=== PATIENT | male | born 1960 | race Caucasian/White ===

== ENCOUNTER 2022-10-29 13:56 | Observation (INO) | payer BC ==
--- OUTSIDE RECORDS SUMMARY | 2022-10-29 14:18 | XMS REPORT | Continuity of Care Document ---
:1960 Author Organization [facility] [place] t Address [address] [facility] [address] [place] [address] Care Team Providers Name Role Phone LIGIA SABA Primary Care Physician Unavailable HIEU BEACH Attending Clinician Unavailable ANNABEL DELACRUZ Attending Clinician Unavailable LIGIA SABA Attending Clinician Unavailable CELESTINO KWAN Attending Clinician Unavailable Doctor Unassigned, [place] Attending Clinician Unavailable Ligia Cooper Attending Clinician TRINI COLE Attending Clinician Unavailable Lab, Ang - Db Attending Clinician Unavailable ELLI GONZALES Admitting Clinician Unavailable Payers Payer Name Policy Type Policy Number Effective Date Expiration Date S marj BCBS [id number] 2021 00:00:00 POS/PPO/[place] - [id number] 2021 00:00:00 OUT OF STATE Problems Condition Condition Condition Status Onset Resolution Last Treating Co mments Source Name Details Category Date Date Treatment Clinician Date Diarrhea, Diarrhea, Disease Active Uni vers unspecifie unspecifie 08-29 it y of d type d type 00:00: [address] Branch 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 3- ity of 00:00: [address] Bipolar 2 Bipolar 2 Disease Active Uni vers disorder disorder - ity of 00:00: [address] Anxiety Anxiety Disease Active Univers and and 1 ity of depression [place] 00:00: [place] 00 [place] Branch Type 2 Type 2 Disease Active Univers diabetes diabetes 1-25 ity of mellitus mellitus 00:00: [place] with with 00 Medical diabetic diabetic Branch polyneurop polyneurop athy, athy, without without long-term long-term current current use of use of insulin insulin Essential Essential Disease Active Uni vers hypertensi hypertensi 1-25 it y of on on 00:00: [place] [facility] Hyperlipid Hyperlipid Disease Active U nivers emia, emia, 1-25 ity of unspecifie unspecifie 00:00[place] 00 Medical hyperlipid hyperlipid Br anch emia type emia type LUQ pain LUQ pain Disease Active Unive rs 1-25 ity of 00:00: [place] [facility] Nausea Nausea Disease Active Univers 1-25 ity of 00:00: [place] [facility] HIV HIV Disease Active Univers infection, infection, 1-25 it y of unspecifie unspecifie 00:[place] d symptom d symptom 00 Medi kaia status status Branch Need for Need for Disease Active Unive rs hepatitis hepatitis 1-25 ity of C C 00:00: [place] screening screening 00 Medi kaia test test Branch Need for Need for Disease Active Unive rs vaccinatio vaccinatio -25 it y of n n 00:00: [place] 00 Medical Branch Encounter Encounter Disease Active Uni vers to to 1-25 ity of establish establish 00:00: [facility] care care 00 Medical Branch Loss of Loss of Disease Active Univers appetite appetite 1-25 ity of 00:00: [place] [facility] Allergies, Adverse Reactions, Alerts Allergy Allergy Status Severity Reaction(s) Onset Inactive Treating Comm ents Source Name Type Date Date Clinician LITHIUM Allergy Active Med N\\T\\V [facility] [place] [facility] Active Nausea Univers ty to and/or 1-25 ity of adverse Vomiting 00:00: [place] reaction 00 Medical s Branch LITHIUM DRUG Active N/V Univers INGREDI 1-25 ity of 00:00: [place] 00 Medical Branch NO KNOWN Drug Active Univers ALLERGIE Class ity of S [facility] NO KNOWN Allergy Active [facility] ALLERGIE S Social History Social Habit Start Date Stop Date Quantity Comments Source Exposure to 2022-08-19 2022-08-29 Not sure [facility] SARS-CoV-2 (event) 00:00:00 14:36:00 Medica l Branch Sex [birth year] [facility] y of [place] 00:00:00 00:00:00 Medical Branch Smoking Status Start Date Stop Date Source Tobacco smoking consumption [facility] Medical unknown Branch Medications Ordered Filled Start Stop Current Ordering Indication Dosage Frequency Signature Comments Components Source Medication Medication Date Date Medication? Clinician (SIG) Name Name insulin 2022- No 20U inject 20 Univ ers glargine - 03-03 Units ity of 100 unit/mL 15:25: 00:00 under the [place] injection 26 :00 skin at Medical bedtime. Branch insulin 2022- No 20U inject 20 Univ ers glargine - 03-03 Units ity of 100 unit/mL 15:25: 00:00 under the [place] injection 26 :00 skin at Medical bedtime. Branch gabapentin 2022- No 300mg Take 300 U nivers 300 mg - 03-03 mg by ity of capsule 15:25: 00:00 mouth in [place] 01 :00 the Medical morning Branch and 300 mg at noon and 300 mg in the evening. gabapentin 2022- No 300mg Take 300 U nivers 300 mg 08-29 03-03 mg by ity of capsule 15:25: 00:00 mouth in [place] 01 :00 the Medical morning Branch and 300 mg at noon and 300 mg in the evening. metFORMIN 2022- Yes [id number] 1000mg Take 1 Univers 1,000 mg 24 3-03 tablet by ity of hr tablet 00:00: [facility] Branch and 1 tablet in the evening. Take with meals. pantoprazol 2022-0 Yes [id number] 40mg Take 1 Univers e 3-03 tablet by ity of (PROTONIX) 00:00: mouth in [place] 40 mg EC 00 the Medical tablet morning. Branch dulaglutide 2022- Yes [id number] .75mg inject 1 Univers (TRULICITY) 3-03 Pen under ity of 0.75 mg/0.5 00:00: [place] mL PnIj 00 weekly. Medical Branch metFORMIN 3-0 Yes [id number] 1000mg Take 1 Univers 1,000 mg 24 3-03 tablet by ity of hr tablet 00:00: [place] 00 the Medical morning Branch and 1 tablet in the evening. Take with meals. pantoprazol 2023-0 Yes [id number] 40mg Take 1 Univers e 3-03 tablet by ity of (PROTONIX) 00:00: mouth in [place] 40 mg EC 00 the Medical tablet morning. Branch dulaglutide 2022-0 Yes [id number] .75mg inject 1 Univers (TRULICITY) 3-03 Pen under ity of 0.75 mg/0.5 00:00: the skin [place] mL PnIj 00 weekly. Medical Branch metFORMIN 2022-0 Yes [id number] 1000mg Take 1 Univers 1,000 mg 24 3-03 tablet by ity of hr tablet 00:00: [place] 00 the Medical morning Branch and 1 tablet in the evening. Take with meals. PANTOPRAZOL 3-0 Yes [id number] 40mg TAKE 1 Univers E 40 mg EC 3-03 TABLET BY ity of tablet 00:00: MOUTH IN [place] 00 THE Medical MORNING Branch dulaglutide 3-0 Yes [id number] .75mg inject 1 Univers (TRULICITY) 3-03 Pen under ity of 0.75 mg/0.5 00:00: [place] mL PnIj 00 weekly. Medical Branch metFORMIN 3-0 Yes [id number] 1000mg Take 1 Univers 1,000 mg 24 3-03 tablet by ity of hr tablet 00:00: [place] 00 the Medical morning Branch and 1 tablet in the evening. Take with meals. PANTOPRAZOL 3-0 Yes [id number] 40mg TAKE 1 Univers E 40 mg EC 3-03 TABLET BY ity of tablet 00:00: MOUTH IN [place] 00 THE Medical MORNING Branch dulaglutide 2023-0 Yes [id number] .75mg inject 1 Univers (TRULICITY) 3-03 Pen under ity of 0.75 mg/0.5 00:00: [place] skin [place] mL PnIj 00 weekly. Medical Branch metFORMIN 3-0 Yes [id number] 1000mg Take 1 Univers 1,000 mg 24 3-03 tablet by ity of hr tablet 00:00: [place] 00 the Medical morning Branch and 1 tablet in the evening. Take with meals. PANTOPRAZOL 2023-0 Yes [id number] 40mg TAKE 1 Univers E 40 mg EC 3-03 TABLET BY ity of tablet 00:00: MOUTH IN [place] 00 THE Medical MORNING Branch dulaglutide 2023-0 Yes [id number] .75mg inject 1 Univers (TRULICITY) 3-03 Pen under ity of 0.75 mg/0.5 00:00: the [place] mL PnIj 00 weekly. Medical Branch metFORMIN 2023-0 Yes [id number] 1000mg Take 1 Univers 1,000 mg 24 3-03 tablet by ity of hr tablet 00:00: [place] 00 the Medical morning Branch and 1 tablet in the evening. Take with meals. PANTOPRAZOL 3-0 Yes [id number] 40mg TAKE 1 Univers E 40 mg EC 3-03 TABLET BY ity of tablet 00:00: MOUTH IN [place] 00 THE Medical MORNING Branch dulaglutide 3-0 Yes [id number] .75mg inject 1 Univers (TRULICITY) 3-03 Pen under ity of 0.75 mg/0.5 00:00: the skin [place] mL PnIj 00 weekly. Medical Branch metFORMIN 3-0 Yes [id number] 1000mg Take 1 Univers 1,000 mg 24 3-03 tablet by ity of hr tablet 00:00: [place] 00 the Medical morning Branch and 1 tablet in the evening. Take with meals. PANTOPRAZOL 2023-0 Yes [id number] 40mg TAKE 1 Univers E 40 mg EC 3-03 TABLET BY ity of tablet 00:00: MOUTH IN [place] 00 THE Medical MORNING Branch dulaglutide 3-0 Yes [id number] .75mg inject 1 Univers (TRULICITY) 3-03 Pen under ity of 0.75 mg/0.5 00:00: the skin [place] mL PnIj 00 weekly. Medical Branch metFORMIN 2023-0 Yes [id number] 1000mg Take 1 Univers 1,000 mg 24 3-03 tablet by ity of hr tablet 00:00: [place] 00 the Medical morning Branch and 1 tablet in the evening. Take with meals. PANTOPRAZOL 2023-0 Yes [id number] 40mg TAKE 1 Univers E 40 mg EC 3-03 TABLET BY ity of tablet 00:00: MOUTH IN [place] 00 THE Medical MORNING Branch dulaglutide Yes [id number] .75mg inject 1 Univers (TRULICITY) 3-03 Pen under ity of 0.75 mg/0.5 00:00: the skin [place] mL PnIj 00 weekly. Medical Branch metFORMIN Yes [id number] 1000mg Take 1 Univers 1,000 mg 24 3-03 tablet by ity of hr tablet 00:00: mouth in [facility] 00 the Medical morning Branch and 1 tablet in the evening. Take with meals. PANTOPRAZOL Yes [id number] 40mg TAKE 1 Univers E 40 mg EC 3-03 TABLET BY ity of tablet 00:00: MOUTH IN [place] 00 THE Medical MORNING Branch dulaglutide Yes [id number] .75mg inject 1 Univers (TRULICITY) 3-03 Pen under ity of 0.75 mg/0.5 00:00: the skin [place] mL PnIj 00 weekly. Medical Branch pantoprazol 2022- No [id number] 40mg Take 1 Univers e 3-03 03-03 tablet by ity of (PROTONIX) 00:00: 00:00 mouth in [place] 40 mg EC 00 :00 the Medical tablet morning. Branch pantoprazol 0 2022- No [id number] 40mg Take 1 Univers e 3-03 03-03 tablet by ity of (PROTONIX) 00:00: 00:00 mouth in [place] 40 mg EC 00 :00 the Medical tablet morning. Branch bictegrav-e Yes [id number] 1{tbl} Take 1 Univers mtricit-ten 1-27 tablet by ity of ofov ala 00:00: mouth in [place] (BIKTARVY) 00 the Medical 50-200-25 morning. Branch mg tablet traZODone Yes [id number] 200mg Take 2 U nivers 100 mg 1-27 tablets by ity of tablet 00:00: mouth at [place] 00 bedtime. Medical Branch bictegrav-e Yes [id number] 1{tbl} Take 1 Univers mtricit-ten 1-27 tablet by ity of ofov ala 00:00: mouth in [place] (KTARVY) 00 the Medical morning. Branch mg tablet bictegrav-e 3-0 Yes [id number] 1{tbl} Take 1 Univers mtricit-ten 1-27 tablet by ity of ofov ala 00:00: mouth in [place] (BIKTARVY) 00 the Medical morning. Branch mg tablet traZODone 3-0 Yes [id number] 200mg Take 2 U nivers 100 mg 1-27 tablets by ity of tablet 00:00: mouth at [place] 00 bedtime. Medical Branch bictegrav-e 3-0 Yes [id number] 1{tbl} Take 1 Univers mtricit-ten 1-27 tablet by ity of ofov ala 00:00: mouth in [place] (KTARVY) 00 the Medical morning. Branch mg tablet traZODone 3-0 Yes [id number] 200mg Take 2 U nivers 100 mg 1-27 tablets by ity of tablet 00:00: mouth at [place] 00 bedtime. Medical Branch bictegrav-e 3-0 Yes [id number] 1{tbl} Take 1 Univers mtricit-ten 1-27 tablet by ity of ofov ala 00:00: mouth in [place] (KTAR) 00 the Medical morning. Branch mg tablet traZODone 3-0 Yes [id number] 200mg Take 2 U nivers 100 mg 1-27 tablets by ity of tablet 00:00: mouth at [place] 00 bedtime. Medical Branch bictegrav-e 3-0 Yes [id number] 1{tbl} Take 1 Univers mtricit-ten 1-27 tablet by ity of ofov ala 00:00: mouth in [place] (BIKTARVY) 00 the Medical morning. Branch mg tablet bictegrav-e 3-0 Yes [id number] 1{tbl} Take 1 Univers mtricit-ten 1-27 tablet by ity of ofov ala 00:00: mouth in [place] (BIKTARVY) 00 the Medical morning. Branch mg tablet traZODone 2023-0 Yes [id number] 200mg Take 2 U nivers 100 mg 1-27 tablets by ity of tablet 00:00: mouth at [place] 00 bedtime. Medical Branch bictegrav-e 2022-0 Yes [id number] 1{tbl} Take 1 Univers mtricit-ten 1-27 tablet by ity of ofov ala 00:00: mouth in [place] (BIKTARVY) 00 the Medical morning. Branch mg tablet traZODone 3-0 Yes [id number] 200mg Take 2 U nivers 100 mg 1-27 tablets by ity of tablet 00:00: mouth at [place] 00 bedtime. Medical Branch bictegrav-e 2022-0 Yes [id number] 1{tbl} Take 1 Univers mtricit-ten 1-27 tablet by ity of ofov ala 00:00: mouth in [place] (BIKTARVY) 00 the Medical morning. Branch mg tablet traZODone 3-0 Yes [id number] 200mg Take 2 U nivers 100 mg 1-27 tablets by ity of tablet 00:00: mouth at [place] 00 bedtime. Medical Branch bictegrav-e 2022-0 Yes [id number] 1{tbl} Take 1 Univers mtricit-ten 1-27 tablet by ity of ofov ala 00:00: mouth in [place] (KTARV) 00 the Medical morning. Branch mg tablet traZODone 3-0 Yes [id number] 200mg Take 2 U nivers 100 mg 1-27 tablets by ity of tablet 00:00: mouth at [place] 00 bedtime. Medical Branch bictegrav-e 2022-0 Yes [id number] 1{tbl} Take 1 Univers mtricit-ten 1-27 tablet by ity of ofov ala 00:00: mouth in [place] (BIKTARVY) 00 the Medical morning. Branch mg tablet traZODone 3-0 Yes [id number] 200mg Take 2 U nivers 100 mg 1-27 tablets by ity of tablet 00:00: mouth at [place] 00 bedtime. Medical Branch bictegrav-e 2022-0 Yes [id number] 1{tbl} Take 1 Univers mtricit-ten 1-27 tablet by ity of ofov ala 00:00: mouth in [place] (BIKTARVY) 00 the Medical morning. Branch mg tablet traZODone 2022-0 Yes [id number] 200mg Take 2 U nivers 100 mg 1-27 tablets by ity of tablet 00:00: mouth at [place] 00 bedtime. Medical Branch bictegrav-e 2022-0 Yes [id number] 1{tbl} Take 1 Univers mtricit-ten 1-27 tablet by ity of ofov ala 00:00: mouth in [place] ([facility] 00 the Medical morning. Branch mg tablet traZODone 2022-0 Yes [id number] 200mg Take 2 U nivers 100 mg 1-27 tablets by ity of tablet 00:00: mouth at [place] 00 bedtime. Medical Branch bictegrav-e 2022-0 Yes [id number] 1{tbl} Take 1 Univers mtricit-ten 1-27 tablet by ity of ofov ala 00:00: mouth in [place] ([facility]) 00 the Medical morning. Branch mg tablet traZODone 2022-0 Yes [id number] 200mg Take 2 U nivers 100 mg 1-27 tablets by ity of tablet 00:00: mouth at [place] 00 bedtime. Medical Branch bictegrav-e 2022-0 Yes [id number] 1{tbl} Take 1 Univers mtricit-ten 1-27 tablet by ity of ofov ala 00:00: mouth in [place] ([facility] 00 the Medical morning. Branch mg tablet traZODone 2022-0 Yes [id number] 200mg Take 2 U nivers 100 mg 1-27 tablets by ity of tablet 00:00: mouth at [place] 00 bedtime. Medical Branch bictegrav-e 2022-0 Yes [id number] 1{tbl} Take 1 Univers mtricit-ten 1-27 tablet by ity of ofov ala 00:00: mouth in [place] ([facility]) 00 the Medical morning. Branch mg tablet traZODone 3-0 Yes [id number] 200mg Take 2 U nivers 100 mg 1-27 tablets by ity of tablet 00:00: mouth at [place] 00 bedtime. Medical Branch bictegrav-e 2022-0 Yes [id number] 1{tbl} Take 1 Univers mtricit-ten 1-27 tablet by ity of ofov ala 00:00: mouth in [place] (BIKTARVY) 00 the Medical 50 morning. Branch mg tablet traZODone 3-0 Yes [id number] 200mg Take 2 U nivers 100 mg 1-27 tablets by ity of tablet 00:00: mouth at [place] 00 bedtime. Medical Branch bictegrav-e 2022-0 Yes [id number] 1{tbl} Take 1 Univers mtricit-ten 1-27 tablet by ity of ofov ala 00:00: mouth in [place] (BIKTARVY) 00 the Medical morning. Branch mg tablet traZODone 2022-0 Yes [id number] 200mg Take 2 U nivers 100 mg 1-27 tablets by ity of tablet 00:00: mouth at [place] 00 bedtime. Medical Branch bictegrav-e 2022-0 Yes [id number] 1{tbl} Take 1 Univers mtricit-ten 1-27 tablet by ity of ofov ala 00:00: mouth in [place] (BIKTARVY) 00 the Medical morning. Branch mg tablet traZODone 2022-0 Yes [id number] 200mg Take 2 U nivers 100 mg 1-27 tablets by ity of tablet 00:00: mouth at [place] 00 bedtime. Medical Branch traZODone 2022- No 200mg Take 200 Un gely 100 mg -23 07-25 mg by ity of tablet 13:32: 00:00 mouth at [place] 34 :00 bedtime. Medical Branch PARoxetine 2022-0 2022- No 30mg Take 30 mg Univers 30 mg 07-23 by mouth ity of tablet 13:32: 00:00 in the [place] 34 :00 morning. Medical Branch hydrOXYzine 2022-0 2022- No 25mg Take 25 mg Univers 25 mg 07-23 by mouth ity of tablet 13:32: 00:00 as needed [place] 34 :00 for Medical Itching. Branch empaglifloz 2022-0 2022- No 10mg Take 10 mg Univers in 07-23 by mouth ity of (JARDIANCE) 13:32: 00:00 in the [place] 10 mg 34 :00 morning. Medical Branch metFORMIN 2022-0 3- No 1000mg Take 1,000 Univers 1,000 mg 1-25 -25 mg by ity of tablet 13:32: 00:00 mouth in [place] 34 :00 the Medical morning Branch and 1,000 mg in the evening. Take with meals. lisinopriL 2022-0 3- No 10mg Take 10 mg Univers 10 mg -23 07-25 by mouth ity of tablet 13:32: 00:00 in the [place] 34 :00 morning. Medical Branch atorvastati 2022-2022- No 80mg Take 80 mg Univers n 80 mg 07-2325 by mouth ity of tablet 13:32: 00:00 at [place] 34 :00 bedtime. Medical Branch traZODone 2022-2022- No 200mg Take 200 Un gely 100 mg -25 -25 mg by ity of tablet 13:32: 00:00 mouth at [place] 34 :00 bedtime. Medical Branch PARoxetine 2022-0 2022- No 30mg Take 30 mg Univers 30 mg 07-23 by mouth ity of tablet 13:32: 00:00 in the [place] 34 :00 morning. Medical Branch hydrOXYzine 2022-0 2022- No 25mg Take 25 mg Univers 25 mg 07-2325 by mouth ity of tablet 13:32: 00:00 as needed [place] 34 :00 for Medical Itching. Branch empaglifloz 2022-2022- No 10mg Take 10 mg Univers in 07-23 by mouth ity of (JARDIANCE) 13:32: 00:00 in the [place] 10 mg 34 :00 morning. Medical Branch metFORMIN 2022-0 2022- No 1000mg Take 1,000 Univers 1,000 mg 1-25 -25 mg by ity of tablet 13:32: 00:00 mouth in [place] 34 :00 the Medical morning Branch and 1,000 mg in the evening. Take with meals. lisinopriL 2022-0 3- No 10mg Take 10 mg Univers 10 mg -25 -25 by mouth ity of tablet 13:32: 00:00 in the [place] 34 :00 morning. Medical Branch atorvastati 2022-0 3- No 80mg Take 80 mg Univers n 80 mg 1-25 01-25 by mouth ity of tablet 13:32: 00:00 at [place] 34 :00 bedtime. Medical Branch NITROGLYCER 3-[address] Unive rs IN SL 1-25 under the ity of 13:26: tongue. [place] [address] Medical Branch NITROGLYCER 3-[address] Unive rs IN SL 1-25 under the ity of 13:26: tongue. [place] [address] Medical Branch NITROGLYCER 2022-[address] Unive rs IN SL 1-25 under the ity of 13:26: tongue. [place] [address] Medical Branch NITROGLYCER 3-[address] Unive rs IN SL 1-25 under the ity of 13:26: tongue. [place] [address] Medical Branch NITROGLYCER 2022-[address] Unive rs IN SL 1-25 under the ity of 13:26: tongue. [place] [address] Medical Branch NITROGLYCER 3-[address] Unive rs IN SL 1-25 under the ity of 13:26: tongue. [place] [address] Medical Branch NITROGLYCER 2022-[address] Unive rs IN SL 1-25 under the ity of 13:26: tongue. [place] [address] Medical Branch NITROGLYCER 3-[address] Unive rs IN SL 1-25 under the ity of 13:26: tongue. [place] [address] Medical Branch NITROGLYCER 2022-[address] Unive rs IN SL 1-25 under the ity of 13:26: tongue. [place] [address] Medical Branch NITROGLYCER 3-[address] Unive rs IN SL 1-25 under the ity of 13:26: tongue. [place] [address] Medical Branch NITROGLYCER 202-[address] Unive rs IN SL 1-25 under the ity of 13:26: tongue. [place] [address] Medical Branch NITROGLYCER 2023-[address] Unive rs IN SL 1-25 under the ity of 13:26: tongue. [place] [address] Medical Branch NITROGLYCER 2023-[address] Unive rs IN SL 1-25 under the ity of 13:26: tongue. [place] [address] Medical Branch NITROGLYCER 2023-[address] Unive rs IN SL 1-25 under the ity of 13:26: tongue. [place] [address] Medical Branch NITROGLYCER 2023-[address] Unive rs IN SL 1-25 under the ity of 13:26: tongue. [place] [address] Medical Branch NITROGLYCER 2023-[address] Unive rs IN SL 1-25 under the ity of 13:26: tongue. [place] [address] Medical Branch NITROGLYCER 3-[address] Unive rs IN SL 1-25 under the ity of 13:26: tongue. [place] [address] Medical Branch NITROGLYCER 3-[address] Unive rs IN SL 1-25 under the ity of 13:26: tongue. [place] [address] Medical Branch NITROGLYCER 2023-[address] Unive rs IN SL 1-25 under the ity of 13:26: tongue. [place] [address] Medical Branch NITROGLYCER 3-[address] Unive rs IN SL 1-25 under the ity of 13:26: tongue. [place] [address] Medical Branch NITROGLYCER 3-[address] Unive rs IN SL 1-25 under the ity of 13:26: tongue. [place] [address] Medical Branch NITROGLYCER 3-[address] Unive rs IN SL 1-25 under the ity of 13:26: tongue. [place] [address] Medical Branch NITROGLYCER 3-[address] Unive rs IN SL 1-25 under the ity of 13:26: tongue. [place] [address] Medical Branch NITROGLYCER 3-[address] Unive rs IN SL 1-25 under the ity of 13:26: tongue. [place] [address] Medical Branch NITROGLYCER 3-[address] Unive rs IN SL 1-25 under the ity of 13:26: tongue. [place] [address] Medical Branch NITROGLYCER 3-[address] Unive rs IN SL 1-25 under the ity of 13:26: tongue. [place] [address] Medical Branch NITROGLYCER 3-[address] Unive rs IN SL 1-25 under the ity of 13:26: tongue. [place] [address] Medical Branch NITROGLYCER 2023-[address] Unive rs IN SL 1-25 under the ity of 13:26: tongue. [place] [address] Medical Branch NITROGLYCER 2023-[address] Unive rs IN SL 1-25 under the ity of 13:26: tongue. [place] [address] Medical Branch NITROGLYCER 2023-[address] Unive rs IN SL 1-25 under the ity of 13:26: tongue. [place] [address] Medical Branch gabapentin 3-0 Yes 300mg Take 300 Un gely 300 mg 1-25 mg by ity of capsule 13:26: mouth in [place] [address] the Medical morning Branch and 300 mg at noon and 300 mg in the evening. insulin 2023-0 Yes 20U inject 20 Unive rs glargine 1-25 Units ity of 100 unit/mL 13:26: under the [place] injection 26 skin at Medical bedtime. Branch gabapentin 2023-0 Yes 300mg Take 300 Un gely 300 mg 1-25 mg by ity of capsule 13:26: mouth in [place] [address] the Medical morning Branch and 300 mg at noon and 300 mg in the evening. insulin 2023-0 Yes 20U inject 20 Unive rs glargine 1-25 Units ity of 100 unit/mL 13:26: under the [place] injection 26 skin at Medical bedtime. Branch gabapentin 2023-0 Yes 300mg Take 300 Un gely 300 mg 1-25 mg by ity of capsule 13:26: mouth in [place] [address] the Medical morning Branch and 300 mg at noon and 300 mg in the evening. insulin 2023-0 Yes 20U inject 20 Unive rs glargine 1-25 Units ity of 100 unit/mL 13:26: under the [place] injection 26 skin at Medical bedtime. Branch gabapentin 2023-0 Yes 300mg Take 300 Un gely 300 mg 1-25 mg by ity of capsule 13:26: mouth in [place] [address] the Medical morning Branch and 300 mg at noon and 300 mg in the evening. insulin 2023-0 Yes 20U inject 20 Unive rs glargine 1-25 Units ity of 100 unit/mL 13:26: under the [place] injection 26 skin at Medical bedtime. Branch gabapentin 2023-0 Yes 300mg Take 300 Un gely 300 mg 1-25 mg by ity of capsule 13:26: mouth in [place] [address] the Medical morning Branch and 300 mg at noon and 300 mg in the evening. insulin 2023-0 Yes 20U inject 20 Unive rs glargine 1-25 Units ity of 100 unit/mL 13:26: under the [place] injection 26 skin at Medical bedtime. Branch gabapentin 2023-0 Yes 300mg Take 300 Un gely 300 mg 1-25 mg by ity of capsule 13:26: mouth in [place] [address] the Medical morning Branch and 300 mg at noon and 300 mg in the evening. insulin 2023-0 Yes 20U inject 20 Unive rs glargine 1-25 Units ity of 100 unit/mL 13:26: under the [place] injection 26 skin at Medical bedtime. Branch gabapentin 2023-0 Yes 300mg Take 300 Un gely 300 mg 1-25 mg by ity of capsule 13:26: mouth in [place] [address] the Medical morning Branch and 300 mg at noon and 300 mg in the evening. insulin 2023-0 Yes 20U inject 20 Unive rs glargine 1-25 Units ity of 100 unit/mL 13:26: under the [place] injection 26 skin at Medical bedtime. Branch gabapentin 2023-0 Yes 300mg Take 300 Un gely 300 mg 1-25 mg by ity of capsule 13:26: mouth in [place] [address] the Medical morning Branch and 300 mg at noon and 300 mg in the evening. insulin 2023-0 Yes 20U inject 20 Unive rs glargine 1-25 Units ity of 100 unit/mL 13:26: under the [place] injection 26 skin at Medical bedtime. Branch gabapentin 2023-0 Yes 300mg Take 300 Un gely 300 mg 1-25 mg by ity of capsule 13:26: mouth in [place] [address] the Medical morning Branch and 300 mg at noon and 300 mg in the evening. insulin 2023-0 Yes 20U inject 20 Unive rs glargine 1-25 Units ity of 100 unit/mL 13:26: under the [place] injection 26 skin at Medical bedtime. Branch gabapentin 2023-0 Yes 300mg Take 300 Un gely 300 mg 1-25 mg by ity of capsule 13:26: mouth in [place] [address] the Medical morning Branch and 300 mg at noon and 300 mg in the evening. insulin 2023-0 Yes 20U inject 20 Unive rs glargine 1-25 Units ity of 100 unit/mL 13:26: under the [place] injection 26 skin at Medical bedtime. Branch gabapentin 2023-0 Yes 300mg Take 300 Un gely 300 mg 1-25 mg by ity of capsule 13:26: mouth in [place] [address] the Medical morning Branch and 300 mg at noon and 300 mg in the evening. insulin 2023-0 Yes 20U inject 20 Unive rs glargine 1-25 Units ity of 100 unit/mL 13:26: under the [place] injection 26 skin at Medical bedtime. Branch gabapentin 2023-0 Yes 300mg Take 300 Un gely 300 mg 1-25 mg by ity of capsule 13:26: mouth in [place] [address] the Medical morning Branch and 300 mg at noon and 300 mg in the evening. insulin 2023-0 Yes 20U inject 20 Unive rs glargine 1-25 Units ity of 100 unit/mL 13:26: under the [place] injection 26 skin at Medical bedtime. Branch gabapentin 2023-0 Yes 300mg Take 300 Un gely 300 mg 1-25 mg by ity of capsule 13:26: mouth in [place] [address] the Medical morning Branch and 300 mg at noon and 300 mg in the evening. insulin 2023-0 Yes 20U inject 20 Unive rs glargine 1-25 Units ity of 100 unit/mL 13:26: under the [place] injection 26 skin at Medical bedtime. Branch gabapentin 2023-0 Yes 300mg Take 300 Un gely 300 mg 1-25 mg by ity of capsule 13:26: mouth in [place] [address] the [facility] morning Branch and 300 mg at noon and 300 mg in the evening. insulin 2023-0 Yes 20U inject 20 Unive rs glargine 1-25 Units ity of 100 unit/mL 13:26: under the [place] injection 26 skin at Medical bedtime. Branch gabapentin 2023-0 Yes 300mg Take 300 Un gely 300 mg 1-25 mg by ity of capsule 13:26: mouth in [place] [address] the [facility] morning Branch and 300 mg at noon and 300 mg in the evening. insulin 2023-0 Yes 20U inject 20 Unive rs glargine 1-25 Units ity of 100 unit/mL 13:26: under the [place] injection 26 skin at Medical bedtime. Branch gabapentin 2023-0 Yes 300mg Take 300 Un gely 300 mg 1-25 mg by ity of capsule 13:26: mouth in [place] [address] the [facility] morning Branch and 300 mg at noon and 300 mg in the evening. insulin 2023-0 Yes 20U inject 20 Unive rs glargine 1-25 Units ity of 100 unit/mL 13:26: under the [place] injection 26 skin at Medical bedtime. Branch gabapentin 2023-0 Yes 300mg Take 300 Un gely 300 mg 1-25 mg by ity of capsule 13:26: mouth in [place] [address] the Medical morning Branch and 300 mg at noon and 300 mg in the evening. insulin 2023-0 Yes 20U inject 20 Unive rs glargine 1-25 Units ity of 100 unit/mL 13:26: under the [place] injection 26 skin at Medical bedtime. Branch gabapentin 2023-0 Yes 300mg Take 300 Un gely 300 mg 1-25 mg by ity of capsule 13:26: mouth in [place] [address] the Medical morning Branch and 300 mg at noon and 300 mg in the evening. insulin 2023-0 Yes 20U inject 20 Unive rs glargine 1-25 Units ity of 100 unit/mL 13:26: under the [place] injection 26 skin at Medical bedtime. Branch gabapentin 2023-0 Yes 300mg Take 300 Un gely 300 mg 1-25 mg by ity of capsule 13:26: mouth in [place] [address] the Medical morning Branch and 300 mg at noon and 300 mg in the evening. insulin 3-0 Yes 20U inject 20 Unive rs glargine 1-25 Units ity of 100 unit/mL 13:26: under the [place] injection 26 skin at Medical bedtime. Branch gabapentin 2022-0 Yes 300mg Take 300 Un gely 300 mg 1-25 mg by ity of capsule 13:26: mouth in [place] [address] the Medical morning Branch and 300 mg at noon and 300 mg in the evening. insulin 2023-0 Yes 20U inject 20 Unive rs glargine 1-25 Units ity of 100 unit/mL 13:26: under the [place] injection 26 skin at Medical bedtime. Branch gabapentin 3-0 Yes 300mg Take 300 Un gely 300 mg 1-25 mg by ity of capsule 13:26: mouth in [place] [address] the Medical morning Branch and 300 mg at noon and 300 mg in the evening. insulin 2023-0 Yes 20U inject 20 Unive rs glargine 1-25 Units ity of 100 unit/mL 13:26: under the [place] injection 26 skin at Medical bedtime. Branch bictegrav/e 2023-0 Yes Take by Uni vers mtricit/ten 1-25 mouth. ity of ofov ala 13:23: [place] (BIKTARVY 50 Medical ORAL) Branch bictegrav/e 2022-0 Yes Take by Uni vers mtricit/ten 1-25 mouth. ity of ofov ala 13:23: [place] (BIKTARVY 50 Medical ORAL) Branch bictegrav/e 2022-0 Yes Take by Uni vers mtricit/ten 1-25 mouth. ity of ofov ala 13:23: [place] (BIKTARVY 50 Medical ORAL) Branch bictegrav/e 0 Yes Take by Uni vers mtricit/ten 1-25 mouth. ity of ofov ala 13:23: [place] (BIKTARVY 50 Medical ORAL) Branch bictegrav/e 0 Yes Take by Uni vers mtricit/ten 1-25 mouth. ity of ofov ala 13:23: [place] (BIKTARVY 50 Medical ORAL) Branch bictegrav/e 0 Yes Take by Uni vers mtricit/ten 1-25 mouth. ity of ofov ala 13:23: [place] (BIKTARVY 50 Medical ORAL) Branch bictegrav/e 0 Yes Take by Uni vers mtricit/ten 1-25 mouth. ity of ofov ala 13:23: [place] (BIKTARVY 50 Medical ORAL) Branch bictegrav/e 0 Yes Take by Uni vers mtricit/ten 1-25 mouth. ity of ofov ala 13:23: [place] (BIKTARVY 50 Medical ORAL) Branch bictegrav/e 0 Yes Take by Uni vers mtricit/ten 1-25 mouth. ity of ofov ala 13:23: [place] (BIKTARVY 50 Medical ORAL) Branch bictegrav/e 0 Yes Take by Uni vers mtricit/ten 1-25 mouth. ity of ofov ala 13:23: [place] (BIKTARVY 50 Medical ORAL) Branch bictegrav/e 0 Yes Take by Uni vers mtricit/ten 1-25 mouth. ity of ofov ala 13:23: [place] (BIKTARVY 50 Medical ORAL) Branch bictegrav/e 0 Yes Take by Uni vers mtricit/ten 1-25 mouth. ity of ofov ala 13:23: [place] (BIKTARVY 50 Medical ORAL) Branch bictegrav/e 2022-0 Yes Take by Uni vers mtricit/ten 1-25 mouth. ity of ofov ala 13:23: [place] (BIKTARVY 50 Medical ORAL) Branch bictegrav/e 2022-0 Yes Take by Uni vers mtricit/ten 1-25 mouth. ity of ofov ala 13:23: [place] (BIKTARVY 50 Medical ORAL) Branch bictegrav/e 2022-0 Yes Take by Uni vers mtricit/ten 1-25 mouth. ity of ofov ala 13:23: [place] (BIKTARVY 50 Medical ORAL) Branch bictegrav/e 2022-0 Yes Take by Uni vers mtricit/ten 1-25 mouth. ity of ofov ala 13:23: [place] (BIKTARVY 50 Medical ORAL) Branch bictegrav/e 2022-0 Yes Take by Uni vers mtricit/ten 1-25 mouth. ity of ofov ala 13:23: [place] (BIKTARVY 50 Medical ORAL) Branch bictegrav/e 2022-0 Yes Take by Uni vers mtricit/ten 1-25 mouth. ity of ofov ala 13:23: [place] (BIKTARVY 50 Medical ORAL) Branch bictegrav/e 2022-0 Yes Take by Uni vers mtricit/ten 1-25 mouth. ity of ofov ala 13:23: [place] (BIKTARVY 50 Medical ORAL) Branch bictegrav/e 2022-0 Yes Take by Uni vers mtricit/ten 1-25 mouth. ity of ofov ala 13:23: [place] (BIKTARVY 50 Medical ORAL) Branch bictegrav/e 2022-0 Yes Take by Uni vers mtricit/ten 1-25 mouth. ity of ofov ala 13:23: [place] (BIKTARVY 50 Medical ORAL) Branch bictegrav/e 2022-0 Yes Take by Uni vers mtricit/ten 1-25 mouth. ity of ofov ala 13:23: [place] (BIKTARVY 50 Medical ORAL) Branch bictegrav/e 2022-0 Yes Take by Uni vers mtricit/ten 1-25 mouth. ity of ofov ala 13:23: [place] (BIKTARVY 50 Medical ORAL) Branch bictegrav/e 2023-0 Yes Take by Uni vers mtricit/ten 1-25 mouth. ity of ofov ala 13:23: [place] (BIKTARVY 50 Medical ORAL) Branch bictegrav/e Yes Take by Uni vers mtricit/ten 1-25 mouth. ity of ofov ala 13:23: [place] (BIKTARVY 50 Medical ORAL) Branch bictegrav/e Yes Take by Uni vers mtricit/ten 1-25 mouth. ity of ofov ala 13:23: [place] (BIKTARVY 50 Medical ORAL) Branch bictegrav/e Yes Take by Uni vers mtricit/ten 1-25 mouth. ity of ofov ala 13:23: [place] (BIKTARVY 50 Medical ORAL) Branch bictegrav/e Yes Take by Uni vers mtricit/ten 1-25 mouth. ity of ofov ala 13:23: [place] (BIKTARVY 50 Medical ORAL) Branch bictegrav/e Yes Take by Uni vers mtricit/ten 1-25 mouth. ity of ofov ala 13:23: [place] (BIKTARVY 50 Medical ORAL) Branch bictegrav/e Yes Take by Uni vers mtricit/ten 1-25 mouth. ity of ofov ala 13:23: [place] (BIKTARVY 50 Medical ORAL) Branch atorvastati Yes [id number] 80mg Take 1 Univers n 80 mg 1-25 tablet by ity of tablet 00:00: mouth at [place] [address] bedtime. Medical Branch lisinopriL Yes [id number] 10mg Take 1 U nivers 10 mg 1-25 tablet by ity of tablet 00:00: mouth in [place] 00 the Medical morning. Branch metFORMIN Yes [id number] 1000mg Take 1 [facility] 1,000 mg 1-25 tablet by ity of tablet 00:00: mouth in [place] 00 the Medical morning Branch and 1 tablet in the evening. Take with meals. traZODone Yes [id number] 200mg Take 2 U nivers 100 mg 1-25 tablets by ity of tablet 00:00: mouth at [place] 00 bedtime. Medical Branch PARoxetine Yes [id number] 30mg Take 1 U nivers 30 mg 1-25 tablet by ity of tablet 00:00: mouth in [place] 00 the Medical morning. Branch empaglifloz 2022-0 Yes [id number] 10mg Take 1 [facility] in 1-25 tablet by ity of ([place]ARD[place]) 00:00: mouth in [place] 10 mg 00 the Medical morning Branch and 1 tablet in the evening. hydrOXYzine 2022-0 Yes [id number] 25mg Take 1 [facility] 25 mg 1-25 tablet by ity of tablet 00:00: mouth as [place] 00 needed for Medical Itching. Branch atorvastati 2022-0 Yes [id number] 80mg Take 1 [facility] n 80 mg 1-25 tablet by ity of tablet 00:00: mouth at [place] 00 bedtime. Medical Branch lisinopriL 2022-0 Yes [id number] 10mg Take 1 U nivers 10 mg 1-25 tablet by ity of tablet 00:00: mouth in [place] 00 the Medical morning. Branch metFORMIN 2022-0 Yes [id number] 1000mg Take 1 [facility] 1,000 mg 1-25 tablet by ity of tablet 00:00: mouth in [place] 00 the Medical morning Branch and 1 tablet in the evening. Take with meals. traZODone 2022-0 Yes [id number] 200mg Take 2 U nivers 100 mg 1-25 tablets by ity of tablet 00:00: mouth at [place] [address] bedtime. Medical Branch PARoxetine 2022-0 Yes [id number] 30mg Take 1 U nivers 30 mg 1-25 tablet by ity of tablet 00:00: mouth in [place] 00 the Medical morning. Branch empaglifloz 2022-0 Yes [id number] 10mg Take 1 [facility] in 1-25 tablet by ity of (JARDIANCE) 00:00: mouth in [place] 10 mg 00 the Medical morning Branch and 1 tablet in the evening. hydrOXYzine 2022-0 Yes [id number] 25mg Take 1 [facility] 25 mg 1-25 tablet by ity of tablet 00:00: mouth as [place] 00 needed for Medical Itching. Branch atorvastati 2022-0 Yes [id number] 80mg Take 1 [facility] n 80 mg 1-25 tablet by ity of tablet 00:00: mouth at [place] [address] bedtime. Medical Branch lisinopriL 2022-0 Yes [id number] 10mg Take 1 U nivers 10 mg 1-25 tablet by ity of tablet 00:00: mouth in [place] 00 the Medical morning. Branch metFORMIN 2022-0 Yes [id number] 1000mg Take 1 [facility] 1,000 mg 1-25 tablet by ity of tablet 00:00: mouth in [place] the Medical morning Branch and 1 tablet in the evening. Take with meals. traZODone 2022-0 Yes [id number] 200mg Take 2 U nivers 100 mg 1-25 tablets by ity of tablet 00:00: mouth at [place] [address] bedtime. Medical Branch PARoxetine 2022-0 Yes [id number] 30mg Take 1 U nivers 30 mg 1-25 tablet by ity of tablet 00:00: mouth in [place] 00 the Medical morning. Branch empaglifloz 2022-0 Yes [id number] 10mg Take 1 [facility] in 1-25 tablet by ity of ([place]) 00:00: mouth in [place] 10 mg 00 the Medical morning Branch and 1 tablet in the evening. hydrOXYzine 2022-0 Yes [id number] 25mg Take 1 [facility] 25 mg 1-25 tablet by ity of tablet 00:00: mouth as [place] [address] needed for Medical Itching. Branch atorvastati 2022-0 Yes [id number] 80mg Take 1 [facility] n 80 mg 1-25 tablet by ity of tablet 00:00: mouth at [place] [address] bedtime. Medical Branch lisinopriL 2022-0 Yes [id number] 10mg Take 1 U nivers 10 mg 1-25 tablet by ity of tablet 00:00: mouth in [place] 00 the Medical morning. Branch metFORMIN 2022-0 Yes [id number] 1000mg Take 1 [facility] 1,000 mg 1-25 tablet by ity of tablet 00:00: mouth in [place] 00 the Medical morning Branch and 1 tablet in the evening. Take with meals. traZODone 2022-0 Yes [id number] 200mg Take 2 U nivers 100 mg 1-25 tablets by ity of tablet 00:00: mouth at [place] [address] bedtime. Medical Branch PARoxetine 2022-0 Yes [id number] 30mg Take 1 U nivers 30 mg 1-25 tablet by ity of tablet 00:00: mouth in [place] [address] the Medical morning. Branch hydrOXYzine 2022-0 Yes [id number] 25mg Take 1 [facility] 25 mg 1-25 tablet by ity of tablet 00:00: mouth as [place] 00 needed for Medical Itching. Branch empaglifloz 2022-0 Yes [id number] 25mg Take 1 [facility] in 1-25 tablet by ity of ([place]) 00:00: mouth in [place] 25 mg Tab 00 the Medical morning. Branch glimepiride 2022-0 Yes [id number] 2mg Take 1 [facility] 2 mg tablet 1-25 tablet by ity of 00:00: mouth [place] 00 daily with Medical breakfast. Branch atorvastati 2022-0 Yes [id number] 80mg Take 1 Univers n 80 mg 1-25 tablet by ity of tablet 00:00: mouth at [place] 00 bedtime. Medical Branch lisinopriL 2022-0 Yes [id number] 10mg Take 1 U nivers 10 mg 1-25 tablet by ity of tablet 00:00: mouth in [place] 00 the Medical morning. Branch metFORMIN 2022-0 Yes [id number] 1000mg Take 1 Univers 1,000 mg 1-25 tablet by ity of tablet 00:00: mouth in [place] 00 the Medical morning Branch and 1 tablet in the evening. Take with meals. traZODone 2022-0 Yes [id number] 200mg Take 2 U nivers 100 mg 1-25 tablets by ity of tablet 00:00: mouth at [place] 00 bedtime. Medical Branch PARoxetine 2022-0 Yes [id number] 30mg Take 1 U nivers 30 mg 1-25 tablet by ity of tablet 00:00: mouth in [place] 00 the Medical morning. Branch hydrOXYzine 2022-0 Yes [id number] 25mg Take 1 [facility] 25 mg 1-25 tablet by ity of tablet 00:00: mouth as [place] 00 needed for Medical Itching. Branch empaglifloz 2022-0 Yes [id number] 25mg Take 1 [facility] in 1-25 tablet by ity of ([place]) 00:00: mouth in [place] 25 mg Tab 00 the Medical morning. Branch glimepiride 2022-0 Yes [id number] 2mg Take 1 [facility] 2 mg tablet 1-25 tablet by ity of 00:00: mouth [place] 00 daily with Medical breakfast. Branch atorvastati 2022-0 Yes [id number] 80mg Take 1 [facility] n 80 mg 1-25 tablet by ity of tablet 00:00: mouth at [place] [address] bedtime. Medical Branch lisinopriL 2022-0 Yes [id number] 10mg Take 1 U nivers 10 mg 1-25 tablet by ity of tablet 00:00: mouth in [place] 00 the Medical morning. Branch metFORMIN 2022-0 Yes [id number] 1000mg Take 1 [facility] 1,000 mg 1-25 tablet by ity of tablet 00:00: mouth in [place] 00 the Medical morning Branch and 1 tablet in the evening. Take with meals. traZODone 2022-0 Yes [id number] 200mg Take 2 U nivers 100 mg 1-25 tablets by ity of tablet 00:00: mouth at [place] [address] bedtime. Medical Branch PARoxetine 2022-0 Yes [id number] 30mg Take 1 U nivers 30 mg 1-25 tablet by ity of tablet 00:00: mouth in [place] 00 the Medical morning. Branch hydrOXYzine 2022-0 Yes [id number] 25mg Take 1 [facility] 25 mg 1-25 tablet by ity of tablet 00:00: mouth as [place] [address] needed for Medical Itching. Branch empaglifloz 2022-0 Yes [id number] 25mg Take 1 [facility] in 1-25 tablet by ity of ([place]) 00:00: mouth in [place] 25 mg Tab 00 the Medical morning. Branch glimepiride 2022-0 Yes [id number] 2mg Take 1 [facility] 2 mg tablet 1-25 tablet by ity of 00:00: mouth [place] 00 daily with Medical breakfast. Branch atorvastati 2022-0 Yes [id number] 80mg Take 1 [facility] n 80 mg 1-25 tablet by ity of tablet 00:00: mouth at [place] [address] bedtime. Medical Branch lisinopriL 2022-0 Yes [id number] 10mg Take 1 U nivers 10 mg 1-25 tablet by ity of tablet 00:00: mouth in [place] 00 the Medical morning. Branch metFORMIN 2022-0 Yes [id number] 1000mg Take 1 [facility] 1,000 mg 1-25 tablet by ity of tablet 00:00: mouth in [place] 00 the Medical morning Branch and 1 tablet in the evening. Take with meals. traZODone 2022-0 Yes [id number] 200mg Take 2 U nivers 100 mg 1-25 tablets by ity of tablet 00:00: mouth at [place] [address] bedtime. Medical Branch PARoxetine 2022-0 Yes [id number] 30mg Take 1 U nivers 30 mg 1-25 tablet by ity of tablet 00:00: mouth in [place] 00 the Medical morning. Branch hydrOXYzine 3-0 Yes [id number] 25mg Take 1 [facility] 25 mg 1-25 tablet by ity of tablet 00:00: mouth as [place] 00 needed for Medical Itching. Branch empaglifloz 2022-0 Yes [id number] 25mg Take 1 [facility] in 1-25 tablet by ity of ([place]) 00:00: mouth in [place] 25 mg Tab 00 the Medical morning. Branch glimepiride 2022-0 Yes [id number] 2mg Take 1 [facility] 2 mg tablet 1-25 tablet by ity of 00:00: mouth [place] 00 daily with Medical breakfast. Branch atorvastati 2022-0 Yes [id number] 80mg Take 1 [facility] n 80 mg 1-25 tablet by ity of tablet 00:00: mouth at [place] [address] bedtime. Medical Branch lisinopriL 2022-0 Yes [id number] 10mg Take 1 U nivers 10 mg 1-25 tablet by ity of tablet 00:00: mouth in [place] 00 the Medical morning. Branch metFORMIN 2022-0 Yes [id number] 1000mg Take 1 [facility] 1,000 mg 1-25 tablet by ity of tablet 00:00: mouth in [place] 00 the Medical morning Branch and 1 tablet in the evening. Take with meals. traZODone 3-0 Yes [id number] 200mg Take 2 U nivers 100 mg 1-25 tablets by ity of tablet 00:00: mouth at [place] [address] bedtime. Medical Branch PARoxetine 2022-0 Yes [id number] 30mg Take 1 U nivers 30 mg 1-25 tablet by ity of tablet 00:00: mouth in [place] 00 the Medical morning. Branch hydrOXYzine 3-0 Yes [id number] 25mg Take 1 [facility] 25 mg 1-25 tablet by ity of tablet 00:00: mouth as [place] [address] needed for Medical Itching. Branch empaglifloz 3-0 Yes [id number] 25mg Take 1 [facility] in 1-25 tablet by ity of ([place]) 00:00: mouth in [place] 25 mg Tab 00 the Medical morning. Branch glimepiride 2022-0 Yes [id number] 2mg Take 1 [facility] 2 mg tablet 1-25 tablet by ity of 00:00: mouth [place] 00 daily with Medical breakfast. Branch atorvastati 2022-0 Yes [id number] 80mg Take 1 [facility] n 80 mg 1-25 tablet by ity of tablet 00:00: mouth at [place] [address] bedtime. Medical Branch lisinopriL 2022-0 Yes [id number] 10mg Take 1 U nivers 10 mg 1-25 tablet by ity of tablet 00:00: mouth in [place] 00 the Medical morning. Branch metFORMIN 2022-0 Yes [id number] 1000mg Take 1 [facility] 1,000 mg 1-25 tablet by ity of tablet 00:00: mouth in [place] 00 the Medical morning Branch and 1 tablet in the evening. Take with meals. PARoxetine 2022-0 Yes [id number] 30mg Take 1 U nivers 30 mg 1-25 tablet by ity of tablet 00:00: mouth in [place] 00 the Medical morning. Branch hydrOXYzine 2022-0 Yes [id number] 25mg Take 1 [facility] 25 mg 1-25 tablet by ity of tablet 00:00: mouth as [place] 00 needed for Medical Itching. Branch empaglifloz 2022-0 Yes [id number] 25mg Take 1 [facility] in 1-25 tablet by ity of ([place]) 00:00: mouth in [place] 25 mg Tab 00 the Medical morning. Branch glimepiride 2022-0 Yes [id number] 2mg Take 1 [facility] 2 mg tablet 1-25 tablet by ity of 00:00: mouth [place] 00 daily with Medical breakfast. Branch atorvastati 2022-0 Yes [id number] 80mg Take 1 [facility] n 80 mg 1-25 tablet by ity of tablet 00:00: mouth at [place] [address] bedtime. Medical Branch lisinopriL 2022-0 Yes [id number] 10mg Take 1 U nivers 10 mg 1-25 tablet by ity of tablet 00:00: mouth in [place] 00 the Medical morning. Branch metFORMIN 2022-0 Yes [id number] 1000mg Take 1 [facility] 1,000 mg 1-25 tablet by ity of tablet 00:00: mouth in [place] 00 the Medical morning Branch and 1 tablet in the evening. Take with meals. PARoxetine 2023-0 Yes [id number] 30mg Take 1 U nivers 30 mg 1-25 tablet by ity of tablet 00:00: mouth in [place] 00 the Medical morning. Branch hydrOXYzine 2022-0 Yes [id number] 25mg Take 1 [facility] 25 mg 1-25 tablet by ity of tablet 00:00: mouth as [place] 00 needed for Medical Itching. Branch empaglifloz 2022-0 Yes [id number] 25mg Take 1 [facility] in 1-25 tablet by ity of ([place]) 00:00: mouth in [place] 25 mg Tab 00 the Medical morning. Branch glimepiride 2022-0 Yes [id number] 2mg Take 1 [facility] 2 mg tablet 1-25 tablet by ity of 00:00: mouth [place] 00 daily with Medical breakfast. Branch atorvastati 2022-0 Yes [id number] 80mg Take 1 [facility] n 80 mg 1-25 tablet by ity of tablet 00:00: mouth at [place] 00 bedtime. Medical Branch lisinopriL 2022-0 Yes [id number] 10mg Take 1 U nivers 10 mg 1-25 tablet by ity of tablet 00:00: mouth in [place] 00 the Medical morning. Branch metFORMIN 2022-0 Yes [id number] 1000mg Take 1 [facility] 1,000 mg 1-25 tablet by ity of tablet 00:00: mouth in [place] 00 the Medical morning Branch and 1 tablet in the evening. Take with meals. PARoxetine 2022-0 Yes [id number] 30mg Take 1 U nivers 30 mg 1-25 tablet by ity of tablet 00:00: mouth in [place] 00 the Medical morning. Branch hydrOXYzine 2022-0 Yes [id number] 25mg Take 1 [facility] 25 mg 1-25 tablet by ity of tablet 00:00: mouth as [place] 00 needed for Medical Itching. Branch empaglifloz 2022-0 Yes [id number] 25mg Take 1 [facility] in 1-25 tablet by ity of ([place]) 00:00: mouth in [place] 25 mg Tab 00 the Medical morning. Branch glimepiride 2022-0 Yes [id number] 2mg Take 1 [facility] 2 mg tablet 1-25 tablet by ity of 00:00: mouth [place] 00 daily with Medical breakfast. Branch atorvastati 2022-0 Yes [id number] 80mg Take 1 [facility] n 80 mg 1-25 tablet by ity of tablet 00:00: mouth at [place] [address] bedtime. Medical Branch lisinopriL 2022-0 Yes [id number] 10mg Take 1 U nivers 10 mg 1-25 tablet by ity of tablet 00:00: mouth in [place] 00 the Medical morning. Branch metFORMIN 2022-0 Yes [id number] 1000mg Take 1 [facility] 1,000 mg 1-25 tablet by ity of tablet 00:00: mouth in [place] 00 the Medical morning Branch and 1 tablet in the evening. Take with meals. PARoxetine 2022-0 Yes [id number] 30mg Take 1 [facility] nivers 30 mg 1-25 tablet by ity of tablet 00:00: mouth in [place] 00 the Medical morning. Branch hydrOXYzine 2022-0 Yes [id number] 25mg Take 1 [facility] 25 mg 1-25 tablet by ity of tablet 00:00: mouth as [place] [address] needed for Medical Itching. Branch empaglifloz 2022-0 Yes [id number] 25mg Take 1 [facility] in 1-25 tablet by ity of ([place]) 00:00: mouth in [place] 25 mg Tab 00 the Medical morning. Branch glimepiride 2022-0 Yes [id number] 2mg Take 1 [facility] 2 mg tablet 1-25 tablet by ity of 00:00: mouth [place] 00 daily with Medical breakfast. Branch atorvastati 2022-0 Yes [id number] 80mg Take 1 [facility] n 80 mg 1-25 tablet by ity of tablet 00:00: mouth at [place] [address] bedtime. Medical Branch lisinopriL 2022-0 Yes [id number] 10mg Take 1 U nivers 10 mg 1-25 tablet by ity of tablet 00:00: mouth in [place] 00 the Medical morning. Branch metFORMIN 2022-0 Yes [id number] 1000mg Take 1 [facility] 1,000 mg 1-25 tablet by ity of tablet 00:00: mouth in [place] 00 the Medical morning Branch and 1 tablet in the evening. Take with meals. PARoxetine 2022-0 Yes [id number] 30mg Take 1 [facility] nivers 30 mg 1-25 tablet by ity of tablet 00:00: mouth in [place] 00 the Medical morning. Branch hydrOXYzine 2022-0 Yes [id number] 25mg Take 1 [facility] 25 mg 1-25 tablet by ity of tablet 00:00: mouth as [place] 00 needed for Medical Itching. Branch empaglifloz 2022-0 Yes [id number] 25mg Take 1 [facility] in 1-25 tablet by ity of ([place]) 00:00: mouth in [place] 25 mg Tab 00 the Medical morning. Branch glimepiride 2022-0 Yes [id number] 2mg Take 1 [facility] 2 mg tablet 1-25 tablet by ity of 00:00: mouth [place] 00 daily with Medical breakfast. Branch atorvastati 2022-0 Yes [id number] 80mg Take 1 [facility] n 80 mg 1-25 tablet by ity of tablet 00:00: mouth at [place] 00 bedtime. Medical Branch lisinopriL 2022-0 Yes [id number] 10mg Take 1 U nivers 10 mg 1-25 tablet by ity of tablet 00:00: mouth in [place] 00 the Medical morning. Branch metFORMIN 2022-0 Yes [id number] 1000mg Take 1 [facility] 1,000 mg 1-25 tablet by ity of tablet 00:00: mouth in [place] 00 the Medical morning Branch and 1 tablet in the evening. Take with meals. PARoxetine 2022-0 Yes [id number] 30mg Take 1 [facility] nivers 30 mg 1-25 tablet by ity of tablet 00:00: mouth in [place] 00 the Medical morning. Branch hydrOXYzine 2022-0 Yes [id number] 25mg Take 1 [facility] 25 mg 1-25 tablet by ity of tablet 00:00: mouth as [place] 00 needed for Medical Itching. Branch empaglifloz 2022-0 Yes [id number] 25mg Take 1 [facility] in 1-25 tablet by ity of ([place]) 00:00: mouth in [place] 25 mg Tab 00 the Medical morning. Branch glimepiride 2022-0 Yes [id number] 2mg Take 1 [facility] 2 mg tablet 1-25 tablet by ity of 00:00: mouth [place] 00 daily with Medical breakfast. Branch atorvastati 2022-0 Yes [id number] 80mg Take 1 [facility] n 80 mg 1-25 tablet by ity of tablet 00:00: mouth at [place] 00 bedtime. Medical Branch lisinopriL 2022-0 Yes [id number] 10mg Take 1 [facility] nivers 10 mg 1-25 tablet by ity of tablet 00:00: mouth in [place] 00 the Medical morning. Branch metFORMIN 2022-0 Yes [id number] 1000mg Take 1 [facility] 1,000 mg 1-25 tablet by ity of tablet 00:00: mouth in [place] 00 the Medical morning Branch and 1 tablet in the evening. Take with meals. PARoxetine 2022-0 Yes [id number] 30mg Take 1 [facility] 30 mg 1-25 tablet by [facility] tablet 00:00: mouth in [place] 00 the Medical morning. Branch hydrOXYzine 2022-0 Yes [id number] 25mg Take 1 [facility] 25 mg 1-25 tablet by [facility] tablet 00:00: mouth as [place] 00 needed for Medical Itching. Branch empaglifloz 2022-0 Yes [id number] 25mg Take 1 [facility] 1-25 tablet by [facility] ([place]) 00:00: mouth in [place] 25 mg Tab 00 the Medical morning. Branch glimepiride 2022-0 Yes [id number] 2mg Take 1 [facility] 2 mg tablet 1-25 tablet by [facility] of 00:00: mouth [place] 00 daily with Medical breakfast. Branch atorvastati 2022-0 Yes [id number] 80mg Take 1 [facility] n 80 mg 1-25 tablet by [facility] of tablet 00:00: mouth at [place] 00 bedtime. Medical Branch lisinopriL 2022-0 Yes [id number] 10mg Take 1 [facility] 10 mg 1-25 tablet by [facility] of tablet 00:00: mouth in [place] 00 the Medical morning. Branch metFORMIN 2022-0 Yes [id number] 1000mg Take 1 [facility] 1,000 mg 1-25 tablet by [facility] of tablet 00:00: mouth in [place] 00 the Medical morning Branch and 1 tablet in the evening. Take with meals. PARoxetine 3-0 Yes [id number] 30mg Take 1 [facility] 30 mg 1-25 tablet by [facility] tablet 00:00: mouth in [place] 00 the Medical morning. Branch hydrOXYzine 2022-0 Yes [id number] 25mg Take 1 [facility] 25 mg 1-25 tablet by [facility] of tablet 00:00: mouth as [place] 00 needed for Medical Itching. Branch empaglifloz 2022-0 Yes [id number] 25mg Take 1 [facility] in 1-25 tablet by [facility] of ([place]) 00:00: mouth in [place] 25 mg Tab 00 the Medical morning. Branch glimepiride 2022-0 Yes [id number] 2mg Take 1 [facility] 2 mg tablet 1-25 tablet by [facility] of 00:00: mouth [place] 00 daily with Medical breakfast. Branch atorvastati 2022-0 Yes [id number] 80mg Take 1 [facility] n 80 mg 1-25 tablet by [facility] of tablet 00:00: mouth at [place] 00 bedtime. Medical Branch lisinopriL 2022-0 Yes [id number] 10mg Take 1 [facility] 10 mg 1-25 tablet by [facility] of tablet 00:00: mouth in [place] 00 the Medical morning. Branch metFORMIN 2022-0 Yes [id number] 1000mg Take 1 [facility] 1,000 mg 1-25 tablet by [facility] of tablet 00:00: mouth in [place] 00 the Medical morning Branch and 1 tablet in the evening. Take with meals. PARoxetine 2022-0 Yes [id number] 30mg Take 1 [facility] 30 mg 1-25 tablet by [facility] tablet 00:00: mouth in [place] 00 the Medical morning. Branch hydrOXYzine 2022-0 Yes [id number] 25mg Take 1 [facility] 25 mg 1-25 tablet by [facility] tablet 00:00: mouth as [place] 00 needed for Medical Itching. Branch empaglifloz 2022-0 Yes [id number] 25mg Take 1 [facility] in 1-25 tablet by [facility] ([place]) 00:00: mouth in [place] 25 mg Tab 00 the Medical morning. Branch glimepiride 2022-0 Yes [id number] 2mg Take 1 [facility] 2 mg tablet 1-25 tablet by [facility] of 00:00: mouth [place] 00 daily with Medical breakfast. Branch atorvastati 2022-0 Yes [id number] 80mg Take 1 [facility] n 80 mg 1-25 tablet by [facility] of tablet 00:00: mouth at [place] [address] bedtime. Medical Branch lisinopriL 2022-0 Yes [id number] 10mg Take 1 [facility] 10 mg 1-25 tablet by [facility] of tablet 00:00: mouth in [place] 00 the Medical morning. Branch metFORMIN 2022-0 Yes [id number] 1000mg Take 1 [facility] 1,000 mg 1-25 tablet by [facility] of tablet 00:00: mouth in [place] 00 the Medical morning Branch and 1 tablet in the evening. Take with meals. PARoxetine 2022-0 Yes [id number] 30mg Take 1 [facility] 30 mg 1-25 tablet by [facility] tablet 00:00: mouth in [place] 00 the Medical morning. Branch hydrOXYzine 2022-0 Yes [id number] 25mg Take 1 [facility] 25 mg 1-25 tablet by [facility] of tablet 00:00: mouth as [place] 00 needed for Medical Itching. Branch empaglifloz 2022-0 Yes [id number] 25mg Take 1 [facility] in 1-25 tablet by [facility] ([place]) 00:00: mouth in [place] 25 mg Tab 00 the Medical morning. Branch glimepiride 2022-0 Yes [id number] 2mg Take 1 [facility] 2 mg tablet 1-25 tablet by [facility] of 00:00: mouth [place] 00 daily with Medical breakfast. Branch atorvastati 2022-0 Yes [id number] 80mg Take 1 [facility] n 80 mg 1-25 tablet by [facility] of tablet 00:00: mouth at [place] 00 bedtime. Medical Branch lisinopriL 2022-0 Yes [id number] 10mg Take 1 [facility] 10 mg 1-25 tablet by [facility] of tablet 00:00: mouth in [place] 00 the Medical morning. Branch metFORMIN 2022-0 Yes [id number] 1000mg Take 1 [facility] 1,000 mg 1-25 tablet by [facility] of tablet 00:00: mouth in [place] 00 the Medical morning Branch and 1 tablet in the evening. Take with meals. PARoxetine 2022-0 Yes [id number] 30mg Take 1 [facility] 30 mg 1-25 tablet by [facility] of tablet 00:00: mouth in [place] 00 the Medical morning. Branch hydrOXYzine 2022-0 Yes [id number] 25mg Take 1 [facility] 25 mg 1-25 tablet by [facility] of tablet 00:00: mouth as [place] 00 needed for Medical Itching. Branch empaglifloz 2022-0 Yes [id number] 25mg Take 1 [facility] in 1-25 tablet by [facility] of ([place]) 00:00: mouth in [place] 25 mg Tab 00 the Medical morning. Branch glimepiride 2022-0 Yes [id number] 2mg Take 1 [facility] 2 mg tablet 1-25 tablet by [facility] of 00:00: mouth [place] 00 daily with Medical breakfast. Branch atorvastati 3-0 Yes [id number] 80mg Take 1 [facility] n 80 mg 1-25 tablet by [facility] of tablet 00:00: mouth at [place] [address] bedtime. Medical Branch lisinopriL 3-0 Yes [id number] 10mg Take 1 [facility] 10 mg 1-25 tablet by [facility] of tablet 00:00: mouth in [place] 00 the Medical morning. Branch PARoxetine 3-0 Yes [id number] 30mg Take 1 [facility] 30 mg 1-25 tablet by [facility] of tablet 00:00: mouth in [place] 00 the Medical morning. Branch hydrOXYzine 3-0 Yes [id number] 25mg Take 1 [facility] 25 mg 1-25 tablet by [facility] of tablet 00:00: mouth as [place] [address] needed for Medical Itching. Branch empaglifloz 3-0 Yes [id number] 25mg Take 1 [facility] in 1-25 tablet by [facility] ([place]) 00:00: mouth in [place] 25 mg Tab 00 the Medical morning. Branch atorvastati 3-0 Yes [id number] 80mg Take 1 [facility] n 80 mg 1-25 tablet by [facility] of tablet 00:00: mouth at [place] [address] bedtime. Medical Branch lisinopriL 3-0 Yes [id number] 10mg Take 1 [facility] 10 mg 1-25 tablet by [facility] tablet 00:00: mouth in [place] 00 the Medical morning. Branch PARoxetine 3-0 Yes [id number] 30mg Take 1 [facility] 30 mg 1-25 tablet by [facility] tablet 00:00: mouth in [place] 00 the Medical morning. Branch hydrOXYzine 3-0 Yes [id number] 25mg Take 1 [facility] 25 mg 1-25 tablet by [facility] of tablet 00:00: mouth as [place] [address] needed for Medical Itching. Branch empaglifloz 3-0 Yes [id number] 25mg Take 1 [facility] in 1-25 tablet by [facility] of ([place]) 00:00: mouth in [place] 25 mg Tab 00 the Medical morning. Branch atorvastati 3-0 Yes [id number] 80mg Take 1 [facility] n 80 mg 1-25 tablet by [facility] of tablet 00:00: mouth at [place] [address] bedtime. Medical Branch lisinopriL 3-0 Yes [id number] 10mg Take 1 [facility] 10 mg 1-25 tablet by [facility] tablet 00:00: mouth in [place] 00 the Medical morning. Branch PARoxetine 2023-0 Yes [id number] 30mg Take 1 [facility] 30 mg 1-25 tablet by [facility] tablet 00:00: mouth in [place] 00 the Medical morning. Branch hydrOXYzine 3-0 Yes [id number] 25mg Take 1 [facility] 25 mg 1-25 tablet by [facility] of tablet 00:00: mouth as [place] 00 needed for Medical Itching. Branch empaglifloz 3-0 Yes [id number] 25mg Take 1 [facility] in 1-25 tablet by [facility] ([place]) 00:00: mouth in [place] 25 mg Tab 00 the Medical morning. Branch atorvastati 3-0 Yes [id number] 80mg Take 1 [facility] n 80 mg 1-25 tablet by [facility] of tablet 00:00: mouth at [place] [address] bedtime. Medical Branch lisinopriL 2023-0 Yes [id number] 10mg Take 1 [facility] 10 mg 1-25 tablet by [facility] tablet 00:00: mouth in [place] 00 the Medical morning. Branch PARoxetine 3-0 Yes [id number] 30mg Take 1 [facility] 30 mg 1-25 tablet by [facility] tablet 00:00: mouth in [place] 00 the Medical morning. Branch hydrOXYzine 3-0 Yes [id number] 25mg Take 1 [facility] 25 mg 1-25 tablet by [facility] tablet 00:00: mouth as [place] 00 needed for Medical Itching. Branch empaglifloz 3-0 Yes [id number] 25mg Take 1 [facility] in 1-25 tablet by [facility] ([place]) 00:00: mouth in [place] 25 mg Tab 00 the Medical morning. Branch atorvastati 3-0 Yes [id number] 80mg Take 1 [facility] n 80 mg 1-25 tablet by [facility] of tablet 00:00: mouth at [place] [address] bedtime. Medical Branch lisinopriL 2023-0 Yes [id number] 10mg Take 1 [facility] 10 mg 1-25 tablet by [facility] tablet 00:00: mouth in [place] 00 the Medical morning. Branch PARoxetine 2023-0 Yes [id number] 30mg Take 1 [facility] 30 mg 1-25 tablet by [facility] tablet 00:00: mouth in [place] 00 the Medical morning. Branch hydrOXYzine 2023-0 Yes [id number] 25mg Take 1 [facility] 25 mg 1-25 tablet by [facility] of tablet 00:00: mouth as [place] 00 needed for Medical Itching. Branch empaglifloz 3-0 Yes [id number] 25mg Take 1 [facility] in 1-25 tablet by [facility] ([place]) 00:00: mouth in [place] 25 mg Tab 00 the Medical morning. Branch atorvastati 3-0 Yes [id number] 80mg Take 1 [facility] n 80 mg 1-25 tablet by [facility] of tablet 00:00: mouth at [place] 00 bedtime. Medical Branch lisinopriL 2023-0 Yes [id number] 10mg Take 1 [facility] 10 mg 1-25 tablet by [facility] of tablet 00:00: mouth in [place] 00 the Medical morning. Branch PARoxetine 3-0 Yes [id number] 30mg Take 1 [facility] 30 mg 1-25 tablet by [facility] tablet 00:00: mouth in [place] 00 the Medical morning. Branch hydrOXYzine 2023-0 Yes [id number] 25mg Take 1 [facility] 25 mg 1-25 tablet by [facility] of tablet 00:00: mouth as [place] 00 needed for Medical Itching. Branch empaglifloz 3-0 Yes [id number] 25mg Take 1 [facility] in 1-25 tablet by [facility] of ([place]) 00:00: mouth in [place] 25 mg Tab 00 the Medical morning. Branch atorvastati 3-0 Yes [id number] 80mg Take 1 [facility] n 80 mg 1-25 tablet by [facility] of tablet 00:00: mouth at [place] [address] bedtime. Medical Branch lisinopriL 3-0 Yes [id number] 10mg Take 1 [facility] 10 mg 1-25 tablet by [facility] tablet 00:00: mouth in [place] 00 the Medical morning. Branch PARoxetine 2023-0 Yes [id number] 30mg Take 1 [facility] 30 mg 1-25 tablet by [facility] tablet 00:00: mouth in [place] 00 the Medical morning. Branch hydrOXYzine 2023-0 Yes [id number] 25mg Take 1 [facility] 25 mg 1-25 tablet by [facility] of tablet 00:00: mouth as [place] 00 needed for Medical Itching. Branch empaglifloz 3-0 Yes [id number] 25mg Take 1 [facility] in 1-25 tablet by [facility] of ([place]) 00:00: mouth in [place] 25 mg Tab 00 the Medical morning. Branch atorvastati 2022-0 Yes [id number] 80mg Take 1 [facility] n 80 mg 1-25 tablet by [facility] of tablet 00:00: mouth at [place] [address] bedtime. Medical Branch atorvastati 2022-0 Yes [id number] 80mg Take 1 [facility] n 80 mg 1-25 tablet by [facility] of tablet 00:00: mouth at [place] [address] bedtime. Medical Branch lisinopriL 2022-0 Yes [id number] 10mg Take 1 [facility] 10 mg 1-25 tablet by [facility] tablet 00:00: mouth in [place] 00 the Medical morning. Branch lisinopriL 2022-0 Yes [id number] 10mg Take 1 [facility] 10 mg 1-25 tablet by [facility] tablet 00:00: mouth in [place] 00 the Medical morning. Branch PARoxetine 2022-0 Yes [id number] 30mg Take 1 [facility] 30 mg 1-25 tablet by [facility] of tablet 00:00: mouth in [place] 00 the Medical morning. Branch hydrOXYzine 2022-0 Yes [id number] 25mg Take 1 [facility] 25 mg 1-25 tablet by [facility] of tablet 00:00: mouth as [place] [address] needed for Medical Itching. Branch empaglifloz 2022-0 Yes [id number] 25mg Take 1 [facility] in 1-25 tablet by [facility] of ([place]) 00:00: mouth in [place] 25 mg Tab 00 the Medical morning. Branch metFORMIN 2022-0 Yes [id number] 1000mg Take 1 [facility] 1,000 mg 1-25 tablet by [facility] of tablet 00:00: mouth in [place] 00 the Medical morning Branch and 1 tablet in the evening. Take with meals. atorvastati 2022-0 Yes [id number] 80mg Take 1 [facility] n 80 mg 1-25 tablet by [facility] of tablet 00:00: mouth at [place] [address] bedtime. Medical Branch traZODone 3-0 Yes [id number] 200mg Take 2 [facility] 100 mg 1-25 tablets by [facility] of tablet 00:00: mouth at [place] [address] bedtime. Medical Branch lisinopriL 2022-0 Yes [id number] 10mg Take 1 [facility] 10 mg 1-25 tablet by [facility] of tablet 00:00: mouth in [place] 00 the Medical morning. Branch PARoxetine 3-0 Yes [id number] 30mg Take 1 [facility] 30 mg 1-25 tablet by [facility] tablet 00:00: mouth in [place] 00 the Medical morning. Branch hydrOXYzine 2022-0 Yes [id number] 25mg Take 1 [facility] 25 mg 1-25 tablet by [facility] of tablet 00:00: mouth as [place] 00 needed for Medical Itching. Branch empaglifloz 2022-0 Yes [id number] 25mg Take 1 [facility] in 1-25 tablet by [facility] of ([place]) 00:00: mouth in [place] 25 mg Tab 00 the Medical morning. Branch PARoxetine 2022-0 Yes [id number] 30mg Take 1 [facility] 30 mg 1-25 tablet by [facility] of tablet 00:00: mouth in [place] 00 the Medical morning. Branch empaglifloz 2022-0 Yes [id number] 10mg Take 1 [facility] in 1-25 tablet by [facility] of ([place]) 00:00: mouth in [place] 10 mg 00 the Medical morning Branch and 1 tablet in the evening. hydrOXYzine 3-0 Yes [id number] 25mg Take 1 [facility] 25 mg 1-25 tablet by [facility] of tablet 00:00: mouth as [place] 00 needed for Medical Itching. Branch atorvastati 2022-0 Yes [id number] 80mg Take 1 [facility] n 80 mg 1-25 tablet by [facility] of tablet 00:00: mouth at [place] [address] bedtime. Medical Branch lisinopriL 3-0 Yes [id number] 10mg Take 1 [facility] 10 mg 1-25 tablet by [facility] tablet 00:00: mouth in [place] 00 the Medical morning. Branch metFORMIN 3-0 Yes [id number] 1000mg Take 1 [facility] 1,000 mg 1-25 tablet by [facility] of tablet 00:00: mouth in [place] 00 the Medical morning Branch and 1 tablet in the evening. Take with meals. traZODone 3-0 Yes [id number] 200mg Take 2 [facility] 100 mg 1-25 tablets by [facility] of tablet 00:00: mouth at [place] [address] bedtime. Medical Branch PARoxetine 3-0 Yes [id number] 30mg Take 1 [facility] 30 mg 1-25 tablet by [facility] of tablet 00:00: mouth in [place] 00 the Medical morning. Branch empaglifloz 2022-0 Yes [id number] 10mg Take 1 [facility] in 1-25 tablet by [facility] of ([place]) 00:00: mouth in [place] 10 mg 00 the Medical morning Branch and 1 tablet in the evening. hydrOXYzine 2022-0 Yes [id number] 25mg Take 1 [facility] 25 mg 1-25 tablet by [facility] of tablet 00:00: mouth as [place] 00 needed for Medical Itching. Branch metFORMIN 2022-2022- No [id number] 1000mg Take 1 [facility] 1,000 mg 1-25 -03 tablet by [facility] o f tablet 00:00: 00:00 mouth in [place] 00 :00 the Medical morning Branch and 1 tablet in the evening. Take with meals. glimepiride 2022-2022- No [id number] 2mg Take 1 [facility] 2 mg tablet -25 - tablet by it y of 00:00: 00:00 mouth [place] 00 :00 daily with Medical breakfast. Branch metFORMIN 2022-2022- No [id number] 1000mg Take 1 [facility] 1,000 mg 1-25 -03 tablet by ity o f tablet 00:00: 00:00 mouth in [place] 00 :00 the Medical morning Branch and 1 tablet in the evening. Take with meals. glimepiride 2022-2022- No [id number] 2mg Take 1 [facility] 2 mg tablet -25 -03 tablet by it y of 00:00: 00:00 mouth [place] 00 :00 daily with Medical breakfast. Branch traZODone 2022-2022- No [id number] 200mg Take 2 [facility] 100 mg 1-25 -27 tablets by [facility] of tablet 00:00: 00:00 mouth at [place] 00 :00 bedtime. Medical Branch traZODone 2022-0 2022- No [id number] 200mg Take 2 [facility] 100 mg 1-25 -27 tablets by [facility] of tablet 00:00: 00:00 mouth at [place] 00 :00 bedtime. Medical Branch traZODone 2022-0 2022- No [id number] 200mg Take 2 [facility] 100 mg 1-25 -27 tablets by [facility] of tablet 00:00: 00:00 mouth at [place] 00 :00 bedtime. Medical Branch traZODone 2022-0 2022- No [id number] 200mg Take 2 [facility] 100 mg 07-23 tablets by [facility] of tablet 00:00: 00:00 mouth at [place] 00 :00 bedtime. Medical Branch empaglifloz 2022-2022- No [id number] 10mg Take 1 [facility] in 07-23 tablet by [facility] of ([place]) 00:00: 00:00 mouth in [place] 10 mg 00 :00 the Medical morning Branch and 1 tablet in the evening. empaglifloz 2022-2022- No [id number] 10mg Take 1 [facility] in 07-23 tablet by [facility] of ([place]) 00:00: 00:00 mouth in [place] 10 mg 00 :00 the Medical morning Branch and 1 tablet in the evening. empaglifloz 2022-0 2022- No [id number] 10mg Take 1 [facility] in 07-23 tablet by [facility] of ([place]) 00:00: 00:00 mouth in [place] 10 mg 00 :00 the Medical morning Branch and 1 tablet in the evening. empaglifloz 2022-0 2022- No [id number] 10mg Take 1 [facility] in 07-23 tablet by [facility] of ([place]) 00:00: 00:00 mouth in [place] 10 mg 00 :00 the Medical morning Branch and 1 tablet in the evening. empaglifloz 2022-0 2022- No [id number] 10mg Take 1 [facility] in 07-23 tablet by [facility] of ([place]) 00:00: 00:00 mouth in [place] 10 mg 00 :00 the Medical morning Branch and 1 tablet in the evening. empaglifloz 2022- No [id number] 10mg Take 1 [facility] in 07-23 tablet by it[facility] of ([place]) 00:00: 00:00 mouth in [place] 10 mg 00 :00 the Medical morning Branch and 1 tablet in the evening. Immunizations Ordered Filled Immunization Date Status Comments [facility] e Immunization Name Name SARS-COV-2 COVID-19 2022-07-23 Completed [facility]ive rs[facility] of [facility] 00:00:00 [place] [facility] VACCINE 12 YRS+, Branch BIVALENT 0.3ML, IM, (PFIZER LIRA TOP BOOSTER) Influenza Virus 2022-07-23 Completed [facility]it y of Vaccine Quad IM, 00:00:00 [place] [facility]ical Preserv and ABX Branch Free 6 MO-64 YRS SARS-COV-2 COVID-19 2022-07-23 Completed [facility] of [facility] 00:00:00 [place] [facility] VACCINE 12 YRS+, Branch BIVALENT 0.3ML, IM, (PFIZER LIRA TOP BOOSTER) Influenza Virus 2022-07-23 Completed [facility] of Vaccine Quad IM, 00:00:00 [place] [facility] Preserv and ABX Branch Free 6 MO-64 YRS SARS-COV-2 COVID-19 2022-07-23 Completed [facility] of [facility] 00:00:00 [place] [facility] VACCINE 12 YRS+, Branch BIVALENT 0.3ML, IM, (PFIZER LIRA TOP BOOSTER) Influenza Virus 2022-07-23 Completed [facility] Vaccine Quad IM, 00:00:00 [place] [facility] Preserv and ABX Branch Free 6 MO-64 YRS SARS-COV-2 COVID-19 2022-07-23 Completed [facility] of [facility] 00:00:00 [place] [facility] VACCINE 12 YRS+, Branch BIVALENT 0.3ML, IM, (PFIZER LIRA TOP BOOSTER) Influenza Virus 2022-07-23 Completed [facility] of Vaccine Quad IM, 00:00:00 [place] [facility] Preserv and ABX Branch Free 6 MO-64 YRS SARS-COV-2 COVID-19 2022-07-23 Completed [facility] of [facility] 00:00:00 [place] [facility] VACCINE 12 YRS+, Branch BIVALENT 0.3ML, IM, (PFIZER LIRA TOP BOOSTER) Influenza Virus 2022-07-23 Completed [facility] of Vaccine Quad IM, 00:00:00 [place] [facility] Preserv and ABX Branch Free 6 MO-64 YRS SARS-COV-2 COVID-19 2022-07-23 Completed [facility] of [facility] 00:00:00 [place] [facility] VACCINE 12 YRS+, Branch BIVALENT 0.3ML, IM, (PFIZER LIRA TOP BOOSTER) Influenza Virus 2022-07-23 Completed [facility] of Vaccine Quad IM, 00:00:00 [place] [facility] Preserv and ABX Branch Free 6 MO-64 YRS SARS-COV-2 COVID-19 2022-07-23 Completed [facility] of [facility] 00:00:00 [place] [facility] VACCINE 12 YRS+, Branch BIVALENT 0.3ML, IM, (PFIZER LIRA TOP BOOSTER) Influenza Virus 2022-07-23 Completed [facility] of Vaccine Quad IM, 00:00:00 [place] [facility] Preserv and ABX Branch Free 6 MO-64 YRS SARS-COV-2 COVID-19 2022-07-23 Completed [facility] of [facility] 00:00:00 [place] [facility] VACCINE 12 YRS+, Branch BIVALENT 0.3ML, IM, (PFIZER LIRA TOP BOOSTER) Influenza Virus 2022-07-23 Completed [facility] of Vaccine Quad IM, 00:00:00 [place] [facility]ical Preserv and ABX Branch Free 6 MO-64 YRS SARS-COV-2 COVID-19 2022-07-23 Completed [facility] of [facility] 00:00:00 [place] [facility] VACCINE 12 YRS+, Branch BIVALENT 0.3ML, IM, (PFIZER LIRA TOP BOOSTER) Influenza Virus 2022-07-23 Completed [facility] of Vaccine Quad IM, 00:00:00 [place] [facility] Preserv and ABX Branch Free 6 MO-64 YRS SARS-COV-2 COVID-19 2022-07-23 Completed [facility] of [facility] 00:00:00 [place] [facility] VACCINE 12 YRS+, Branch BIVALENT 0.3ML, IM, (PFIZER LIRA TOP BOOSTER) Influenza Virus 2022-07-23 Completed [facility] of Vaccine Quad IM, 00:00:00 [place] [facility]ical Preserv and ABX Branch Free 6 MO-64 YRS SARS-COV-2 COVID-19 2022-07-23 Completed [facility] of [facility] 00:00:00 [place] [facility] VACCINE 12 YRS+, Branch BIVALENT 0.3ML, IM, (PFIZER LIRA TOP BOOSTER) Influenza Virus 2022-07-23 Completed [facility] of Vaccine Quad IM, 00:00:00 [place] Me [facility]ical Preserv and ABX Branch Free 6 MO-64 YRS SARS-COV-2 COVID-19 2022-07-23 Completed [facility] of [facility] 00:00:00 [place] [facility] VACCINE 12 YRS+, Branch BIVALENT 0.3ML, IM, (PFIZER LIRA TOP BOOSTER) Influenza Virus 2022-07-23 Completed [facility]it [facility] of Vaccine Quad IM, 00:00:00 [place] [facility]ical Preserv and ABX Branch Free 6 MO-64 YRS SARS-COV-2 COVID-19 2022-07-23 Completed [facility] of [facility] 00:00:00 [place] [facility] VACCINE 12 YRS+, Branch BIVALENT 0.3ML, IM, (PFIZER LIRA TOP BOOSTER) Influenza Virus 2022-07-23 Completed [facility] of Vaccine Quad IM, 00:00:00 [place] [facility]ical Preserv and ABX Branch Free 6 MO-64 YRS SARS-COV-2 COVID-19 2022-07-23 Completed [facility] of [facility] 00:00:00 [place] [facility] VACCINE 12 YRS+, Branch BIVALENT 0.3ML, IM, (PFIZER LIRA TOP BOOSTER) Influenza Virus 2022-07-23 Completed [facility] of Vaccine Quad IM, 00:00:00 [place] [facility]ical Preserv and ABX Branch Free 6 MO-64 YRS SARS-COV-2 COVID-19 2022-07-23 Completed [facility] of [facility] 00:00:00 [place] [facility] VACCINE 12 YRS+, Branch BIVALENT 0.3ML, IM, (PFIZER LIRA TOP BOOSTER) Influenza Virus 2022-07-23 Completed [facility] of Vaccine Quad IM, 00:00:00 [place] [facility]ical Preserv and ABX Branch Free 6 MO-64 YRS SARS-COV-2 COVID-19 2022-07-23 Completed [facility] of [facility] 00:00:00 [place] [facility] VACCINE 12 YRS+, Branch BIVALENT 0.3ML, IM, (PFIZER LIRA TOP BOOSTER) Influenza Virus 2022-07-23 Completed [facility] of Vaccine Quad IM, 00:00:00 [place] [facility]ical Preserv and ABX Branch Free 6 MO-64 YRS SARS-COV-2 COVID-19 2022-07-23 Completed [facility] of [facility] 00:00:00 [place] [facility] VACCINE 12 YRS+, Branch BIVALENT 0.3ML, IM, (PFIZER LIRA TOP BOOSTER) Influenza Virus 2022-07-23 Completed [facility] of Vaccine Quad IM, 00:00:00 [place] [facility]ical Preserv and ABX Branch Free 6 MO-64 YRS SARS-COV-2 COVID-19 2022-07-23 Completed [facility] of [facility] 00:00:00 [place] [facility] VACCINE 12 YRS+, Branch BIVALENT 0.3ML, IM, (PFIZER LIRA TOP BOOSTER) Influenza Virus 2022-07-23 Completed [facility] of Vaccine Quad IM, 00:00:00 [place] [facility] Preserv and ABX Branch Free 6 MO-64 YRS SARS-COV-2 COVID-19 2022-07-23 Completed [facility] of [facility] 00:00:00 [place] [facility] VACCINE 12 YRS+, Branch BIVALENT 0.3ML, IM, (PFIZER LIRA TOP BOOSTER) Influenza Virus 2022-07-23 Completed [facility] of Vaccine Quad IM, 00:00:00 [place] [facility] Preserv and ABX Branch Free 6 MO-64 YRS SARS-COV-2 COVID-19 2022-07-23 Completed [facility] of [facility] 00:00:00 [place] [facility] VACCINE 12 YRS+, Branch BIVALENT 0.3ML, IM, (PFIZER LIRA TOP BOOSTER) Influenza Virus 2022-07-23 Completed [facility] of Vaccine Quad IM, 00:00:00 [place] [facility] Preserv and ABX Branch Free 6 MO-64 YRS SARS-COV-2 COVID-19 2022-07-23 Completed [facility] of [facility] 00:00:00 [place] [facility] VACCINE 12 YRS+, Branch BIVALENT 0.3ML, IM, (PFIZER LIRA TOP BOOSTER) Influenza Virus 2022-07-23 Completed [facility] of Vaccine Quad IM, 00:00:00 [place] [facility] Preserv and ABX Branch Free 6 MO-64 YRS SARS-COV-2 COVID-19 2022-07-23 Completed [facility]ive [facility] of [facility] 00:00:00 [place] [facility] VACCINE 12 YRS+, Branch BIVALENT 0.3ML, IM, (PFIZER LIRA TOP BOOSTER) Influenza Virus 2022-07-23 Completed [facility] of Vaccine Quad IM, 00:00:00 [place] [facility] Preserv and ABX Branch Free 6 MO-64 YRS SARS-COV-2 COVID-19 2022-07-23 Completed [facility] of [facility] 00:00:00 [place] [facility] VACCINE 12 YRS+, Branch BIVALENT 0.3ML, IM, (PFIZER LIRA TOP BOOSTER) Influenza Virus 2022-07-23 Completed [facility] of Vaccine Quad IM, 00:00:00 [place] [facility] Preserv and ABX Branch Free 6 MO-64 YRS SARS-COV-2 COVID-19 2022-07-23 Completed [facility] of [facility] 00:00:00 [place] [facility] VACCINE 12 YRS+, Branch BIVALENT 0.3ML, IM, (PFIZER LIRA TOP BOOSTER) Influenza Virus 2022-07-23 Completed [facility] of Vaccine Quad IM, 00:00:00 [place] [facility]ical Preserv and ABX Branch Free 6 MO-64 YRS SARS-COV-2 COVID-19 2022-07-23 Completed [facility] of [facility] 00:00:00 [place] [facility] VACCINE 12 YRS+, Branch BIVALENT 0.3ML, IM, (PFIZER LIRA TOP BOOSTER) Influenza Virus 2022-07-23 Completed [facility] of Vaccine Quad IM, 00:00:00 [place] [facility]ical Preserv and ABX Branch Free 6 MO-64 YRS SARS-COV-2 COVID-19 2022-07-23 Completed [facility]ive [facility] of [facility] 00:00:00 [place] [facility] VACCINE 12 YRS+, Branch BIVALENT 0.3ML, IM, (PFIZER LIRA TOP BOOSTER) Influenza Virus 2022-07-23 Completed [facility] of Vaccine Quad IM, 00:00:00 [place] [facility]ical Preserv and ABX Branch Free 6 MO-64 YRS SARS-COV-2 COVID-19 2022-07-23 Completed Unive rsity of [facility] 00:00:00 [place] [facility] VACCINE 12 YRS+, Branch BIVALENT 0.3ML, IM, (PFIZER LIRA TOP BOOSTER) Influenza Virus 2022-07-23 Completed Universit y of Vaccine Quad IM, 00:00:00 [place] [facility] Preserv and ABX Branch Free 6 MO-64 YRS SARS-COV-2 COVID-19 2022-07-23 Completed Unive rsity of [facility] 00:00:00 [place] [facility] VACCINE 12 YRS+, Branch BIVALENT 0.3ML, IM, (PFIZER LIRA TOP BOOSTER) Influenza Virus 2022-07-23 Completed Universit y of Vaccine Quad IM, 00:00:00 [place] [facility] Preserv and ABX Branch Free 6 MO-64 YRS SARS-COV-2 COVID-19 2022-07-23 Completed Unive rsity of [facility] 00:00:00 [place] [facility] VACCINE 12 YRS+, Branch BIVALENT 0.3ML, IM, (PFIZER LIRA TOP BOOSTER) Influenza Virus 2022-07-23 Completed Universit y of Vaccine Quad IM, 00:00:00 [place] [facility] Preserv and ABX Branch Free 6 MO-64 YRS SARS-COV-2 COVID-19 2022-07-23 Completed Unive rsity of [facility] 00:00:00 [place] [facility] VACCINE 12 YRS+, Branch BIVALENT 0.3ML, IM, (PFIZER LIRA TOP BOOSTER) Influenza Virus 2022-07-23 Completed Universit y of Vaccine Quad IM, 00:00:00 [place] [facility] Preserv and ABX Branch Free 6 MO-64 YRS SARS-COV-2 COVID-19 2021-07-02 Completed Unive rsity of PFIZER [facility] 00:00:00 [place] [facility] VACCINE (LIRA TOP) Branch SARS-COV-2 COVID-19 2021-07-02 Completed Unive rsity of PFIZER [facility]CR[facility] 00:00:00 [place] [facility] VACCINE (LIRA TOP) Branch SARS-COV-2 COVID-19 2021-07-02 Completed Unive rsity of PFIZER [facility] 00:00:00 [place] [facility] VACCINE (LIRA TOP) Branch SARS-COV-2 COVID-19 2021-07-02 Completed Unive rsity of PFIZER [facility] 00:00:00 [place] [facility] VACCINE (LIRA TOP) Branch SARS-COV-2 COVID-19 2021-07-02 Completed Unive rsity of PFIZER [facility] 00:00:00 [place] [facility] VACCINE (LIRA TOP) Branch SARS-COV-2 COVID-19 2021-07-02 Completed Unive rsity of PFIZER [facility] 00:00:00 [place] [facility] VACCINE (LIRA TOP) Branch SARS-COV-2 COVID-19 2021-07-02 Completed Unive rsity of PFIZER [facility] 00:00:00 [place] [facility] VACCINE (LIRA TOP) Branch SARS-COV-2 COVID-19 2021-07-02 Completed Unive rsity of PFIZER [facility] 00:00:00 [place] [facility] VACCINE (LIRA TOP) Branch SARS-COV-2 COVID-19 2021-07-02 Completed Unive rsity of PFIZER [facility] 00:00:00 [place] [facility] VACCINE (LIRA TOP) Branch SARS-COV-2 COVID-19 2021-07-02 Completed Unive rsity of PFIZER [facility] 00:00:00 [place] [facility] VACCINE (LIRA TOP) Branch SARS-COV-2 COVID-19 2021-07-02 Completed Unive rsity of PFIZER [facility] 00:00:00 [place] [facility] VACCINE (LIRA TOP) Branch SARS-COV-2 COVID-19 2021-07-02 Completed Unive rsity of PFIZER [facility] 00:00:00 [place] [facility] VACCINE (LIRA TOP) Branch SARS-COV-2 COVID-19 2021-07-02 Completed Unive rsity of PFIZER [facility] 00:00:00 [place] [facility] VACCINE (LIRA TOP) Branch SARS-COV-2 COVID-19 2021-07-02 Completed Unive rsity of PFIZER [facility] 00:00:00 [place] [facility] VACCINE (LIRA TOP) Branch SARS-COV-2 COVID-19 2021-07-02 Completed Unive rsity of PFIZER [facility] 00:00:00 [place] [facility] VACCINE (LIRA TOP) Branch SARS-COV-2 COVID-19 2021-07-02 Completed Unive rsity of PFIZER [facility] 00:00:00 [place] [facility] VACCINE (LIRA TOP) Branch SARS-COV-2 COVID-19 2020-11-28 Completed Unive rsity of MODERNA 12+ YRS 00:00:00 [place] [facility] VACCINE Branch SARS-COV-2 COVID-19 2020-11-28 Completed Unive rsity of MODERNA 12+ YRS 00:00:00 [place] [facility] VACCINE Branch SARS-COV-2 COVID-19 2020-11-28 Completed Unive rsity of MODERNA 12+ YRS 00:00:00 [place] [facility] VACCINE Branch SARS-COV-2 COVID-19 2020-11-28 Completed Unive rsity of MODERNA 12+ YRS 00:00:00 [place] [facility] VACCINE Branch SARS-COV-2 COVID-19 2020-11-28 Completed Unive rsity of MODERNA 12+ YRS 00:00:00 [place] [facility] VACCINE Branch SARS-COV-2 COVID-19 2020-11-28 Completed Unive rsity of MODERNA 12+ YRS 00:00:00 [place] [facility] VACCINE Branch SARS-COV-2 COVID-19 2020-11-28 Completed Unive rsity of MODERNA 12+ YRS 00:00:00 [place] [facility] VACCINE Branch SARS-COV-2 COVID-19 2020-11-28 Completed Unive rsity of MODERNA 12+ YRS 00:00:00 [place] [facility] VACCINE Branch SARS-COV-2 COVID-19 2020-11-28 Completed Unive rsity of MODERNA 12+ YRS 00:00:00 [place] [facility] VACCINE Branch SARS-COV-2 COVID-19 2020-11-28 Completed Unive rsity of MODERNA 12+ YRS 00:00:00 [place] [facility] VACCINE Branch SARS-COV-2 COVID-19 2020-11-28 Completed Unive rsity of MODERNA 12+ YRS 00:00:00 [place] [facility] VACCINE Branch SARS-COV-2 COVID-19 2020-11-28 Completed Unive rsity of MODERNA 12+ YRS 00:00:00 [place] [facility] VACCINE Branch SARS-COV-2 COVID-19 2020-11-28 Completed Unive rsity of MODERNA 12+ YRS 00:00:00 [place] [facility] VACCINE Branch SARS-COV-2 COVID-19 2020-11-28 Completed Unive rsity of MODERNA 12+ YRS 00:00:00 [place] [facility] VACCINE Branch SARS-COV-2 COVID-19 2020-11-28 Completed Unive rsity of MODERNA 12+ YRS 00:00:00 [place] [facility] VACCINE Branch SARS-COV-2 COVID-19 2020-11-28 Completed Unive rsity of MODERNA 12+ YRS 00:00:00 [place] [facility] VACCINE Branch SARS-COV-2 COVID-19 2020-10-31 Completed Unive rsity of MODERNA 12+ YRS 00:00:00 [place] [facility] VACCINE Branch SARS-COV-2 COVID-19 2020-10-31 Completed Unive rsity of MODERNA 12+ YRS 00:00:00 [place] [facility] VACCINE Branch SARS-COV-2 COVID-19 2020-10-31 Completed Unive rsity of MODERNA 12+ YRS 00:00:00 [place] [facility] VACCINE Branch SARS-COV-2 COVID-19 2020-10-31 Completed Unive rsity of MODERNA 12+ YRS 00:00:00 [place] [facility] VACCINE Branch SARS-COV-2 COVID-19 2020-10-31 Completed Unive rsity of MODERNA 12+ YRS 00:00:00 [place] [facility] VACCINE Branch SARS-COV-2 COVID-19 2020-10-31 Completed Unive rsity of MODERNA 12+ YRS 00:00:00 [place] [facility] VACCINE Branch SARS-COV-2 COVID-19 2020-10-31 Completed Unive rsity of MODERNA 12+ YRS 00:00:00 [place] [facility] VACCINE Branch SARS-COV-2 COVID-19 2020-10-31 Completed Unive rsity of MODERNA 12+ YRS 00:00:00 [place] [facility] VACCINE Branch SARS-COV-2 COVID-19 2020-10-31 Completed Unive rsity of MODERNA 12+ YRS 00:00:00 [place] [facility] VACCINE Branch SARS-COV-2 COVID-19 2020-10-31 Completed Unive rsity of MODERNA 12+ YRS 00:00:00 [place] [facility] VACCINE Branch SARS-COV-2 COVID-19 2020-10-31 Completed Unive rsity of MODERNA 12+ YRS 00:00:00 [place] [facility] VACCINE Branch SARS-COV-2 COVID-19 2020-10-31 Completed Unive rsity of MODERNA 12+ YRS 00:00:00 [place] [facility] VACCINE Branch SARS-COV-2 COVID-19 2020-10-31 Completed Unive rsity of MODERNA 12+ YRS 00:00:00 [place] [facility] VACCINE Branch SARS-COV-2 COVID-19 2020-10-31 Completed Unive rsity of MODERNA 12+ YRS 00:00:00 [place] [facility] VACCINE Branch SARS-COV-2 COVID-19 2020-10-31 Completed Unive rsity of MODERNA 12+ YRS 00:00:00 [place] [facility] VACCINE Branch SARS-COV-2 COVID-19 2020-10-31 Completed Unive rsity of MODERNA 12+ YRS 00:00:00 [place] [facility] VACCINE Branch Vital Signs Vital Name Observation Time Observation Value Comments Source WEIGHT 2022-10-18 06:00:00 58.8 kg HEIGHT 2022-10-14 19:20:00 180.3 cm WEIGHT 2022-10-14 19:20:00 58.968 kg HEIGHT 2022-10-14 12:52:00 180.3 cm WEIGHT 2022-10-14 12:52:00 57.4 kg WEIGHT 2022-10-18 06:00:00 58.8 kg HEIGHT 2022-10-14 19:20:00 180.3 cm WEIGHT 2022-10-14 19:20:00 58.968 kg HEIGHT 2022-10-14 12:52:00 180.3 cm WEIGHT 2022-10-14 12:52:00 57.4 kg Systolic blood 2022-08-29 20:31:00 200 mm[Hg] Univer sity of [facility] Diastolic blood 2022-08-29 20:31:00 100 mm[Hg] Unive rsity of [facility] Heart rate 2022-08-29 20:31:00 78 /min Universi ty of [facility] Oxygen saturation in 2022-08-29 20:31:00 100 /min [facility] Arterial blood [facility] Pulse oximetry Branch Body temperature 2022-08-29 19:20:00 36.67 [place] Univ ersity of [facility] Body height 2022-08-29 19:20:00 180.3 cm [facility]i ty of [facility] Body weight 2022-08-29 19:20:00 58.922 kg [facility]i ty of [facility] BMI 2022-08-29 19:20:00 18.12 kg/m2 [facility] ty [facility] Systolic blood 2022-07-23 19:12:00 163 mm[Hg] Univer sity of [facility] Diastolic blood 2022-07-23 19:12:00 85 mm[Hg] Unive rsity of pressure [facility] Heart rate 2022-07-23 19:12:00 70 /min [facility]i ty of [facility] Body temperature 2022-07-23 19:11:00 36.56 [place] Univ ersity of [facility] Body height 2022-07-23 19:11:00 180.3 cm [facility]i ty [facility] Body weight 2022-07-23 19:11:00 63.957 kg [facility]i ty [facility] BMI 2022-07-23 19:11:00 19.67 kg/m2 [facility] Oxygen saturation in 2022-07-23 19:11:00 100 /min University Arterial [facility] Pulse oximetry Branch Procedures Procedure Date / Time Performing Clinician Source Performed MEDICATION CORRESPONDENCE 2022-09-18 05:01:00 Doctor Yuliet, [facility] Name [facility] MEDICATION CORRESPONDENCE 2022-09-07 06:01:00 Doctor Yuliet, [facility] Name [facility] SARS-COV-2 COVID-19 2022-07-23 20:13:29 Ligia Saba [facility] W[facility]DA[facility]CR[facility] VACCINE 12 [facility] YRS+, BIVALENT 0.3ML, IM, (PFIZER LIRA TOP BOOSTER) FLU VACC (), 6 2022-07-23 19:36:04 Ligia Saba [facility] MO-64 YRS, .5ML, IM, QUAD Medica l Branch (FLUCELVAX) PATIENT QUESTIONNAIRE 2022-07-23 06:01:00 Doctor Yuliet, [facility] Encounters Start End Encounter Admission Attending Care Care Encounter Source Date/Time Date/Time Type Type Clinicians Facility Department ID 2022-10-14 2022-10-18 Inpatient ER [facility], [facility] Medical ICU [id number] [facility] 12:29:00 11:04:00 HIEU 2022-10-10 2022-10-10 Outpatient R WANDY [facility] [id number] Univers 13:30:00 13:30:00 LIGIA batista [facility] 2022-10-06 2022-10-06 [facility] [id number] Univers 15:20:00 15:20:00 CELESTINO batista o f [facility] 2022-09-18 2022-09-18 Orders Doctor SCRUGGS [id number] Univers 00:00:00 00:00:00 Only UnassDULCE pal 350.1.13.10 itedwin [facility] 4.2.7.2.686 Rodo as [id number] [place] [address] Branch 2022-09-07 2022-09-07 Orders Doctor SCRUGGS [id number] Univers 00:00:00 00:00:00 Only Unassigned, DULCE 350.1.13.10 ity of [place] [facility] 4.2.7.2.686 Rodo as [id number] [address] 2022-09-01 2022-09-01 [facility] [id number] Univers 00:00:00 00:00:00 Ligia HEALTH 350.1.13.10 it y of [place] 4.2.7.2.686 Rodo as CHIO?BLEA [id number] [address] OFFICE [facility] 2022-08-29 2022-08-29 Office [facility] [id number] Univers 13:30:00 14:32:08 Visit Ligia [facility] 350.1.13.10 [facility] 4.2.7.2.686 Rodo as CHIO?BLEA [id number] [address] OFFICE [facility] 2022-08-29 2022-08-29 Outpatient R [facility] [id number] Univers 13:30:00 14:32:08 LIIGA lester [facility] 2022-08-29 2022-08-29 [facility]ill [facility] [id number] Univers 00:00:00 00:00:00 Ligia [facility] 350.1.13.10 it y of [place] 4.2.7.2.686 Rodo as CHIO?BLEA [id number] [address] OFFICE [facility] 2022-08-29 2022-08-29 Telephone [facility] [id number] Univers 00:00:00 00:00:00 Ligia HEALTH 350.1.13.10 it y of [place] 4.2.7.2.686 Rodo as CHIO?BLEA [id number] [address] OFFICE [facility] 2022-08-22 2022-08-22 Outpatient R WANDY [facility] [id number] Univers 15:30:00 15:30:00 LIGIA lester [facility] 2022-08-22 2022-08-22 Telephone [facility] [id number] Univers 00:00:00 00:00:00 Ligia HEALTH 350.1.13.10 it y of [place] 4.2.7.2.686 Rodo as CHIO?BLEA [id number] Nh terri CHUN [address] [place] [address] OFFICE [facility] 2022-08-08 2022-08-08 Telephone [facility] [id number] Univers 00:00:00 00:00:00 Ligia HEALTH 350.1.13.10 it y of [place] 4.2.7.2.686 Rodo as CHIO?BLEA [id number] Nh terri CHUN [address] [place] [address] 2022-08-04 2022-08-04 Telephone [facility] [id number] Univers 00:00:00 00:00:00 Ligia HEALTH 350.1.13.10 it y of [place] 4.2.7.2.686 Rodo as CHIO?BLEA [id number] Nh terri [address] 2022-07-24 2022-07-24 Outpatient R DOUGLAS [facility] [id number] Univers 11:30:00 11:30:00 SENDIL ity of [facility] 2022-07-24 2022-07-24 Telephone [facility] [id number] Univers 00:00:00 00:00:00 Ligia HEALTH 350.1.13.10 it y of [place] 4.2.7.2.686 Rodo as CHIO?BLEA [id number] Nh terri CHUN [address] [place] [address] 2022-07-23 2022-07-23 Veterinary Practitioner Lab, Ang - Db [facility] 1.2.840.1 [id number] Univers 14:15:00 14:30:00 Visit Ligia Saba [facility] 350.1.13.10 ity of [place] 4.2.7.2.686 Rodo as CHIO?BLEA [id number] Nh terri CHUN [address] [facility] OFFICE [facility] 2022-07-23 2022-07-23 [facility] [id number] Univers 13:00:00 14:07:13 LIGIA ity of [facility] 2022-07-23 2022-07-23 Office Renato [facility] 1.2.840.114 [id number] Univers 13:00:00 14:07:13 Visit Ligia [facility] 350.1.13.10 it [facility] 4.2.7.2.686 Rodo as CHIO?BLEA [id number] [address] OFFICE [facility] 2022-07-23 2022-07-23 Telephone [facility] [id number] Univers 00:00:00 00:00:00 Ligia KENNEDY 350.1.13.10 it [facility] 4.2.7.2.686 Rodo as CHIO?BLEA [id number] [address] OFFICE [facility] 2022-07-23 2022-07-23 Telephone [facility] [id number] Univers 00:00:00 00:00:00 Ligia KENNEDY 350.1.13.10 [facility] 4.2.7.2.686 Rodo as CHIO?BLEA [id number] [address] OFFICE [facility] 2022-07-23 2022-07-23 Orders Doctor SHEBA 1.2.840.114 [id number] Univers 00:00:00 00:00:00 Only Unassigned, DULCE 350.1.13.10 ity of [place] [facility] 4.2.7.2.686 Rodo as [id number] [address] Results Test Description Test Time Test Comments Results Result [facility] e Comments TISSUE EXAM 2022-10-21 Surgical Pathology Report 15:45:33 Case: [id number] Authorizing Provider: Dilma Wells DO Collected: 10/16/2022 12:01 PM Ordering Location: [address] Med/Surg Received: 10/16/2022 12:19 PM Pathologist: Suri Wilson MD Specimens: A) - Biopsy, Gastric B) - Biopsy, Esophagus This addendum is issued to report the result of immunohistochemical study for CMV and HSV on specimen B: CMV- NEGATIVE HSV 1 and 2: NEGATIVE The interpretation of this case included the use of immunohistochemistry or special stains.Immunohistochemist ry technical testing was performed at [facility], Pathology Laboratory where it was developed and its performance characteristics were determined. It has not been cleared or approved by the U.S. Food and Drug Administration. The FDA has determined that such clearance or approval is not necessary. The test is used for clinical purposes. It should not be regarded as investigational or for research. This laboratory is certified under the Clinical Laboratory Improvement Amendments of 1988 (CLIA-88) as qualified to perform high complexity clinical laboratory testing. ADDITIONAL CPT CODE: 12714, 54557 Addendum electronically signed by Suri Wilson MD on 10/21/2022 at 3:45 PMA. STOMACH, ENDOSCOPIC BIOPSY: - OXYNTIC MUCOSA WITH NO PATHOLOGIC ALTERATION - NO INTESTINAL METAPLASIA, DYSPLASIA OR MALIGNANCY SEEN B. ESOPHAGUS, ENDOSCOPIC BIOPSY: - ABUNDANT NECRO- INFLAMMATORY DEBRIS, CONSISTENT WITH SEVERE ULCERATION - REFLUX ESOPHAGITIS - NO COLUMNAR MUCOSA SEEN - NEGATIVE FOR MALIGNANCY - IMMUNOHISTOCHEMICAL STAINS FOR CMV AND HSV ARE BEING DONE; AN ADDENDUM REPOR [facility] Signing Pathologist Direct Phone Line: [phone] y signed by Suri Wilson MD on 10/17/2022 at 5:42 [id number] X 2DysphagiaA. Biopsy, GastricReceived in formalin labeled with the patient's information and labeled "biopsy, gastric" are three fragments of branham-brown mucosal tissue 0.3 cm in maximum dimension each submitted entirely in cassette labeled A1. B. Biopsy, EsophagusReceived in formalin labeled with the patient's information and labeled "biopsy, esophagus" are multiple fragments of branham-white mucosal tissue measuring 0.7 x 0.4 x 0.1 cm in aggregate, submitted entirely in cassette labeled B1. BH/ew PERFORMED BLOOD CULTURE 2022-10-20 10:00:44 Test Item Value Reference Range Interpretation Comme nts CULTURE (BEAKER) (test code = 1095) No growth in 5 days BLOOD [id number] 10:00:44 Test Item Value Reference Range Interpretation Comments CULTURE (BEAKER) (test No growth in 5 days code = 1095) BASIC METABOLIC [id number] 08:54:48 Test Item Value Reference Range Interpretation Comments SODIUM (BEAKER) 137 meq/L 135-148 (test code = 381) POTASSIUM 4.0 meq/L 3.6-5.5 (BEAKER) (test code = 379) CHLORIDE (BEAKER) 104 meq/L 98-106 (test code = 382) CO2 (BEAKER) 24 meq/L 20-29 (test code = 355) BLOOD UREA 26 mg/dL 10-26 NITROGEN (BEAKER) (test code = 354) CREATININE 1.46 mg/dL 0.50-1.20 H (BEAKER) (test code = 358) GLUCOSE RANDOM 246 mg/dL 70-110 H (BEAKER) (test code = 652) CALCIUM (BEAKER) 8.6 mg/dL 8.5-10.5 (test code = 697) EGFR (BEAKER) 54 Interpretatio n of eGFR (test code = mL/min/1.73 values Stage De scription 1092) sq m Result G1 [place] l or high >=90 G2 Mildly decreased 60-89 G3a Mildl y to moderately 45-5 9 G3b Moderately to s everely 30-44 G4 Severl y decreased 15-29 G5 Kidney failure <15Reported eGF R is based on the CKD-EPI 2021 equation that d oes not use a race coefficientEsti mated GFR is not as accur ate as Creatinine Wanda harmon in predicting glom erular filtration rate . Estimated GFR is not appl icable for dialysis patien ts [employer] Associate ID - [id number] ID - [id number] ID - [id number] ID - [id number] ID - [id number] ID - [id number] ID - [id number] ID - [id number] ID - [id number] ID - [id number] ID - [id number] ID - [id number]-CASXADN [id number] 06:16:30 Test Item Value Reference Range Interpretation Comments POC-GLUCOSE METER 264 mg/dL 70-110 H : TESTED A T [address] 1317 (BEAKER) (test code [address], = 1538) [facility] 77 478: Food And Beverage Associate/Techni amanda ID = [id number] for Vani Estrada POCT-GLUCOSE [id number] 20:51:36 Test Item Value Reference Range Interpretation Comments POC-GLUCOSE METER 274 mg/dL 70-110 H : TESTED A T [address] (BEAKER) (test code [address], = 1538) [place] [address] 478: Food And Beverage Associate/Techni amanda ID = [id number] for Rylie Mckeon POCT-GLUCOSE [id number] 17:19:17 Test Item Value Reference Range Interpretation Comments POC-GLUCOSE METER 194 mg/dL 70-110 H : TESTED A T [address] (BEAKER) (test code [address], = 1538) [place] [address] 478: Food And Beverage Associate/Techni amanda ID = [id number] for Tsering Mak POCT-GLUCOSE [id number] 17:19:11 Test Item Value Reference Range Interpretation Comments POC-GLUCOSE METER 169 mg/dL 70-110 H : TESTED A T [address] (BEAKER) (test code [address], = 1538) [place] [id number]: Food And Beverage Associate/Techni amanda ID = [id number] for Tsering Mak MRSA [id number] 10:35:15 Test Item Value Reference Range Interpretation Comments CULTURE (BEAKER) (test code No MRSA isolated = 1095) CBC W/PLT COUNT & AUTO [id number] 08:02:31 Test Item Value Reference Range Interpretation Comments WHITE BLOOD CELL COUNT (BEAKER) 9.0 K/ L 4.0-10.0 (test code = 775) RED BLOOD CELL COUNT (BEAKER) 4.16 M/ L 4.20-5.80 L (test code = 761) HEMOGLOBIN (BEAKER) (test code = 13.2 GM/DL 13.0-16.8 410) HEMATOCRIT (BEAKER) (test code = 38.3 % 36.0-50.0 411) MEAN CORPUSCULAR VOLUME (BEAKER) 92 fL 82-99 (test code = 753) MEAN CORPUSCULAR HEMOGLOBIN 31.7 pg 27.0-33.0 (BEAKER) (test code = 751) MEAN CORPUSCULAR HEMOGLOBIN CONC 34.5 GM/DL 32.0-36.0 (BEAKER) (test code = 752) RED CELL DISTRIBUTION WIDTH 12.0 % 12.0-15.0 (BEAKER) (test code = 412) PLATELET COUNT (BEAKER) (test 358 K/CU MM 150-430 code = 756) MEAN PLATELET VOLUME (BEAKER) 10.5 fL 6.0-11.5 (test code = 754) NUCLEATED RED BLOOD CELLS 0 /100 WBC 0-0 (BEAKER) (test code = 413) NEUTROPHILS RELATIVE PERCENT 70 % (BEAKER) (test code = 429) LYMPHOCYTES RELATIVE PERCENT 21 % (BEAKER) (test code = 430) MONOCYTES RELATIVE PERCENT 5 % (BEAKER) (test code = 431) EOSINOPHILS RELATIVE PERCENT 1 % (BEAKER) (test code = 432) BASOPHILS RELATIVE PERCENT 1 % (BEAKER) (test code = 437) NEUTROPHILS ABSOLUTE COUNT 6.28 K/ L 1.80-8.00 (BEAKER) (test code = 670) LYMPHOCYTES ABSOLUTE COUNT 1.88 K/ L 1.48-4.50 (BEAKER) (test code = 414) MONOCYTES ABSOLUTE COUNT (BEAKER) 0.49 K/ L 0.00-1.30 (test code = 415) EOSINOPHILS ABSOLUTE COUNT 0.08 K/ L 0.00-0.50 (BEAKER) (test code = 416) BASOPHILS ABSOLUTE COUNT (BEAKER) 0.11 K/ L 0.00-0.20 (test code = 417) IMMATURE GRANULOCYTES-RELATIVE 1.90 % 0.00-0.00 H PERCENT (BEAKER) (test code = 2801) POCT-GLUCOSE [id number] 07:15:43 Test Item Value Reference Range Interpretation Comments POC-GLUCOSE METER 122 mg/dL 70-110 H : TESTED A T [address] [address] (BEAKER) (test [facility] [address], = 15[address]) [facility] 77 478: Food And Beverage Associate/Techni amanda ID = [id number] for Hyacinth Longoria [id number] 06:39:14 Test Item Value Reference Range Interpretation Comments MAGNESIUM (BEAKER) (test code = 2.2 mg/dL 1.5-3.0 627) [employer] Associate ID - [id number] ID - [id number] ID - [id number] ID - [id number] BASIC METABOLIC [id number] 06:38:14 Test Item Value Reference Range Interpretation Comments SODIUM (BEAKER) 135 meq/L 135-148 (test code = 381) POTASSIUM 3.6 meq/L 3.6-5.5 (BEAKER) (test code = 379) CHLORIDE (BEAKER) 106 meq/L 98-106 (test code = 382) CO2 (BEAKER) 21 meq/L 20-29 (test code = 355) BLOOD UREA 32 mg/dL 10-26 H NITROGEN (BEAKER) (test code = 354) CREATININE 1.40 mg/dL 0.50-1.20 H (BEAKER) (test code = 358) GLUCOSE RANDOM 123 mg/dL 70-110 H (BEAKER) (test code = 652) CALCIUM (BEAKER) 7.9 mg/dL 8.5-10.5 L (test code = 697) EGFR (BEAKER) 57 Interpretatio n of eGFR (test code = mL/min/1.73 values Stage De scription 1092) sq m Result G1 [place] l or high >=90 G2 Mildly decreased 60-89 G3a Mildl y to moderately 45-5 9 G3b Moderately to s everely 30-44 G4 Severl y decreased 15-29 G5 Kidney failure <15Reported eGF R is based on the CKD-EPI 1 equation that d oes not use a race coefficientEsti mated GFR is not as accur ate as Creatinine Wanda harmon in predicting glom erular filtration rate . Estimated GFR is not appl icable for dialysis patien ts [employer] Associate ID - [id number] ID - [id number] ID - [id number] ID - [id number] ID - [id number] ID - [id number] ID - [id number] ID - [id number] ID - [id number] ID - [id number] 06:36:46 Test Item Value Reference Range Interpretation Comments PHOSPHORUS (BEAKER) (test code = 2.9 mg/dL 2.5-4.5 604) [employer] Associate ID - [id number] 21:14:56 Test Item Value Reference Range Interpretation Comments POC-GLUCOSE METER 143 mg/dL 70-110 H : TESTED A T [address] (BEAKER) (test code [address], = 1538) [place] [id number]: Food And Beverage Associate/Techni amanda ID = [id number] for Hyacinth Longoria POCT-GLUCOSE [id number] 17:00:16 Test Item Value Reference Range Interpretation Comments POC-GLUCOSE METER 126 mg/dL 70-110 H : TESTED A T [address] (BEAKER) (test code [address], = 1538) [place] [id number]: Food And Beverage Associate/Techni amanda ID = [id number] for Javier Guevara POCT-GLUCOSE [id number] 10:55:31 Test Item Value Reference Range Interpretation Comments POC-GLUCOSE METER 67 mg/dL 70-110 L : TESTED A T [address] (BEAKER) (test code = [address], 1538) [place] [address]: Food And Beverage Associate/Techni amanda ID = [id number] for Jose M Patten POCT-GLUCOSE [id number] 06:37:48 Test Item Value Reference Range Interpretation Comments POC-GLUCOSE METER 88 mg/dL 70-110 : TESTED A T [address] (BEAKER) (test code = [address], 1538) [place] [address]: Food And Beverage Associate/Techni amanda ID = [id number] for Hyacinth Longoria [id number] 06:16:37 Test Item Value Reference Range Interpretation Comments MAGNESIUM (BEAKER) 2.3 mg/dL 1.5-3.0 Specimen slightly (test code = 627) hemolyzed Food And Beverage Associate ID - LITOOperator ID - LITOOperator ID - LITOOperator ID - LITOBASIC METABOLIC [id number] 06:14:56 Test Item Value Reference Range Interpretation Comments SODIUM (BEAKER) 134 meq/L 135-148 L (test code = 381) POTASSIUM 3.9 meq/L 3.6-5.5 Specimen slight ly (BEAKER) (test hemolyzed code = 379) CHLORIDE (BEAKER) 102 meq/L 98-106 (test code = 382) CO2 (BEAKER) 21 meq/L 20-29 (test code = 355) BLOOD UREA 29 mg/dL 10-26 H NITROGEN (BEAKER) (test code = 354) CREATININE 1.47 mg/dL 0.50-1.20 H Specimen slight ly (BEAKER) (test hemolyzed code = 358) GLUCOSE RANDOM 83 mg/dL 70-110 (BEAKER) (test code = 652) CALCIUM (BEAKER) 9.0 mg/dL 8.5-10.5 (test code = 697) EGFR (BEAKER) 54 Interpretatio n of eGFR (test code = mL/min/1.73 values Stage De scription 1092) sq m Result G1 Arminda l or high >=90 G2 Mildly decreased 60-89 G3a Mildl y to moderately 45-5 9 G3b Moderately to s everely 30-44 G4 Severl y decreased 15-29 G5 Kidney failure <15Reported eGF R is based on the CKD-EPI 2020 equation that d oes not use a race coefficientEsti mated GFR is not as accur ate as Creatinine Wanda faustino in predicting glom erular filtration rate . Estimated GFR is not appl icable for dialysis patien ts Food And Beverage Associate ID - LITOOperator ID - LITOOperator ID - LITOOperator ID - LITOOperator ID - LITOOperator ID - LITOOperator ID - LITOOperator ID - LITOOperator ID - [id number] 06:13:35 Test Item Value Reference Range Interpretation Comments PHOSPHORUS (BEAKER) 2.6 mg/dL 2.5-4.5 Specimen slightly (test code = 604) hemolyzed Food And Beverage Associate ID - [id number] W/PLT COUNT & AUTO [id number] 06:08:57 Test Item Value Reference Range Interpretation Comments WHITE BLOOD CELL COUNT (BEAKER) 12.5 K/ L 4.0-10.0 H (test code = 775) RED BLOOD CELL COUNT (BEAKER) 5.16 M/ L 4.20-5.80 (test code = 761) HEMOGLOBIN (BEAKER) (test code = 16.1 GM/DL 13.0-16.8 410) HEMATOCRIT (BEAKER) (test code = 47.2 % 36.0-50.0 411) MEAN CORPUSCULAR VOLUME (BEAKER) 92 fL 82-99 (test code = 753) MEAN CORPUSCULAR HEMOGLOBIN 31.2 pg 27.0-33.0 (BEAKER) (test code = 751) MEAN CORPUSCULAR HEMOGLOBIN CONC 34.1 GM/DL 32.0-36.0 (BEAKER) (test code = 752) RED CELL DISTRIBUTION WIDTH 11.9 % 12.0-15.0 L (BEAKER) (test code = 412) PLATELET COUNT (BEAKER) (test 433 K/CU MM 150-430 H code = 756) MEAN PLATELET VOLUME (BEAKER) 11.2 fL 6.0-11.5 (test code = 754) NUCLEATED RED BLOOD CELLS 0 /100 WBC 0-0 (BEAKER) (test code = 413) NEUTROPHILS RELATIVE PERCENT 77 % (BEAKER) (test code = 429) LYMPHOCYTES RELATIVE PERCENT 15 % (BEAKER) (test code = 430) MONOCYTES RELATIVE PERCENT 5 % (BEAKER) (test code = 431) EOSINOPHILS RELATIVE PERCENT 1 % (BEAKER) (test code = 432) BASOPHILS RELATIVE PERCENT 1 % (BEAKER) (test code = 437) NEUTROPHILS ABSOLUTE COUNT 9.61 K/ L 1.80-8.00 H (BEAKER) (test code = 670) LYMPHOCYTES ABSOLUTE COUNT 1.88 K/ L 1.48-4.50 (BEAKER) (test code = 414) MONOCYTES ABSOLUTE COUNT (BEAKER) 0.62 K/ L 0.00-1.30 (test code = 415) EOSINOPHILS ABSOLUTE COUNT 0.06 K/ L 0.00-0.50 (BEAKER) (test code = 416) BASOPHILS ABSOLUTE COUNT (BEAKER) 0.14 K/ L 0.00-0.20 (test code = 417) IMMATURE GRANULOCYTES-RELATIVE 1.80 % 0.00-0.00 H PERCENT (BEAKER) (test code = 2801) RAD, HIPS, BILATERAL TO INCLUDE [id number] 06:05:00Reason for exam:->[facility] : 1960 Sex: MFINAL REPORT Exam: Bilateral hip 2 views Clinical History: Status post fall Findings: There is no evidence of acute fracture or malalignment. The articular joints are well-preserved. The soft tissue is unremarkable. Impression: No radiographic evidence of acute osseous injury. Signed: Medardo Ambrocio MDReport Verified Date/Time: 10/16/2022 06:05:39 POCT-GLUCOSE [id number] 22:26:15 Test Item Value Reference Range Interpretation Comments POC-GLUCOSE METER 121 mg/dL 70-110 H : TESTED A T [address] (BEAKER) (test code [address], = 1538) [place] [id number]: Food And Beverage Associate/Techni amanda ID = [id number] for Hyacinth Longoria POCT-GLUCOSE [id number] 15:58:50 Test Item Value Reference Range Interpretation Comments POC-GLUCOSE METER 112 mg/dL 70-110 H : TESTED A T [address] (BEAKER) (test code [address], = 1538) [place] [id number]: Food And Beverage Associate/Techni amanda ID = [id number] for Tammy Noonan URINALYSIS W/ REFLEX URINE [id number] 15:50:02 Test Item Value Reference Range Interpretation Comments COLOR (BEAKER) (test code = 470) Yellow CLARITY (BEAKER) (test code = Clear 469) SPECIFIC GRAVITY UA (BEAKER) 1.020 1.001-1.035 (test code = 468) PH UA (BEAKER) (test code = 467) 6.0 5.0-8.0 PROTEIN UA (BEAKER) (test code = >=300 mg/dL Negative A 464) GLUCOSE UA (BEAKER) (test code = 500 mg/dL Negative A 365) KETONES UA (BEAKER) (test code = Trace Negative A 371) BILIRUBIN UA (BEAKER) (test code Positive Negative A = 462) BLOOD UA (BEAKER) (test code = Trace Negative A 461) NITRITE UA (BEAKER) (test code = Negative Negative 465) LEUKOCYTE ESTERASE UA (BEAKER) Trace Negative A (test code = 466) UROBILINOGEN UA (BEAKER) (test 0.2 code = 463) BACTERIA (BEAKER) (test code = None Seen 517) RBC UA-MANUAL (BEAKER) (test code <5 /HPF = 1659) WBC UA-MANUAL (BEAKER) (test code <5 /HPF = 1661) SQUAMOUS EPITHELIAL MANUAL 5-10 /HPF (BEAKER) (test code = 1663) SOURCE(BEAKER) (test code = 2795) CD4 T CELL [id number] 12:57:00 Test Item Value Reference Range Interpretation Comments TOTAL LYMPHOCYTES FC (BEAKER) 2118 /cu mm (test code = 3477) CD3+ TOTAL T CELLS % FC (BEAKER) 83 % 49-84 (test code = 3478) CD3+ TOTAL T CELLS ABSOLUTE FC 1758 /cu mm 603-2990 (BEAKER) (test code = 3479) CD3+/CD8+ T SUPPRESSOR CELLS % FC 56 % 10-40 H (BEAKER) (test code = 3480) CD3+/CD8+ T SUPPRESSOR CELLS ABS 1194 /cu mm 125-1312 FC (BEAKER) (test code = 3481) CD3+/CD4+ T HELPER CELLS % FC 25 % 28-63 L (BEAKER) (test code = 3482) CD3+/CD4+ T HELPER CELLS ABS FC 536 /cu mm 441-2156 (BEAKER) (test code = 3483) CD4/CD8 RATIO FC (BEAKER) (test 0.45 0.70-3.23 L code = 2127) CD16+/CD56+ NATURAL KILLER CELLS 4 % 4-25 % FC (BEAKER) (test code = 3488) CD16+/CD56+ NATURAL KILLER CELLS 90 /cu mm 95-640 L ABS FC (BEAKER) (test code = 3489) CD19+ TOTAL B CELLS % FC (BEAKER) 12 % 6-27 (test code = 3490) CD19+ TOTAL B CELLS ABS FC 253 /cu mm 107-698 (BEAKER) (test code = 3491) Food And Beverage Associate ID - [id number]-GLUCOSE [id number] 12:05:51 Test Item Value Reference Range Interpretation Comments POC-GLUCOSE METER 130 mg/dL 70-110 H : TESTED A T [address] (BEAKER) (test code [address], = 1538) [facility] [address]: Food And Beverage Associate/Techni amanda ID = [id number] for Tammy Noonan [id number] 06:54:54 Test Item Value Reference Range Interpretation Comments MAGNESIUM (BEAKER) (test code = 1.9 mg/dL 1.5-3.0 627) Food And Beverage Associate ID - [id number] ID - [id number] ID - [id number] ID - [id number] BASIC METABOLIC [id number] 06:53:51 Test Item Value Reference Range Interpretation Comments SODIUM (BEAKER) 134 meq/L 135-148 L (test code = 381) POTASSIUM 3.9 meq/L 3.6-5.5 (BEAKER) (test code = 379) CHLORIDE (BEAKER) 103 meq/L 98-106 (test code = 382) CO2 (BEAKER) 23 meq/L 20-29 (test code = 355) BLOOD UREA 36 mg/dL 10-26 H NITROGEN (BEAKER) (test code = 354) CREATININE 1.55 mg/dL 0.50-1.20 H (BEAKER) (test code = 358) GLUCOSE RANDOM 108 mg/dL 70-110 (BEAKER) (test code = 652) CALCIUM (BEAKER) 8.7 mg/dL 8.5-10.5 (test code = 697) EGFR (BEAKER) 51 Interpretatio n of eGFR (test code = mL/min/1.73 values Stage De scription 1092) sq m Result G1 [place] l or high >=90 G2 Mildly decreased 60-89 G3a Mildl y to moderately 45-5 9 G3b Moderately to s everely 30-44 G4 Severl y decreased 15-29 G5 Kidney failure <15Reported eGF R is based on the CKD-EPI 2021 equation that d oes not use a race coefficientEsti mated GFR is not as accur ate as Creatinine Wanda faustino in predicting glom erular filtration rate . Estimated GFR is not appl icable for dialysis patien ts Food And Beverage Associate ID - [id number] ID - [id number] ID - [id number] ID - [id number] ID - [id number] ID - DWMZ49Rrhihcun ID - [id number] ID - [id number] ID - [id number] 06:52:35 Test Item Value Reference Range Interpretation Comments PHOSPHORUS (BEAKER) (test code = 2.5 mg/dL 2.5-4.5 604) Food And Beverage Associate ID - [id number] W/PLT COUNT & AUTO [id number] 06:40:06 Test Item Value Reference Range Interpretation Comments WHITE BLOOD CELL COUNT (BEAKER) 17.1 K/ L 4.0-10.0 H (test code = 775) RED BLOOD CELL COUNT (BEAKER) 4.33 M/ L 4.20-5.80 (test code = 761) HEMOGLOBIN (BEAKER) (test code = 13.7 GM/DL 13.0-16.8 410) HEMATOCRIT (BEAKER) (test code = 38.7 % 36.0-50.0 411) MEAN CORPUSCULAR VOLUME (BEAKER) 89 fL 82-99 (test code = 753) MEAN CORPUSCULAR HEMOGLOBIN 31.6 pg 27.0-33.0 (BEAKER) (test code = 751) MEAN CORPUSCULAR HEMOGLOBIN CONC 35.4 GM/DL 32.0-36.0 (BEAKER) (test code = 752) RED CELL DISTRIBUTION WIDTH 11.6 % 12.0-15.0 L (BEAKER) (test code = 412) PLATELET COUNT (BEAKER) (test 468 K/CU MM 150-430 H code = 756) MEAN PLATELET VOLUME (BEAKER) 10.9 fL 6.0-11.5 (test code = 754) NUCLEATED RED BLOOD CELLS 0 /100 WBC 0-0 (BEAKER) (test code = 413) NEUTROPHILS RELATIVE PERCENT 81 % (BEAKER) (test code = 429) LYMPHOCYTES RELATIVE PERCENT 12 % (BEAKER) (test code = 430) MONOCYTES RELATIVE PERCENT 5 % (BEAKER) (test code = 431) EOSINOPHILS RELATIVE PERCENT 1 % (BEAKER) (test code = 432) BASOPHILS RELATIVE PERCENT 1 % (BEAKER) (test code = 437) NEUTROPHILS ABSOLUTE COUNT 13.77 K/ L 1.80-8.00 H (BEAKER) (test code = 670) LYMPHOCYTES ABSOLUTE COUNT 1.97 K/ L 1.48-4.50 (BEAKER) (test code = 414) MONOCYTES ABSOLUTE COUNT (BEAKER) 0.90 K/ L 0.00-1.30 (test code = 415) EOSINOPHILS ABSOLUTE COUNT 0.08 K/ L 0.00-0.50 (BEAKER) (test code = 416) BASOPHILS ABSOLUTE COUNT (BEAKER) 0.12 K/ L 0.00-0.20 (test code = 417) IMMATURE GRANULOCYTES-RELATIVE 1.50 % 0.00-0.00 H PERCENT (BEAKER) (test code = 2801) POCT-GLUCOSE [id number] 06:26:45 Test Item Value Reference Range Interpretation Comments POC-GLUCOSE METER 110 mg/dL 70-110 : TESTED A T [address] (BEAKER) (test code [address], = 1538) [facility] [place] [address]: Food And Beverage Associate/Techni amanda ID = [id number] for Yusef Murray [id number] 01:01:05 Test Item Value Reference Range Interpretation Comments PROCALCITONIN (BEAKER) (test code 0.07 ng/mL <0.05 H = 3036) SEPSIS RISK (ng/mL)Low: 0.05-0.50Intermediate: 0.51-2.00High: >=2.01TROPONIN [id number] 22:15:12 Test Item Value Reference Range Interpretation Comments TROPONIN I (BEAKER) (test code = 0.14 ng/mL 0.00-0.15 397) Troponin I (TnI) levels must be interpreted in the context of the presenting symptoms and the clinical findings. Elevated TnI levels indicate myocardial damage, but are not specific for ischemic heart disease. Elevated TnI levels are seen in patients with other cardiac conditions (including myocarditis and congestive heart failure), and slight TnI elevations occur in patients with other conditions, including sepsis, renal failure, acidosis, acute neurological disease, and persistent tachyarrhythmia.Food And Beverage Associate ID - [id number] 22:07:09 Test Item Value Reference Range Interpretation Comments C-REACTIVE PROTEIN (BEAKER) (test 0.13 mg/dL 0.00-0.50 code = 676) Food And Beverage Associate ID - [id number] [id number] 21:33:42 Test Item Value Reference Range Interpretation Comments POC-GLUCOSE METER 170 mg/dL 70-110 H : TESTED A T [address] (BEAKER) (test code [address], = 1538) [facility] [address]: Food And Beverage Associate/Techni amanda ID = [id number] for Vani Estrada POCT-GLUCOSE [id number] 18:37:12 Test Item Value Reference Range Interpretation Comments POC-GLUCOSE METER 192 mg/dL 70-110 H : TESTED A T [address] (BEAKER) (test code [address], = 1538) [facility] [address]: Food And Beverage Associate/Techni amanda ID = [id number] for Geoffrey May [id number] 15:07:15 Test Item Value Reference Range Interpretation Comments LIPASE (BEAKER) (test code = 749) 61 U/L 6-51 H Food And Beverage Associate ID - [id number], CHEST, 1 VIEW, NON [id number] 15:00:00Reason for exam:->hypoglycemia, [facility] 1960 Sex: MFINAL REPORT Chest AP portable semierect History provided: Hypoglycemia, hypertension Heart size normal. Lungs are clear and vascularity normal. Signed: Wei Knox Verified Date/Time: 10/14/2022 15:00:40 Reading Location: [facility] Radiology Reading Room HEMOGLOBIN [id number] 14:12:36 Test Item Value Reference Range Interpretation Comments HEMOGLOBIN A1C (BEAKER) (test code = 16.7 % 4.3-6.1 H 368) Food And Beverage Associate ID - [id number] T4 IF [id number] 14:00:49 Test Item Value Reference Range Interpretation Comments THYROID STIMULATING HORMONE 3.400 uIU/mL 0.350-5.500 (BEAKER) (test code = 772) Food And Beverage Associate ID - [id number] NATRIURETIC FACTOR (BNP)2022-10-14 13:49:38 Test Item Value Reference Range Interpretation Comments B-TYPE NATRIURETIC PEPTIDE (BEAKER) 518 pg/mL 0-100 H (test code = 700) Food And Beverage Associate ID - [id number] 13:49:32 Test Item Value Reference Range Interpretation Comments TROPONIN I (BEAKER) (test code = 0.16 ng/mL 0.00-0.15 H 397) Troponin I (TnI) levels must be interpreted in the context of the presenting symptoms and the clinical findings. Elevated TnI levels indicate myocardial damage, but are not specific for ischemic heart disease. Elevated TnI levels are seen in patients with other cardiac conditions (including myocarditis and congestive heart failure), and slight TnI elevations occur in patients with other conditions, including sepsis, renal failure, acidosis, acute neurological disease, and persistent tachyarrhythmia.Food And Beverage Associate ID - [id number] METABOLIC [id number] 13:49:10 Test Item Value Reference Range Interpretation Comments TOTAL PROTEIN 5.6 gm/dL 6.0-8.5 L (BEAKER) (test code = 770) ALBUMIN (BEAKER) 2.9 g/dL 3.5-5.0 L (test code = 1145) ALKALINE 83 U/L 30-115 PHOSPHATASE (BEAKER) (test code = 346) BILIRUBIN TOTAL 0.3 mg/dL 0.1-1.2 (BEAKER) (test code = 377) SODIUM (BEAKER) 134 meq/L 135-148 L (test code = 381) POTASSIUM (BEAKER) 3.4 meq/L 3.6-5.5 L (test code = 379) CHLORIDE (BEAKER) 96 meq/L 98-106 L (test code = 382) CO2 (BEAKER) (test 26 meq/L 20-29 code = 355) BLOOD UREA 42 mg/dL 10-26 H NITROGEN (BEAKER) (test code = 354) CREATININE 1.90 mg/dL 0.50-1.20 H (BEAKER) (test code = 358) GLUCOSE RANDOM 155 mg/dL 70-110 H (BEAKER) (test code = 652) CALCIUM (BEAKER) 9.9 mg/dL 8.5-10.5 (test code = 697) AST (SGOT) 17 U/L 5-40 (BEAKER) (test code = 353) ALT (SGPT) 7 U/L 5-50 (BEAKER) (test code = 347) EGFR (BEAKER) 40 Interpretatio n of eGFR (test code = 1092) mL/min/1.[address] age Description sq m Result G1 Arminda l or high >=90 G2 Mildly decreased 60-89 G3a Mildl y to moderately 45-5 9 G3b Moderately to s everely 30-44 G4 Severl y decreased 15-29 G5 Kidney failure <15Reported eGF R is based on the CKD-EPI 202 equation that d oes not use a race coefficientEsti mated GFR is not as accur ate as Creatinine Wanda faustino in predicting glom erular filtration rate . Estimated GFR is not appl icable for dialysis patien ts Food And Beverage Associate ID - [id number] ID - [id number] ID - [id number] ID - [id number] ID - [id number] ID - [id number] ID - CUCSW341Ztsllmlw ID - [id number] ID - [id number] ID - [id number] ID - [id number] ID - [id number] ID - [id number] ID - [id number] ID - [id number] ID - [id number] 13:40:11 Test Item Value Reference Range Interpretation Comments MAGNESIUM (BEAKER) (test code = 1.8 mg/dL 1.5-3.0 627) Food And Beverage Associate ID - [id number] ID - [id number] ID - [id number] ID - [id number] [id number] 13:39:13 Test Item Value Reference Range Interpretation Comments TRIGLYCERIDES (BEAKER) (test code = 201 mg/dL 540) CHOLESTEROL (BEAKER) (test code = 217 mg/dL 631) HDL CHOLESTEROL (BEAKER) (test code 53 mg/dL = 976) LDL CHOLESTEROL CALCULATED (BEAKER) 124 mg/dL (test code = 633) Triglyceride Reference Range: Low Risk <150 Borderline 150-199 High Risk 200- 499 Very High Risk >=500Cholesterol Reference Range: Low Risk <200 Borderline 200-239 High Risk >240HDL Cholesterol Reference Range: Low Risk >=60 High Risk <40LDL Cholesterol Reference Range: Optimal <100 Near Optimal 100-129 Borderline 130-159 High 160-189 Very High >=190 Food And Beverage Associate ID - [id number] ID - [id number] ID - [id number] 13:36:29 Test Item Value Reference Range Interpretation Comments PHOSPHORUS (BEAKER) (test code = 2.9 mg/dL 2.5-4.5 604) Food And Beverage Associate ID - [id number] TIME/[id number] 13:34:24 Test Item Value Reference Range Interpretation Comments PROTIME (BEAKER) 10.2 seconds 9.3-12.0 Final Infor mation (test code = 759) (Auto Outp ut) INR (BEAKER) (test 0.92 <=5.90 Final Inf ormation code = 370) (Auto Output) RECOMMENDED COUMADIN/WARFARIN INR THERAPY RANGESSTANDARD DOSE: 2.0 - 3.0 Includes: PROPHYLAXIS for venous thrombosis, systemic embolization; TREATMENT for venous thrombosis and/or pulmonary embolus.HIGH RISK: Target INR is 2.5-3.5 for patients with mechanical heart valves.CBC W/PLT COUNT & AUTO [id number] 13:18:41 Test Item Value Reference Range Interpretation Comments WHITE BLOOD CELL COUNT (BEAKER) 21.7 K/ L 4.0-10.0 H (test code = 775) RED BLOOD CELL COUNT (BEAKER) 4.82 M/ L 4.20-5.80 (test code = 761) HEMOGLOBIN (BEAKER) (test code = 15.2 GM/DL 13.0-16.8 410) HEMATOCRIT (BEAKER) (test code = 42.3 % 36.0-50.0 411) MEAN CORPUSCULAR VOLUME (BEAKER) 88 fL 82-99 (test code = 753) MEAN CORPUSCULAR HEMOGLOBIN 31.5 pg 27.0-33.0 (BEAKER) (test code = 751) MEAN CORPUSCULAR HEMOGLOBIN CONC 35.9 GM/DL 32.0-36.0 (BEAKER) (test code = 752) RED CELL DISTRIBUTION WIDTH 11.5 % 12.0-15.0 L (BEAKER) (test code = 412) PLATELET COUNT (BEAKER) (test 543 K/CU MM 150-430 H code = 756) MEAN PLATELET VOLUME (BEAKER) 10.4 fL 6.0-11.5 (test code = 754) NUCLEATED RED BLOOD CELLS 0 /100 WBC 0-0 (BEAKER) (test code = 413) NEUTROPHILS RELATIVE PERCENT 78 % (BEAKER) (test code = 429) LYMPHOCYTES RELATIVE PERCENT 12 % (BEAKER) (test code = 430) MONOCYTES RELATIVE PERCENT 8 % (BEAKER) (test code = 431) EOSINOPHILS RELATIVE PERCENT 0 % (BEAKER) (test code = 432) BASOPHILS RELATIVE PERCENT 0 % (BEAKER) (test code = 437) NEUTROPHILS ABSOLUTE COUNT 17.01 K/ L 1.80-8.00 H (BEAKER) (test code = 670) LYMPHOCYTES ABSOLUTE COUNT 2.52 K/ L 1.48-4.50 (BEAKER) (test code = 414) MONOCYTES ABSOLUTE COUNT (BEAKER) 1.68 K/ L 0.00-1.30 H (test code = 415) EOSINOPHILS ABSOLUTE COUNT 0.01 K/ L 0.00-0.50 (BEAKER) (test code = 416) BASOPHILS ABSOLUTE COUNT (BEAKER) 0.09 K/ L 0.00-0.20 (test code = 417) IMMATURE GRANULOCYTES-RELATIVE 1.90 % 0.00-0.00 H PERCENT (BEAKER) (test code = 2801) LACTIC ACID, [id number] 13:16:51 Test Item Value Reference Range Interpretation Comments LACTATE BLOOD 1.50 mmol/L See_Comment [Automated me ssage] VENOUS (2) (BEAKER) The syst em which (test code = 9622) generated this result transmitted ref erence range: 0.50-<2. 00. The reference range was not used to interpr et this result as normal/abnormal . POCT-GLUCOSE [id number] 13:02:19 Test Item Value Reference Range Interpretation Comments POC-GLUCOSE METER 158 mg/dL 70-110 H : Notified RN/MD: TESTED (BEAKER) (test code AT [address] POINT = 1538) [facility] [id number]: Food And Beverage Associate/Techni amanda ID = [id number] for Arabella Giordano
--- NOTE | 2022-10-29 15:35 | RAD REPORT ---
EXAM DESCRIPTION: Jaylen Single View10/29/2022 3:25 pm CLINICAL HISTORY: Swelling/shortness of breath COMPARISON: none FINDINGS: Mild bilateral pulmonary opacities Small pleural effusions Heart is probably mildly enlarged IMPRESSION: These findings probably indicate mild CHF
[2022-10-29 15:40] LABS: Absolute Lymphocytes (CBC) 1.6 K/uL (0.7-4.9); Hematocrit 36.3 % (39.6-49.0); Lymphocytes % 13.9 % (15.3-44.8); MCV 94.5 fL (80-100); MPV 8.4 fL (7.6-11.3); RBC Red Blood Cell Count 3.84 M/uL (4.33-5.43)
[2022-10-29 17:36] LABS: ALT/SGPT 17 U/L (16-61); AST/SGOT 13 U/L (15-37); Albumin 1.8 g/dL (3.4-5.0); Alkaline Phosphatase 78 U/L (45-117); BUN Blood Urea Nitrogen 21 mg/dL (7-18); Bicarbonate 25 mEq/L (21-32); Bilirubin Total 0.3 mg/dL (0.2-1.0); Glomerular Filtration Rate 69 ml/min (=/>90); Glucose Level 144 mg/dL (74-106); NT PRO-BNP 6070 pg/mL (<125); Potassium 3.6 mEq/L (3.5-5.1); Sodium Level 140 mEq/L (136-145); Troponin High Sensitivity 16.3 pg/mL (<58.9)
[2022-10-29 17:58] LABS: Bilirubin Direct < 0.1 mg/dL (0-0.2)
[2022-10-29] MEDS ORDERED: FUROSEMIDE 40 MG/4 ML VIAL ONE (18:27)
--- NOTE | 2022-10-29 19:23 | EDPHYS ---
Physician Documentation [facility] Name: Farhan Avila Age: 62 yrs Sex: Male : 1960 Arrival Date: 10/29/2022 Time: 13:56 Bed 5 Private MD: Mini Yoo Atiq ED Physician Deni Curry HPI: 10/29 14:41 This 62 yrs old Male presents to ER via Ambulatory with complaints of swelling all sk4 over/fluid overload. 14:41 about 1.5 weeks ago co'ed after a hospitalization for dka. received several bags of iv sk4 fluids. has noticed progressive edema/swelling since then. has noticed swelling in both legs, abd, and gu area. 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 no chest pain. no fever/cough. pmh includes hiv, cad. never had known kidney, liver, or chf issues. . Historical: - Allergies: 14:22 No Known Allergies; ss - PMHx: 14:22 raynaud's; MA; HIV positive; DM; CAD; Bipolar disorder; ss - PSHx: 14:22 Appendectomy; Cholecystectomy; Heart Stents; ss - Immunization history:: Client reports receiving the 2nd dose of the Covid vaccine. - Social history:: Smoking status: Patient reports the use of cigarette tobacco products, smokes one pack cigarettes per day. ROS: 14:41 Constitutional: Negative for fever, chills, and weight loss, Cardiovascular: Negative sk4 for chest pain, palpitations Respiratory: Negative for cough, wheezing, and pleuritic chest pain. Exam: 14:41 Constitutional: This is a well developed, well nourished patient who is awake, alert, sk4 and in no acute distress. Chest/axilla: Normal chest wall appearance and motion. Nontender with no deformity. No lesions are appreciated. Cardiovascular: Regular rate and rhythm with a normal S1 and S2. No gallops, murmurs, or rubs. Normal PMI, no JVD. No pulse deficits. Respiratory: Lungs have equal breath sounds bilaterally, clear to auscultation and percussion. No rales, rhonchi or wheezes noted. No increased work of breathing, no retractions or nasal flaring. Abdomen/GI: Soft, non-tender, with normal bowel sounds. No guarding or rebound. No evidence of tenderness throughout. MS/ Extremity: Pulses equal, no cyanosis. Neurovascular intact. Full, normal range of motion. 1+ pitting edema ble symmetric.no calf tenderness 19:21 ECG was reviewed by the Attending Physician. NSR, no acute ST/T changes [facility] Vital Signs: 14:19 BP 177 / 89; Pulse 63; Resp 16; Temp 98(TE); Pulse Ox 100% on R/A; Height 5 ft. 11 in. ss ; Pain 0/10; 15:40 BP 182 / 89; Pulse 59; Resp 17; Pulse Ox 100% on R/A; ap3 18:14 BP 187 / 98; Pulse 62; Pulse Ox 99% on R/A; ap3 19:50 BP 179 / 84; Pulse 65; Resp 18 S; Temp 98.6(O); Pulse Ox 99% on R/A; aa9 14:19 Pain Scale: Adult ss MDM: 14:41 Differential Diagnosis chf, liver dz, nephropathy, renal failure, dka, electrolyte abn. [facility] Data reviewed: vital signs, nurses notes, lab test result(s), radiologic studies. 19:20 Consideration of Admission/Observation Patient was admitted/placed on observation. [facility] Management of patient was discussed with the following: Hospitalist: Laurita Hansen. I considered the following discharge prescriptions or medication management in the emergency department Medications were administered in the Emergency Department. See AUG. 19:22 Patient medically screened. [facility] 10/29 14:38 Order name: Basic Metabolic Panel; Complete Time: 18:04 [facility] 10/29 14:38 Order name: CBC with Diff; Complete Time: 15:43 [facility] 10/29 14:38 Order name: LFT's; Complete Time: 18:04 [facility] 10/29 14:38 Order name: NT PRO-BNP; Complete Time: 18:04 [facility] 10/29 14:38 Order name: Troponin HS; Complete Time: 18:04 [facility] 10/29 14:38 Order name: XRAY Chest (1 view); Complete Time: 15:43 [facility] 10/29 14:38 Order name: EKG; Complete Time: 14:39 [facility] 10/29 14:38 Order name: EKG - Nurse/Tech; Complete Time: 16:54 [facility] 10/29 14:38 Order name: O2 Per Protocol; Complete Time: 15:36 4 10/29 14:38 Order name: O2 Sat Monitoring; Complete Time: 15:36 sk4 10/29 15:51 Order name: Labs - recollect needed: recollect green top; Complete Time: 17:03 bd Administered Medications: 18:28 Drug: Furosemide IVP 40 mg Route: IVP; Site: right antecubital; ap3 Disposition Summary: 10/29/22 19:22 Hospitalization Ordered Hospitalization Status: Inpatient Admission 4 Provider: Leonardo Morris Condition: Stable sk4 Problem: new sk4 Symptoms: are unchanged sk4 Bed/Room Type: Standard [facility] Location: Telemetry/MedSurg (Inpatient)(10/29/22 19:57) cg Room Assignment: [facility](10/29/22 19:57) Diagnosis - Edema, unspecified 4 Forms: - Medication Reconciliation Form sk4 - SBAR form 4 Signatures: Dispatcher [employer] EDMS Tessa Dior Shelby, RN RN Iris Cruz RN RN Ana Robertson RN RN 3 Deni Curry 4 Corrections: (The following items were deleted from the chart) 19:57 19:22 Telemetry/MedSurg (Inpatient) [facility] 19:57 19:22 4
--- NOTE | 2022-10-29 19:23 | ER ---
Nurse's Notes [facility] Name: Farhan Avila Age: 62 yrs Sex: Male : 1960 Arrival Date: 10/29/2022 Time: 13:56 Bed 5 Private MD: Mini Yoo Atiq Diagnosis: Edema, unspecified Presentation: 10/29 14:19 Chief complaint: Patient states: Swelling all over that began 3-4 days ago. Pt is ss worried because he was transferred recently to [facility] and that he may have had some kidney damage. Coronavirus screen: Client denies travel out of the [place] in the last 14 days. Ebola Screen: Patient denies exposure to infectious person. Patient denies travel to an Ebola-affected area in the 21 days before illness onset. Initial Sepsis Screen: Does the patient meet any 2 criteria? No. Patient's initial sepsis screen is negative. Does the patient have a suspected source of infection? No. Patient's initial sepsis screen is negative. Risk Assessment: Do you want to hurt yourself or someone else? Patient reports no desire to harm self or others. Onset of symptoms was October 25, 2022. 14:19 Method Of Arrival: Ambulatory ss 14:19 Acuity: DINORAH 3 ss Triage Assessment: 15:37 General: Appears in no apparent distress. Behavior is calm, cooperative, appropriate ap3 for age. Pain: Complains of pain in generalized body aches. Neuro: Level of Consciousness is awake, alert, obeys commands, Oriented to person, place, time, situation. Cardiovascular: Patient's skin is warm and dry. Respiratory: Airway is patent Respiratory effort is even, unlabored, Respiratory pattern is regular, symmetrical. Historical: - Allergies: 14:22 No Known Allergies; ss - PMHx: 14:22 raynaud's; MD; HIV positive; DM; CAD; Bipolar disorder; ss - PSHx: 14:22 Appendectomy; Cholecystectomy; Heart Stents; ss - Immunization history:: Client reports receiving the 2nd dose of the Covid vaccine. - Social history:: Smoking status: Patient reports the use of cigarette tobacco products, smokes one pack cigarettes per day. Screenin:37 [facility] ED Fall Risk Assessment (Adult) History of falling in the last 3 months, ap3 including since admission No falls in past 3 months (0 pts) Confusion or Disorientation No (0 pts) Intoxicated or Sedated No (0 pts) Impaired Gait Yes (1 pt) Mobility Assist Device Used No (0 pt) Altered Elimination No (0 pt). Abuse screen: Denies threats or abuse. Nutritional screening: No deficits noted. Tuberculosis screening: No symptoms or risk factors identified. Assessment: 15:38 Derm: swelling noted under the eyes and to the lower extremities. patient reports that ap3 he his swollen all over. 19:50 General: Appears in no apparent distress. comfortable, Behavior is calm, cooperative. aa9 Neuro: Level of Consciousness is awake, alert, obeys commands, Oriented to person, place, time, situation. Respiratory: Airway is patent Respiratory effort is even, unlabored. 20:03 Reassessment: Patient appears in no apparent distress at this time. attempted to call aa9 report. 20:48 Reassessment: Patient appears in no apparent distress at this time. Patient and/or jb4 family updated on plan of care and expected duration. Pain level reassessed. Patient is alert, oriented x 3, equal unlabored respirations, skin warm/dry/pink. Pt transferred upstairs via wheelchair. Denies questions or concerns at this time. Vital Signs: 14:19 BP 177 / 89; Pulse 63; Resp 16; Temp 98(TE); Pulse Ox 100% on R/A; Height 5 ft. 11 in. ss ; Pain 0/10; 15:40 BP 182 / 89; Pulse 59; Resp 17; Pulse Ox 100% on R/A; ap3 18:14 BP 187 / 98; Pulse 62; Pulse Ox 99% on R/A; ap3 19:50 BP 179 / 84; Pulse 65; Resp 18 S; Temp 98.6(O); Pulse Ox 99% on R/A; aa9 14:19 Pain Scale: Adult ss ED Course: 13:56 Patient arrived in ED. am2 13:57 Mini Yoo MD is Private Physician. am2 14:22 Triage completed. ss 14:22 Arm band placed on right wrist. ss 14:29 Deni Curry is Attending Physician. sk4 15:17 Ana Robertson, PATIENCE is Primary Nurse. ap3 15:27 XRAY Chest (1 view) In Process Unspecified. EDMS 15:36 Inserted saline lock: 22 gauge in right antecubital area, using aseptic technique. ap3 Blood collected. 15:36 Initial lab(s) drawn, by me, sent to lab. ap3 15:37 Patient has correct armband on for positive identification. Bed in low position. Call ap3 light in reach. Side rails up X 1. Adult w/ patient. Pulse ox on. NIBP on. Door closed. Noise minimized. Warm blanket given. 19:21 Leonardo Morris is Hospitalizing Provider. sk4 20:03 No provider procedures requiring assistance completed. Patient admitted, IV remains in aa9 place. Administered Medications: 18:28 Drug: Furosemide IVP 40 mg Route: IVP; Site: right antecubital; ap3 Medication: 15:37 VIS not applicable for this client. ap3 Outcome: 19:22 Decision to Hospitalize by Provider. sk4 20:02 Condition: stable aa9 20:48 Admitted to Med/surg accompanied by nurse, via stretcher, room 220, with chart. jb4 20:48 Discharge instructions given to patient, friend, Instructed on the need for admit, Demonstrated understanding of instructions. 20:51 Patient left the ED. jb4 Signatures: Dispatcher [employer] EDOK Lakshmi Ceballos, RN RN Jose Eduardo Herrera RN RN jb4 Ana Chapman Amanda RN RN ap3 Purvi Hilton, PATIENCE RN [id number] Deni Curry 4
--- NOTE | 2022-10-29 19:40 | P.HP ---
Certification for Inpatient Patient admitted to: Observation With expected LOS: <2 Midnights Patient will require the following post-hospital care: None Practitioner: I am a practitioner with admitting privileges, knowledge of patient current condition, hospital course, and medical plan of care. Services: Services provided to patient in accordance with Admission requirements found in Title 42 Section 412.3 of the Code of Federal Regulations Patient History Date of Service: 10/29/22 Primary Care Provider: Lupe Reason for admission: CHF- New Onset History of Present Illness: Mr. Avila is a 62 year old male with past medical history of hypertension, coronary artery disease, HIV, non-insulin dependent type 2 diabetes, and bipolar disorder who presented to the emergency department with complaints of anasarca. He was recently seen here and transferred to [facility] for treatment of gastritis. He states that he was hospitalized for 6 days and received a significant amount of IV fluid. He was discharged 10 days ago and states that his entire body has been edematous since. BNP is 6000 today. No other signifi cant lab abnormalities. Chest xray showed mild CHF. He was given 40 mg IV lasix in the emergency department and has already had some improvement in swelling. ED provider wishes to admit patient for further management of new onset of CHF. Allergies lithium Allergy (Verified 10/29/22 20:51) Nausea/Vomiting Home medications list reviewed: Yes - Past Medical/Surgical History Diabetic: Yes -: Hypertension -: Type 2 Diabetes -: HIV -: Coronary Artery Disease -: Bipolar Disorder -: Appendectomy -: Cholecystectomy -: Cardiac cath with stents Psychosocial/ Personal History: Patient lives at home with his partner. - Family History Family History: Reviewed- Non-Contributory - Social History Smoking Status: Current every day smoker Alcohol use: Yes CD- Drugs: No Caffeine use: No Place of Residence: Home Review of Systems Cardiovascular: Edema Physical Examination - Vital Signs Temperature: 98 F Blood Pressure: 187/98 Pulse: 62 Respirations: 17 Pulse Ox (%): 99 - Physical Exam General: Alert, In no apparent distress HEENT: Atraumatic, EOMI, Sclerae nonicteric Neck: Supple, 2+ carotid pulse no bruit Respiratory: Clear to auscultation bilaterally, Normal air movement Cardiovascular: Regular rate/rhythm, Normal S1 S2 Gastrointestinal: Normal bowel sounds, No tenderness Musculoskeletal: No tenderness Integumentary: No rashes Neurological: Normal speech, Normal affect - Studies Laboratory Data (last 24 hrs) 10/29/22 17:03: Sodium 140, Potassium 3.6, BUN 21 H, Creatinine 1.18, Glucose 144 H, Total Bilirubin 0.3, AST 13 L, ALT 17, Alkaline Phosphatase 78 10/29/22 15:30: WBC 11.80 H, Hgb 12.4 L, Hct 36.3 L, Plt Count 432 H Assessment and Plan - Problems (Diagnosis) (1) Congestive heart failure (CHF) Current Visit: Yes Status: Acute Qualifiers: Heart failure type: unspecified Heart failure chronicity: acute Qualified Code(s): I50.9 - Heart failure, unspecified (2) Hypertension Current Visit: Yes Status: Chronic Qualifiers: Hypertension type: primary hypertension Qualified Code(s): I10 - Essential (primary) hypertension (3) Type 2 diabetes mellitus Current Visit: Yes Status: Chronic Qualifiers: Diabetes mellitus fdc insulin use: without continuous churn buttermaker use Diabetes mellitus complication status: with hyperglycemia Qualified Code(s): E11.65 - Type 2 diabetes mellitus with hyperglycemia (4) Coronary artery disease Current Visit: Yes Status: Chronic Qualifiers: Coronary Disease-Associated Artery/Lesion type: [place] artery [place] vs. transplanted heart: [place] heart Associated angina: without angina Qualified Code(s): I25.10 - Atherosclerotic heart disease of [place] coronary artery without angina pectoris (5) HIV (human immunodeficiency virus infection) Current Visit: Yes Status: Chronic Qualifiers: HIV symptom status: unspecified Qualified Code(s): B20 - Human immunodeficiency virus [HIV] disease (6) Bipolar disorder Current Visit: Yes Status: Chronic Qualifiers: Active/Remission status: remission status unspecified Qualified Code(s): F31.9 - Bipolar disorder, unspecified (7) Tobacco abuse Current Visit: Yes Status: Chronic - Plan Patient is admitted for further management of new onset CHF. Obtain echocardiogram. Consult cardiology. He recently moved down here and does not have a sleeve sewer. He has received 40 mg IV lasix so far and has diuresed well with improvement in edema. Monitor intake and output. Fluid restriction. Daily weights. ACHS accu checks with sliding scale and diabetic diet. Check lipid panel and A1c. Monitor and replete electrolytes per protocol. Reconcile and continue home medications. Lovenox for VTE prophylaxis. Full code. Discharge Plan: Home Plan to discharge in: 24 Hours - Advance Directives Does patient have a Living Will: No Does patient have a Durable POA for Healthcare: No - Code Status/Comfort Care Code Status Assessed: Yes Code Status: Full Code Physician Review: Patient Assessed, Agree with Above Assessment and Plan Critical Care: No Time Spent Managing Pts Care (In Minutes): 50
[2022-10-29] MEDS ORDERED: ONDANSETRON 4 MG/2 ML VIAL IV PRN (20:52)
[2022-10-29] MEDS ORDERED: ALBUTEROL 2.5 MG/3 ML NEB SOL NEB PRN (20:52)
[2022-10-29] MEDS: INSULIN -REGULAR HUMAN 50 UNIT/0.5 ML ML SQ SCH (21:00)
[2022-10-29 22:17] VITALS: BMI 22.8
[2022-10-30] MEDS ORDERED: NITROGLYCERIN 0.4 MG/TAB SL PRN (00:49)
[2022-10-30 04:14] LABS: Hematocrit 30.1 % (39.6-49.0); MCV 94.2 fL (80-100); MPV 8.8 fL (7.6-11.3)
[2022-10-30 04:25] LABS: Magnesium 1.4 mg/dL (1.6-2.4); Phosphorus 3.2 mg/dL (2.5-4.9); Potassium 3.5 mEq/L (3.5-5.1); Thyroid Stimulating Hormone 2.72 uIU/mL (0.358-3.740)
[2022-10-30 04:45] LABS: Blood Morphology Comment NOT SEEN (NOT SEEN); Platelet Estimate ADEQ
[2022-10-30] MEDS ORDERED: Magnesium Sulfate 2gm IVPB 2 G/50 ML BAG IV ONE (06:00)
[2022-10-30] MEDS: INSULIN -REGULAR HUMAN 50 UNIT/0.5 ML ML SQ SCH ×4 (07:30→21:57)
--- NOTE | 2022-10-30 07:50 | EKG ---
Test Date: 2022-10-29 Test Time: 16:37:17 Diamond Driller Helper: MB MEASUREMENT RESULTS: Intervals: Rate: 61 DE: 236 QRSD: 130 QT: 436 QTc: 438 [place]: P: 98 DE: 236 QRS: 117 T: 162 INTERPRETIVE STATEMENTS: Suspect arm lead reversal, interpretation assumes no reversal Sinus rhythm with 1st degree AV block Right bundle branch block Abnormal ECG Compared to ECG 10/14/2022 05:19:43 First degree AV block now present Electronically Signed On 10-30-22 07:49:38 CDT by Oscar Denise
[2022-10-30] MEDS: ENOXAPARIN 40 MG/0.4 ML SQ SCH (08:52)
[2022-10-30] MEDS: ISOSORBIDE MONO SR 30 MG TAB PO SCH (08:52)
[2022-10-30] MEDS: METOPROLOL TAR 25 MG TAB PO SCH ×2 (08:52→21:56)
[2022-10-30] MEDS: LIDOCAINE VISCOUS 2% SOLN 15 ML UDC PO SCH ×4 (08:52→22:05)
[2022-10-30] MEDS: POLYETHYL GLY 3350 17 GM/DOSE PO SCH (08:52)
[2022-10-30] MEDS: CETIRIZINE HCL 5 MG TABLET PO SCH (08:52)
[2022-10-30] MEDS: DOCUSATE NA 100 MG CAP PO SCH (08:53)
[2022-10-30] MEDS: PANTOPRAZOLE 40MG TABLET PO SCH (08:53)
[2022-10-30] MEDS: PARoxetine HCL 10 MG TAB PO SCH (08:53)
[2022-10-30] MEDS: SUCRALFATE 1 GM TABLET PO SCH ×4 (08:53→21:55)
[2022-10-30] MEDS: HYDRALAZINE HCL 10 MG TABLET PO SCH ×3 (08:53→21:56)
[2022-10-30] MEDS: ASPIRIN EC 81 MG TAB PO SCH (08:54)
[2022-10-30] MEDS ORDERED: POTASSIUM CL SA 10 MEQ TAB PO ONE (09:00)
--- NOTE | 2022-10-30 09:49 | CON ---
Date of Consultation: 10/30/2022 Reason For Consultation: New onset congestive heart failure. History Of Present Illness: Mr. Avila is a 62-year-old white male, has a history of HIV positivity. He has a history of Raynaud phenomenon, coronary artery disease, status post stents many years ago. Has a history of diabetes, hypertension, dyslipidemia. Came in with new onset severe pedal edema, facial swelling overall, weight gain, and shortness of breath. He has already improved and is feelin g almost back to normal after IV Lasix. Echocardiogram is pending. He did not have any chest pain. Denied any nausea, vomiting, diaphoresis. He did have PND, orthopnea, and pedal edema. Allergies: HE IS ALLERGIC TO LITHIUM. Medications: At home include insulin, metoprolol, Imdur, aspirin, Lipitor, and hydralazine. Review of Systems: Negative. Social History: Negative. Family History: Negative. Physical Examination: General: He appeared to be older than stated age. No acute distress. Vital Signs: Sinus rhythm, afebrile. HEENT: Negative. Neck: Supple with no bruit. Chest: Clear today. Cardiac: Revealed a regular rhythm and rate with S4 gallops. No murmurs or rubs. Abdomen: Benign. Extremities: Revealed no clubbing, cyanosis. He has 1+ edema. Laboratory Data: Chest x-ray showed congestive heart failure. Hemoglobin A1c was more than 14. BNP was 6000. Impression And Plan: 1.Acute congestive heart failure, probably diastolic. Echocardiogram is pending. Continue present regimen. Continue diuresis. When he goes home, he should be on p.o. Lasix at least in addition to h is home medication. 2.His other problems; diabetes is very poorly controlled that needs to be addressed. 3.HIV positivity, stable. 4.History of coronary artery disease, status post stent. 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 He also has a history of Raynaud, hypertension, and dyslipidemia all of which are stabl e. Again, we will see what the echocardiogram shows. Hopefully, he will go home today or tomorrow o n his home medications plus p.o. Lasix. The case was discussed with Dr. Morris. STACY/HARSHA Voice ID: [id number] Report ID: [id number]
[2022-10-30] MEDS ORDERED: FUROSEMIDE 40 MG/4 ML VIAL IV ONE (13:31)
[2022-10-30] MEDS ORDERED: ALBUTEROL 2.5 MG/3 ML NEB SOL NEB PRN (14:00)
[2022-10-30] MEDS: hydrOXYzine HCL 25 MG TAB PO PRN (14:36)
[2022-10-30] MEDS: ACETAMINOPHEN 500 MG TAB PO PRN (16:23)
[2022-10-30] MEDS ORDERED: HYDROCODONE/APAP 5/325 MG TAB PO ONE (17:21)
--- NOTE | 2022-10-30 18:58 | P.PN ---
Subjective Date of Service: 10/30/22 Primary Care Provider: Lupe Chief Complaint: CHF- New Onset Patient is complaining of headache and leg pain. Blood pressure is elevated. Physical Examination - Vital Signs Temperature: 98.9 F Blood Pressure: 185/91 Pulse: 75 Respirations: 16 Pulse Ox (%): 97 Assessment And Plan - Current Problems (Diagnosis) (1) Acute heart failure Current Visit: Yes Status: Acute (2) Coronary artery disease Current Visit: Yes Status: Chronic Qualifiers: Coronary Disease-Associated Artery/Lesion type: [place] artery [place] vs. transplanted heart: [place] heart Associated angina: without angina Qualified Code(s): I25.10 - Atherosclerotic heart disease of [place] coronary artery without angina pectoris (3) HIV (human immunodeficiency virus infection) Current Visit: Yes Status: Chronic Qualifiers: HIV symptom status: unspecified Qualified Code(s): B20 - Human immunodeficiency virus [HIV] disease (4) Type 2 diabetes mellitus Current Visit: Yes Status: Chronic Qualifiers: Diabetes mellitus jail insulin use: without jail use Diabetes mellitus complication status: with hyperglycemia Qualified Code(s): E11.65 - Type 2 diabetes mellitus with hyperglycemia - Plan Physical Exam General: Alert, In no apparent distress HEENT: Atraumatic, EOMI, Sclerae nonicteric Neck: Supple, 2+ carotid pulse no bruit Respiratory: Clear to auscultation bilaterally, Normal air movement Cardiovascular: Regular rate/rhythm, Normal S1 S2 Gastrointestinal: Normal bowel sounds, No tenderness Musculoskeletal: No tenderness Integumentary: No rashes Neurological: Normal speech, Normal affect Plan New onset CHF with anasarca. Anasarca rapidly improved with IV Lasix. P atient's symptoms significantly improved. Cardiology input appreciated. Echocardiogram done and the result is pending. Monitor intake and output. Fluid restriction. Daily weights. [facility] accu checks with sliding scale and diabetic diet. Monitor and replete electrolytes per protocol. Continue HIV medications. Will obtain renal Doppler to assess for renal artery stenosis. Continue home antihypertensives. Hydralazine as needed for BP. Continue home CAD medications. Lovenox for VTE prophylaxis.
[2022-10-30] MEDS ORDERED: ATORVASTATIN 80 MG TAB PO SCH (21:00)
[2022-10-30] MEDS ORDERED: INSULIN GLARGINE 100 UNIT/ML SQ SCH (21:00)
[2022-10-30] MEDS ORDERED: TRAZODONE 50 MG TABLET PO SCH (21:00)
[2022-10-30] MEDS ORDERED: [UNRECOGNIZED DRUG - OTHER] PO SCH (21:00)
[2022-10-30 21:43] LABS: Urine Bacteria <20 /HPF (<20); Urine Bilirubin NEGATIVE (Negative); Urine Blood Trace (Negative); Urine Clarity Clear (Clear); Urine Color Colorless (Yellow); Urine Glucose 1+ (Negative); Urine Mucus Slight /HPF (None Seen); Urine Protein 2+ (Negative); Urine RBC <5 /HPF (None Seen); Urine Urobilinogen Normal (Normal); Urine WBC Clump Rare /HPF (None Seen)
[2022-10-31 03:45] LABS: Potassium 3.1 mEq/L (3.5-5.1)
[2022-10-31] MEDS ORDERED: POTASSIUM 25 MEQ EFFERV TAB PO ONE (04:41)
[2022-10-31 05:46] VITALS: O2SAT 96
--- NOTE | 2022-10-31 07:04 | ECHO ---
HEIGHT: 5 ft 11 in WEIGHT: 162 lb 11.2 oz DATE OF STUDY: 10/30/[address]: Laurita Hansen 2-DIMENSIONAL: YES M.MODE: YES DOPPLER: YES COLOR FLOW: YES TDS: NO PORTABLE: YES DEFINITY: NO BUBBLE STUDY: NO DIAGNOSIS: NEW CONGESTIVE HEART FAILURE CARDIAC HISTORY: CATHERIZATION: SURGERY: PROSTHETIC VALVE: PACEMAKER: MEASUREMENTS (cm) DIASTOLIC (NORMALS) SYSTOLIC (NORMALS) IVSd 1.0 (0.6-1.2) LA Diam 4.0 (1.9-4.0) LVEF 55-60% LVIDd 4.6 (3.5-5.7) LVIDs 3.4 (2.0-3.5) %FS 26% LVPWd 1.1 (0.6-1.2) Ao Diam 3.1 (2.0-3.7) 2 DIMENSIONAL ASSESSMENT: RIGHT ATRIUM: NORMAL LEFT ATRIUM: NORMAL RIGHT VENTRICLE: NORMAL LEFT VENTRICLE: NORMAL TRICUSPID VALVE: NORMAL MITRAL VALVE: MILD MITRAL REGURGITATION PULMONIC VALVE: NORMAL AORTIC VALVE: NORMAL PERICARDIAL EFFUSION: NONE AORTIC ROOT: NORMAL LEFT VENTRICULAR WALL MOTION: NORMAL. DOPPLER/COLOR FLOW: MILD MITRAL REGURGITATION. COMMENTS: NORMAL LEFT VENTRICULAR EJECTION FRACTION 55-60% NORMAL WALL MOTION MILD MITRAL REGURGITATION MODERATE DIASTOLIC DYSFUNCTION ELEVATED RIGHT ATRIUM PRESSURE GREATER THAN 20mmHg TECHNOLOGIST: KENNEY BRITO
[2022-10-31] MEDS: INSULIN -REGULAR HUMAN 50 UNIT/0.5 ML ML SQ SCH ×2 (07:30→11:30)
[2022-10-31] MEDS: LIDOCAINE VISCOUS 2% SOLN 15 ML UDC PO SCH ×2 (08:22→12:29)
[2022-10-31] MEDS: CETIRIZINE HCL 5 MG TABLET PO SCH (08:22)
[2022-10-31] MEDS: SUCRALFATE 1 GM TABLET PO SCH ×2 (08:23→12:29)
[2022-10-31] MEDS: ENOXAPARIN 40 MG/0.4 ML SQ SCH (08:23)
[2022-10-31] MEDS: PANTOPRAZOLE 40MG TABLET PO SCH (08:23)
[2022-10-31] MEDS: PARoxetine HCL 10 MG TAB PO SCH (08:23)
[2022-10-31] MEDS: DOCUSATE NA 100 MG CAP PO SCH (08:23)
[2022-10-31] MEDS: POLYETHYL GLY 3350 17 GM/DOSE PO SCH (08:23)
[2022-10-31] MEDS: METOPROLOL TAR 25 MG TAB PO SCH (08:23)
[2022-10-31] MEDS: HYDRALAZINE HCL 10 MG TABLET PO SCH (08:23)
[2022-10-31] MEDS: ISOSORBIDE MONO SR 30 MG TAB PO SCH (08:23)
[2022-10-31] MEDS: ASPIRIN EC 81 MG TAB PO SCH (08:23)
[2022-10-31] MEDS: ACETAMINOPHEN 500 MG TAB PO PRN (10:49)
--- NOTE | 2022-10-31 11:33 | RAD REPORT ---
EXAM DESCRIPTION: CT - Abdomen Angio - 10/31/2022 10:11 am CLINICAL HISTORY: Hypertension COMPARISON: Chest Single View dated 10/29/2022; Chest Abd Pelvis Wo Con dated 10/14/2022 TECHNIQUE: Thin cut axial CT imaging of the abdomen was performed following intravenous administrati on of 100 mL Isovue 300, with angiographic timing. Multiplanar reformats were generated and reviewed, including maximum intensity projection reformats. All CT scans are performed using dose optimization technique as appropriate and may include automated exposure control or mA/KV adjustment according to patient size. FINDINGS: The abdominal aorta is normal in caliber, without aneurysmal dilation or dissection. No fi ndings to suggest impending rupture. Major branches are patent. Mild to moderate burden of atheroscle rotic calcifications along the abdominal aorta and common iliac arteries bilaterally, without plaque ulceration or mural thrombosis. Moderate bilateral layering effusions. Dependent segmental airspace opacification suggesting atelecta sis. The liver, spleen, and pancreas show no suspicious findings. Gallbladder is not well visualized, coul d be surgically removed. No findings to suggest intra or extrahepatic biliary ductal dilation. Numerous exophytic renal fluid density lesions, more abundant on the left. The largest on the left is at the mid to lower pole measuring 2.5 centimeter. The largest on the right is present anteriorly at the midpole measuring 2.3 centimeter. No dilated bowel loops or bowel wall thickening. No free air, free fluid or inflammatory stranding. N o hernia, mass or bulky lymphadenopathy. The urinary bladder is without significant finding. No suspicious bony findings. IMPRESSION: No acute abnormalities of the aorta. [id number] atherosclerotic calcifications as above. No other acute findings in the abdomen. Grossly stable appearance of bilateral renal hypoattenuating lesions, likely cysts.
--- NOTE | 2022-10-31 12:49 | PN ---
Date of Progress Note: 10/31/2022 Patient was admitted with new-onset congestive heart failure. Mr. Avila had an echocardiogram yeste rday and that showed mild diastolic dysfunction, mild mitral regurgitation, normal ejection fraction. He does have a low potassium of 3.1, that needs to be supplemented. Creatinine is 1.27, which was slightly more elevated than yesterday. Labs: Glucose is 258. Patient has a history of CAD, PCI, is HIV positive. Has a history of hypertension, diabetes, dyslipidemia. He also has a history of Rayn aud phenomenon. He is presently on aspirin, Lipitor, Lovenox, Lasix, Imdur, metoprolol, hydralazine, and insulin. I will continue his present regimen. He probably should have an outpatient [place] ometime down the road. From our standpoint, he can go home whenever it is okay with Dr. Morris. He is on appropriate therapy. Please supplement the potassium. Watch creatinine. STACY/HARSHA Voice ID: [id number] Report ID: [id number]
[2022-10-31] MEDS ORDERED: LOSARTAN POTASSIUM 50 MG TABLET PO SCH (13:00)
[2022-10-31] MEDS ORDERED: HYDRALAZINE HCL 25 MG TABLET PO SCH (13:00)
[2022-10-31] MEDS ORDERED: HYDRALAZINE HCL 10 MG TABLET PO SCH (14:00)
[2022-10-31] MEDS: hydrOXYzine HCL 25 MG TAB PO PRN (14:34)
[2022-10-31 15:40] VITALS: BP 191/81; TEMP 97.9
--- NOTE | 2022-10-31 15:54 | P.DS ---
Admission Date: 10/29/22 Discharge Date: 10/31/22 Primary Care Provider: Lupe Disposition: ROUTINE DISCHARGE Discharge Condition: FAIR Reason for Admission: CHF- New Onset - Problems (1) Acute heart failure Current Visit: Yes Status: Acute (2) Coronary artery disease Current Visit: Yes Status: Chronic Qualifiers: Coronary Disease-Associated Artery/Lesion type: [place] artery [place] vs. transplanted heart: [place] heart Associated angina: without angina Qualified Code(s): I25.10 - Atherosclerotic heart disease of [place] coronary artery without angina pectoris (3) HIV (human immunodeficiency virus infection) Current Visit: Yes Status: Chronic Qualifiers: HIV symptom status: unspecified Qualified Code(s): B20 - Human immunodeficiency virus [HIV] disease (4) Type 2 diabetes mellitus Current Visit: Yes Status: Chronic Qualifiers: Diabetes mellitus skilled nursing insulin use: without skilled nursing use Diabetes mellitus complication status: with hyperglycemia Qualified Code(s): E11.65 - Type 2 diabetes mellitus with hyperglycemia Brief History of Present Illness: Mr. Avila is a 62 year old male with past medical history of hypertension, coronary artery disease, HIV, non-insulin dependent type 2 diabetes, and bipolar disorder who presented to the emergency department with complaints of anasarca. He was recently seen here and transferred to [facility] for treatment of gastritis. He states that he was hospitalized for 6 days and received a significant amount of IV fluid. He was discharged 10 days ago and states that his entire body has been edematous since. BNP is 6000 today. No other significant lab abnormalities. Chest xray showed mild CHF. He was given 40 mg IV lasix in the emergency department and has already had some improvement in swelling. Patient admitted for further management of new onset of CHF. Hospital Course: Patient diagnosed with new onset CHF with anasarca. He was treated with IV Lasix. Anasarca rapidly improved with IV Lasix. Patient's symptoms significantly improved. Seen by cardiology who assisted with management. Echocardiogram showed normal EF. Blood sugar managed with sliding scale, Lantus insulin and diabetic diet. Continued HIV medications. CT renal angio showed no renal artery stenosis Continue homed antihypertensives. Titrated hydralazine to 25 mg 3 times daily and added losartan for uncontrolled blood pressure Continue home CAD medications. Patient clinical symptoms significantly improved, anasarca resolved. He is deemed stable for discharge. Vital Signs/Physical Exam: Temp Pulse Resp BP Pulse Ox 97.9 F 65 16 191/81 H 95 10/31/22 15:39 10/31/22 15:39 10/31/22 15:39 10/31/22 15:39 10/31/22 15:39 General: Alert, In no apparent distress, Oriented x3 Neck: Supple, JVD not distended Respiratory: Clear to auscultation bilaterally, Normal air movement Cardiovascular: No edema, Regular rate/rhythm, Normal S1 S2 Gastrointestinal: Soft and benign, Non-distended Musculoskeletal: No swelling Integumentary: No rashes, No cyanosis Neurological: Normal speech, Normal strength at 5/5 x4 extr Laboratory Data at Discharge: WBC 8.90 thou/uL (4.3-10.9) 10/30/22 02:57 Hgb 10.1 g/dL (13.6-17.9) L D 10/30/22 02:57 Hct 30.1 % (39.6-49.0) L 10/30/22 02:57 Plt Count 362 thou/uL (152-406) 10/30/22 02:57 Sodium 141 mEq/L (136-145) 10/31/22 02:48 Potassium 3.8 mEq/L (3.5-5.1) D 10/31/22 10:17 BUN 24 mg/dL (7-18) H 10/31/22 02:48 Creatinine 1.27 mg/dL (0.70-1.30) 10/31/22 02:48 Glucose 82 mg/dL (74-106) 10/31/22 02:48 Phosphorus 3.2 mg/dL (2.5-4.9) 10/30/22 02:57 Magnesium 1.8 mg/dL (1.6-2.4) 10/30/22 11:44 Total Bilirubin 0.3 mg/dL (0.2-1.0) 10/29/22 17:03 AST 13 U/L (15-37) L 10/29/22 17:03 ALT 17 U/L (16-61) 10/29/22 17:03 Alkaline Phosphatase 78 U/L (45-117) 10/29/22 17:03 Triglycerides 110 mg/dL (<150) 10/30/22 02:57 Cholesterol 125 mg/dL (<200) 10/30/22 02:57 HDL Cholesterol 50 mg/dL (40-60) 10/30/22 02:57 Cholesterol/HDL Ratio 2.50 10/30/22 02:57 Home Medications: Aspirin [[place]] 1 cap PO DAILY 10/29/22 Atorvastatin Calcium [Lipitor] 1 tab PO BEDTIME 10/29/22 Bictegrav/Emtricit/Tenofov Ala [Biktarvy 50-200-25 mg Tablet] 1 tab PO BEDTIME 10/29/22 Cetirizine HCl [Zyrtec] 10 mg PO DAILY 10/29/22 Docusate Sodium 1 cap PO DAILY 10/29/22 Insulin Glargine,Hum.rec.anlog [Lantus] 10 units SQ BEDTIME 10/29/22 Isosorbide Mononitrate [Isosorbide Mononitrate ER] 30 mg PO DAILY 10/29/22 Lidocaine HCl [Lidocaine HCl Viscous] 10 ml PO QID 10/29/22 Metoprolol Tartrate [Lopressor*] 25 mg PO BID 10/29/22 Nitroglycerin [Nitrostat*] 1 tab SL PRN PRN 10/29/22 PARoxetine HCL [Paxil] 30 mg PO DAILY 10/29/22 Pantoprazole [Protonix Tab*] 40 mg PO DAILY 10/29/22 Polyethyl Gly 3350 [Glycolax*] 1 packet PO DAILY 10/29/22 Sucralfate [Carafate*] 10 ml PO QID 10/29/22 Trazodone [Desyrel*] 200 mg PO BEDTIME 10/29/22 hydrOXYzine HCL [Atarax*] 1 tab PO BID PRN 10/29/22 Furosemide [Lasix] 40 mg PO DAILY #30 tab 10/31/22 Hydralazine [Apresoline*] 25 mg PO TID #90 tab 10/31/22 Losartan Potassium [Cozaar*] 50 mg PO DAILY #30 tab 10/31/22 New Medications: Hydralazine [Apresoline*] 25 mg PO TID #90 tab Losartan Potassium [Cozaar*] 50 mg PO DAILY #30 tab Furosemide [Lasix] 40 mg PO DAILY #30 tab Diet: AHA Activity: Ad caroline Followup: Mini Yoo MD [Primary Care Provider] - Time spent managing pt's care (in minutes): 36
== END 2022-10-31 16:15 | disposition home or self-care (01) ==
LOC: ER 13:56 → 2ND 20:00
PROVIDERS: ADMIT Internal Medicine; ATTEND Internal Medicine
DX: I50.9 Heart failure, unspecified (principal); I10 Essential (primary) hypertension; E11.9 Type 2 diabetes mellitus without complications; I25.10 Atherosclerotic heart disease of native coronary artery without angina pectoris; B20 Human immunodeficiency virus [HIV] disease; F31.9 Bipolar disorder, unspecified; F17.210 Nicotine dependence, cigarettes, uncomplicated; Z95.5 Presence of coronary angioplasty implant and graft; E78.5 Hyperlipidemia, unspecified
CPT/HCPCS: 93005; 93306; 85025 ×2; 81001; 80048 ×3; 36415 ×2; 83735 ×2; 84100; 84132; 80061; 82947 ×7; 80076; 84443; 83036; 84484; 83880; 74175; 71045; 96374; 99285; Q9967; J1815 ×5; J3475; J1940 ×2; J1650 ×2; G0378

== ENCOUNTER 2022-11-19 11:37 | Inpatient (IN) | payer BC ==
--- OUTSIDE RECORDS SUMMARY | 2022-11-19 11:45 | XMS REPORT | Continuity of Care Document ---
:1960 Author Organization [facility] t Address [address] [facility]. [address] [place] [address] Care Team Providers Name Role Phone Ligia Cooper Primary Care Physician Amaris Lares LVN Attending Clinician Unavailable HIEU BEACH Attending Clinician Unavailable DIPESH DELACRUZ Attending Clinician Unavailable LIGIA SABA Attending Clinician Unavailable CELESTINO KWAN Attending Clinician Unavailable Doctor Unassigned, Kieler Attending Clinician Unavailable Ligia Cooper Attending Clinician TRINI COLE Attending Clinician Unavailable Lab, Ang - Db Attending Clinician Unavailable ELLI GONZALES Admitting Clinician Unavailable Payers Payer Name Policy Type Policy Number Effective Date Expiration Date S [facility] OS [id number] 2021 00:00:00 POS/PPO/EPO Problems Condition Condition Condition Status Onset Resolution Last Treating Co mments Source Name Details Category Date Date Treatment Clinician Date Diarrhea, Diarrhea, Disease Active Uni vers unspecifie unspecifie 08-29 it y of d type d type 00:00: [facility] Branch 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 3- ity of 00:00: [facility] Bipolar 2 Bipolar 2 Disease Active Uni vers disorder disorder - ity of 00:00: [facility] Anxiety Anxiety Disease Active Univers and and [...] for Disease Active Unive rs vaccinatio vaccinatio 1-25 it y of n n 00:00: [place] 00 Medical Branch Encounter Encounter Disease Active Uni vers to to 1-25 ity of establish establish 00:00: [facility] s care care 00 Medical Branch Loss of Loss of Disease Active Univers appetite appetite 1-25 ity of 00:00: [place] 00 Medical Branch Allergies, Adverse Reactions, Alerts Allergy Allergy Status Severity Reaction(s) Onset Inactive Treating Comm ents Source Name Type Date Date Clinician LITHIUM Allergy Active Med N\\T\\V [facility] 00:[facility]: [place] [address] [facility] Active Nausea Univers ty to and/or 1-25 ity of adverse Vomiting 00:00: [place] reaction 00 Medical s Branch LITHIUM DRUG Active N/V Univers INGREDI 1-25 ity of 00:00: [place] 00 Medical Branch NO KNOWN Allergy Active [facility] ALLERGIE S NO KNOWN Drug Active Univers ALLERGIE Class ity of S [place] [facility] [place] Social History Social Habit Start Date Stop Date Quantity Comments Source Exposure to 2022-08-19 2022-08-29 Not sure [facility] SARS-CoV-2 (event) 00:00:00 14:36:00 Medica l Branch [facility][birth year] At [birth year] [facility] [place] [facility]:00:00 Medical Branch Smoking Status Start Date Stop Date Source Tobacco smoking consumption [facility] Medical unknown Branch Medications Ordered Filled Start [...] No 20U inject 20 Univ ers glargine 08-29 03-03 Units ity of 100 unit/mL 15:25: [...] and 300 mg in the evening. metFORMIN Yes [id number] 1000mg Take 1 Univers 1,000 mg 24 3-03 tablet by ity of hr tablet 00:00: [facility] in [facility] morning Branch and 1 tablet in the evening. Take with meals. pantoprazol 2022- Yes [id number] 40mg Take 1 Univers e 3-03 tablet by ity of (PROTONIX) 00:00: mouth in [place] 40 mg EC 00 the Medical tablet morning. Branch dulaglutide Yes [id number] .75mg inject 1 Univers (TRULICITY) 3-03 Pen under ity of 0.75 mg/0.5 00:00: the skin [place] mL PnIj 00 weekly. Medical Branch metFORMIN 3-0 Yes [id number] 1000mg Take 1 Univers 1,000 mg 24 3-03 tablet by ity of hr tablet 00:00: mouth [place] 00 the Medical morning Branch and 1 tablet in the evening. Take with meals. pantoprazol 2022-0 Yes [id number] 40mg Take 1 Univers e 3-03 tablet by ity of (PROTONIX) 00:00: mouth in [place] 40 mg EC 00 the Medical tablet morning. Branch dulaglutide 2022-0 Yes [id number] .75mg inject 1 Univers (TRULICITY) 3-03 Pen under ity of 0.75 mg/0.5 00:00: the skin [place] mL PnIj 00 weekly. Medical Branch metFORMIN 2022-0 Yes [id number] 1000mg Take 1 Univers 1,000 mg 24 3-03 tablet by ity of hr tablet 00:00: [place] 00 the Medical morning Branch and 1 tablet in the evening. Take with meals. PANTOPRAZOL 2022-0 Yes [id number] 40mg TAKE 1 Univers E 40 mg EC 3-03 TABLET BY ity of tablet 00:00: MOUTH IN [place] 00 THE Medical MORNING Branch dulaglutide 2022-0 Yes [id number] .75mg inject 1 Univers (TRULICITY) 3-03 Pen under ity of 0.75 mg/0.5 00:00: the skin [place] mL PnIj 00 weekly. Medical Branch metFORMIN 3-0 Yes [id number] 1000mg Take 1 Univers 1,000 mg 24 3-03 tablet by ity of hr tablet 00:00: mouth in [place] 00 the Medical morning Branch and 1 tablet in the evening. Take with meals. PANTOPRAZOL 3-0 Yes [id number] 40mg TAKE 1 Univers E 40 mg EC 3-03 TABLET BY ity of tablet 00:00: MOUTH IN [place] 00 THE Medical MORNING Branch dulaglutide 3-0 Yes [id number] .75mg inject 1 Univers (TRULICITY) 3-03 Pen under ity of 0.75 mg/0.5 00:00: the skin [place] mL PnIj 00 weekly. Medical Branch metFORMIN 2022-0 Yes [id number] 1000mg Take 1 Univers 1,000 mg 24 3-03 tablet by ity of hr tablet 00:00: mouth in [place] 00 the Medical morning Branch and 1 tablet in the evening. Take with meals. PANTOPRAZOL 2023-0 Yes [id number] 40mg TAKE 1 Univers E 40 mg EC 3-03 TABLET BY ity of tablet 00:00: MOUTH IN [place] 00 THE Medical MORNING Branch dulaglutide 2023-0 Yes [id number] .75mg inject 1 Univers (TRULICITY) 3-03 Pen under ity of 0.75 mg/0.5 00:00: the skin [place] mL PnIj 00 weekly. Medical Branch metFORMIN 3-0 Yes [id number] 1000mg Take 1 Univers 1,000 mg 24 3-03 tablet by ity of hr tablet 00:00: mouth in [place] 00 the Medical morning Branch and 1 tablet in the evening. Take with meals. PANTOPRAZOL 2023-0 Yes [id number] 40mg TAKE 1 Univers E 40 mg EC 3-03 TABLET BY ity of tablet 00:00: MOUTH IN [place] 00 THE Medical MORNING Branch dulaglutide 3-0 Yes [id number] .75mg inject 1 Univers (TRULICITY) 3-03 Pen under ity of 0.75 mg/0.5 00:00: the skin [place] mL PnIj 00 weekly. Medical Branch metFORMIN 3-0 Yes [id number] 1000mg Take 1 Univers 1,000 mg 24 3-03 tablet by ity of hr tablet 00:00: mouth in [place] 00 the Medical morning Branch and 1 tablet in the evening. Take with meals. PANTOPRAZOL 2023-0 Yes [id number] 40mg TAKE 1 Univers E 40 mg EC 3-03 TABLET BY ity of tablet 00:00: MOUTH IN [place] 00 THE Medical MORNING Branch dulaglutide 2023-0 Yes [id number] .75mg inject 1 Univers (TRULICITY) 3-03 Pen under ity of 0.75 mg/0.5 00:00: the skin [place] mL PnIj 00 weekly. Medical Branch metFORMIN 2023-0 Yes [id number] 1000mg Take 1 Univers 1,000 mg 24 3-03 tablet by ity of hr tablet 00:00: mouth in [place] 00 the Medical morning Branch and 1 tablet in the evening. Take with meals. PANTOPRAZOL 2023-0 Yes [id number] 40mg TAKE 1 Univers E 40 mg EC 3-03 TABLET BY ity of tablet 00:00: MOUTH IN [place] 00 THE Medical MORNING Branch dulaglutide 3-0 Yes [id number] .75mg inject 1 Univers (TRULICITY) 3-03 Pen under ity of 0.75 mg/0.5 00:00: the skin [place] mL PnIj 00 weekly. Medical Branch metFORMIN 3-0 Yes [id number] 1000mg Take 1 Univers 1,000 mg 24 3-03 tablet by ity of hr tablet 00:00: mouth in [place] 00 the Medical morning Branch and 1 tablet in the evening. Take with meals. PANTOPRAZOL 3-0 Yes [id number] 40mg TAKE 1 Univers E 40 mg EC 3-03 TABLET BY ity of tablet 00:00: MOUTH IN [place] 00 THE Medical MORNING Branch dulaglutide 3-0 Yes [id number] .75mg inject 1 Univers (TRULICITY) 3-03 Pen under ity of 0.75 mg/0.5 00:00: the skin [place] mL PnIj 00 weekly. Medical Branch metFORMIN 3-0 Yes [id number] 1000mg Take 1 Univers 1,000 mg 24 3-03 tablet by ity of hr tablet 00:00: mouth in [place] 00 the Medical morning Branch and 1 tablet in the evening. Take with meals. PANTOPRAZOL 3-0 Yes [id number] 40mg TAKE 1 Univers E 40 mg EC 3-03 TABLET BY ity of tablet 00:00: MOUTH IN [place] 00 THE Medical MORNING Branch dulaglutide 3-0 Yes [id number] .75mg inject 1 Univers (TRULICITY) 3-03 Pen under ity of 0.75 mg/0.5 00:00: the skin [place] mL PnIj 00 weekly. Medical Branch metFORMIN 2023-0 Yes [id number] 1000mg Take 1 Univers 1,000 mg 24 3-03 tablet by ity of hr tablet 00:00: mouth in [place] 00 the Medical morning Branch and 1 tablet in the evening. Take with meals. PANTOPRAZOL 2023-0 Yes [id number] 40mg TAKE 1 Univers E 40 mg EC 3-03 TABLET BY ity of tablet 00:00: MOUTH IN [place] 00 THE Medical MORNING Branch dulaglutide 2023-0 Yes [id number] .75mg inject 1 Univers (TRULICITY) 3-03 Pen under ity of 0.75 mg/0.5 00:00: the skin [place] mL PnIj 00 weekly. Medical Branch pantoprazol 2022- No [id number] 40mg Take 1 Univers e -08 29- tablet by ity of (PROTONIX) 00:00: 00:00 mouth in [place] 40 mg EC 00 :00 the Medical tablet morning. Branch pantoprazol 2022- No [id number] 40mg Take 1 Univers e 08-29- tablet by ity of (PROTONIX) 00:00: 00:00 mouth in [place] 40 mg EC 00 :00 the Medical tablet morning. Branch bictegrav-e Yes [id number] 1{tbl} Take 1 Univers mtricit-ten 1-27 tablet by ity of ofov ala 00:00: mouth in [place] (KTAR) 00 the Medical morning. Branch mg tablet traZODone 2022- Yes [id number] 200mg Take 2 U nivers 100 mg 1-27 tablets by ity of tablet 00:00: mouth at [place] 00 bedtime. Medical Branch bictegrav-e Yes [id number] 1{tbl} Take 1 Univers mtricit-ten 1-27 tablet by ity of ofov ala 00:00: mouth in [place] (KTARVY) 00 the Medical morning. Branch mg tablet bictegrav-e Yes [id number] 1{tbl} Take 1 Univers mtricit-ten 1-27 tablet by ity of ofov ala 00:00: mouth in [place] (KTARVY) 00 the Medical morning. Branch mg tablet traZODone 2022-0 Yes [id number] 200mg Take 2 U nivers 100 mg 1-27 tablets by ity of tablet 00:00: mouth at [place] 00 bedtime. Medical Branch bictegrav-e Yes [id number] 1{tbl} Take 1 Univers mtricit-ten 1-27 tablet by ity of ofov ala 00:00: mouth in [place] (BIKTARVY) 00 the Medical morning. Branch mg tablet traZODone 2023-0 Yes [id number] 200mg Take 2 U nivers 100 mg 1-27 tablets by ity of tablet 00:00: mouth at [place] 00 bedtime. Medical Branch bictegrav-e 2022-0 Yes [id number] 1{tbl} Take 1 Univers mtricit-ten 1-27 tablet by ity of ofov ala 00:00: mouth in [place] (BIKTARVY) 00 the Medical morning. Branch mg tablet traZODone 3-0 Yes [id number] 200mg Take 2 U nivers 100 mg 1-27 tablets by ity of tablet 00:00: mouth at [place] 00 bedtime. Medical Branch bictegrav-e 2022-0 Yes [id number] 1{tbl} Take 1 Univers mtricit-ten 1-27 tablet by ity of ofov ala 00:00: mouth in [place] (KTARVY) 00 the Medical morning. Branch mg tablet bictegrav-e 2022-0 Yes [id number] 1{tbl} Take 1 Univers mtricit-ten 1-27 tablet by ity of ofov ala 00:00: mouth in [place] (KTARVY) 00 the Medical morning. Branch mg tablet traZODone 3-0 Yes [id number] 200mg Take 2 U nivers 100 mg 1-27 tablets by ity of tablet 00:00: mouth at [place] 00 bedtime. Medical Branch bictegrav-e 2022-0 Yes [id number] 1{tbl} Take 1 Univers mtricit-ten 1-27 tablet by ity of ofov ala 00:00: mouth in [place] (BIKTARVY) 00 the Medical morning. Branch mg tablet traZODone 3-0 Yes [id number] 200mg Take 2 U nivers 100 mg 1-27 tablets by ity of tablet 00:00: mouth at [place] 00 bedtime. Medical Branch bictegrav-e 2022-0 Yes [id number] 1{tbl} Take 1 Univers mtricit-ten 1-27 tablet by ity of ofov ala 00:00: mouth in [place] (BIKTARVY) 00 the Medical morning. Branch mg tablet traZODone 3-0 Yes [id number] 200mg Take 2 U nivers 100 mg 1-27 tablets by ity of tablet 00:00: mouth at [place] 00 bedtime. Medical Branch bictegrav-e 2022-0 Yes [id number] 1{tbl} Take 1 Univers mtricit-ten 1-27 tablet by ity of ofov ala 00:00: mouth in [place] (BIKTARVY) 00 the Medical morning. Branch mg tablet traZODone 3-0 Yes [id number] 200mg Take 2 U nivers 100 mg 1-27 tablets by ity of tablet 00:00: mouth at [place] 00 bedtime. Medical Branch bictegrav-e 2022-0 Yes [id number] 1{tbl} Take 1 Univers mtricit-ten 1-27 tablet by ity of ofov ala 00:00: mouth in [place] (KTARVY) 00 the Medical morning. Branch mg tablet traZODone 3-0 Yes [id number] 200mg Take 2 U nivers 100 mg 1-27 tablets by ity of tablet 00:00: mouth at [place] 00 bedtime. Medical Branch bictegrav-e 2022-0 Yes [id number] 1{tbl} Take 1 Univers mtricit-ten 1-27 tablet by ity of ofov ala 00:00: mouth in [place] (KTARVY) 00 the Medical morning. Branch mg tablet traZODone 3-0 Yes [id number] 200mg Take 2 U nivers 100 mg 1-27 tablets by ity of tablet 00:00: mouth at [place] 00 bedtime. Medical Branch bictegrav-e 2022-0 Yes [id number] 1{tbl} Take 1 Univers mtricit-ten 1-27 tablet by ity of ofov ala 00:00: mouth in [place] (BIKTARVY) 00 the Medical morning. Branch mg tablet traZODone 3-0 Yes [id number] 200mg Take 2 U nivers 100 mg 1-27 tablets by ity of tablet 00:00: mouth at [place] 00 bedtime. Medical Branch bictegrav-e 2022-0 Yes [id number] 1{tbl} Take 1 Univers mtricit-ten 1-27 tablet by ity of ofov ala 00:00: mouth in [place] (BIKTMDVY) 00 the Medical morning. Branch mg tablet traZODone 3-0 Yes [id number] 200mg Take 2 U nivers 100 mg 1-27 tablets by ity of tablet 00:00: mouth at [place] 00 bedtime. Medical Branch bictegrav-e 2022-0 Yes [id number] 1{tbl} Take 1 Univers mtricit-ten 1-27 tablet by ity of ofov ala 00:00: mouth in [place] ([facility]) 00 the Medical morning. Branch mg tablet traZODone 3-0 Yes [id number] 200mg Take 2 U nivers 100 mg 1-27 tablets by ity of tablet 00:00: mouth at [place] 00 bedtime. Medical Branch bictegrav-e 2022-0 Yes [id number] 1{tbl} Take 1 Univers mtricit-ten 1-27 tablet by ity of ofov ala 00:00: mouth in [place] ([facility]) 00 the Medical morning. Branch mg tablet traZODone 3-0 Yes [id number] 200mg Take 2 U nivers 100 mg 1-27 tablets by ity of tablet 00:00: mouth at [place] 00 bedtime. Medical Branch bictegrav-e 2022-0 Yes [id number] 1{tbl} Take 1 Univers mtricit-ten 1-27 tablet by ity of ofov ala 00:00: mouth in [place] ([facility]) 00 the Medical morning. Branch mg tablet traZODone 3-0 Yes [id number] 200mg Take 2 U nivers 100 mg 1-27 tablets by ity of tablet 00:00: mouth at [place] 00 bedtime. Medical Branch bictegrav-e 2022-0 Yes [id number] 1{tbl} Take 1 Univers mtricit-ten 1-27 tablet by ity of ofov ala 00:00: mouth in [place] ([facility]) 00 the Medical morning. Branch mg tablet traZODone 3-0 Yes [id number] 200mg Take 2 U nivers 100 mg 1-27 tablets by ity of tablet 00:00: mouth at [place] 00 bedtime. Medical Branch bictegrav-e 2022-0 Yes [id number] 1{tbl} Take 1 Univers mtricit-ten 1-27 tablet by ity of ofov ala 00:00: mouth in [place] (BIKTARVY) 00 the Medical morning. Branch mg tablet traZODone 2022-0 Yes [id number] 200mg Take 2 U nivers 100 mg 1-27 tablets by ity of tablet 00:00: mouth at [place] 00 bedtime. Medical Branch bictegrav-e 2022-0 Yes [id number] 1{tbl} Take 1 Univers mtricit-ten 1-27 tablet by ity of ofov ala 00:00: mouth in [place] (BIKTARVY) 00 the Medical morning. Branch mg tablet traZODone 2022-0 Yes [id number] 200mg Take 2 U nivers 100 mg 1-27 tablets by ity of tablet 00:00: mouth at [place] 00 bedtime. Medical Branch bictegrav-e 2022-0 Yes [id number] 1{tbl} Take 1 Univers mtricit-ten 1-27 tablet by ity of ofov ala 00:00: mouth in [place] (BIKTARVY) 00 the Medical morning. Branch mg tablet traZODone 2022-0 Yes [id number] 200mg Take 2 U nivers 100 mg 1-27 tablets by ity of tablet 00:00: mouth at [place] 00 bedtime. Medical Branch traZODone 2022-0 2022- No 200mg Take 200 Un gely 100 mg 07-23-25 mg by ity of tablet 13:32: 00:00 mouth at [place] 34 :00 bedtime. Medical Branch PARoxetine 2022-0 2022- No 30mg Take 30 mg Univers 30 mg 07-23 by mouth ity of tablet 13:32: 00:00 in the [place] 34 :00 morning. Medical Branch hydrOXYzine 2022-2022- No 25mg Take 25 mg Univers 25 mg 07-23 by mouth ity of tablet 13:32: 00:00 as needed [place] 34 :00 for Medical Itching. Branch empaglifloz 2022-0 2022- No 10mg Take 10 mg Univers in 07-23 by mouth ity of (JARDIANCE) 13:32: 00:00 in the [facility] as 10 mg 34 :00 morning. Medical Branch metFORMIN 2022-0 3- No 1000mg Take 1,000 Univers 1,000 mg 1-25 01-25 mg by ity of tablet 13:32: 00:00 [...] mouth ity of tablet 13:32: 00:00 at [place] [address] :00 bedtime. Medical Branch traZODone 2022-0 3- No 200mg Take 200 Un gely 100 mg 1-25 -25 mg by ity of tablet 13:32: 00:00 mouth at [place] 34 :00 bedtime. Medical Branch PARoxetine 2022-0 3- No 30mg Take 30 mg Univers 30 mg -23 07-25 by mouth ity of tablet 13:32: 00:00 in the [place] 34 :00 morning. Medical Branch hydrOXYzine 2022-0 3- No 25mg Take 25 mg Univers 25 mg -25 -25 by mouth ity of tablet 13:32: 00:00 as needed [place] 34 :00 for Medical Itching. Branch empaglifloz 2022-0 3- No 10mg Take 10 mg Univers in 07-23-25 by mouth ity of (JARDIANCE) 13:32: 00:00 in the [facility] as 10 mg 34 :00 morning. Medical Branch metFORMIN 2022-0 3- No 1000mg Take 1,000 Univers 1,000 mg 1-25 01-25 mg by ity of tablet 13:32: 00:00 mouth in [place] 34 :00 the Medical morning Branch and 1,000 mg in the evening. Take with meals. lisinopriL 2022-0 3- No 10mg Take 10 mg Univers 10 mg -25 -25 by mouth ity of tablet 13:32: 00:00 in the [place] 34 :00 morning. Medical Branch atorvastati 0 2023- No 80mg Take 80 mg Univers n 80 mg 07-23 by mouth ity of tablet 13:32: 00:00 at [place] 34 :00 bedtime. Medical Branch NITROGLYCER 2022-[address] Unive rs IN SL 1-25 under the ity of 13:26: tongue. [place] [address] Medical Branch NITROGLYCER 2022-[address] Unive rs IN SL 1-25 under the ity of 13:26: tongue. [place] [address] Medical Branch NITROGLYCER 2022-[address] Unive rs IN SL 1-25 under the ity of 13:26: tongue. [place] [address] Medical Branch NITROGLYCER 2022-[address] Unive rs IN SL 1-25 under the ity of 13:26: tongue. [place] [address] Medical Branch NITROGLYCER 2022-[address] Unive rs IN SL 1-25 under the ity of 13:26: tongue. [place] [address] Medical Branch NITROGLYCER 2022-[address] Unive rs IN SL 1-25 under the ity of 13:26: tongue. [place] [address] Medical Branch NITROGLYCER 2022-[address] Unive rs IN SL 1-25 under the ity of 13:26: tongue. [place] [address] Medical Branch NITROGLYCER 2022-[address] Unive rs IN SL 1-25 under the ity of 13:26: tongue. [place] [address] Medical Branch NITROGLYCER 2022-[address] Unive rs IN SL 1-25 under the ity of 13:26: tongue. [place] [address] Medical Branch NITROGLYCER 2022-[address] Unive rs IN SL 1-25 under the ity of 13:26: tongue. [place] [address] Medical Branch NITROGLYCER 2022-[address] Unive rs IN SL 1-25 under the ity of 13:26: tongue. [place] [address] Medical Branch NITROGLYCER 2022-[address] Unive rs IN SL 1-25 under the ity of 13:26: tongue. [place] [address] Medical Branch NITROGLYCER 2022-[address] Unive rs IN SL 1-25 under the ity of 13:26: tongue. [place] [address] Medical Branch NITROGLYCER 2022-[address] Unive rs IN SL 1-25 under the ity of 13:26: tongue. [place] [address] Medical Branch NITROGLYCER 2022-[address] Unive rs IN SL 1-25 under the ity of 13:26: tongue. [place] [address] Medical Branch NITROGLYCER 2023-[address] Unive rs IN SL 1-25 under the ity of 13:26: tongue. [place] [address] Medical Branch NITROGLYCER 2023-[address] Unive rs IN SL 1-25 under the ity of 13:26: tongue. [place] [address] Medical Branch NITROGLYCER 2023-[address] Unive rs IN SL 1-25 under the ity of 13:26: tongue. [place] [address] Medical Branch NITROGLYCER 2023-[address] Unive rs IN SL 1-25 under the ity of 13:26: tongue. [place] [address] Medical Branch NITROGLYCER 2023-[address] Unive rs IN SL 1-25 under the ity of 13:26: tongue. [place] [address] Medical Branch NITROGLYCER 2023-[address] Unive rs IN SL 1-25 under the ity of 13:26: tongue. [place] [address] Medical Branch NITROGLYCER 2023-[address] Unive rs IN SL 1-25 under the ity of 13:26: tongue. [place] [address] Medical Branch NITROGLYCER 2023-[address] Unive rs IN SL 1-25 under the ity of 13:26: tongue. [place] [address] Medical Branch NITROGLYCER 2023-[address] Unive rs IN SL 1-25 under the ity of 13:26: tongue. [place] [address] Medical Branch NITROGLYCER 2023-[address] Unive rs IN SL 1-25 under the ity of 13:26: tongue. [place] [address] Medical Branch NITROGLYCER 2023-[address] Unive rs IN SL 1-25 under the ity of 13:26: tongue. [place] [address] Medical Branch NITROGLYCER 2023-[address] Unive rs IN SL 1-25 under the ity of 13:26: tongue. [place] [address] Medical Branch NITROGLYCER 2023-[address] Unive rs IN SL 1-25 under the ity of 13:26: tongue. [place] [address] Medical Branch NITROGLYCER 2023-[address] Unive rs IN SL 1-25 under the ity of 13:26: tongue. [place] [address] Medical Branch NITROGLYCER 2023-[address] Unive rs IN SL 1-25 under the ity of 13:26: tongue. [place] [address] Medical Branch NITROGLYCER 2023-[address] Unive rs IN SL 1-25 under the ity of 13:26: tongue. [place] 27 Medical Branch NITROGLYCER 3-[address] Unive rs IN SL 1-25 under the ity of 13:26: tongue. [address] Branch gabapentin 2023-0 Yes 300mg Take 300 Un egly 300 mg 1-25 mg by ity of capsule 13:26: mouth in [place] [address] the Medical morning Branch and 300 mg at noon and 300 mg in the evening. insulin 2023-0 Yes 20U inject 20 Unive rs glargine 1-25 Units ity of 100 unit/mL 13:26: under the [place] injection 26 skin at Medical bedtime. Branch gabapentin 2023-0 Yes 300mg Take 300 Un gely 300 mg 1-25 mg by ity of capsule 13:26: mouth in [place] [address] the [facility] morning Branch and 300 mg at noon and 300 mg in the evening. insulin 2023-0 Yes 20U inject 20 Unive rs glargine 1-25 Units ity of 100 unit/mL 13:26: under the [place] injection 26 skin at Medical bedtime. Branch gabapentin 3-0 Yes 300mg Take 300 Un gely 300 mg 1-25 mg by ity of capsule 13:26: mouth in [place] [address] the [facility] morning Branch and 300 mg at noon and 300 mg in the evening. insulin 2023-0 Yes 20U inject 20 Unive rs glargine 1-25 Units ity of 100 unit/mL 13:26: under the [place] injection 26 skin at Medical bedtime. Branch gabapentin 2023-0 Yes 300mg Take 300 Un gely 300 mg 1-25 mg by ity of capsule 13:26: mouth in [place] [address] the [facility] morning Branch and 300 mg at noon and 300 mg in the evening. insulin 2023-0 Yes 20U inject 20 Unive rs glargine 1-25 Units ity of 100 unit/mL 13:26: under the [place] injection 26 skin at Medical bedtime. Branch gabapentin 2023-0 Yes 300mg Take 300 Un gely 300 mg 1-25 mg by ity of capsule 13:26: mouth in [place] [address] the Medical morning [place] and 300 mg at noon and 300 mg in the evening. insulin 2023-0 Yes 20U inject 20 Unive rs glargine 1-25 Units ity of 100 unit/mL 13:26: under the [place] injection 26 skin at Medical bedtime. Branch gabapentin 2023-0 Yes 300mg Take 300 Un gely 300 mg 1-25 mg by ity of capsule 13:26: mouth in [place] [address] the Medical morning Branch and 300 mg at noon and 300 mg in the evening. insulin 2023-0 Yes 20U inject 20 Unive rs glargine 1-25 Units ity of 100 unit/mL 13:26: under the [place] injection 26 skin at Medical bedtime. Branch gabapentin 2023-0 Yes 300mg Take 300 Un gely 300 mg 1-25 mg by ity of capsule 13:26: mouth in [place] [address] the Medical morning Branch and 300 mg at noon and 300 mg in the evening. insulin 2023-0 Yes 20U inject 20 Unive rs glargine 1-25 Units ity of 100 unit/mL 13:26: under the [place] injection 26 skin at Medical bedtime. Branch gabapentin 2023-0 Yes 300mg Take 300 Un gely 300 mg 1-25 mg by ity of capsule 13:26: mouth in [place] [address] the Medical morning Branch and 300 mg at noon and 300 mg in the evening. insulin 2023-0 Yes 20U inject 20 Unive rs glargine 1-25 Units ity of 100 unit/mL 13:26: under the [place] injection 26 skin at Medical bedtime. Branch gabapentin 2023-0 Yes 300mg Take 300 Un gely 300 mg 1-25 mg by ity of capsule 13:26: mouth in [place] [address] the Medical morning Branch and 300 mg at noon and 300 mg in the evening. insulin 2023-0 Yes 20U inject 20 Unive rs glargine 1-25 Units ity of 100 unit/mL 13:26: under the [place] injection 26 skin at Medical bedtime. Branch gabapentin 2023-0 Yes 300mg Take 300 Un gely 300 mg 1-25 mg by ity of capsule 13:26: mouth in [place] [address] the Medical morning Branch and 300 mg at noon and 300 mg in the evening. insulin 2023-0 Yes 20U inject 20 Unive rs glargine 1-25 Units ity of 100 unit/mL 13:26: under the [place] injection 26 skin at Medical bedtime. Branch gabapentin 2023-0 Yes 300mg Take 300 Un gely 300 mg 1-25 mg by ity of capsule 13:26: mouth in [place] [address] the Medical morning Branch and 300 mg at noon and 300 mg in the evening. insulin 2023-0 Yes 20U inject 20 Unive rs glargine 1-25 Units ity of 100 unit/mL 13:26: under the [place] injection 26 skin at Medical bedtime. Branch gabapentin 2023-0 Yes 300mg Take 300 Un g[facility] 300 mg 1-25 mg by ity of capsule 13:26: mouth in [place] [address] the Medical morning Branch and 300 mg at noon and 300 mg in the evening. insulin 2023-0 Yes 20U inject 20 Unive rs glargine 1-25 Units ity of 100 unit/mL 13:26: under the [place] injection 26 skin at Medical bedtime. Branch gabapentin 2023-0 Yes 300mg Take 300 Un gely 300 mg 1-25 mg by ity of capsule 13:26: mouth in [place] [address] the Medical morning Branch and 300 mg at noon and 300 mg in the evening. insulin 2023-0 Yes 20U inject 20 Unive rs glargine 1-25 Units ity of 100 unit/mL 13:26: under the [place] injection 26 skin at Medical bedtime. Branch gabapentin 2023-0 Yes 300mg Take 300 Un gely 300 mg 1-25 mg by ity of capsule 13:26: mouth in [place] [address] the Medical morning Branch and 300 mg at noon and 300 mg in the evening. insulin 2023-0 Yes 20U inject 20 Unive rs glargine 1-25 Units ity of 100 unit/mL 13:26: under the [place] injection 26 skin at Medical bedtime. Branch gabapentin 2023-0 Yes 300mg Take 300 Un gely 300 mg 1-25 mg by ity of capsule 13:26: mouth in [place] [address] the Medical morning Branch and 300 mg at noon and 300 mg in the evening. insulin 2023-0 Yes 20U inject 20 Unive rs glargine 1-25 Units ity of 100 unit/mL 13:26: under the [place] injection 26 skin at Medical bedtime. Branch gabapentin 2023-0 Yes 300mg Take 300 Un gely 300 mg 1-25 mg by ity of capsule 13:26: mouth in [place] [address] the Medical morning Branch and 300 mg at noon and 300 mg in the evening. insulin 2023-0 Yes 20U inject 20 Unive rs glargine 1-25 Units ity of 100 unit/mL 13:26: under the [place] injection 26 skin at Medical bedtime. Branch gabapentin 2023-0 Yes 300mg Take 300 Un gely 300 mg 1-25 mg by ity of capsule 13:26: mouth in [place] [address] the Medical morning Branch and 300 mg at noon and 300 mg in the evening. insulin 2023-0 Yes 20U inject 20 Unive rs glargine 1-25 Units ity of 100 unit/mL 13:26: under the [place] injection 26 skin at Medical bedtime. Branch gabapentin 2023-0 Yes 300mg Take 300 Un gely 300 mg 1-25 mg by it[facility] of capsule 13:26: mouth in [place] [address] the Medical morning Branch and 300 mg at noon and 300 mg in the evening. insulin 2023-0 Yes 20U inject 20 Unive rs glargine 1-25 Units ity of 100 unit/mL 13:26: under the [place] injection 26 skin at Medical bedtime. Branch gabapentin 2023-0 Yes 300mg Take 300 Un gely 300 mg 1-25 mg by ity of capsule 13:26: mouth in [place] [address] the Medical morning Branch and 300 mg at noon and 300 mg in the evening. insulin 2023-0 Yes 20U inject 20 Unive rs glargine 1-25 Units ity of 100 unit/mL 13:26: under the [place] injection 26 skin at Medical bedtime. Branch gabapentin 2023-0 Yes 300mg Take 300 Un gely 300 mg 1-25 mg by ity of capsule 13:26: mouth in [place] [address] the Medical morning Branch and 300 mg at noon and 300 mg in the evening. insulin 2023-0 Yes 20U inject 20 Unive rs glargine 1-25 Units ity of 100 unit/mL 13:26: under the [place] injection 26 skin at Medical bedtime. Branch gabapentin 2023-0 Yes 300mg Take 300 Un g[facility] 300 mg 1-25 mg by ity of capsule 13:26: mouth in [place] [address] the Medical morning Branch and 300 mg at noon and 300 mg in the evening. insulin 2023-0 Yes 20U inject 20 Unive rs glargine 1-25 Units ity of 100 unit/mL 13:26: under the [place] injection 26 skin at Medical bedtime. Branch bictegrav/e 0 Yes Take by [facility] [...] (BIKTARVY 50 Medical ORAL) Branch atorvastati Yes [id number] 80mg Take 1 [facility] n 80 mg 1-25 tablet by [facility] of tablet 00:00: mouth at [place] [address] bedtime. Medical Branch lisinopriL 2022-0 Yes [id number] 10mg Take 1 U nivers 10 mg 1-25 tablet by it[facility] of tablet 00:00: mouth in [place] the Medical morning. Branch metFORMIN 2022-0 Yes [id number] 1000mg Take 1 [facility] 1,000 mg 1-25 tablet by [facility]y of tablet 00:00: mouth in [place] the Medical morning Branch and 1 tablet in the evening. Take with meals. traZODone 2022-0 Yes [id number] 200mg Take 2 U nivers 100 mg 1-25 tablets by ity of tablet 00:00: mouth at [place] [address] bedtime. Medical Branch PARoxetine 2022-0 Yes [id number] 30mg Take 1 [facility] nivers 30 mg 1-25 tablet by it[facility] of tablet 00:00: mouth in [place] 00 the Medical morning. Branch empaglifloz 2022-0 Yes [id number] 10mg Take 1 [facility] in 1-25 tablet by [facility] of (JARDIANCE) 00:00: mouth in [place] 10 mg 00 the Medical morning Branch and 1 tablet in the evening. hydrOXYzine 2022-0 Yes [id number] 25mg Take 1 [facility] 25 mg 1-25 tablet by [facility] of tablet 00:00: mouth as [place] [address] needed for Medical Itching. Branch atorvastati 2022-0 Yes [id number] 80mg Take 1 [facility] n 80 mg 1-25 tablet by it[facility] of tablet 00:00: mouth at [place] [address] bedtime. Medical Branch lisinopriL 2022-0 Yes [id number] 10mg Take 1 [facility] nivers 10 mg 1-25 tablet by [facility] of tablet 00:00: mouth in [place] 00 the Medical morning. Branch metFORMIN 2022-0 Yes [id number] 1000mg Take 1 [facility] 1,000 mg 1-25 tablet by it[facility] of tablet 00:00: mouth in [place] the Medical morning Branch and 1 tablet in the evening. Take with meals. traZODone 2022-0 Yes [id number] 200mg Take 2 [facility] nivers 100 mg 1-25 tablets by it[facility] of tablet 00:00: mouth at [place] [address] bedtime. Medical Branch PARoxetine 2022-0 Yes [id number] 30mg Take 1 [facility] nivers 30 mg 1-25 tablet by it[facility] of tablet 00:00: mouth in [place] 00 the Medical morning. Branch empaglifloz 2022-0 Yes [id number] 10mg Take 1 [facility] in 1-25 tablet by [facility] of ([place]) 00:00: mouth in [place] 10 mg 00 the Medical morning Branch and 1 tablet in the evening. hydrOXYzine 3-0 Yes [id number] 25mg Take 1 [facility] 25 mg 1-25 tablet by it[facility] of tablet 00:00: mouth as [place] [address] needed for Medical Itching. Branch atorvastati 2022-0 Yes [id number] 80mg Take 1 [facility] n 80 mg 1-25 tablet by it[facility] of tablet 00:00: mouth at [place] [address] bedtime. Medical Branch lisinopriL 2022-0 Yes [id number] 10mg Take 1 [facility] nivers 10 mg 1-25 tablet by it[facility] of tablet 00:00: mouth in [place] 00 the Medical morning. Branch metFORMIN 2022-0 Yes [id number] 1000mg Take 1 [facility] 1,000 mg 1-25 tablet by it[facility] of tablet 00:00: mouth in [place] the Medical morning Branch and 1 tablet in the evening. Take with meals. traZODone 2022-0 Yes [id number] 200mg Take 2 [facility] nivers 100 mg 1-25 tablets by [facility] of tablet 00:00: mouth at [place] [address] bedtime. Medical Branch PARoxetine 2022-0 Yes [id number] 30mg Take 1 [facility] nivers 30 mg 1-25 tablet by [facility] of tablet 00:00: mouth in [place] 00 the Medical morning. Branch empaglifloz 2022-0 Yes [id number] 10mg Take 1 [facility] in 1-25 tablet by [facility] of ([place]) 00:00: mouth in [place] 10 mg 00 the Medical morning Branch and 1 tablet in the evening. hydrOXYzine 2022-0 Yes [id number] 25mg Take 1 [facility] 25 mg 1-25 tablet by [facility] of tablet 00:00: mouth as [place] [address] needed for Medical Itching. Branch atorvastati 2022-0 Yes [id number] 80mg Take 1 [facility] n 80 mg 1-25 tablet by [facility] of tablet 00:00: mouth at [place] [address] bedtime. Medical Branch lisinopriL 3-0 Yes [id number] 10mg Take 1 [facility] n[facility] 10 mg 1-25 tablet by [facility] of tablet 00:00: mouth in [place] 00 the Medical morning. Branch metFORMIN 2022-0 Yes [id number] 1000mg Take 1 [facility] 1,000 mg 1-25 tablet by [facility] of tablet 00:00: mouth in [place] the Medical morning Branch and 1 tablet in the evening. Take with meals. traZODone 3-0 Yes [id number] 200mg Take 2 [facility] n[facility] 100 mg 1-25 tablets by [facility] of tablet 00:00: mouth at [place] [address] bedtime. Medical Branch PARoxetine 2022-0 Yes [id number] 30mg Take 1 [facility] 30 mg 1-25 tablet by [facility] of tablet 00:00: mouth in [place] 00 the Medical morning. Branch hydrOXYzine 2022-0 Yes [id number] 25mg Take 1 [facility] 25 mg 1-25 tablet by [facility] of tablet 00:00: mouth as [place] [address] needed for Medical Itching. Branch empaglifloz 2022-0 Yes [id number] 25mg Take 1 [facility] in 1-25 tablet by [facility] of ([place]) 00:00: mouth in [place] 25 mg Tab 00 the Medical morning. Branch glimepiride 2022-0 Yes [id number] 2mg Take 1 [facility] 2 mg tablet 1-25 tablet by ity of 00:00: mouth [place] [address] daily with Medical breakfast. Branch atorvastati 2022-0 Yes [id number] 80mg Take 1 [facility] n 80 mg 1-25 tablet by it[facility] of tablet 00:00: mouth at [place] [address] bedtime. Medical Branch lisinopriL 2022-0 Yes [id number] 10mg Take 1 [facility] nivers 10 mg 1-25 tablet by [facility] of tablet 00:00: mouth in [place] 00 the Medical morning. Branch metFORMIN 2022-0 Yes [id number] 1000mg Take 1 [facility] 1,000 mg 1-25 tablet by [facility] of tablet 00:00: mouth in [place] 00 the Medical morning Branch and 1 tablet in the evening. Take with meals. traZODone 3-0 Yes [id number] 200mg Take 2 [facility] nivers 100 mg 1-25 tablets by it[facility] of tablet 00:00: mouth at [place] [address] bedtime. Medical Branch PARoxetine 3-0 Yes [id number] 30mg Take 1 [facility] nivers 30 mg 1-25 tablet by [facility] of tablet 00:00: mouth in [place] 00 the Medical morning. Branch hydrOXYzine 2022-0 Yes [id number] 25mg Take 1 [facility] 25 mg 1-25 tablet by [facility] of tablet 00:00: mouth as [place] 00 needed for Medical Itching. Branch empaglifloz 2022-0 Yes [id number] 25mg Take 1 [facility] in 1-25 tablet by it[facility] of ([place]) 00:00: mouth in [place] 25 mg Tab 00 the Medical morning. Branch glimepiride 2022-0 Yes [id number] 2mg Take 1 [facility] 2 mg tablet 1-25 tablet by ity of 00:00: mouth [place] 00 daily with Medical breakfast. Branch atorvastati 2022-0 Yes [id number] 80mg Take 1 [facility] n 80 mg 1-25 tablet by it[facility] of tablet 00:00: mouth at [place] [address] bedtime. Medical Branch lisinopriL 2022-0 Yes [id number] 10mg Take 1 [facility] nivers 10 mg 1-25 tablet by [facility] of tablet 00:00: mouth in [place] 00 the Medical morning. Branch metFORMIN 2022-0 Yes [id number] 1000mg Take 1 [facility] 1,000 mg 1-25 tablet by it[facility] of tablet 00:00: mouth in [place] 00 the Medical morning Branch and 1 tablet in the evening. Take with meals. traZODone 2022-0 Yes [id number] 200mg Take 2 [facility] n[facility] 100 mg 1-25 tablets by [facility] of tablet 00:00: mouth at [place] [address] bedtime. Medical Branch PARoxetine 2022-0 Yes [id number] 30mg Take 1 [facility] nivers 30 mg 1-25 tablet by [facility] of tablet 00:00: mouth in [place] 00 the Medical morning. Branch hydrOXYzine 3-0 Yes [id number] 25mg Take 1 [facility] 25 mg 1-25 tablet by it[facility] of tablet 00:00: mouth as [place] 00 needed for Medical Itching. Branch empaglifloz 2022-0 Yes [id number] 25mg Take 1 [facility] in 1-25 tablet by [facility] of ([place]) 00:00: mouth in [place] 25 mg Tab 00 the Medical morning. Branch glimepiride 2022-0 Yes [id number] 2mg Take 1 [facility] 2 mg tablet 1-25 tablet by ity of 00:00: mouth [place] 00 daily with Medical breakfast. Branch atorvastati 2023-0 Yes [id number] 80mg Take 1 [facility] n 80 mg 1-25 tablet by it[facility] of tablet 00:00: mouth at [place] 00 bedtime. Medical Branch lisinopriL 2022-0 Yes [id number] 10mg Take 1 [facility] nivers 10 mg 1-25 tablet by it[facility] of tablet 00:00: mouth in [place] 00 the Medical morning. Branch metFORMIN 2022-0 Yes [id number] 1000mg Take 1 [facility] 1,000 mg 1-25 tablet by ity of tablet 00:00: mouth in [place] 00 the Medical morning Branch and 1 tablet in the evening. Take with meals. traZODone 2022-0 Yes [id number] 200mg Take 2 [facility] n[facility] 100 mg 1-25 tablets by it[facility] of tablet 00:00: mouth at [place] 00 bedtime. Medical Branch PARoxetine 2022-0 Yes [id number] 30mg Take 1 [facility] nivers 30 mg 1-25 tablet by it[facility] of tablet 00:00: mouth in [place] 00 the Medical morning. Branch hydrOXYzine 2022-0 Yes [id number] 25mg Take 1 [facility] 25 mg 1-25 tablet by ity of tablet 00:00: mouth as [place] 00 needed for Medical Itching. Branch empaglifloz 2022-0 Yes [id number] 25mg Take 1 [facility] in 1-25 tablet by ity of ([place]) 00:00: mouth in [place] 25 mg Tab 00 the Medical morning. Branch glimepiride 2022-0 Yes [id number] 2mg Take 1 [facility] 2 mg tablet 1-25 tablet by ity of 00:00: mouth [place] 00 daily with Medical breakfast. Branch atorvastati 2022-0 Yes [id number] 80mg Take 1 [facility] n 80 mg 1-25 tablet by it[facility] of tablet 00:00: mouth at [place] 00 bedtime. Medical Branch lisinopriL 2022-0 Yes [id number] 10mg Take 1 [facility] nivers 10 mg 1-25 tablet by it[facility] of tablet 00:00: mouth in [place] 00 the Medical morning. Branch metFORMIN 2022-0 Yes [id number] 1000mg Take 1 [facility] 1,000 mg 1-25 tablet by ity of tablet 00:00: mouth in [place] 00 the Medical morning Branch and 1 tablet in the evening. Take with meals. traZODone 3-0 Yes [id number] 200mg Take 2 [facility] n[facility] 100 mg 1-25 tablets by it[facility] of tablet 00:00: mouth at [place] [address] bedtime. Medical Branch PARoxetine 2022-0 Yes [id number] 30mg Take 1 [facility] n[facility] 30 mg 1-25 tablet by it[facility] of tablet 00:00: mouth in [place] 00 the Medical morning. Branch hydrOXYzine 2022-0 Yes [id number] 25mg Take 1 [facility] 25 mg 1-25 tablet by it[facility] of tablet 00:00: mouth as [place] 00 needed for Medical Itching. Branch empaglifloz 2022-0 Yes [id number] 25mg Take 1 [facility] in 1-25 tablet by it[facility] of ([place]) 00:00: mouth in [place] 25 mg Tab 00 the Medical morning. Branch glimepiride 2022-0 Yes [id number] 2mg Take 1 [facility] 2 mg tablet 1-25 tablet by ity of 00:00: mouth [place] 00 daily with Medical breakfast. Branch atorvastati 2022-0 Yes [id number] 80mg Take 1 [facility] n 80 mg 1-25 tablet by it[facility] of tablet 00:00: mouth at [place] [address] bedtime. Medical Branch lisinopriL 2022-0 Yes [id number] 10mg Take 1 [facility] n[facility] 10 mg 1-25 tablet by it[facility] of tablet 00:00: mouth in [place] 00 the Medical morning. Branch metFORMIN 2022-0 Yes [id number] 1000mg Take 1 [facility] 1,000 mg 1-25 tablet by ity of tablet 00:00: mouth in [place] 00 the Medical morning Branch and 1 tablet in the evening. Take with meals. PARoxetine 2022-0 Yes [id number] 30mg Take 1 [facility] nivers 30 mg 1-25 tablet by it[facility] of tablet 00:00: mouth in [place] 00 the Medical morning. Branch hydrOXYzine 2022-0 Yes [id number] 25mg Take 1 [facility] 25 mg 1-25 tablet by ity of tablet 00:00: mouth as [place] 00 needed for Medical Itching. Branch empaglifloz 2022-0 Yes [id number] 25mg Take 1 [facility] in 1-25 tablet by it[facility] of ([place]) 00:00: mouth in [place] 25 mg Tab 00 the Medical morning. Branch glimepiride 2022-0 Yes [id number] 2mg Take 1 [facility] 2 mg tablet 1-25 tablet by ity of 00:00: mouth [place] 00 daily with Medical breakfast. Branch atorvastati 2022-0 Yes [id number] 80mg Take 1 [facility] n 80 mg 1-25 tablet by ity of tablet 00:00: mouth at [place] [address] bedtime. Medical Branch lisinopriL 2022-0 Yes [id number] 10mg Take 1 [facility] n[facility] 10 mg 1-25 tablet by it[facility] of tablet 00:00: mouth in [place] 00 the Medical morning. Branch metFORMIN 2022-0 Yes [id number] 1000mg Take 1 [facility] 1,000 mg 1-25 tablet by it[facility] of tablet 00:00: mouth in [place] 00 the Medical morning Branch and 1 tablet in the evening. Take with meals. PARoxetine 2022-0 Yes [id number] 30mg Take 1 [facility] n[facility] 30 mg 1-25 tablet by [facility] of tablet 00:00: mouth in [place] 00 the Medical morning. Branch hydrOXYzine 2022-0 Yes [id number] 25mg Take 1 [facility] 25 mg 1-25 tablet by it[facility] of tablet 00:00: mouth as [place] [address] needed for Medical Itching. Branch empaglifloz 2022-0 Yes [id number] 25mg Take 1 [facility] in 1-25 tablet by it[facility] of ([place]) 00:00: mouth in [place] 25 mg Tab 00 the Medical morning. Branch glimepiride 2022-0 Yes [id number] 2mg Take 1 [facility] 2 mg tablet 1-25 tablet by ity of 00:00: mouth [place] 00 daily with Medical breakfast. Branch atorvastati 2022-0 Yes [id number] 80mg Take 1 [facility] n 80 mg 1-25 tablet by it[facility] of tablet 00:00: mouth at [place] [address] bedtime. Medical Branch lisinopriL 2022-0 Yes [id number] 10mg Take 1 [facility] n[facility] 10 mg 1-25 tablet by it[facility] of tablet 00:00: mouth in [place] 00 the Medical morning. Branch metFORMIN 2022-0 Yes [id number] 1000mg Take 1 [facility] 1,000 mg 1-25 tablet by ity of tablet 00:00: mouth in [place] 00 the Medical morning Branch and 1 tablet in the evening. Take with meals. PARoxetine 2022-0 Yes [id number] 30mg Take 1 [facility] n[facility] 30 mg 1-25 tablet by [facility] of tablet 00:00: mouth in [place] 00 the Medical morning. Branch hydrOXYzine 2022-0 Yes [id number] 25mg Take 1 [facility] 25 mg 1-25 tablet by it[facility] of tablet 00:00: mouth as [place] 00 needed for Medical Itching. Branch empaglifloz 2022-0 Yes [id number] 25mg Take 1 [facility] in 1-25 tablet by it[facility] of ([place]) 00:00: mouth in [place] 25 mg Tab 00 the Medical morning. Branch glimepiride 2022-0 Yes [id number] 2mg Take 1 [facility] 2 mg tablet 1-25 tablet by ity of 00:00: mouth [place] 00 daily with Medical breakfast. Branch atorvastati 2022-0 Yes [id number] 80mg Take 1 [facility] n 80 mg 1-25 tablet by it[facility] of tablet 00:00: mouth at [place] [address] bedtime. Medical Branch lisinopriL 2022-0 Yes [id number] 10mg Take 1 [facility] nivers 10 mg 1-25 tablet by [facility] of tablet 00:00: mouth in [place] 00 the Medical morning. Branch metFORMIN 2022-0 Yes [id number] 1000mg Take 1 [facility] 1,000 mg 1-25 tablet by ity of tablet 00:00: mouth in [place] 00 the Medical morning Branch and 1 tablet in the evening. Take with meals. PARoxetine 2022-0 Yes [id number] 30mg Take 1 [facility] n[facility] 30 mg 1-25 tablet by it[facility] of tablet 00:00: mouth in [place] 00 the Medical morning. Branch hydrOXYzine 2022-0 Yes [id number] 25mg Take 1 [facility] 25 mg 1-25 tablet by ity of tablet 00:00: mouth as [place] 00 needed for Medical Itching. Branch empaglifloz 2022-0 Yes [id number] 25mg Take 1 [facility] in 1-25 tablet by it[facility] of ([place]) 00:00: mouth in [place] 25 mg Tab 00 the Medical morning. Branch glimepiride 2022-0 Yes [id number] 2mg Take 1 [facility] 2 mg tablet 1-25 tablet by ity of 00:00: mouth [place] 00 daily with Medical breakfast. Branch atorvastati 2022-0 Yes [id number] 80mg Take 1 [facility] n 80 mg 1-25 tablet by [facility] of tablet 00:00: mouth at [place] [address] bedtime. Medical Branch lisinopriL 2022-0 Yes [id number] 10mg Take 1 [facility] n[facility] 10 mg 1-25 tablet by [facility] of tablet 00:00: mouth in [place] 00 the Medical morning. Branch metFORMIN 2022-0 Yes [id number] 1000mg Take 1 [facility] 1,000 mg 1-25 tablet by [facility] of tablet 00:00: mouth in [place] 00 the Medical morning Branch and 1 tablet in the evening. Take with meals. PARoxetine 2022-0 Yes [id number] 30mg Take 1 [facility] n[facility] 30 mg 1-25 tablet by [facility] of tablet 00:00: mouth in [place] 00 the Medical morning. Branch hydrOXYzine 2022-0 Yes [id number] 25mg Take 1 [facility] 25 mg 1-25 tablet by it[facility] of tablet 00:00: mouth as [place] 00 needed for Medical Itching. Branch empaglifloz 2022-0 Yes [id number] 25mg Take 1 [facility] in 1-25 tablet by [facility] of ([place]) 00:00: mouth in [place] 25 mg Tab 00 the Medical morning. Branch glimepiride 2022-0 Yes [id number] 2mg Take 1 [facility] 2 mg tablet 1-25 tablet by ity of 00:00: mouth [place] 00 daily with Medical breakfast. Branch atorvastati 2022-0 Yes [id number] 80mg Take 1 [facility] n 80 mg 1-25 tablet by [facility] of tablet 00:00: mouth at [place] 00 bedtime. Medical Branch lisinopriL 2022-0 Yes [id number] 10mg Take 1 [facility] n[facility] 10 mg 1-25 tablet by [facility] of tablet 00:00: mouth in [place] 00 the Medical morning. Branch metFORMIN 2022-0 Yes [id number] 1000mg Take 1 [facility] 1,000 mg 1-25 tablet by [facility] of tablet 00:00: mouth in [place] 00 the Medical morning Branch and 1 tablet in the evening. Take with meals. PARoxetine 2022-0 Yes [id number] 30mg Take 1 [facility] n[facility] 30 mg 1-25 tablet by [facility] of tablet 00:00: mouth in [place] 00 the Medical morning. Branch hydrOXYzine 2022-0 Yes [id number] 25mg Take 1 [facility] 25 mg 1-25 tablet by [facility] of tablet 00:00: mouth as [place] 00 needed for Medical Itching. Branch empaglifloz 2022-0 Yes [id number] 25mg Take 1 [facility] in 1-25 tablet by [facility] of ([place]) 00:00: mouth in [place] 25 mg Tab 00 the Medical morning. Branch glimepiride 2022-0 Yes [id number] 2mg Take 1 [facility] 2 mg tablet 1-25 tablet by ity of 00:00: mouth [place] 00 daily with Medical breakfast. Branch atorvastati 2022-0 Yes [id number] 80mg Take 1 [facility] n 80 mg 1-25 tablet by it[facility] of tablet 00:00: mouth at [place] 00 bedtime. Medical Branch lisinopriL 2022-0 Yes [id number] 10mg Take 1 [facility] n[facility] 10 mg 1-25 tablet by [facility] of tablet 00:00: mouth in [place] 00 the Medical morning. Branch metFORMIN 2022-0 Yes [id number] 1000mg Take 1 [facility] 1,000 mg 1-25 tablet by [facility] of tablet 00:00: mouth in [place] 00 the Medical morning Branch and 1 tablet in the evening. Take with meals. PARoxetine 2022-0 Yes [id number] 30mg Take 1 [facility] 30 mg 1-25 tablet by [facility] of tablet 00:00: mouth in [place] 00 the Medical morning. Branch hydrOXYzine 2022-0 Yes [id number] 25mg Take 1 [facility] 25 mg 1-25 tablet by [facility] of tablet 00:00: mouth as [place] 00 needed for Medical Itching. Branch empaglifloz 2022-0 Yes [id number] 25mg Take 1 [facility] in 1-25 tablet by [facility] of ([place]) 00:00: mouth in [place] 25 mg Tab 00 the Medical morning. Branch glimepiride 2022-0 Yes [id number] 2mg Take 1 [facility] 2 mg tablet 1-25 tablet by ity of 00:00: mouth [place] 00 daily with Medical breakfast. Branch atorvastati 2022-0 Yes [id number] 80mg Take 1 [facility] n 80 mg 1-25 tablet by [facility] of tablet 00:00: mouth at [place] 00 bedtime. Medical Branch lisinopriL 2022-0 Yes [id number] 10mg Take 1 [facility] 10 mg 1-25 tablet by [facility] of tablet 00:00: mouth in [place] 00 the Medical morning. Branch metFORMIN 2022-0 Yes [id number] 1000mg Take 1 [facility] 1,000 mg 1-25 tablet by [facility] of tablet 00:00: mouth in [place] 00 the Medical morning Branch and 1 tablet in the evening. Take with meals. PARoxetine 3-0 Yes [id number] 30mg Take 1 [facility] 30 mg 1-25 tablet by [facility] of tablet 00:00: mouth in [place] 00 the Medical morning. Branch hydrOXYzine 3-0 Yes [id number] 25mg Take 1 [facility] 25 mg 1-25 tablet by [facility] of tablet 00:00: mouth as [place] [address] needed for Medical Itching. Branch empaglifloz 3-0 Yes [id number] 25mg Take 1 [facility] in 1-25 tablet by [facility] of ([place]) 00:00: mouth in [place] 25 mg Tab 00 the Medical morning. Branch glimepiride 3-0 Yes [id number] 2mg Take 1 [facility] 2 mg tablet 1-25 tablet by ity of 00:00: mouth [place] 00 daily with Medical breakfast. Branch atorvastati 2022-0 Yes [id number] 80mg Take 1 [facility] n 80 mg 1-25 tablet by [facility] of tablet 00:00: mouth at [place] [address] bedtime. Medical Branch lisinopriL 3-0 Yes [id number] 10mg Take 1 [facility] 10 mg 1-25 tablet by [facility] of tablet 00:00: mouth in [place] 00 the Medical morning. Branch metFORMIN 3-0 Yes [id number] 1000mg Take 1 [facility] 1,000 mg 1-25 tablet by [facility] of tablet 00:00: mouth in [place] 00 the Medical morning Branch and 1 tablet in the evening. Take with meals. PARoxetine 3-0 Yes [id number] 30mg Take 1 [facility] 30 mg 1-25 tablet by [facility] of tablet 00:00: mouth in [place] 00 the Medical morning. Branch hydrOXYzine 3-0 Yes [id number] 25mg Take 1 [facility] 25 mg 1-25 tablet by [facility] of tablet 00:00: mouth as [place] [address] needed for Medical Itching. Branch empaglifloz 3-0 Yes [id number] 25mg Take 1 [facility] in 1-25 tablet by [facility] of ([place]) 00:00: mouth in [place] 25 mg Tab 00 the Medical morning. Branch glimepiride 3-0 Yes [id number] 2mg Take 1 [facility] 2 mg tablet 1-25 tablet by ity of 00:00: mouth [place] 00 daily with Medical breakfast. Branch atorvastati 2022-0 Yes [id number] 80mg Take 1 [facility] n 80 mg 1-25 tablet by [facility] of tablet 00:00: mouth at [place] [address] bedtime. Medical Branch lisinopriL 2022-0 Yes [id number] 10mg Take 1 [facility] 10 mg 1-25 tablet by [facility] of tablet 00:00: mouth in [place] 00 the Medical morning. Branch metFORMIN 2022-0 Yes [id number] 1000mg Take 1 [facility] 1,000 mg 1-25 tablet by [facility] of tablet 00:00: mouth in [place] 00 the Medical morning Branch and 1 tablet in the evening. Take with meals. PARoxetine 2022-0 Yes [id number] 30mg Take 1 [facility] 30 mg 1-25 tablet by [facility] of tablet 00:00: mouth in [place] 00 the Medical morning. Branch hydrOXYzine 2022-0 Yes [id number] 25mg Take 1 [facility] 25 mg 1-25 tablet by [facility] of tablet 00:00: mouth as [place] [address] needed for Medical Itching. Branch empaglifloz 2022-0 Yes [id number] 25mg Take 1 [facility] in 1-25 tablet by [facility] of ([place]) 00:00: mouth in [place] 25 mg Tab 00 the Medical morning. Branch glimepiride 2022-0 Yes [id number] 2mg Take 1 [facility] 2 mg tablet 1-25 tablet by [facility]y of 00:00: mouth [place] 00 daily with Medical breakfast. Branch atorvastati 2022-0 Yes [id number] 80mg Take 1 [facility] n 80 mg 1-25 tablet by [facility] of tablet 00:00: mouth at [place] [address] bedtime. Medical Branch lisinopriL 2022-0 Yes [id number] 10mg Take 1 U nivers 10 mg 1-25 tablet by ity of tablet 00:00: mouth in [place] 00 the Medical morning. Branch metFORMIN 2022-0 Yes [id number] 1000mg Take 1 Univers 1,000 mg 1-25 tablet by ity of tablet 00:00: mouth in [place] 00 the Medical morning Branch and 1 tablet in the evening. Take with meals. PARoxetine 2022-0 Yes [id number] 30mg Take 1 U nivers 30 mg 1-25 tablet by ity of tablet 00:00: mouth in [place] 00 the Medical morning. Branch hydrOXYzine 2022-0 Yes [id number] 25mg Take 1 Univers 25 mg 1-25 tablet by ity of tablet 00:00: mouth as [place] 00 needed for Medical Itching. Branch empaglifloz 2022-0 Yes [id number] 25mg Take 1 Univers in 1-25 tablet by ity of ([place]) 00:00: mouth in [place] 25 mg Tab 00 the Medical morning. Branch glimepiride 2022-0 Yes [id number] 2mg Take 1 Univers 2 mg tablet 1-25 tablet by ity of 00:00: mouth [place] 00 daily with Medical breakfast. Branch atorvastati 2022-0 Yes [id number] 80mg Take 1 Univers n 80 mg 1-25 tablet by ity of tablet 00:00: mouth at [place] [address] bedtime. Medical Branch lisinopriL 3-0 Yes [id number] 10mg Take 1 U nivers 10 mg 1-25 tablet by ity of tablet 00:00: mouth in [place] the Medical morning. Branch PARoxetine 2022-0 Yes [id number] 30mg Take 1 U nivers 30 mg 1-25 tablet by ity of tablet 00:00: mouth in [place] the Medical morning. Branch hydrOXYzine 2022-0 Yes [id number] 25mg Take 1 Univers 25 mg 1-25 tablet by ity of tablet 00:00: mouth as [place] 00 needed for Medical Itching. Branch empaglifloz 2022-0 Yes [id number] 25mg Take 1 Univers in 1-25 tablet by ity of ([place]) 00:00: mouth in [place] 25 mg Tab 00 the Medical morning. Branch atorvastati 3-0 Yes [id number] 80mg Take 1 Univers n 80 mg 1-25 tablet by ity of tablet 00:00: mouth at [place] [address] bedtime. Medical Branch lisinopriL 3-0 Yes [id number] 10mg Take 1 U nivers 10 mg 1-25 tablet by ity of tablet 00:00: mouth in [place] 00 the Medical morning. Branch PARoxetine 3-0 Yes [id number] 30mg Take 1 U nivers 30 mg 1-25 tablet by ity of tablet 00:00: mouth in [place] 00 the Medical morning. Branch hydrOXYzine 3-0 Yes [id number] 25mg Take 1 Univers 25 mg 1-25 tablet by ity of tablet 00:00: mouth as [place] 00 needed for Medical Itching. Branch empaglifloz 3-0 Yes [id number] 25mg Take 1 Univers in 1-25 tablet by ity of ([place]) 00:00: mouth in [place] 25 mg Tab 00 the Medical morning. Branch atorvastati 3-0 Yes [id number] 80mg Take 1 Univers n 80 mg 1-25 tablet by ity of tablet 00:00: mouth at [place] 00 bedtime. Medical Branch lisinopriL 3-0 Yes [id number] 10mg Take 1 U nivers 10 mg 1-25 tablet by ity of tablet 00:00: mouth in [place] 00 the Medical morning. Branch PARoxetine 3-0 Yes [id number] 30mg Take 1 U nivers 30 mg 1-25 tablet by ity of tablet 00:00: mouth in [place] 00 the Medical morning. Branch hydrOXYzine 3-0 Yes [id number] 25mg Take 1 Univers 25 mg 1-25 tablet by ity of tablet 00:00: mouth as [place] 00 needed for Medical Itching. Branch empaglifloz 3-0 Yes [id number] 25mg Take 1 Univers in 1-25 tablet by ity of ([place]) 00:00: mouth in [place] 25 mg Tab 00 the Medical morning. Branch atorvastati 3-0 Yes [id number] 80mg Take 1 Univers n 80 mg 1-25 tablet by ity of tablet 00:00: mouth at [place] [address] bedtime. Medical Branch lisinopriL 2023-0 Yes [id number] 10mg Take 1 U nivers 10 mg 1-25 tablet by ity of tablet 00:00: mouth in [place] 00 the Medical morning. Branch PARoxetine 2023-0 Yes [id number] 30mg Take 1 U nivers 30 mg 1-25 tablet by ity of tablet 00:00: mouth in [place] 00 the Medical morning. Branch hydrOXYzine 2023-0 Yes [id number] 25mg Take 1 Univers 25 mg 1-25 tablet by ity of tablet 00:00: mouth as [place] 00 needed for Medical Itching. Branch empaglifloz 2023-0 Yes [id number] 25mg Take 1 Univers in 1-25 tablet by ity of ([place]) 00:00: mouth in [place] 25 mg Tab 00 the Medical morning. Branch atorvastati 3-0 Yes [id number] 80mg Take 1 Univers n 80 mg 1-25 tablet by ity of tablet 00:00: mouth at [place] [address] bedtime. Medical Branch lisinopriL 3-0 Yes [id number] 10mg Take 1 U nivers 10 mg 1-25 tablet by ity of tablet 00:00: mouth in [place] 00 the Medical morning. Branch PARoxetine 3-0 Yes [id number] 30mg Take 1 U nivers 30 mg 1-25 tablet by ity of tablet 00:00: mouth in [place] 00 the Medical morning. Branch hydrOXYzine 3-0 Yes [id number] 25mg Take 1 Univers 25 mg 1-25 tablet by ity of tablet 00:00: mouth as [place] [address] needed for Medical Itching. Branch empaglifloz 3-0 Yes [id number] 25mg Take 1 Univers in 1-25 tablet by ity of ([place]) 00:00: mouth in [place] 25 mg Tab 00 the Medical morning. Branch atorvastati 3-0 Yes [id number] 80mg Take 1 Univers n 80 mg 1-25 tablet by ity of tablet 00:00: mouth at [place] [address] bedtime. Medical Branch lisinopriL 3-0 Yes [id number] 10mg Take 1 U nivers 10 mg 1-25 tablet by ity of tablet 00:00: mouth in [place] 00 the Medical morning. Branch PARoxetine 3-0 Yes [id number] 30mg Take 1 U nivers 30 mg 1-25 tablet by ity of tablet 00:00: mouth in [place] 00 the Medical morning. Branch hydrOXYzine 3-0 Yes [id number] 25mg Take 1 Univers 25 mg 1-25 tablet by ity of tablet 00:00: mouth as [place] [address] needed for Medical Itching. Branch empaglifloz 3-0 Yes [id number] 25mg Take 1 Univers in 1-25 tablet by ity of ([place]) 00:00: mouth in [place] 25 mg Tab 00 the Medical morning. Branch atorvastati 3-0 Yes [id number] 80mg Take 1 Univers n 80 mg 1-25 tablet by ity of tablet 00:00: mouth at [place] [address] bedtime. Medical Branch lisinopriL 3-0 Yes [id number] 10mg Take 1 U nivers 10 mg 1-25 tablet by ity of tablet 00:00: mouth in [place] 00 the Medical morning. Branch PARoxetine 3-0 Yes [id number] 30mg Take 1 U nivers 30 mg 1-25 tablet by ity of tablet 00:00: mouth in [place] the Medical morning. Branch hydrOXYzine 3-0 Yes [id number] 25mg Take 1 Univers 25 mg 1-25 tablet by ity of tablet 00:00: mouth as [place] [address] needed for Medical Itching. Branch empaglifloz 3-0 Yes [id number] 25mg Take 1 Univers in 1-25 tablet by ity of ([place]) 00:00: mouth in [place] 25 mg Tab the Medical morning. Branch atorvastati 3-0 Yes [id number] 80mg Take 1 Univers n 80 mg 1-25 tablet by ity of tablet 00:00: mouth at [place] [address] bedtime. Medical Branch atorvastati 3-0 Yes [id number] 80mg Take 1 Univers n 80 mg 1-25 tablet by ity of tablet 00:00: mouth at [place] [address] bedtime. Medical Branch lisinopriL 2022-0 Yes [id number] 10mg Take 1 U nivers 10 mg 1-25 tablet by ity of tablet 00:00: mouth in [place] the Medical morning. Branch lisinopriL 2022-0 Yes [id number] 10mg Take 1 U nivers 10 mg 1-25 tablet by ity of tablet 00:00: mouth in [place] the Medical morning. Branch PARoxetine 3-0 Yes [id number] 30mg Take 1 U nivers 30 mg 1-25 tablet by ity of tablet 00:00: mouth in [place] 00 the Medical morning. Branch hydrOXYzine 3-0 Yes [id number] 25mg Take 1 Univers 25 mg 1-25 tablet by ity of tablet 00:00: mouth as [place] [address] needed for Medical Itching. Branch empaglifloz 3-0 Yes [id number] 25mg Take 1 Univers in 1-25 tablet by ity of ([place]) 00:00: mouth in [place] 25 mg Tab 00 the Medical morning. Branch metFORMIN 3-0 Yes [id number] 1000mg Take 1 Univers 1,000 mg 1-25 tablet by ity of tablet 00:00: mouth in [place] 00 the Medical morning Branch and 1 tablet in the evening. Take with meals. atorvastati 2022-0 Yes [id number] 80mg Take 1 Univers n 80 mg 1-25 tablet by ity of tablet 00:00: mouth at [place] [address] bedtime. Medical Branch traZODone 2022-0 Yes [id number] 200mg Take 2 U nivers 100 mg 1-25 tablets by ity of tablet 00:00: mouth at [place] [address] bedtime. Medical Branch lisinopriL 2022-0 Yes [id number] 10mg Take 1 U nivers 10 mg 1-25 tablet by ity of tablet 00:00: mouth in [place] 00 the Medical morning. Branch PARoxetine 2022-0 Yes [id number] 30mg Take 1 U nivers 30 mg 1-25 tablet by ity of tablet 00:00: mouth in [place] 00 the Medical morning. Branch hydrOXYzine 2022-0 Yes [id number] 25mg Take 1 Univers 25 mg 1-25 tablet by ity of tablet 00:00: mouth as [place] [address] needed for Medical Itching. Branch empaglifloz 2022-0 Yes [id number] 25mg Take 1 Univers in 1-25 tablet by ity of ([place]) 00:00: mouth in [place] 25 mg Tab 00 the Medical morning. Branch PARoxetine 2022-0 Yes [id number] 30mg Take 1 U nivers 30 mg 1-25 tablet by ity of tablet 00:00: mouth in [place] 00 the Medical morning. Branch empaglifloz 2022-0 Yes [id number] 10mg Take 1 Univers in 1-25 tablet by ity of ([place]) 00:00: mouth in [place] 10 mg 00 the Medical morning Branch and 1 tablet in the evening. atorvastati 2022-0 Yes [id number] 80mg Take 1 Univers n 80 mg 1-25 tablet by ity of tablet 00:00: mouth at [place] [address] bedtime. Medical Branch lisinopriL 3-0 Yes [id number] 10mg Take 1 U nivers 10 mg 1-25 tablet by ity of tablet 00:00: mouth in [place] 00 the Medical morning. Branch PARoxetine 2022-0 Yes [id number] 30mg Take 1 U nivers 30 mg 1-25 tablet by ity of tablet 00:00: mouth in [place] 00 the Medical morning. Branch hydrOXYzine 2022-0 Yes [id number] 25mg Take 1 Univers 25 mg 1-25 tablet by ity of tablet 00:00: mouth as [place] 00 needed for Medical Itching. Branch empaglifloz 2022-0 Yes [id number] 25mg Take 1 Univers in 1-25 tablet by ity of ([place]) 00:00: mouth in [place] 25 mg Tab 00 the Medical morning. Branch hydrOXYzine 2022-0 Yes [id number] 25mg Take 1 Univers 25 mg 1-25 tablet by ity of tablet 00:00: mouth as [place] 00 needed for Medical Itching. Branch atorvastati 2022-0 Yes [id number] 80mg Take 1 Univers n 80 mg 1-25 tablet by ity of tablet 00:00: mouth at [place] [address] bedtime. Medical Branch lisinopriL 3-0 Yes [id number] 10mg Take 1 U nivers 10 mg 1-25 tablet by ity of tablet 00:00: mouth in [place] 00 the Medical morning. Branch PARoxetine 2022-0 Yes [id number] 30mg Take 1 U nivers 30 mg 1-25 tablet by ity of tablet 00:00: mouth in [place] 00 the Medical morning. Branch hydrOXYzine 2022-0 Yes [id number] 25mg Take 1 Univers 25 mg 1-25 tablet by ity of tablet 00:00: mouth as [place] 00 needed for Medical Itching. Branch empaglifloz 2022-0 Yes [id number] 25mg Take 1 Univers in 1-25 tablet by ity of ([place]) 00:00: mouth in [place] 25 mg Tab 00 the Medical morning. Branch atorvastati 3-0 Yes [id number] 80mg Take 1 Univers n 80 mg 1-25 tablet by ity of tablet 00:00: mouth at [place] [address] bedtime. Medical Branch lisinopriL 3-0 Yes [id number] 10mg Take 1 U nivers 10 mg 1-25 tablet by ity of tablet 00:00: mouth in [place] 00 the Medical morning. Branch metFORMIN 3-0 Yes [id number] 1000mg Take 1 Univers 1,000 mg 1-25 tablet by ity of tablet 00:00: mouth in [place] 00 the Medical morning Branch and 1 tablet in the evening. Take with meals. traZODone 3-0 Yes [id number] 200mg Take 2 U nivers 100 mg 1-25 tablets by ity of tablet 00:00: mouth at [place] 00 bedtime. Medical Branch PARoxetine 2022-0 Yes [id number] 30mg Take 1 U nivers 30 mg 1-25 tablet by ity of tablet 00:00: mouth in [place] 00 the Medical morning. Branch empaglifloz 2022-0 Yes [id number] 10mg Take 1 Univers in 1-25 tablet by ity of ([place]) 00:00: mouth [place] 10 mg 00 the Medical morning Branch and 1 tablet in the evening. hydrOXYzine 2022-0 Yes [id number] 25mg Take 1 Univers 25 mg 1-25 tablet by ity of tablet 00:00: mouth as [place] 00 needed for Medical Itching. Branch metFORMIN 2022-0 3- No [id number] 1000mg Take 1 Univers 1,000 mg 1-25 03-03 tablet by ity o f tablet 00:00: 00:00 mouth in [place] 00 :00 the Medical morning Branch and 1 tablet in the evening. Take with meals. glimepiride 2022-0 3- No [id number] 2mg Take 1 Univers 2 mg tablet 1-25 -03 tablet by it y of 00:00: 00:00 mouth [place] 00 :00 daily with Medical breakfast. Branch metFORMIN 2022-0 3- No [id number] 1000mg Take 1 Univers 1,000 mg 1-25 03-03 tablet by ity o f tablet 00:00: 00:00 mouth in [place] 00 :00 the Medical morning Branch and 1 tablet in the evening. Take with meals. glimepiride 2022-0 3- No [id number] 2mg Take 1 Univers 2 mg tablet 1-25 03-03 tablet by it y of 00:00: 00:00 mouth [place] 00 :00 daily with Medical breakfast. Branch traZODone 2022-0 2023- No [id number] 200mg Take 2 Univers 100 mg 1-25 -27 tablets by ity of tablet 00:00: 00:00 mouth at [place] 00 :00 bedtime. Medical Branch traZODone 2022-0 2023- No [id number] 200mg Take 2 Univers 100 mg 1-07-25 tablets by ity of tablet 00:00: 00:00 mouth at [place] 00 :00 bedtime. Medical Branch traZODone 3-0 2022- No [id number] 200mg Take 2 Univers 100 mg -07-25 tablets by ity of tablet 00:00: 00:00 mouth at [place] 00 :00 bedtime. Medical Branch traZODone 3-0 3- No [id number] 200mg Take 2 Univers 100 mg 07-23 tablets by ity of tablet 00:00: 00:00 mouth at [place] 00 :00 bedtime. Medical Branch empaglifloz 2022-0 3- No [id number] 10mg Take 1 Univers in 07-23 tablet by ity of ([place]) 00:00: 00:00 mouth in [place] 10 mg 00 :00 the Medical morning Branch and 1 tablet in the evening. empaglifloz 2022-0 2022- No [id number] 10mg Take 1 Univers in 07-23 tablet by ity of ([place]) 00:00: 00:00 mouth in [place] 10 mg 00 :00 the Medical morning Branch and 1 tablet in the evening. empaglifloz 2022-0 2022- No [id number] 10mg Take 1 Univers in 07-23 tablet by ity of ([place]) 00:00: 00:00 mouth in [place] 10 mg 00 :00 the Medical morning Branch and 1 tablet in the evening. empaglifloz 2022-0 2022- No [id number] 10mg Take 1 Univers in 07-23 tablet by ity of ([place]) 00:00: 00:00 mouth in [place] 10 mg 00 :00 the Medical morning Branch and 1 tablet in the evening. empaglifloz 3-0 3- No [id number] 10mg Take 1 Univers in 07-23 tablet by ity of ([place]) 00:00: 00:00 mouth in [place] 10 mg 00 :00 the Medical morning Branch and 1 tablet in the evening. empaglifloz 2022-0 3- No [id number] 10mg Take 1 Univers in 07-23 tablet by ity of ([place]) 00:00: 00:00 mouth in [place] 10 mg 00 :00 the Medical morning Branch and 1 tablet in the evening. Immunizations Ordered Filled Immunization Date Status Comments [facility] e Immunization Name Name SARS-COV-2 COVID-19 [...] YRS+, Branch BIVALENT 0.3ML, IM, (PFIZER LIRA TOP) Influenza Virus 2022-07-23 Completed Universit y of Vaccine Quad IM, 00:00:00 [place] Me dical Preserv and ABX Branch Free 6 MO-64 YRS Influenza Virus 2022-07-23 Completed Universit y of Vaccine Quad IM, 00:00:00 [place] Me dical Preserv and ABX Branch Free 6 MO-64 YRS SARS-COV-2 COVID-19 2022-07-23 Completed Unive rsity of WILDA-SUCROSE 00:00:00 [place] Medica l VACCINE 12 YRS+, Branch BIVALENT 0.3ML, IM, (PFIZER LIRA TOP BOOSTER) SARS-COV-2 COVID-19 2022-07-23 Completed Unive rsity of [facility]-SUCROSE 00:00:00 [place] Medica l VACCINE 12 YRS+, Branch BIVALENT 0.3ML, IM, (PFIZER LIRA TOP) Influenza Virus 2022-07-23 Completed Universit y of Vaccine Quad IM, 00:00:00 [place] Me dical Preserv and ABX Branch Free 6 MO-64 YRS SARS-COV-2 COVID-19 2021-07-02 Completed Unive rsity of PFIZER WILDA-SUCROSE 00:00:00 [place] Medical VACCINE (LIRA TOP) Branch SARS-COV-2 COVID-19 [...] 2022-08-29 20:31:00 200 mm[Hg] Univer sity of [facility] Diastolic blood 2022-08-29 20:31:00 100 mm[Hg] Unive rsity of [facility] Heart rate 2022-08-29 20:31:00 78 /min Universi ty [facility] Oxygen saturation in 2022-08-29 20:31:00 100 /min [facility] Arterial blood by [facility] Pulse oximetry Branch Body temperature 2022-08-29 19:20:00 36.67 [facility] Body height 2022-08-29 19:20:00 180.3 cm Universi ty of [facility] Body weight 2022-08-29 19:20:00 58.922 kg Universi ty [facility] BMI 2022-08-29 19:20:00 18.12 kg/m2 Universi ty [facility] Systolic blood 2022-07-23 19:12:00 163 mm[Hg] Univer sity of [facility] Diastolic blood 2022-07-23 19:12:00 85 mm[Hg] Unive rsity of pressure [facility] Heart rate 2022-07-23 19:12:00 70 /min Universi ty [facility] Body temperature 2022-07-23 19:11:00 36.56 [place] Univ ers[facility] Body height 2022-07-23 19:11:00 180.3 cm Universi ty of [facility] Body weight 2022-07-23 19:11:00 63.957 kg Universi ty of [facility] BMI 2022-07-23 19:11:00 19.67 kg/m2 [facility] Oxygen saturation in 2022-07-23 19:11:00 100 /min [facility] Arterial blood by [facility] Pulse oximetry [place] Procedures Procedure Date / Time Performing Clinician Source Performed MEDICATION CORRESPONDENCE 2022-09-18 05:01:00 Doctor Yuliet, [facility] Name [facility] MEDICATION CORRESPONDENCE 2022-09-07 06:01:00 Doctor Shareessdemarco, [facility] Name [facility] SARS-COV-2 COVID-19 2022-07-23 20:13:29 Ligia Saba [facility] WILDA-SUCROSE VACCINE [address] [place] [address] YRS+, BIVALENT 0.3ML, IM, (PFIZER LIRA TOP BOOSTER) FLU VACC (), 6 2022-07-23 19:36:04 Ligia Saba [facility] MO-64 YRS, .5ML, IM, QUAD Medica l Branch (FLUCELVAX) PATIENT QUESTIONNAIRE 2022-07-23 06:01:00 Doctor Yuliet, [facility] Encounters Start End Encounter Admission Attending Care Care Encounter Source Date/Time Date/Time Type Type Clinicians Facility Department ID 2022-11-03 2022-11-03 Patient ArnaudRUST 1.2.840.114 [id number] Univers 00:00:00 00:00:00 Secure [facility] 350.1.13.10 ity [facility] 4.2.7.2.686 Rodo as CHIO?BLEA [id number] Hi terri LISSET [address] [place] [address] MEDICAL OFFICE BUILDING 2022-10-14 2022-10-18 Inpatient ER [place], [facility] Medical ICU [id number] [facility] 12:29:00 11:04:00 HIEU 2022-10-10 2022-10-10 Outpatient R WANDY [facility] [id number] Univers 13:30:00 13:30:00 LIGIA batista [facility] 2022-10-06 2022-10-06 Outpatient R ANIYA [facility] [id number] Univers 15:20:00 15:20:00 CELESTINO batista o f [facility] 2022-09-18 2022-09-18 Orders Doctor SHEBA 1.2.840.114 [id number] Univers 00:00:00 00:00:00 Only Unassigned, [place]UL[place] 350.1.13.10 ity of [facility] [facility] 4.2.7.2.686 Rodo as [id number] [address] 2022-09-07 2022-09-07 Orders Doctor SHEBA 1.2.840.114 [id number] Univers 00:00:00 00:00:00 Only Unassigned, DULCE 350.1.13.10 ity of [facility] [facility] 4.2.7.2.686 Rodo as [id number] [address] 2022-09-01 2022-09-01 Telephone [facility] [id number] Univers 00:00:00 00:00:00 Ligia [facility]ALTH 350.1.13.10 it y of [place] 4.2.7.2.686 Rodo as CHIO?BLEA [id number] [address] OFFICE [facility] 2022-08-29 2022-08-29 Outpatient R [facility] [id number] Univers 13:30:00 14:32:08 LIGIA ity of [facility] 2022-08-29 2022-08-29 Office [facility] 1.2.840.114 [id number] Univers 13:30:00 14:32:08 Visit Ligia HEALTH 350.1.13.10 it y of [place] 4.2.7.2.686 Rodo as CHIO?BLEA [id number] [address] OFFICE [facility] 2022-08-29 2022-08-29 Refill [facility] 1.2.840.114 [id number] Univers 00:00:00 00:00:00 [facility] 350.1.13.10 it y of [place] 4.2.7.2.686 Rodo as CHIO?BLEA [id number] [address] OFFICE [facility] 2022-08-29 2022-08-29 Telephone [facility] 1.2.960.500 [id number] Univers 00:00:00 00:00:00 [facility] 350.1.13.10 it y of [place] 4.2.7.2.686 Rodo as CHIO?BLEA [id number] Hi terri CHUN [address] [place] [address] OFFICE [facility] 2022-08-22 2022-08-22 Outpatient R WANDY [facility] [id number] Univers 15:30:00 15:30:00 LIGIA batista [facility] 2022-08-22 2022-08-22 [facility] ..[id number] Univers 00:00:00 00:00:00 Ligia [facility] 350.1.13.10 it y of [place] 4.2.7.2.686 Rodo as CHIO?BLEA [id number] Hi terri CHUN [address] [place] [address] OFFICE [facility] 2022-08-08 2022-08-08 [facility]phone [facility] ..[id number] Univers 00:00:00 00:00:00 [facility] 350.1.13.10 it y of [place] 4.2.7.2.686 Rodo as CHIO?BLEA [id number] Hi terri CHUN [address] [place] [address] OFFICE [facility] 2022-08-04 2022-08-04 [facility]phone [facility] ..[id number] Univers 00:00:00 00:00:00 [facility] 350.1.13.10 it y of [place] 4.2.7.2.686 Rodo as CHIO?BLEA [id number] Hi terri RM[address] OFFICE [facility] 2022-07-24 2022-07-24 Outpatient R DOUGLAS [facility] [id number] Univers 11:30:00 11:30:00 SENDIL edwin [facility] 2022-07-24 2022-07-24 Telephone [facility] ..[id number] Univers 00:00:00 00:00:00 [facility] 350.1.13.10 it y of [place] 4.2.7.2.686 Rodo as CHIO?BLEA [phone] Hi hakeem[address] OFFICE [facility] 2022-07-23 2022-07-23 [facility], [place] - Db [facility] 1..840.1 14 [id number] Univers 14:15:00 14:30:00 Visit Ligia Saba 350.1.13.10 ity of [place] 4.2.7.2.686 Rodo as CHIO?BLEA [id number] Hi terri CHUN [address] [place] MEDICAL OFFICE [facility] 2022-07-23 2022-07-23 Outpatient R WANDY [facility] [id number] Univers 13:00:00 14:07:13 LIGIA ity of [facility] 2022-07-23 2022-07-23 Office Wandy [facility] 1.2.840.114 [id number] Univers 13:00:00 14:07:13 Visit Ligia KENNEDY 350.1.13.10 it y of [place] 4.2.7.2.686 Rodo as CHIO?BLEA [id number] [facility] [address] MEDICAL OFFICE [facility] 2022-07-23 2022-07-23 Telephone WandyRUST 1.2.229.209 [id number] Univers 00:00:00 00:00:00 Lig[facility] HEALTH 350.1.13.10 it y of [place] 4.2.7.2.686 Rodo as CHIO?BLEA [id number] [facility] CHUN [address] [place] [address] OFFICE [facility] 2022-07-23 2022-07-23 Telephone Wandy [facility] 1.2.200.470 [id number] Univers 00:00:00 00:00:00 [facility] 350.1.13.10 it y of [place] 4.2.7.2.686 Rodo as CHIO?BLEA [id number] [facility] CHUN [address] [place] [address] MEDICAL OFFICE [facility] 2022-07-23 2022-07-23 Orders Doctor SHEBA 1.2.840.114 [id number] Univers 00:00:00 00:00:00 Only Unassigned, DULCE 350.1.13.10 ity of [place] [facility] 4.2.7.2.686 Rodo as [id number] [address] Results Test Description Test Time Test Comments Results Result [facility] e Comments TISSUE EXAM 2022-10-21 Surgical Pathology Report 15:45:33 Case: [id number] Authorizing Provider: Dilma Wells DO Collected: 10/16/2022 12:01 PM Ordering Location: [address] Med/Surg Received: 10/16/2022 12:19 PM Pathologist: Suri Wilson MD Specimens: A) - Biopsy, Gastric B) - Biopsy, Esophagus This addendum is issued to report the result of immunohistochemical study for CMV and HSV on specimen B: CMV- NEGATIVE HSV 1 and 2: NEGATIVE The interpretation of this case included the use of immunohistochemistry or special stains.Immunohistochemist ry technical testing was performed at [facility], Pathology Laboratory where it was developed and [...] complexity clinical laboratory testing. ADDITIONAL CPT CODE: 01267, 26642 Addendum electronically signed by Suri Wilson MD [...] HSV ARE BEING DONE; AN [facility] FOLLOW Signing Pathologist Direct Phone Line: [phone] y signed by Suri Wilson MD on 10/17/2022 at 5:42 [id number] X 2DysphagiaA. Biopsy, GastricReceived in formalin labeled [...] 1095) No growth in 5 days BLOOD [id number] 10:00:44 Test Item Value Reference Range Interpretation Comments CULTURE (BEAKER) (test No growth in 5 days code = 1095) BASIC METABOLIC [id number] 08:54:48 Test Item Value Reference Range Interpretation [...] not appl icable for dialysis patien ts Junior Recruiter ID - [id number] ID - [id number] ID - [id number] ID - [id number] ID - [id number] ID - [id number] ID - [id number] ID - [id number] ID - [id number] ID - [id number] ID - [id number] ID - [id number] 06:16:30 Test Item Value Reference Range Interpretation Comments POC-GLUCOSE METER 264 mg/dL 70-110 H : TESTED A T SLSL 1317 (BEAKER) (test code [address] [facility] [address], = 1538) [place] [address] 478: 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 ID = [id number] for Vani Estrada POCT-GLUCOSE [id number] 20:51:36 Test Item Value Reference Range Interpretation Comments POC-GLUCOSE METER 274 mg/dL 70-110 H : TESTED A T [facility] 1317 (BEAKER) (test code [facility] [place] [facility] = 1538[facility] [place] [address] 478: 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 ID = [id number] for Rylie Mckeon POCT-GLUCOSE [id number] 17:19:17 Test Item Value Reference Range Interpretation Comments POC-GLUCOSE METER 194 mg/dL 70-110 H : TESTED A T [facility] 1317 (BEAKER) ([facility] [place] [address] 478: 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 ID = [id number] for Tsering Mak POCT-GLUCOSE [id number] 17:19:11 Test Item Value Reference Range Interpretation Comments POC-GLUCOSE METER 169 mg/dL 70-110 H : TESTED A T [facility] 1317 (BEAKER) (test code [address] [address], = 1538) [place] [address] 478: 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 ID = [id number] for Tsering Mak MRSA [id number] 10:35:15 Test Item Value Reference Range Interpretation Comments CULTURE (BEAKER) (test code No MRSA isolated = 1095) CBC W/PLT COUNT & AUTO [id number] 08:02:31 Test Item Value Reference Range Interpretation [...] PERCENT (BEAKER) (test code = 2801) POCT-GLUCOSE [id number] 07:15:43 Test Item Value Reference Range Interpretation Comments POC-GLUCOSE METER 122 mg/dL 70-110 H : TESTED A T [facility] 1317 (BEAKER) (test code [facility] [place] [address], = 1538) [place] [address] 478: 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 ID = [id number] for Hyacinth Longoria [id number] 06:39:14 Test Item Value Reference Range Interpretation Comments MAGNESIUM (BEAKER) (test code = 2.2 mg/dL 1.5-3.0 627) Junior Recruiter ID - [id number] ID - [id number] ID - [id number] ID - [id number] BASIC METABOLIC [id number] 06:38:14 Test Item Value Reference Range Interpretation [...] not appl icable for dialysis patien ts Junior Recruiter ID - [id number] ID - QZSY62Kgoggren ID - JHBO10Njezkitu ID - ZPYE09Grtzahgu ID - IJNX69Mttichqp ID - YZAW06Katkfelt ID - OUYL62Xkppyiiq ID - JHYU53Otkshkrm ID - RLQL45Rtmeosqx ID - [id number] 06:36:46 Test Item Value Reference Range Interpretation Comments PHOSPHORUS (BEAKER) (test code = 2.9 mg/dL 2.5-4.5 604) Junior Recruiter ID - [id number] 21:14:56 Test Item Value Reference Range Interpretation Comments POC-GLUCOSE METER 143 mg/dL 70-110 H : TESTED A T [facility] 1317 (BEAKER) (test code [address], = 1538) [place] [id number]: 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 ID = [id number] for Oknoé o Hyacinth POCT-GLUCOSE [id number] 17:00:16 Test Item Value Reference Range Interpretation Comments POC-GLUCOSE METER 126 mg/dL 70-110 H : TESTED A T [facility] 1317 (BEAKER) (test code [address], = 1538) [place] [address]: 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 ID = [id number] for Javier Guevara POCT-GLUCOSE [id number] 10:55:31 Test Item Value Reference Range Interpretation Comments POC-GLUCOSE METER 67 mg/dL 70-110 L : TESTED A T [facility]17 (BEAKER) (test code = [address], 1538) [place] [address]58: 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 ID = [id number] for Eneida Katy wolfeo POCT-GLUCOSE [id number] 06:37:48 Test Item Value Reference Range Interpretation Comments POC-GLUCOSE METER 88 mg/dL 70-110 : TESTED A T [facility] 1317 (BEAKER) (test code = [address], 1538) [place] [address]58: 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 ID = [id number] for Anat oHyacinth [id number] 06:16:37 Test Item Value Reference Range Interpretation Comments MAGNESIUM (BEAKER) 2.3 mg/dL 1.5-3.0 Specimen slightly (test code = 627) hemolyzed Junior Recruiter ID - LITOOperator ID - LITOOperator ID - LITOOperator ID - LITOBASIC METABOLIC [id number] 06:14:56 Test Item Value Reference Range Interpretation [...] not appl icable for dialysis patien ts Junior Recruiter ID - LITOOperator ID - LITOOperator ID - LITOOperator ID - LITOOperator ID - LITOOperator ID - LITOOperator ID - LITOOperator ID - LITOOperator ID - [id number] 06:13:35 Test Item Value Reference Range Interpretation Comments PHOSPHORUS (BEAKER) 2.6 mg/dL 2.5-4.5 Specimen slightly (test code = 604) hemolyzed Junior Recruiter ID - [id number] W/PLT COUNT & AUTO [id number] 06:08:57 Test Item Value Reference Range Interpretation [...] = 2801) RAD, HIPS, BILATERAL TO INCLUDE [id number] 06:05:00Reason for exam:->FallKANIKA [facility] : 1960 Sex: MFINAL REPORT Exam: Bilateral hip 2 views Clinical History: Status post fall Findings: There is no evidence of acute fracture or malalignment. The articular joints are well-preserved. The soft tissue is unremarkable. Impression: No radiographic evidence of acute osseous injury. Signed: Medardo Ambrocio MDReport Verified Date/Time: 10/16/2022 06:05:39 POCT-GLUCOSE [id number] 22:26:15 Test Item Value Reference Range Interpretation Comments POC-GLUCOSE METER 121 mg/dL 70-110 H : TESTED A T [facility] 1317 (BEAKER) (test code [address], = 1538) [place] [id number]: 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 ID = [id number] for Hyacinth Longoria POCT-GLUCOSE [id number] 15:58:50 Test Item Value Reference Range Interpretation Comments POC-GLUCOSE METER 112 mg/dL 70-110 H : TESTED A T [facility] 1317 (BEAKER) (test code [address], = 1538) [place] [address] 478: 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 ID = [id number] for Will iams Tammy URINALYSIS W/ REFLEX URINE [id number] 15:50:02 Test Item Value Reference Range Interpretation [...] (test code = 2795) CD4 T CELL [id number] 12:57:00 Test Item Value Reference Range Interpretation [...] mm 107-698 (BEAKER) (test code = 3491) Junior Recruiter ID - [id number]-GLUCOSE [id number] 12:05:51 Test Item Value Reference Range Interpretation Comments POC-GLUCOSE METER 130 mg/dL 70-110 H : TESTED A T [facility] 1317 (BEAKER) (test code [address], = 1538) [facility] [place] 77 478: 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 ID = [id number] for Tammy Noonan [id number] 06:54:54 Test Item Value Reference Range Interpretation Comments MAGNESIUM (BEAKER) (test code = 1.9 mg/dL 1.5-3.0 627) Junior Recruiter ID - [id number] ID - [id number] ID - XFIW54Wvfgrhin ID - [id number] BASIC METABOLIC [id number] 06:53:51 Test Item Value Reference Range Interpretation [...] not appl icable for dialysis patien ts Junior Recruiter ID - [id number] ID - [id number] ID - LKWC73Tsvfykjl ID - NAPV17Karytqcw ID - KCBV28Bkfmrshe ID - DTGD21Rkydaeyk ID - UHDU24Nwjzazlh ID - AGWC85Qefqaokb ID - [id number] 06:52:35 Test Item Value Reference Range Interpretation Comments PHOSPHORUS (BEAKER) (test code = 2.5 mg/dL 2.5-4.5 604) Junior Recruiter ID - [id number] W/PLT COUNT & AUTO [id number] 06:40:06 Test Item Value Reference Range Interpretation [...] PERCENT (BEAKER) (test code = 2801) POCT-GLUCOSE [id number] 06:26:45 Test Item Value Reference Range Interpretation Comments POC-GLUCOSE METER 110 mg/dL 70-110 : TESTED A T [facility] 1317 (BEAKER) (test code [facility] [place] [address], = 1538) [facility] 77 478: 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 ID = [id number] for Yusef Murray [id number] 01:01:05 Test Item Value Reference Range Interpretation Comments PROCALCITONIN (BEAKER) (test code 0.07 ng/mL <0.05 H = 3036) SEPSIS RISK (ng/mL)Low: 0.05-0.50Intermediate: 0.51-2.00High: >=2.01TROPONIN [id number] 22:15:12 Test Item Value Reference Range Interpretation [...] failure, acidosis, acute neurological disease, and persistent tachyarrhythmia.Junior Recruiter ID - [id number] 22:07:09 Test Item Value Reference Range Interpretation Comments C-REACTIVE PROTEIN (BEAKER) (test 0.13 mg/dL 0.00-0.50 code = 676) Junior Recruiter ID - [id number] [id number] 21:33:42 Test Item Value Reference Range Interpretation Comments POC-GLUCOSE METER 170 mg/dL 70-110 H : TESTED A T [facility] 1317 (BEAKER) (test code [address], = 1538) [place] [address]: 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 ID = [id number] for Vani Estrada POCT-GLUCOSE [id number] 18:37:12 Test Item Value Reference Range Interpretation Comments POC-GLUCOSE METER 192 mg/dL 70-110 H : TESTED A T [facility] 1317 (BEAKER) (test code [address], = 1538) [place] [address]: 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 ID = [id number] for Geoffrey May [id number] 15:07:15 Test Item Value Reference Range Interpretation Comments LIPASE (BEAKER) (test code = 749) 61 U/L 6-51 H Junior Recruiter ID - [id number], CHEST, 1 VIEW, NON [id number] 15:00:00Reason for exam:->hypoglycemia, htn [facility] : 1960 Sex: MFINAL REPORT Chest AP portable semierect History provided: Hypoglycemia, hypertension Heart size normal. Lungs are clear and vascularity normal. Signed: Wei Knoxort Verified Date/Time: 10/14/2022 15:00:40 Reading Location: [facility] Radiology Reading Room HEMOGLOBIN [id number] 14:12:36 Test Item Value Reference Range Interpretation Comments HEMOGLOBIN A1C (BEAKER) (test code = 16.7 % 4.3-6.1 H 368) Junior Recruiter ID - [id number] T4 IF [id number] 14:00:49 Test Item Value Reference Range Interpretation Comments THYROID STIMULATING HORMONE 3.400 uIU/mL 0.350-5.500 (BEAKER) (test code = 772) Junior Recruiter ID - [id number] NATRIURETIC FACTOR (BNP)2022-10-14 13:49:38 Test Item Value Reference Range Interpretation Comments B-TYPE NATRIURETIC PEPTIDE (BEAKER) 518 pg/mL 0-100 H (test code = 700) Junior Recruiter ID - [id number] [id number] 13:49:32 Test Item Value Reference Range Interpretation [...] failure, acidosis, acute neurological disease, and persistent tachyarrhythmia.Junior Recruiter ID - [id number] METABOLIC [id number] 13:49:10 Test Item Value Reference Range Interpretation [...] not appl icable for dialysis patien ts Junior Recruiter ID - [id number] ID - RXROR080Kktawmzu ID - NMCRM449Ativdpxi ID - LRDIG128Atafplrr ID - AFXGF737Srccomev ID - UNNPO880Dssclosu ID - VZURM530Ljxrfnjk ID - HBGCT254Djaxndow ID - DZWJL786Cxskolzu ID - SDVKW106Zonvqwiz ID - HZERY163Qrdpicoo ID - NTBTN069Vdqjvsio ID - DDUWJ518Cnvphslr ID - SUZEJ575Okckgfkb ID - DCVFW364Zoupdupo ID - [id number] 13:40:11 Test Item Value Reference Range Interpretation Comments MAGNESIUM (BEAKER) (test code = 1.8 mg/dL 1.5-3.0 627) Junior Recruiter ID - [id number] ID - [id number] ID - IQLDN779Tdozpkin ID - [id number] [id number] 13:39:13 Test Item Value Reference Range Interpretation [...] Borderline 130-159 High 160-189 Very High >=190 Junior Recruiter ID - [id number] ID - IUCUF704Dkguswld ID - [id number] 13:36:29 Test Item Value Reference Range Interpretation Comments PHOSPHORUS (BEAKER) (test code = 2.9 mg/dL 2.5-4.5 604) Junior Recruiter ID - [id number] TIME/[id number] 13:34:24 Test Item Value Reference Range Interpretation [...] mechanical heart valves.CBC W/PLT COUNT & AUTO [id number] 13:18:41 Test Item Value Reference Range Interpretation [...] (BEAKER) (test code = 2801) LACTIC ACID, [id number] 13:16:51 Test Item Value Reference Range Interpretation Comments LACTATE BLOOD 1.50 mmol/L See_Comment [Automated me ssage] VENOUS (2) ([place]) The syst em which (test code = 2872) generated this result transmitted ref erence range: 0.50-<2. 00. The reference range was not used to interpr et this result as normal/abnormal . POCT-GLUCOSE [id number] 13:02:19 Test Item Value Reference Range Interpretation Comments POC-GLUCOSE METER 158 mg/dL 70-110 H : Notified RN/MD: TESTED ([place]) (test code AT [facility] [address] = 1538) [facility] [address]: 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 ID = [id number] for Juan Arabella lu Notes Date/Time Note Provider Source 2022-10-16 05:24:08-00:00 DILMA WELLS [facility] CONSULTATION ALO GILBERT FACILITY: [facility] Billing #: [id number] Room: [address] [place] [address] MR #: [id number] : 1960 DATE OF ADMISSION: 10/14/2022 DATE OF CONSULTATION: 10/16/2022 REQUESTING PHYSICIAN: Dipesh Delacruz MD SUPERVISOR CIGAR PROCESSING: Dilma Wells DO Gastroenterology Consultation REASON FOR CONSULTATION: Heartburn with epigastr ic pain and dysphagia. HISTORY OF PRESENT ILLNESS: This is a 62-year-ol d gentleman with a history of HIV, hypertension, coronary ar leandro disease, presented to the emergency room in [facility] complaints of nausea and severe emesis at home with epigast delaney pain for the past few days. Labs in the emergency room re vealed elevated white count and he was diagnosed with D KA. He was transferred here to [facility] in [place] for higher level of care, who is being evaluated for non-ST elevated myocardial infarction, which has been e xcluded by Cardiology. From a GI standpoint, he reports a 4 - to 5-day history of reflux symptoms, nausea and vomiting and epigastric pain along with odynophagia. States he has had t hese symptoms in the past, but have spontaneously resolved. He takes a PPI as an outpatient, but states he has not been alw ays compliant with his regimen. He was evaluated by speech the massiel yesterday and was cleared for oral diet. Unfortunately, th e patient complains of ongoing dysphagia and odynophagia w ith meals. He denies any GI bleeding, although he does complai n of some intermittent bouts of constipation during this p ast week. PAST MEDICAL HISTORY: 1. HIV. 2. Hypertension. 3. Hyperlipidemia. 4. Bipolar disease. 5. Type 2 diabetes mellitus. 6. Coronary artery disease. 7. Raynaud syndrome. 8. Anal abscess. PAST SURGICAL HISTORY: 1. Appendectomy. 2. Cholecystectomy. 3. PCI with stenting. SOCIAL HISTORY: The patient is . He is an active pack per day smoker. He admits to moderate alcohol us e, but stopped over a year ago. FAMILY HISTORY: No history of GI illnesses. ALLERGIES: TO LITHIUM. MEDICATIONS: 1. Aspirin 81 mg p.o. daily. 2. Lipitor 80 mg p.o. at bedtime. 3. Biktarvy one tablet p.o. daily. 4. Colace 100 mg p.o. b.i.d. 5. Heparin 5000 units subcu q.12 hours. 6. Lantus insulin 10 units subcu daily. 7. Metoprolol 25 mg p.o. b.i.d. 8. Nicotine 21 mg per day topical patch. 9. Protonix 40 mg p.o. b.i.d. 10. Paxil 30 mg p.o. daily. 11. Zosyn 3.375 g IV q.6 hours. 12. MiraLAX 17 g p.o. daily. 13. Trazodone 100 mg p.o. at bedtime. REVIEW OF SYSTEMS: A 12-point review of systems as above, otherwise , negative. PHYSICAL EXAMINATION: VITAL SIGNS: Blood pressure 159/91, heart rate 5 4, respiratory rate 20, temperature 96.0. GENERAL: Well-developed gentleman, in no acute d istress. HEENT: Sclerae anicteric. Conjunctivae pale. Josephine pharynx moist. LUNGS: Coarse bilaterally. HEART: Regular rate and rhythm. S1, S2. ABDOMEN: Soft, nontender. Positive bowel sounds. No organomegaly appreciated. EXTREMITIES: No edema. NEUROLOGICAL: The patient is awake, alert, coope rative on exam. LABORATORY DATA: On admission 10/14/2022, white count 21.7, hemoglobin 15.2, hematocrit 42.3, platelet count 543. Sodium 134, potassium 3.4, chloride 96, bicarb 26, crea tinine 1.9, BUN 42, glucose 155, alkaline phosphatase 83, total bilirubin 0.3, albumin 2.9, AST 17, ALT 7, lipase 61. IMPRESSION: A 62-year-old gentleman with a histo ry of HIV, hypertension, coronary artery disease, admitted to the hospital with nausea and vomiting, epigastric pain, and d iagnosed with DKA. PROBLEM AND PLAN: 1. Epigastric pain with nausea and vomiting, hea rtburn and odynophagia. Pantoprazole was increased to b.i.d . yesterday. Continue PPI b.i.d. and anti-reflux measures. We will plan for upper endoscopy later today for further evaluati on of his symptoms. 2. Constipation. Continue bowel regimen. 3. We will follow the patient with you. Please d o not hesitate to contact us if you have any questions. MMS/MODL /[id number] Electronically signed by: DILMA WELLS at 10-16 04:42:16.000
[2022-11-19 12:28] LABS: Absolute Lymphocytes (CBC) 1.5 K/uL (0.7-4.9); Hematocrit 36.5 % (39.6-49.0); Lymphocytes % 12.7 % (15.3-44.8); MCV 95.5 fL (80-100); MPV 8.6 fL (7.6-11.3); RBC Red Blood Cell Count 3.82 M/uL (4.33-5.43)
--- NOTE | 2022-11-19 12:30 | RAD REPORT ---
[facility] CLINICAL HISTORY: CHEST PAIN COMPARISON: Chest Single View dated 10/29/2022 TECHNIQUE: Portable AP view of the chest. FINDINGS: The lungs show progressive bibasilar patchy airspace opacities. Layering small to moderate left pleural effusion. No pneumothorax. The cardiomediastinal contours are unremarkable. IMPRESSION: Bibasilar patchy airspace opacities with layering left pleural effusion. Findings raise concern for pneumonia. A component of central edema cannot be entirely excluded.
[2022-11-19 12:46] LABS: Potassium 3.8 mEq/L (3.5-5.1); Troponin High Sensitivity 18.5 pg/mL (<58.9)
[2022-11-19 13:25] LABS: Blood Morphology Comment NOT SEEN (NOT SEEN); Platelet Estimate INCR
--- NOTE | 2022-11-19 15:35 | RAD REPORT ---
EXAM DESCRIPTION: CT - Thorax Wo Con - 11/19/2022 2:53 pm CLINICAL HISTORY: sob COMPARISON: September 2022 TECHNIQUE: Computed axial tomography of the chest was obtained. Contrast was not requested. All CT scans are performed using dose optimization technique as appropriate and may include automated exposure control or mA/KV adjustment according to patient size. FINDINGS: The evaluation of mediastinum, david and vessels is limited secondary to lack of IV contras t administration. Moderate bilateral pleural effusions with bibasilar atelectasis Mild COPD Mild mediastinal and hilar lymphadenopathy probably reactive nature. Coronary arterial calcifications Mild hepatomegaly IMPRESSION: Moderate bilateral pleural effusions
--- NOTE | 2022-11-19 16:10 | ER ---
Nurse's Notes [facility] Name: Farhan Avila Age: 62 yrs Sex: Male : 1960 Arrival Date: 11/19/2022 Time: 11:37 Bed 20 Private MD: Diagnosis: Pleural effusion in other conditions classified elsewhere;Other pneumonia, unspecified organism Presentation: 11/19 11:50 Chief complaint: Patient states: diff breathing X 2 -3 days. Coronavirus screen: At iw this time, the client does not indicate any symptoms associated with coronavirus-19. Ebola Screen: Patient negative for fever greater than or equal to 101.5 degrees Fahrenheit, and additional compatible Ebola Virus Disease symptoms Patient denies exposure to infectious person. Patient denies travel to an Ebola-affected area in the 21 days before illness onset. No symptoms or risks identified at this time. Initial Sepsis Screen: Does the patient meet any 2 criteria? Does the patient have a suspected source of infection? No. Patient's initial sepsis screen is negative. Risk Assessment: Do you want to hurt yourself or someone else? Patient reports no desire to harm self or others. Onset of symptoms was November 16, 2022. 11:50 Method Of Arrival: Ambulatory iw 11:50 Acuity: DINORAH 3 iw Triage Assessment: 16:50 General: Appears ill, Behavior is calm, cooperative. Pain: Denies pain. Neuro: Level of ap3 Consciousness is awake, alert, obeys commands, Oriented to person, place, time. Cardiovascular: Patient's skin is warm and dry. Respiratory: Reports shortness of breath on exertion Onset: The symptoms/episode began/occurred gradually, the patient has moderate shortness of breath. Respiratory: Airway is patent Respiratory effort is even, unlabored, Respiratory pattern is regular, symmetrical. Historical: - Allergies: 11:51 No Known Allergies; iw - Home Meds: 11:51 nitroglycerin 0.4 mg SL Tablet, Sublingual [Active]; atorvastatin 80 mg Oral tablet iw once [Active]; Biktarvy 50-200-25 mg Oral tablet daily [Active]; hydroxyzine HCl 25 mg Oral tablet every 6 hours [Active]; Jardiance 25 mg Oral tablet daily [Active]; lisinopril 10 mg Oral tablet daily [Active]; metformin 1,000 mg Oral tablet 2 times per day [Active]; pantoprazole 40 mg Oral tablet, delayed release (enteric coated) daily [Active]; paroxetine HCl 30 mg Oral tablet daily [Active]; trazodone 100 mg Oral tablet 2 tabs every day at bedtime [Active]; - PMHx: 11:51 Bipolar disorder; CAD; HIV positive; MD; raynaud's; DM; iw - PSHx: 11:51 Appendectomy; Cholecystectomy; Heart Stents; iw - Immunization history:: Adult Immunizations. - Social history:: Smoking status: Patient reports the use of cigarette tobacco products, smokes one pack cigarettes per day. Screenin:50 Abuse screen: Denies threats or abuse. Nutritional screening: No deficits noted. ap3 Tuberculosis screening: No symptoms or risk factors identified. Assessment: 11:55 Cardiovascular: Patient's skin is warm and dry. Respiratory: Airway is patent ap3 Respiratory effort is even, unlabored. 12:20 Reassessment: Patient appears in no apparent distress at this time. No changes from vg1 previously documented assessment. Patient and/or family updated on plan of care and expected duration. Pain level reassessed. Patient is alert, oriented x 3, equal unlabored respirations, skin warm/dry/pink. Pt in placed in supine position by Dr Denney to measure pt O2 Sats. When pt was sat up by Radiology pt O2 decreased to 92% RA from 96% RA; Provider notified. 19:20 General: Appears comfortable, Behavior is calm, cooperative. Pain: Denies pain. Neuro: ha1 Level of Consciousness is awake, alert, obeys commands, Oriented to person, place, time, situation. Cardiovascular: Patient's skin is warm and dry. Rhythm is sinus rhythm. Respiratory: Airway is patent Respiratory effort is even, unlabored, Respiratory pattern is regular, symmetrical, Breath sounds are clear bilaterally. GI: No signs and/or symptoms were reported involving the gastrointestinal system. : No signs and/or symptoms were reported regarding the genitourinary system. Musculoskeletal: Circulation, motion, and sensation intact. Vital Signs: 11:50 BP 190 / 94; Pulse 61; Resp 18; Temp 98.6; Pulse Ox 94% on R/A; Weight 68.95 kg; Height iw 5 ft. 11 in. ; 13:10 BP 175 / 87; Pulse 62; Pulse Ox 96% on R/A; ap3 16:50 BP 202 / 96; Pulse 65; Pulse Ox 94% on 2 lpm NC; ap3 17:07 BP 186 / 106; Pulse 68; ap3 19:30 BP 182 / 76; Pulse 69; Resp 19 S; Pulse Ox 95% on R/A; ha1 11:50 Body Mass Index 21.20 (68.95 kg, 180.34 cm) ED Course: 11:39 Patient arrived in ED. rg4 11:39 Dorian Denney MD is Attending Physician. bs3 11:51 Triage completed. iw 11:52 Arm band placed on. iw 11:54 Ana Robertson, RN is Primary Nurse. ap3 12:13 Missed attempt(s): 22 gauge in right antecubital area. vg1 12:18 Inserted saline lock: 22 gauge in left forearm, using aseptic technique. vg1 12:24 XRAY Chest (1 view) In Process Unspecified. EDMS 14:55 CT Chest Wo Con In Process Unspecified. EDMS 16:10 Jose Delvalle MD is Hospitalizing Provider. bs3 16:51 Patient has correct armband on for positive identification. Bed in low position. Call ap3 light in reach. Side rails up X2. quality assurance monitor on. Pulse ox on. NIBP on. Door closed. Noise minimized. 16:52 Admitting physician to see patient. ap3 Administered Medications: 16:49 Drug: Rocephin IV 1 grams Route: IV; Rate: bolus; Site: left forearm; ap3 16:52 Follow up: IV Status: Completed infusion ap3 16:49 Drug: AZITHromycin PO 500 mg Route: PO; ap3 16:49 Drug: Furosemide IVP 60 mg Route: IVP; Site: left forearm; ap3 Medication: 16:52 VIS not applicable for this client. ap3 Outcome: 16:10 Decision to Hospitalize by Provider. bs3 20:07 Patient left the ED. mb9 Signatures: Dispatcher [employer] EDMS Aracelis Marquez, RN PATIENCE iw Melisa Cruz rg4 Ana Robertson RN RN ap3 Serina Cruz RN RN vg1 Myesha Parsons RN RN ha1 Dorian Denney MD MD bs3 Daya Teixeira RN RN mb9 Corrections: (The following items were deleted from the chart) 11:52 11:50 Pulse 61bpm; Resp 18bpm; Pulse Ox 94% RA; Temp 98.6F; 68.95 kg; Height 5 ft. 11 iw in.; BMI: 21.2; iw
--- NOTE | 2022-11-19 16:11 | EDPHYS ---
Physician Documentation [facility] Name: Farhan Avila Age: 62 yrs Sex: Male : 1960 Arrival Date: 11/19/2022 Time: 11:37 Bed 20 Private MD: ED Physician Dorian Denney HPI: 11/19 15:15 This 62 yrs old Male presents to ER via Ambulatory with complaints of bs3 Shortness Of Breath. 15:15 59-year-old male history of CAD, HIV MN Raynaud's diabetes recently admitted here bs3 presents with shortness of breath he notes that it is worse in the morning worse when lying flat denies any fevers or chills denies chest pain he notes that sometimes he cannot catch his breath but improves over the day it has been going on for 3 to 4 days. Historical: - Allergies: 11:51 No Known Allergies; iw - Home Meds: 11:51 nitroglycerin 0.4 mg SL Tablet, Sublingual [Active]; atorvastatin 80 mg Oral tablet iw once [Active]; Biktarvy 50-200-25 mg Oral tablet daily [Active]; hydroxyzine HCl 25 mg Oral tablet every 6 hours [Active]; Jardiance 25 mg Oral tablet daily [Active]; lisinopril 10 mg Oral tablet daily [Active]; metformin 1,000 mg Oral tablet 2 times per day [Active]; pantoprazole 40 mg Oral tablet, delayed release (enteric coated) daily [Active]; paroxetine HCl 30 mg Oral tablet daily [Active]; trazodone 100 mg Oral tablet 2 tabs every day at bedtime [Active]; - PMHx: 11:51 Bipolar disorder; CAD; HIV positive; MN; raynaud's; DM; iw - PSHx: 11:51 Appendectomy; Cholecystectomy; Heart Stents; iw - Immunization history:: Adult Immunizations. - Social history:: Smoking status: Patient reports the use of cigarette tobacco products, smokes one pack cigarettes per day. ROS: 15:15 Constitutional: Negative for fever, chills bs3 15:15 All other systems are negative. Exam: 15:15 Constitutional: This is a well developed, well nourished patient who is awake, alert, bs3 and in no acute distress. Head/Face: Normocephalic, atraumatic. Eyes: Pupils equal round and reactive to light, extra-ocular motions intact. Lids and lashes normal. Neck: Trachea midline, no thyromegaly, no neck stiffness Chest/axilla: Normal chest wall appearance and motion. Nontender with no deformity. No lesions are appreciated. Cardiovascular: Regular rate and rhythm with a normal S1 and S2. symmetric pulses in upper extremities Respiratory: Lungs have equal breath sounds bilaterally, clear to auscultation, no respiratory distress Abdomen/GI: Soft, non-tender, no rebound or guarding Back: No spinal tenderness. No costovertebral tenderness. Full range of motion. Skin: Warm, dry with normal turgor. Normal color with no rashes, no lesions, and no evidence of cellulitis. MS/ Extremity: Pulses equal, no cyanosis. Neurovascular intact. Full, normal range of motion. Neuro: Awake and alert, GCS 15, oriented to person, place, time, and situation. Cranial nerves II-XII grossly intact. Motor strength 5/5 in all extremities. Sensory grossly intact. Psych: Awake, alert, with orientation to person, place and time. Behavior, mood, and affect are within normal limits. 15:15 Normal sinus rhythm at [address] elevations or depressions QTc 507 as interpreted by myself Vital Signs: 11:50 BP 190 / 94; Pulse 61; Resp 18; Temp 98.6; Pulse Ox 94% on R/A; Weight 68.95 kg; Height iw 5 ft. 11 in. ; 13:10 BP 175 / 87; Pulse 62; Pulse Ox 96% on R/A; ap3 16:50 BP 202 / 96; Pulse 65; Pulse Ox 94% on 2 lpm NC; ap3 17:07 BP 186 / 106; Pulse 68; ap3 19:30 BP 182 / 76; Pulse 69; Resp 19 S; Pulse Ox 95% on R/A; ha1 11:50 Body Mass Index 21.20 (68.95 kg, 180.34 cm) iw MDM: 11:39 Patient medically screened. bs3 15:15 Differential diagnosis: Anemia asthma, CHF exacerbation, Chronic Obstructive Pulmonary bs3 Disease Myocardial Infarction pneumonia, reactive airway disease, Patient not hypoxic or tachypneic doubt pulmonary embolism he has no risk factors he has no significant leg swelling I reviewed his prior admission and CT which were notable for pleural effusions they were attributing these to CHF however it may be pneumonia instead. Data reviewed: vital signs, nurses notes. ED course: X-ray concerning for pleural effusions as interpreted by myself I discussed the case with radiology who is not sure if they are worse or better. 16:09 ED course: Patient with symptomatic pleural effusions unclear etiology given his HIV bs3 his CAD he has poor outpatient follow-up and hypoxia will cover with antibiotics will give Lasix and admit for further work-up patient needs pulm evaluation. 11/19 11:54 Order name: Basic Metabolic Panel; Complete Time: 12:52 bs3 11/19 11:54 Order name: CBC with Diff; Complete Time: 13:37 bs3 11/19 11:54 Order name: NT PRO-BNP; Complete Time: 12:52 bs3 11/19 11:54 Order name: Troponin HS; Complete Time: 12:52 3 11/19 13:26 Order name: Manual Differential; Complete Time: 13:37 [facility] 11/19 18:10 Order name: Magnesium [facility] 11/19 18:10 Order name: Phosphorus [facility] 11/19 18:10 Order name: T4 Free [facility] 11/19 18:10 Order name: Thyroid Stimulating Hormone [facility] 11/19 18:10 Order name: Urinalysis w/ reflexes [facility] 11/19 18:10 Order name: Basic Metabolic Panel [facility] 11/19 18:10 Order name: Basic Metabolic Panel [facility] 11/19 18:10 Order name: CBC with Automated Diff [facility] 11/19 18:10 Order name: CBC with Automated Diff [facility] 11/19 18:10 Order name: Lipid Profile [facility] 11/19 18:10 Order name: Lipid Profile [facility] 11/19 18:10 Order name: NT PRO-BNP [facility] 11/19 18:10 Order name: NT PRO-BNP [facility] 11/19 11:54 Order name: XRAY Chest (1 view); Complete Time: 12:40 bs3 11/19 14:25 Order name: CT Chest Wo Con; Complete Time: 15:54 bs3 11/19 11:54 Order name: EKG; Complete Time: 11:55 bs3 11/19 18:10 Order name: CONS Physician Consult [facility] 11/19 18:10 Order name: 60g Consistent Carbohydrate (ADA 1800/2000) EDAL 11/19 11:54 Order name: Cardiac monitoring; Complete Time: 12:30 bs3 11/19 11:54 Order name: EKG - Nurse/Tech; Complete Time: 12:30 bs3 11/19 11:54 Order name: IV Saline Lock; Complete Time: 12:20 bs3 11/19 11:54 Order name: Labs collected and sent; Complete Time: 12:20 bs3 11/19 11:54 Order name: O2 Per Protocol; Complete Time: 12:20 bs3 11/19 11:54 Order name: O2 Sat Monitoring; Complete Time: 12:20 bs3 Administered Medications: 16:49 Drug: Rocephin IV 1 grams Route: IV; Rate: bolus; Site: left forearm; ap3 16:52 Follow up: IV Status: Completed infusion ap3 16:49 Drug: AZITHromycin PO 500 mg Route: PO; ap3 16:49 Drug: Furosemide IVP 60 mg Route: IVP; Site: left forearm; ap3 Disposition Summary: 11/19/22 16:10 Hospitalization Ordered Hospitalization Status: Observation bs3 Provider: Jose Delvalle bs3 Location: Telemetry/MedSurg (observation) bs3 Condition: Stable bs3 Problem: new bs3 Symptoms: are unchanged bs3 Bed/Room Type: Standard bs3 Room Assignment: 224(11/19/22 18:52) bd Diagnosis - Pleural effusion in other conditions classified elsewhere bs3 - Other pneumonia, unspecified organism bs3 Forms: - Medication Reconciliation Form bs3 - SBAR form bs3 Signatures: Dispatcher [employer] EDTessa Montes bd Aracelis Marquez RN RN Ana Robertson RN RN ap3 Dorian Denney MD MD bs3 Corrections: (The following items were deleted from the chart) 16:10 bs3 bd
[2022-11-19] MEDS ORDERED: FUROSEMIDE 100 MG/10 ML VIAL IV ONE (16:43)
[2022-11-19] MEDS ORDERED: NA CHLORIDE 0.9% 50 ML ONE (16:44)
[2022-11-19] MEDS ORDERED: AZITHROMYCIN 250 MG TAB ONE (16:44)
[2022-11-19] MEDS ORDERED: CEFTRIAXONE 1000 MG/VIAL ONE (16:44)
[2022-11-19] MEDS ORDERED: ACETAMINOPHEN 325 MG TABLET PO PRN (18:02)
[2022-11-19] MEDS ORDERED: ONDANSETRON 4 MG/2 ML VIAL IV PRN (18:06)
--- NOTE | 2022-11-19 18:14 | P.HP ---
Certification for Inpatient Patient admitted to: Inpatient With expected LOS: >2 Midnights Patient will require the following post-hospital care: None Practitioner: I am a practitioner with admitting privileges, knowledge of patient current condition, hospital course, and medical plan of care. Services: Services provided to patient in accordance with Admission requirements found in Title 42 Section 412.3 of the Code of Federal Regulations Patient History Date of Service: 11/19/22 Reason for admission: SOB History of Present Illness: Patient is a 62-year-old male with a past medical history significant for CAD, HIV, MA, DM 2, GERD, Raynaud's disease, CHF, nicotine dependence who presents with complaint of shortness of breath onset 3 days ago. Patient was recently diagnosed with CHF and has been on Lasix. Patient reported associated signs and symptoms of bilateral lower extremity edema and chest tightness. Patient denies any other signs and symptoms. Symptoms are aggravated or relieved by nothing. Patient decided to present to the hospital due to worsening symptoms. Allergies lithium Allergy (Verified 10/29/22 20:51) Nausea/Vomiting Home Medications: Aspirin [[place]] 1 cap PO DAILY 10/29/22 Atorvastatin Calcium [Lipitor] 1 tab PO BEDTIME 10/29/22 Bictegrav/Emtricit/Tenofov Ala [Biktarvy 50-200-25 mg Tablet] 1 tab PO BEDTIME 10/29/22 Cetirizine HCl [Zyrtec] 10 mg PO DAILY 10/29/22 Docusate Sodium 1 cap PO DAILY 10/29/22 Insulin Glargine,Hum.rec.anlog [Lantus] 10 units SQ BEDTIME 10/29/22 Isosorbide Mononitrate [Isosorbide Mononitrate ER] 30 mg PO DAILY 10/29/22 Lidocaine HCl [Lidocaine HCl Viscous] 10 ml PO QID 10/29/22 Metoprolol Tartrate [Lopressor*] 25 mg PO BID 10/29/22 Nitroglycerin [Nitrostat*] 1 tab SL PRN PRN 10/29/22 PARoxetine HCL [Paxil] 30 mg PO DAILY 10/29/22 Pantoprazole [Protonix Tab*] 40 mg PO DAILY 10/29/22 Polyethyl Gly 3350 [Glycolax*] 1 packet PO DAILY 10/29/22 Sucralfate [Carafate*] 10 ml PO QID 10/29/22 Trazodone [Desyrel*] 200 mg PO BEDTIME 10/29/22 hydrOXYzine HCL [Atarax*] 1 tab PO BID PRN 10/29/22 Furosemide [Lasix] 40 mg PO DAILY #30 tab 10/31/22 Hydralazine [Apresoline*] 25 mg PO TID #90 tab 10/31/22 Losartan Potassium [Cozaar*] 50 mg PO DAILY #30 tab 10/31/22 - Past Medical/Surgical History Diabetic: Yes -: Hypertension -: Type 2 Diabetes -: HIV -: Coronary Artery Disease -: Bipolar Disorder -: Raynaud's disease -: Gastritis -: Hiatal hernia -: Appendectomy -: Cholecystectomy -: Cardiac cath with stents -: Anal absesses x3 Psychosocial/ Personal History: Patient lives at home with his partner. - Family History Mother -: Other (see notes) Notes: Parkinson Father -: Heart disease, Lung disease - Social History Smoking Status: Heavy Tobacco smoker (>10 cigarettes/day) Counseled patient to stop smoking for: less than 10 minutes Smoking therapy provided: Yes Patient receptive to therapy: Yes Alcohol use: Yes CD- Drugs: No Caffeine use: No Place of Residence: Home Review of Systems General: Unremarkable Eyes: Unremarkable ENT: Unremarkable Respiratory: Shortness of Breath, SOB with Excertion, Other (Chest tightness) Cardiovascular: Unremarkable Gastrointestinal: Unremarkable Genitourinary: Unremarkable Musculoskeletal: Pedal edema Integumentary: Unremarkable Neurological: Unremarkable Lymphatics: Unremarkable Physical Examination - Physical Exam General: Alert, In no apparent distress, Oriented x3, Cooperative HEENT: Atraumatic, PERRLA, Mucous membr. moist/pink, EOMI, Sclerae nonicteric Neck: Supple, 2+ carotid pulse no bruit, No LAD, Without JVD or thyroid abnormality Respiratory: Normal air movement, Diminished Cardiovascular: Regular rate/rhythm, Normal S1 S2, Edema Capillary refill: <2 Seconds Gastrointestinal: Normal bowel sounds, No tenderness Musculoskeletal: No clubbing, No tenderness Integumentary: No rashes, No breakdown, No significant lesion Neurological: Normal speech, Normal strength at 5/5 x4 extr, Normal tone, Normal affect Lymphatics: No axilla or inguinal lymphadenopathy - Studies Laboratory Data (last 24 hrs) 11/19/22 12:18: WBC 12.20 H, Hgb 11.9 L, Hct 36.5 L, Plt Count 488 H 11/19/22 12:18: Sodium 142, Potassium 3.8, BUN 24 H, Creatinine 1.28, Glucose 118 H Assessment and Plan - Plan -- Acute on chronic diastolic CHF exacerbation. BNP--.9724. Patient placed on diuresis with Lasix. Daily weight and strict I/O. Cardiology consulted. We will await further recommendations. --Bilateral pleural effusion. CT chest indicates Moderate bilateral pleural effusions. Pulmonology consulted. Continue diuresis with Lasix. Further management per plant superintendent --History of CAD\MA. Continue aspirin and statin. --Hyperlipidemia. Continue statin --Anemia of chronic disease. H&H stable. We will continue to monitor hemoglobin and transfuse if less than 7.0 -- Hypertension. Poorly controlled. Continue home medications and hydralazine as needed. Patient blood pressure has been stable for a while. Further management per tour escort -- DM2. BS monitoring with sliding scale insulin. --GERD. Continue Protonix. -- Bipolar disorder. Continue home medication. --HIV. Continue home medication. --History of Raynaud's disease. Continue nitroglycerin as needed. Continue supportive care. --Nicotine dependence. Patient counseled on tobacco cessation and placed on nicotine patch. -- CKD 2. Stable. We will continue to monitor renal functions. -- DVT prophylaxis with Lovenox subQ. Discharge Plan: Home Plan to discharge in: Greater than 2 days - Advance Directives Does patient have a Living Will: No Does patient have a Durable POA for Healthcare: No - Code Status/Comfort Care Code Status Assessed: Yes Physician Review: Patient Assessed, Agree with Above Assessment and Plan Critical Care: No
[2022-11-19 19:18] LABS: Phosphorus 3.7 mg/dL (2.5-4.9); Thyroid Stimulating Hormone 3.01 uIU/mL (0.358-3.740)
[2022-11-19] MEDS: ALBUTEROL 2.5 MG/3 ML NEB SOL NEB SCH (20:00)
[2022-11-19] MEDS: IPRATROPIUM BROM 0.5MG/2.5ML NEB SCH (20:00)
[2022-11-19] MEDS ORDERED: HYDRALAZINE HCL 20 MG/ML VIAL IV PRN (20:44)
[2022-11-19] MEDS: ENOXAPARIN 40 MG/0.4 ML SQ SCH (21:04)
[2022-11-19] MEDS ORDERED: LABETALOL 20 MG/4ML SYRINGE IV ONE (22:28)
[2022-11-19] MEDS ORDERED: NITROGLYCERIN 1 GM PKT TD ONE (22:28)
[2022-11-19] MEDS ORDERED: FUROSEMIDE 40 MG/4 ML VIAL IV ONE (22:28)
[2022-11-19] MEDS ORDERED: hydrOXYzine HCL 25 MG TAB PO PRN (22:51)
[2022-11-19] MEDS ORDERED: NITROGLYCERIN 0.4 MG/TAB SL PRN (22:51)
[2022-11-19] MEDS ORDERED: HYDRALAZINE HCL 25 MG TABLET PO SCH (23:00)
[2022-11-19] MEDS: HYDROCODONE/APAP 5/325 MG TAB PO PRN (23:03)
[2022-11-19] MEDS: TRAZODONE 50 MG TABLET PO SCH (23:04)
[2022-11-20] MEDS: ALBUTEROL 2.5 MG/3 ML NEB SOL NEB SCH ×4 (03:00→20:20)
[2022-11-20] MEDS: IPRATROPIUM BROM 0.5MG/2.5ML NEB SCH ×4 (03:00→20:20)
[2022-11-20 04:25] LABS: Hematocrit 31.7 % (39.6-49.0); Lymphocytes % 21.7 % (15.3-44.8); MPV 8.7 fL (7.6-11.3); RBC Red Blood Cell Count 3.34 M/uL (4.33-5.43)
[2022-11-20 04:47] LABS: Potassium 3.2 mEq/L (3.5-5.1)
--- NOTE | 2022-11-20 05:34 | EKG ---
Test Date: 2022-11-19 Test Time: 12:26:48 Picture Enlarger: ANGEL MEASUREMENT RESULTS: Intervals: Rate: 61 NE: 188 QRSD: 134 QT: 504 QTc: 507 [place]: P: 63 NE: 188 QRS: 132 T: 62 INTERPRETIVE STATEMENTS: Normal sinus rhythm Right bundle branch block Abnormal ECG Compared to ECG 10/29/2022 16:37:17 First degree AV block no longer present Electronically Signed On 11-20-22 05:33:30 CDT by Oscar Denise
[2022-11-20] MEDS: PARoxetine HCL 10 MG TAB PO SCH (08:39)
[2022-11-20] MEDS: ENOXAPARIN 40 MG/0.4 ML SQ SCH (08:39)
[2022-11-20] MEDS: HYDRALAZINE HCL 10 MG TABLET PO SCH ×3 (08:39→21:20)
[2022-11-20] MEDS: METOPROLOL TAR 25 MG TAB PO SCH ×2 (08:40→21:19)
[2022-11-20] MEDS: POLYETHYL GLY 3350 17 GM/DOSE PO SCH (08:40)
[2022-11-20] MEDS: ISOSORBIDE MONO SR 30 MG TAB PO SCH (08:40)
--- NOTE | 2022-11-20 08:40 | P.PN ---
Subjective Date of Service: 11/20/22 Chief Complaint: SOB Subjective: No new changes, Improving Physical Examination - Vital Signs Temperature: 98.0 F Blood Pressure: 186/90 Pulse: 68 Respirations: 18 Pulse Ox (%): 95 - Physical Exam General: Alert, Oriented x3 HEENT: Atraumatic, Normocephalic Neck: Supple Respiratory: Normal air movement Cardiovascular: Regular rate/rhythm, Normal S1 S2 Gastrointestinal: Soft and benign Musculoskeletal: No swelling - Studies Laboratory Data (last 24 hrs) 11/19/22 12:18: Phosphorus 3.7, Magnesium 2.0 11/19/22 12:18: WBC 12.20 H, Hgb 11.9 L, Hct 36.5 L, Plt Count 488 H 11/19/22 12:18: Sodium 142, Potassium 3.8, BUN 24 H, Creatinine 1.28, Glucose 118 H Assessment And Plan - Plan Assessment and Plan - Plan -- Acute on chronic diastolic CHF exacerbation: Patient has been started on diuretic therapy. Cardiology was consulted for management of cardiac issue and also pulmonary physician was consulted for management of bilateral pleural effusions deemed secondary to CHF related issues. We will continue strict input and output monitoring. Continue Lasix dose. We will follow recommendations --History of CAD\ID. Continue aspirin and statin. --Hyperlipidemia. Continue statin. --Anemia of chronic disease. H&H stable. We will continue to monitor hemoglobin and transfuse if less than 7.0 -- Hypertension. BP control is adequate. Will continue outpatient medication. -- DM2. BS monitoring with sliding scale insulin. --GERD. Continue Protonix. -- Bipolar disorder. Continue home medication. --HIV. Continue home medication. --History of Raynaud's disease. Continue nitroglycerin as needed. Continue supportive care. --Nicotine dependence. Patient counseled on tobacco cessation and placed on nicotine patch. -- CKD 2. Stable. We will continue to monitor renal functions. -- DVT prophylaxis with Lovenox subQ. Physician Review: Patient Assessed, Agree with Above Assessment and Plan
[2022-11-20] MEDS: SPIRONOLACTONE 25 MG TABLET PO SCH (08:41)
[2022-11-20] MEDS: DOCUSATE NA 100 MG CAP PO SCH (08:41)
[2022-11-20] MEDS: NICOTINE 21 MG/PAT TD SCH (08:41)
[2022-11-20] MEDS: PANTOPRAZOLE 40MG TABLET PO SCH (08:41)
[2022-11-20] MEDS: LOSARTAN POTASSIUM 50 MG TABLET PO SCH (08:41)
[2022-11-20] MEDS: ASPIRIN 81 MG CHEWABLE TABLET PO SCH (08:41)
[2022-11-20] MEDS: FUROSEMIDE 40 MG/4 ML VIAL IV SCH ×2 (08:41→16:56)
[2022-11-20] MEDS ORDERED: ASPIRIN 81 MG CHEWABLE TABLET PO SCH (09:00)
[2022-11-20] MEDS ORDERED: POTASSIUM CL SA 10 MEQ TAB PO ONE (09:00)
[2022-11-20] MEDS ORDERED: GLUCAGON 1 MG/VIAL IM PRN (10:21)
[2022-11-20] MEDS ORDERED: D50W 25 GM/50 ML SYRINGE IV PRN (10:21)
[2022-11-20] MEDS: HYDROCODONE/APAP 5/325 MG TAB PO PRN ×2 (10:24→18:21)
[2022-11-20] MEDS ORDERED: D10W 125 ML IV PRN (10:27)
[2022-11-20] MEDS: INSULIN -REGULAR HUMAN 50 UNIT/0.5 ML ML SQ SCH ×3 (12:23→21:26)
--- NOTE | 2022-11-20 12:55 | P.CNS ---
Date of Consult: 11/20/22 Reason for Consult: Respiratory distress possible CHF Chief Complaint: SOB History of Present Illness: Patient is 62 years of age with significant history of coronary artery disease including 4 MIs he recent history of CHF presented with acute onset of shortness of breath in the past few days with lower extremity edema just recently discharged diagnosis of diastolic heart failure he is doing a little better apparently is compliant with his medication denies any fever chills cough or chest pain history of an HIV infection Allergies lithium Allergy (Verified 10/29/22 20:51) Nausea/Vomiting Home Medications: Atorvastatin Calcium [Lipitor] 1 tab PO BEDTIME 10/29/22 Bictegrav/Emtricit/Tenofov Ala [Biktarvy 50-200-25 mg Tablet] 1 tab PO BEDTIME 10/29/22 Cetirizine HCl [Zyrtec] 10 mg PO DAILY 10/29/22 Docusate Sodium 1 cap PO DAILY 10/29/22 Insulin Glargine,Hum.rec.anlog [Lantus] 10 units SQ BEDTIME 10/29/22 Isosorbide Mononitrate [Isosorbide Mononitrate ER] 15 mg PO DAILY 10/29/22 Metoprolol Tartrate [Lopressor*] 25 mg PO BID 10/29/22 Nitroglycerin [Nitrostat*] 1 tab SL PRN PRN 10/29/22 PARoxetine HCL [Paxil] 30 mg PO DAILY 10/29/22 Pantoprazole [Protonix Tab*] 40 mg PO DAILY 10/29/22 Polyethyl Gly 3350 [Glycolax*] 1 packet PO DAILY 10/29/22 hydrOXYzine HCL [Atarax*] 1 tab PO BID PRN 10/29/22 Losartan Potassium [Cozaar*] 50 mg PO DAILY #30 tab 10/31/22 Aspirin [Emerson Chewable] 81 mg PO DAILY 11/19/22 Furosemide [Lasix] 40 mg PO BIDL 11/19/22 Hydralazine [Apresoline*] 25 mg PO PRN 11/19/22 Hydralazine [Apresoline] 10 mg PO TID 11/19/22 Metformin HCl [Glucophage] 500 mg PO BID 11/19/22 Spironolactone [Aldactone] 25 mg PO DAILY 11/19/22 Trazodone HCl 200 mg PO BEDTIME 11/19/22 - Past Medical/Surgical History Diabetic: Yes -: Hypertension -: Type 2 Diabetes -: HIV -: Coronary Artery Disease -: Bipolar Disorder -: Raynaud's disease -: Gastritis -: Hiatal hernia -: Previous ND's -: Appendectomy -: Cholecystectomy -: Cardiac cath with stents -: Anal absesses x3 Psychosocial/ Personal History: Patient lives at home with his partner. - Family History Mother Medical History: Other (see notes) Notes: Parkinson Father Medical History: Heart disease, Lung disease Notes: lung cancer - Social History Smoking Status: Current every day smoker Alcohol use: Yes CD- Drugs: No Caffeine use: No Place of Residence: Home Review of Systems 10-point ROS is otherwise unremarkable Physical Examination Temp Pulse Resp BP Pulse Ox 98.0 F 68 18 186/90 H 95 11/20/22 12:38 11/20/22 12:38 11/20/22 12:38 11/20/22 12:38 11/20/22 12:38 General: Alert, In no apparent distress, Oriented x3 Neck: Supple Respiratory: Clear to auscultation bilaterally Cardiovascular: No edema, Regular rate/rhythm, Normal S1 S2 Gastrointestinal: Normal bowel sounds, Soft and benign, Non-distended Laboratory Data (last 24 hrs) 11/19/22 12:18: Phosphorus 3.7, Magnesium 2.0 11/19/22 12:18: WBC 12.20 H, Hgb 11.9 L, Hct 36.5 L, Plt Count 488 H - Problems (1) Acute on chronic diastolic heart failure Current Visit: Yes Status: Acute Plan: Patient is 62 years of age admitted with acute onset of shortness of breath he appears to have acute on chronic diastolic heart failure bilateral pleural effusion CT scan shows mild hepatomegaly bilateral pleural effusion patient is mildly anemic blood pressure elevated BNP is over 12,000 continue with diuretics patient's blood pressure is also elevated
[2022-11-20] MEDS: TRAZODONE 50 MG TABLET PO SCH (21:20)
[2022-11-20] MEDS: ATORVASTATIN 80 MG TAB PO SCH (21:20)
[2022-11-21] MEDS: ALBUTEROL 2.5 MG/3 ML NEB SOL NEB SCH ×4 (01:30→19:25)
[2022-11-21] MEDS: IPRATROPIUM BROM 0.5MG/2.5ML NEB SCH ×4 (01:30→19:25)
[2022-11-21] MEDS ORDERED: ALBUMIN HUMAN 25% 12.5 GM, FUROSEMIDE 100 MG in NA CHLORIDE 0.9% 40 ML IV SCH (06:00)
[2022-11-21 06:26] LABS: Potassium 3.3 mEq/L (3.5-5.1)
--- NOTE | 2022-11-21 07:27 | ECHO ---
HEIGHT: 5 ft 11 in WEIGHT: 150 lb 8 oz DATE OF STUDY: 11/20/[address]: Jose Delvalle MD 2-DIMENSIONAL: YES M.MODE: YES DOPPLER: YES COLOR FLOW: YES TDS: NO PORTABLE: YES DEFINITY: NO BUBBLE STUDY: NO DIAGNOSIS: EVALUATE FOR CONGESTIVE HEART FAILURE CARDIAC HISTORY: CATHERIZATION: SURGERY: PROSTHETIC VALVE: PACEMAKER: MEASUREMENTS (cm) DIASTOLIC (NORMALS) SYSTOLIC (NORMALS) IVSd 1.2 (0.6-1.2) LA Diam 3.8 (1.9-4.0) LVEF 56% LVIDd 4.5 (3.5-5.7) LVIDs 3.2 (2.0-3.5) %FS 29% LVPWd 1.3 (0.6-1.2) Ao Diam 3.2 (2.0-3.7) 2 DIMENSIONAL ASSESSMENT: RIGHT ATRIUM: NORMAL LEFT ATRIUM: NORMAL RIGHT VENTRICLE: NORMAL LEFT VENTRICLE: LVH TRICUSPID VALVE: NORMAL MITRAL VALVE: NORMAL PULMONIC VALVE: NORMAL AORTIC VALVE: NORMAL PERICARDIAL EFFUSION: NONE AORTIC ROOT: NORMAL LEFT VENTRICULAR WALL MOTION: NORMAL DOPPLER/COLOR FLOW: NORMAL COMMENTS: 1. MILD LEFT VENTRICULAR HYPERTROPHY. 2. LEFT VENTRICULAR EJECTION FRACTION 56%. 3. NORMAL WALL MOTION. 4. NO PERICARDIAL EFFUSION. TECHNOLOGIST: Kelvin HERNÁNDEZ
[2022-11-21] MEDS: NICOTINE 21 MG/PAT TD SCH (08:26)
[2022-11-21] MEDS: ENOXAPARIN 40 MG/0.4 ML SQ SCH (08:26)
[2022-11-21] MEDS: ALBUMIN HUMAN 25% 12.5 GM, FUROSEMIDE 100 MG in NA CHLORIDE 0.9% 40 ML IV SCH ×2 (08:27→13:42)
[2022-11-21] MEDS: POLYETHYL GLY 3350 17 GM/DOSE PO SCH (08:27)
[2022-11-21] MEDS: INSULIN -REGULAR HUMAN 50 UNIT/0.5 ML ML SQ SCH ×4 (08:27→20:09)
[2022-11-21] MEDS: PARoxetine HCL 10 MG TAB PO SCH (08:45)
[2022-11-21] MEDS: SPIRONOLACTONE 25 MG TABLET PO SCH (08:45)
[2022-11-21] MEDS: ISOSORBIDE MONO SR 30 MG TAB PO SCH (08:45)
[2022-11-21] MEDS: METOPROLOL TAR 25 MG TAB PO SCH ×2 (08:46→19:32)
[2022-11-21] MEDS: HYDRALAZINE HCL 10 MG TABLET PO SCH ×3 (08:46→19:30)
[2022-11-21] MEDS: LOSARTAN POTASSIUM 50 MG TABLET PO SCH (08:46)
[2022-11-21] MEDS: PANTOPRAZOLE 40MG TABLET PO SCH (08:46)
[2022-11-21] MEDS: ASPIRIN 81 MG CHEWABLE TABLET PO SCH (08:46)
[2022-11-21] MEDS: DOCUSATE NA 100 MG CAP PO SCH (08:50)
[2022-11-21 11:17] LABS: Specific Gravity 1.006 (1.005-1.030); Urine Bacteria None Seen /HPF (<20); Urine Bilirubin NEGATIVE (Negative); Urine Blood Trace (Negative); Urine Clarity Clear (Clear); Urine Color Colorless (Yellow); Urine Glucose 1+ (Negative); Urine Mucus Slight /HPF (None Seen); Urine Protein 2+ (Negative); Urine RBC <5 /HPF (None Seen); Urine Urobilinogen Normal (Normal); Urine pH 6.5 (5.0-7.0)
--- NOTE | 2022-11-21 15:59 | CON ---
Date of Consultation: 11/20/2022 Reason For Consultation: Congestive heart failure. History Of Present Illness: Mr. Avila is 62 years old. He is a patient of Dr. Yoo, Nephrology, In ternal Medicine. He has a history of coronary artery disease, diabetes, hypertension, chronic diasto lic congestive heart failure. Came in with a chest x-ray showing bilateral pleural effusion. [place] lemia, elevated BNP of 12,000, very hypertensive at 186/106. Chest x-ray showed bilateral effusion. Troponin is negative. EKG showed LVH. The patient is feeling better. He had come in mostly with s hortness of breath, PND, orthopnea, and pedal edema. He denied any chest pain, palpitation, fever, c hills, or syncope. Past Medical History: As stated above. Allergies: HE IS ALLERGIC TO LITHIUM. Medications: Include Imdur, insulin, metoprolol, metformin, Aldactone, Lasix, inhalers, and hydralaz ine. He is presently also on Lovenox. Review of Systems: Negative. Social History: Negative. Family History: Negative. Physical Examination: Vital Signs: Blood pressure 186/106, sinus rhythm. HEENT: Negative. Neck: Supple. No bruit. Chest: Revealed wheezing and rales bilaterally. Cardiac: Revealed an S4 gallop. Regular rhythm and rate. Abdomen: Benign. Extremities: Revealed no clubbing, cyanosis. He had edema 1+. Diagnostic Data: As stated earlier. Impression And Plan: 1.Acute on chronic diastolic congestive heart failure exacerbation. 2.Hypertension, very poorly controlled. 3.Hypokalemia. 4.Bilateral effusion pleural. 5.Coronary artery disease. 6.Diabetes. I am not sure if and when Mr. Avila had any coronary evaluation. I will go and check in my office. Otherwise, we will treat him for diastolic dysfunction. No change in therapy. He is on appropriate therapy. Certainly, a low-dose TRACIE inhibitor may be reasonable considering his diabetes and congest mt heart failure. I will discuss further the case with Dr. Delvalle, but he can go home whenever hi s CHF improved. I will make an appointment for outpatient visit and a possible Lexiscan. STACY/MODL Voice ID: [id number] Report ID: [id number]
[2022-11-21] MEDS: HYDROCODONE/APAP 5/325 MG TAB PO PRN (17:37)
[2022-11-21 18:15] VITALS: BMI 20.2
[2022-11-21] MEDS: ATORVASTATIN 80 MG TAB PO SCH (19:31)
[2022-11-21] MEDS: TRAZODONE 50 MG TABLET PO SCH (19:32)
[2022-11-21] MEDS ORDERED: POTASSIUM CL SA 10 MEQ TAB PO ONE (21:00)
[2022-11-22] MEDS: IPRATROPIUM BROM 0.5MG/2.5ML NEB SCH ×2 (01:55→09:20)
[2022-11-22] MEDS: ALBUTEROL 2.5 MG/3 ML NEB SOL NEB SCH ×2 (01:55→09:20)
[2022-11-22] MEDS: NICOTINE 21 MG/PAT TD SCH (08:19)
[2022-11-22] MEDS: ASPIRIN 81 MG CHEWABLE TABLET PO SCH (08:20)
[2022-11-22] MEDS: ISOSORBIDE MONO SR 30 MG TAB PO SCH (08:20)
[2022-11-22] MEDS: PARoxetine HCL 10 MG TAB PO SCH (08:21)
[2022-11-22] MEDS: DOCUSATE NA 100 MG CAP PO SCH (08:21)
[2022-11-22] MEDS: METOPROLOL TAR 25 MG TAB PO SCH (08:21)
[2022-11-22] MEDS: LOSARTAN POTASSIUM 50 MG TABLET PO SCH (08:21)
[2022-11-22] MEDS: PANTOPRAZOLE 40MG TABLET PO SCH (08:21)
[2022-11-22] MEDS: POLYETHYL GLY 3350 17 GM/DOSE PO SCH (08:22)
[2022-11-22] MEDS: ENOXAPARIN 40 MG/0.4 ML SQ SCH (08:22)
[2022-11-22] MEDS: HYDRALAZINE HCL 10 MG TABLET PO SCH (08:27)
[2022-11-22 08:30] VITALS: BP 194/93; TEMP 98.1
[2022-11-22] MEDS ORDERED: FUROSEMIDE 40 MG/4 ML VIAL IV SCH (09:00)
[2022-11-22] MEDS: INSULIN -REGULAR HUMAN 50 UNIT/0.5 ML ML SQ SCH (09:56)
[2022-11-22 10:58] VITALS: O2SAT 99
== END 2022-11-22 10:30 | disposition home or self-care (01) | DRG 291 ==
LOC: ER 11:37 → ERHOLD 18:01 → 2ND 19:17
PROVIDERS: ADMIT Internal Medicine Nephrology; ATTEND Hospitalist
DX: I13.0 Hypertensive heart and chronic kidney disease with heart failure and stage 1 through stage 4 chronic kidney disease, or unspecified chronic kidney disease (principal); I50.33 Acute on chronic diastolic (congestive) heart failure; J18.9 Pneumonia, unspecified organism; N18.2 Chronic kidney disease, stage 2 (mild); E11.22 Type 2 diabetes mellitus with diabetic chronic kidney disease; D63.1 Anemia in chronic kidney disease; E78.5 Hyperlipidemia, unspecified; E87.6 Hypokalemia; F31.9 Bipolar disorder, unspecified; K21.9 Gastro-esophageal reflux disease without esophagitis; I25.10 Atherosclerotic heart disease of native coronary artery without angina pectoris; F17.210 Nicotine dependence, cigarettes, uncomplicated; I25.2 Old myocardial infarction; Z21 Asymptomatic human immunodeficiency virus [HIV] infection status; Z79.4 Long term (current) use of insulin; Z95.5 Presence of coronary angioplasty implant and graft; Z88.8 Allergy status to other drugs, medicaments and biological substances; Z90.49 Acquired absence of other specified parts of digestive tract; Z79.84 Long term (current) use of oral hypoglycemic drugs; Z79.82 Long term (current) use of aspirin; Z79.899 Other long term (current) drug therapy
CPT/HCPCS: 36415; 71045; 71250; 80048; 80061; 81001; 82947; 83735; 83880; 84100; 84132; 84439; 84443; 84484; 85025; 93005; 93306; 94640; 96374; 96375; 99285; J0360; J0696; J1650; J1815; J1940; J7613; J7644; P9047

== ENCOUNTER 2023-12-24 14:15 | Inpatient (IN) | payer OTHER ==
--- NOTE | 2023-12-24 15:37 | RAD REPORT ---
EXAM DESCRIPTION: Jaylen Single View12/24/2023 3:31 pm CLINICAL HISTORY: Chest pain COMPARISON: 2022 FINDINGS: Lungs are moderately hyperaerated. The lungs appear clear of acute infiltrate. The heart is normal size IMPRESSION: No acute abnormalities displayed
[2023-12-24 15:48] LABS: Absolute Basophils 0.2 K/uL (0-0.5); Absolute Eosinophils 0.1 K/uL (0-0.5); Absolute Lymphocytes (CBC) 0.8 K/uL (0.7-4.9); Absolute Monocytes 0.8 K/uL (0.1-1.3); Absolute Neutrophil 10.2 K/uL (1.8-8.0); Basophils % 1.3 % (0-1.3); Eosinophils % 0.9 % (0-4.4); Hematocrit 38.3 % (39.6-49.0); Hemoglobin 12.8 g/dL (13.6-17.9); Lymphocytes % 6.8 % (15.3-44.8); MCH 30.6 pg (27.0-35.0); MCHC 33.3 g/dL (32.0-36.0); MCV 91.8 fL (80-100); MPV 8.6 fL (7.6-11.3); Monocytes % 6.6 % (3.3-12.3); Neutrophils % 84.4 % (41.7-73.7); Platelets 467 thou/uL (152-406); RBC Red Blood Cell Count 4.17 M/uL (4.33-5.43); Red Cell Distribution Width 13.3 % (12.1-15.2)
[2023-12-24 15:52] LABS: Albumin 2.3 g/dL (3.4-5.0); Albumin/Globulin Ratio 0.5 (1.1-1.8); Alkaline Phosphatase 130 U/L (45-117); Anion Gap 7.6 mEq/L (5.0-15.0); BUN Blood Urea Nitrogen 23 mg/dL (7-18); Bicarbonate 24 mEq/L (21-32); Bilirubin Total 0.3 mg/dL (0.2-1.0); Globulin 4.6 g/dL (2.3-3.5); Glomerular Filtration Rate 26 ml/min (=/>90); Glucose Level 307 mg/dL (74-106); Lipase 41 U/L (13-75); Magnesium 2.1 mg/dL (1.6-2.4); Potassium 3.6 mEq/L (3.5-5.1); Protein, Total 6.9 g/dL (6.4-8.2); Sodium Level 137 mEq/L (136-145)
[2023-12-24 16:00] LABS: ALT/SGPT < 14 U/L (16-61); AST/SGOT < 10 U/L (15-37); Bilirubin Direct < 0.2 mg/dL (0-0.2); Bilirubin Indirect, Calculated 0.1 mg/dL (0.2-0.8)
[2023-12-24 16:02] LABS: Troponin High Sensitivity 627.8 pg/mL (<58.9)
[2023-12-24] MEDS ORDERED: MORPHINE 4 MG/ML SYR ONE ×2 (16:06→20:58)
[2023-12-24] MEDS ORDERED: ONDANSETRON 4 MG/2 ML VIAL ONE ×2 (16:06→20:57)
--- NOTE | 2023-12-24 17:01 | RAD REPORT ---
EXAM DESCRIPTION: CT - Abdomen Pelvis Wo Contrast - 12/24/2023 4:39 pm CLINICAL HISTORY: Abdominal pain anal abdcess COMPARISON: 2022 TECHNIQUE: Computed axial tomography of the abdomen and pelvis was obtained. IV and oral contrast we re not requested. All CT scans are performed using dose optimization technique as appropriate and may include automated exposure control or mA/KV adjustment according to patient size. FINDINGS: The evaluation of solid organs, vessels and bowel is limited secondary to the lack of con trast administration. Small bilateral pleural effusions The liver, spleen, pancreas, and adrenals appear grossly normal No evidence diverticulitis. Bilateral renal cysts 5 x 2 centimeter left perirectal abscess IMPRESSION: 5 x 2 centimeter left perirectal abscess
[2023-12-24] MEDS ORDERED: NA CHLORIDE 0.9% 100 ML ONE (17:34)
[2023-12-24] MEDS ORDERED: ASPIRIN 81 MG CHEWABLE TABLET ONE (17:34)
[2023-12-24] MEDS ORDERED: PIPERACIL/TAZO 3.375 GM VIAL IV ONE (17:35)
[2023-12-24] MEDS ORDERED: ACETAMINOPHEN 325 MG TABLET PO PRN (18:26)
[2023-12-24] MEDS: PIPER TAZO 3.375 GM in NA CHLORIDE 0.9% 100 ML IV SCH (18:32)
[2023-12-24] MEDS ORDERED: HEPARIN/D5W 25,000 UNIT/500 ML BAG IV PRN (18:33)
--- NOTE | 2023-12-24 18:35 | P.HP ---
Certification for Inpatient Patient admitted to: Inpatient With expected LOS: >2 Midnights Practitioner: I am a practitioner with admitting privileges, knowledge of patient current condition, hospital course, and medical plan of care. Services: Services provided to patient in accordance with Admission requirements found in Title 42 Section 412.3 of the Code of Federal Regulations Patient History Date of Service: 12/25/23 Reason for admission: Chest pain/perirectal abscess History of Present Illness: 63 yrs old Male with past medical history of hypertension, hyperlipidemia, CAD status post [place], placement of multiple stents, HIV, bipolar disorder,, Raynaud's disease, came in with chest Pressure, and pain and swelling in the rectal region. Chest pain is left-sided with radiation to left arm with no diaphoresis. No fever or chills. Patient started having chest pain 4 days ago and has been on and off intermittently. Denies any shortness of breath. No fever or chills. No nausea vomiting diarrhea. Patient also has had a recurrence of anal abscess which he used to have before. complains of pain no fever or chills. ER discussed the case with Dr. Perry Surgery who recommended surgery once cardiology clears him. Patient noted to have NSTEMI and was admitted for further management Allergies lithium Allergy (Verified 10/29/22 20:51) Nausea/Vomiting Home medications list reviewed: Yes Home Medications: Atorvastatin Calcium [Lipitor] 1 tab PO BEDTIME 10/29/22 Bictegrav/Emtricit/Tenofov Ala [Biktarvy 50-200-25 mg Tablet] 1 tab PO BEDTIME 10/29/22 Cetirizine HCl [Zyrtec] 10 mg PO DAILY 10/29/22 Insulin Glargine,Hum.rec.anlog [Lantus] 10 units SQ BEDTIME 10/29/22 Metoprolol Tartrate [Lopressor*] 25 mg PO BID 10/29/22 Nitroglycerin [Nitrostat*] 1 tab SL PRN PRN 10/29/22 PARoxetine HCL [Paxil] 30 mg PO DAILY 10/29/22 Pantoprazole [Protonix Tab*] 40 mg PO DAILY 10/29/22 hydrOXYzine HCL [Atarax*] 1 tab PO BID PRN 10/29/22 Losartan Potassium [Cozaar*] 50 mg PO DAILY #30 tab 10/31/22 Aspirin [[place]erson Chewable Aspirin] 81 mg PO DAILY 11/19/22 Furosemide [Lasix*] 40 mg PO BIDL 11/19/22 Hydralazine [Apresoline*] 10 mg PO TID 11/19/22 Hydralazine [Apresoline*] 25 mg PO DAILYPRN PRN 11/19/22 Spironolactone [Aldactone*] 25 mg PO DAILY 11/19/22 Trazodone HCl 200 mg PO BEDTIME 11/19/22 Hydrocodone 5/APAP 325 [[place] 5/325*] 1 tab PO Q6H PRN #20 tab 11/22/22 Albuterol Neb [Proventil 0.083% Neb Soln] 2.5 mg NEB TID 12/24/23 Ipratropium Neb [Atrovent*] 0.5 mg NEB TID 12/24/23 - Past Medical/Surgical History Diabetic: Yes Past Medical History: Reviewed- Non-Contributory -: Hypertension -: Type 2 Diabetes -: HIV -: Coronary Artery Disease -: Bipolar Disorder -: Raynaud's disease -: Gastritis -: Hiatal hernia -: Previous WA's Past Surgical History: Reviewed- Non-Contributory -: Appendectomy -: Cholecystectomy -: Cardiac cath with stents -: Anal absesses x3 Psychosocial/ Personal History: Patient lives at home with his partner. - Family History Family History: Reviewed- Non-Contributory - Family History Mother -: Heart disease, Other (see notes) Notes: Parkinson Father -: Heart disease, Lung disease Notes: lung cancer - Social History Smoking Status: Former smoker Alcohol use: Yes CD- Drugs: No Caffeine use: No Review of Systems 10-point ROS is otherwise unremarkable Physical Examination - Vital Signs Temperature: 98.2 F Blood Pressure: 186/89 Pulse: 78 Respirations: 18 Pulse Ox (%): 94 - Physical Exam General: Alert, In no apparent distress, Oriented x3 HEENT: Atraumatic, Normocephalic Neck: Supple, 2+ carotid pulse no bruit Respiratory: Clear to auscultation bilaterally, Normal air movement Cardiovascular: No edema, Regular rate/rhythm, Normal S1 S2 Capillary refill: <2 Seconds Gastrointestinal: Soft and benign, W/out hepatosplenomegaly Musculoskeletal: No clubbing, No swelling Integumentary: No rashes Neurological: Normal gait, Normal strength at 5/5 x4 extr, Normal tone, Cranial nerves 3-12 intact, Normal reflexes 2+, Normal affect Lymphatics: No axilla or inguinal lymphadenopathy - Studies Laboratory Data (last 24 hrs) 12/24/23 12/24/23 15:25 15:25 WBC 12.10 H Hgb 12.8 L Hct 38.3 L Plt Count 467 H Sodium 137 Potassium 3.6 BUN 23 H Creatinine 2.67 H Glucose 307 H Magnesium 2.1 Total Bilirubin 0.3 AST < 10 L ALT < 14 L Alkaline Phosphatase 130 H Lipase 41 Assessment and Plan - Problems (Diagnosis) (1) NSTEMI (non-ST elevated myocardial infarction) Current Visit: Yes Status: Acute Plan: NSTEMI Will trend cardiac enzymes Will monitor telemetry Started on aspirin and statin EKG did not show any acute changes suggestive of ischemia Patient denies any chest pain at the time of interview But had chest pain 3 days ago Will get an echocardiogram Cardiology consult Started on heparin drip N.p.o. postmidnight Possible angiogram in the morning Perianal abscess Pain control Started on IV antibiotic Surgical consult Dr. Angel waiting for cardiology to clear the patient for surgery Hypertension Antihypertensives titrated Continue home medications and titrate as needed Hyperlipidemia Continue statin Diabetes Insulin sliding scale Accu-Chek before every meal and at bedtime HIV Continue home medications and titrate as needed Acute kidney injury Renal parameters monitor Started on IV hydration monitor moderation Electrolytes monitor and replace accordingly Anemia of chronic disease Monitor H&H closely GI/DVT prophylaxis Advanced directive full code Discharge Plan: Home Plan to discharge in: Greater than 2 days - Advance Directives Does patient have a Living Will: No Does patient have a Durable POA for Healthcare: No - Code Status/Comfort Care Code Status: Full Code Time Spent Managing Pts Care (In Minutes): 48
--- NOTE | 2023-12-24 18:54 | EDPHYS ---
Physician Documentation [facility] Name: Farhan Avila Age: 63 yrs Sex: Male : 1960 Arrival Date: 12/24/2023 Time: 14:15 Bed 3 Private MD: ED Physician Ajay Camejo HPI: 12/23 15:02 This 63 yrs old Male presents to ER via Ambulatory with complaints of Chest Pressure, rt Shortness Of Breath, Rectal Abscess. 15:02 Patient with significant coronary disease presents to the ED with a few episodes of rt chest pain, last about 4 days ago, lasting about 30 minutes. It is left-sided, resolved after taking some aspirin. Patient also states that he has had a recurrence of anal abscess for about the past week, is worsening. Has had surgery for that previously. Denies other acute complaints at this time, symptoms are moderate in severity, no other aggravating or alleviating factors.. Historical: - Allergies: 14:22 LITHIUM DERIVITIVES; ll1 - PMHx: 14:22 CAD; MT; HIV positive; Bipolar disorder; DM; raynaud's; ll1 - PSHx: 14:22 Appendectomy; Cholecystectomy; Heart Stents; ll1 - Immunization history:: Adult Immunizations up to date. - Infectious Disease History:: Denies. - Social history:: Smoking status: Patient reports the use of cigarette tobacco products, smokes one pack cigarettes per day. - Family history:: not pertinent. ROS: 15:02 Constitutional: Negative for fever, chills, and weight loss, MS/Extremity: Negative for rt injury and deformity, Skin: Negative for injury, rash, and discoloration, Neuro: Negative for headache, weakness, numbness, tingling, and seizure, 15:02 Cardiovascular: Positive for chest pain, Negative for edema, 15:02 Respiratory: Positive for shortness of breath, Negative for cough, 15:02 Abdomen/GI: Positive for Anal abscess, negative for nausea, vomiting, Exam: 15:02 Constitutional: This is a well developed, well nourished patient who is awake, alert, rt and in no acute distress. Head/Face: Normocephalic, atraumatic. Chest/axilla: Normal chest wall appearance and motion. Nontender with no deformity. No lesions are appreciated. Cardiovascular: Regular rate and rhythm with a normal S1 and S2. No gallops, murmurs, or rubs. Normal PMI, no JVD. No pulse deficits. Respiratory: Lungs have equal breath sounds bilaterally, clear to auscultation and percussion. No rales, rhonchi or wheezes noted. No increased work of breathing, no retractions or nasal flaring. Abdomen/GI: Soft, non-tender, with normal bowel sounds. No distension or tympany. No guarding or rebound. No evidence of tenderness throughout. Skin: Warm, dry with normal turgor. Normal color with no rashes, no lesions, and no evidence of cellulitis. MS/ Extremity: Pulses equal, no cyanosis. Neurovascular intact. Full, normal range of motion. 15:02 ECG was reviewed by the Attending Physician. Vital Signs: 14:31 BP 200 / 106; Pulse 93; Resp 18; Temp 97.4; Pulse Ox 100% ; Weight 63.5 kg; Height 5 ll1 ft. 11 in. ; Pain 0/10; 15:30 BP 199 / 101; Pulse 86; Resp 16; Pulse Ox 100% on R/A; db 17:31 BP 203 / 112; Pulse 82; Resp 18 S; Pulse Ox 97% on R/A; kc6 19:00 BP 189 / 102; Pulse 79; Resp 16 S; Pulse Ox 100% on R/A; jw7 20:00 BP 161 / 105; Pulse 79; Resp 16 S; Pulse Ox 98% on R/A; jw7 21:00 BP 177 / 97; Pulse 74; Resp 20 S; Pulse Ox 99% on R/A; jw7 14:31 Body Mass Index 19.53 (63.50 kg, 180.34 cm) ll1 14:31 Pain Scale: Adult ll1 MDM: 14:34 Patient medically screened. rt 19:36 Differential diagnosis: Perirectal, perianal abscess, ACS, chest pain. Data reviewed: rt vital signs, nurses notes, lab test result(s), EKG, radiologic studies. Consideration of Admission/Observation Patient was admitted/placed on observation. Management of patient was discussed with the following: Place Change Roof Bolter: Discussed with general surgery and cardiology, blending machine operator recommends heparin drip, n.p.o. after midnight, evaluate patient tomorrow.. I considered the following discharge prescriptions or medication management in the emergency department Medications were administered in the Emergency Department. See MAR. Independent interpretation of the following test(s) in the Emergency Department CT Scan: My interpretation is No bowel obstruction seen on interpretation of CT scan images. Care significantly affected by the following chronic conditions: Coronary artery disease, HIV. Counseling: I had a detailed discussion with the patient and/or guardian regarding the historical points, exam findings, and any diagnostic results supporting the discharge/admit diagnosis, lab results, radiology results, the need for further work-up and treatment in the hospital. Response to treatment: the patient's symptoms have mildly improved after treatment. 12/23 14:41 Order name: Basic Metabolic Panel; Complete Time: 16:03 rt 12/23 14:41 Order name: CBC with Diff; Complete Time: 16:03 rt 12/23 14:41 Order name: LFT's; Complete Time: 16:03 rt 12/23 14:41 Order name: Magnesium; Complete Time: 16:03 rt 12/23 14:41 Order name: Troponin HS; Complete Time: 16:03 rt 12/23 14:41 Order name: Lipase; Complete Time: 16:03 rt 12/23 18:20 Order name: Ptt, Activated rt 12/23 18:34 Order name: Urinalysis w/ reflexes EDMS 12/23 18:34 Order name: CBC with Automated Diff EDMS 12/23 18:34 Order name: CBC with Automated Diff EDMS 12/23 18:34 Order name: Comprehensive Metabolic Panel EDMS 12/23 18:34 Order name: Comprehensive Metabolic Panel EDMS 12/23 18:34 Order name: Troponin High Sensitivity EDMS 12/23 18:34 Order name: Troponin High Sensitivity EDMS 12/23 18:34 Order name: Troponin High Sensitivity EDMS 12/23 18:34 Order name: Troponin High Sensitivity EDMS 12/23 18:36 Order name: CBC with Automated Diff; Complete Time: 19:47 EDMS 12/23 18:36 Order name: Protime (+INR); Complete Time: 19:47 EDMS 12/23 18:36 Order name: PTT, Activated Partial Thromb; Complete Time: 19:47 EDMS 12/23 18:36 Order name: CBC with Automated Diff EDMS 12/23 18:36 Order name: CBC with Automated Diff EDMS 12/23 18:36 Order name: CBC with Automated Diff EDMS 12/23 18:36 Order name: CBC with Automated Diff [facility] 12/23 18:36 Order name: Platelet Count [facility] 12/23 18:36 Order name: Platelet Count [facility] 12/23 18:36 Order name: Platelet Count [facility] 12/23 18:36 Order name: Platelet Count [facility] 12/23 18:36 Order name: Platelet Count [facility] 12/23 18:36 Order name: Platelet Count [facility] 12/23 18:36 Order name: Platelet Count [facility] 12/23 18:36 Order name: Platelet Count [facility] 12/23 18:36 Order name: PTT, Activated Partial Thromb [facility] 12/23 18:36 Order name: PTT, Activated Partial Thromb [facility] 12/23 18:36 Order name: PTT, Activated Partial Thromb [facility] 12/23 18:36 Order name: PTT, Activated Partial Thromb [facility] 12/23 18:36 Order name: PTT, Activated Partial Thromb [facility] 12/23 15:25 Order name: Chest Single View; Complete Time: 16:03 [facility] 12/23 16:40 Order name: Abdomen ; Complete Time: 17:04 [facility] 12/23 14:41 Order name: EKG; Complete Time: 14:42 rt 12/23 18:34 Order name: CONS Physician Consult [facility] 12/23 14:41 Order name: Cardiac monitoring; Complete Time: 15:44 rt 12/23 14:41 Order name: EKG - Nurse/Tech; Complete Time: 15:44 rt 12/23 14:41 Order name: IV Saline Lock; Complete Time: 15:53 rt 12/23 14:41 Order name: Labs collected and sent; Complete Time: 15:53 rt 12/23 14:41 Order name: O2 Per Protocol; Complete Time: 15:45 rt 12/23 14:41 Order name: O2 Sat Monitoring; Complete Time: 15:45 rt EC:02 Rate is 93 beats/min. Rhythm is regular, Normal Sinus Rhythm with No ectopy, Right rt bundle branch block. QRS Dobson is Normal. ME interval is normal. QRS interval is normal. QT interval is normal. No Q waves. Administered Medications: 16:10 Drug: Ondansetron IVP 4 mg IVP once; over 2 minutes Route: IVP; Site: right antecubital;db 20:36 Follow up: Response: No adverse reaction; Marked relief of symptoms jw7 16:11 Drug: morphine IVP or IV 4 mg IVP once over 4 mins Route: IVP; Infused Over: 4 mins; db Site: right antecubital; 20:36 Follow up: Response: No adverse reaction; Marked relief of symptoms jw7 17:43 Drug: Aspirin PO Chewable Tablet 162 mg PO once Route: PO; kc6 20:36 Follow up: Response: No adverse reaction jw7 17:43 Drug: Piperacillin-Tazobactam IVPB 3.375 grams IVPB once over 60 mins; (mix in NS 100 kc6 mL) Route: IVPB; Infused Over: 60 mins; Site: right antecubital; 20:36 Follow up: Response: No adverse reaction; IV Status: Completed infusion; IV Intake: jw7 100ml 19:48 Drug: Heparin (MT Drip) 12 units/kg/[place] - ([place] [address] units, D5W IV 500 ml) IV at jw7 calculated rate Per protocol; Max initial rate 1000 units/hr {Co-Signature: [email or web address] (Denise Pedro RN).} Route: IV; Rate: calculated rate; Site: right antecubital; 20:36 Follow up: Response: No adverse reaction; IV Status: Infusion continued upon admission; jw7 IV Intake: 20ml 19:48 Drug: Alum-Mag Hydroxide-Simeth PO Suspension (200 mg-200 mg-20 mg/5 mL) 30 ml PO once jw7 Route: PO; 20:35 Follow up: Response: No adverse reaction; Marked relief of symptoms jw7 Disposition Summary: 12/24/23 18:53 Hospitalization Ordered Notes: Hospitalization Status: Inpatient Admission rt Provider: Collin Spicer rt Location: Telemetry/[facility] (Inpatient) rt Condition: Fair rt Problem: new rt Symptoms: are unchanged rt Bed/Room Type: Standard rt Room Assignment: [id number](12/24/23 20:04) kl Diagnosis - NSTEMI rt - Perirectal abscess rt - Acute kidney injury rt Forms: - Medication Reconciliation Form rt - SBAR form rt - Leadership Thank You Letter rt Signatures: Dispatcher [employer] Cora Barth RN RN kl Lewis, Lynsay, RN RN ll1 Kena Medina RN RN jw7 Carito Frederick RN RN [id number] Ania Hutton RN RN db [place] Ajay, MD MD rt Denise Pedro RN [id number] Corrections: (The following items were deleted from the chart) 14:42 14:42 BASIC METABOLIC PANEL+C.LAB.BRZ ordered. EDMS EDMS 14:42 14:42 CBC+H.LAB.BRZ ordered. EDMS EDMS 14:42 14:42 HEPATIC FUNCTION+C.LAB.BRZ ordered. EDMS EDMS 14:42 14:42 MAGNESIUM+C.LAB.BRZ ordered. EDMS EDMS 14:42 14:42 Troponin High Sensitivity+C.LAB.BRZ ordered. EDMS EDMS 14:42 14:42 LIPASE+C.LAB.BRZ ordered. EDMS EDMS 15:25 14:42 Chest Single View+RAD.RAD.BRZ ordered. EDMS EDMS 16:40 14:42 Abdomen Pelvis W Con+CT.RAD.BRZ ordered. EDMS EDMS 19:15 18:36 Platelet Count ordered. EDMS EDMS 20:04 18:53 rt kl
--- NOTE | 2023-12-24 18:54 | ER ---
Nurse's Notes [facility] Name: Farhan Avila Age: 63 yrs Sex: Male : 1960 Arrival Date: 12/24/2023 Time: 14:15 Bed 3 Private MD: Diagnosis: NSTEMI;Perirectal abscess;Acute kidney injury Presentation: 12/23 14:31 Chief complaint: Patient states: CP a couple days ago, none now. Anal abscess for over ll1 1 week. No fever. No drainage at this time. Coronavirus screen: Client denies travel out of the [place] in the last 14 days. At this time, the client does not indicate any symptoms associated with coronavirus-19. Ebola Screen: Patient denies travel to an Ebola-affected area in the 21 days before illness onset. Initial Sepsis Screen: Does the patient meet any 2 criteria? No. Patient's initial sepsis screen is negative. Does the patient have a suspected source of infection? No. Patient's initial sepsis screen is negative. Risk Assessment: Do you want to hurt yourself or someone else? Patient reports no desire to harm self or others. Onset of symptoms was December 16, 2023. 14:31 Method Of Arrival: Ambulatory ll1 14:31 Acuity: DINORAH 2 ll1 Triage Assessment: 14:30 General: Appears uncomfortable, Behavior is calm, cooperative, appropriate for age. ll1 Pain: Complains of pain in rectum. Cardiovascular: Reports chest pain, shortness of breath. : Reports anal abscess, no drainage. Historical: - Allergies: 14:22 LITHIUM DERIVITIVES; ll1 - PMHx: 14:22 CAD; IN; HIV positive; Bipolar disorder; DM; raynaud's; ll1 - PSHx: 14:22 Appendectomy; Cholecystectomy; Heart Stents; ll1 - Immunization history:: Adult Immunizations up to date. - Infectious Disease History:: Denies. - Social history:: Smoking status: Patient reports the use of cigarette tobacco products, smokes one pack cigarettes per day. - Family history:: not pertinent. Screenin:35 [facility] ED Fall Risk Assessment (Adult) History of falling in the last 3 months, db including since admission No falls in past 3 months (0 pts) Confusion or Disorientation No (0 pts) Intoxicated or Sedated No (0 pts) Impaired Gait Yes (1 pt) Mobility Assist Device Used Yes (1 pt) Altered Elimination No (0 pt) Score/Fall Risk Level 0 - 2 = Low Risk Oriented to surroundings, Maintained a safe environment. Abuse screen: Denies threats or abuse. Denies injuries from another. Nutritional screening: No deficits noted. Tuberculosis screening: No symptoms or risk factors identified. Assessment: 15:35 Reassessment: Patient appears in no apparent distress at this time. Patient and/or db family updated on plan of care and expected duration. Pain level reassessed. Patient is alert, oriented x 3, equal unlabored respirations, skin warm/dry/pink. RECTAL ABSCESS X 1 WEEK. CHEST PAIN 1 WEEK AGO. General: Behavior is calm, cooperative, quiet. Pain: Complains of pain in buttocks Pain does not radiate. Pain began gradually. Neuro: Level of Consciousness is awake, alert, obeys commands, Oriented to person, place, time, situation. Cardiovascular: Reports chest pain. 18:30 Reassessment: Patient appears in no apparent distress at this time. Patient and/or db family updated on plan of care and expected duration. Pain level reassessed. Patient is alert, oriented x 3, equal unlabored respirations, skin warm/dry/pink. 19:10 General: Appears in no apparent distress. comfortable, Behavior is calm, cooperative, jw7 appropriate for age. Pain: Complains of pain in buttocks Pain does not radiate. Pain currently is .4 out of 10 on a pain scale. Quality of pain is described as throbbing, Pain began gradually, Is intermittent. Neuro: Level of Consciousness is awake, alert, obeys commands, Oriented to person, place, time, situation. Cardiovascular: Heart tones S1 S2 present Capillary refill < 3 seconds Clubbing of nail beds is absent JVD is absent Patient's skin is warm and dry. Respiratory: Airway is patent Trachea midline Respiratory effort is even, unlabored, Respiratory pattern is regular, symmetrical. GI: Abdomen is flat, non-distended, Bowel sounds present X 4 quads. Abd is soft and non tender X 4 quads. : No deficits noted. No signs and/or symptoms were reported regarding the genitourinary system. EENT: No deficits noted. No signs and/or symptoms were reported regarding the EENT system. 19:10 Derm: Skin is intact, is healthy with good turgor, Skin is dry, Skin is normal, Skin jw7 temperature is warm Abscess located on buttocks. Musculoskeletal: Circulation, motion, and sensation intact. Range of motion: intact in all extremities. 20:30 Reassessment: Patient appears in no apparent distress at this time. Patient and/or jw7 family updated on plan of care and expected duration. Pain level reassessed. Patient is alert, oriented x 3, equal unlabored respirations, skin warm/dry/pink. 21:30 Reassessment: Patient appears in no apparent distress at this time. Patient and/or jw7 family updated on plan of care and expected duration. Pain level reassessed. Patient is alert, oriented x 3, equal unlabored respirations, skin warm/dry/pink. Vital Signs: 14:31 BP 200 / 106; Pulse 93; Resp 18; Temp 97.4; Pulse Ox 100% ; Weight 63.5 kg; Height 5 ll1 ft. 11 in. ; Pain 0/10; 15:30 BP 199 / 101; Pulse 86; Resp 16; Pulse Ox 100% on R/A; db 17:31 BP 203 / 112; Pulse 82; Resp 18 S; Pulse Ox 97% on R/A; kc6 19:00 BP 189 / 102; Pulse 79; Resp 16 S; Pulse Ox 100% on R/A; jw7 20:00 BP 161 / 105; Pulse 79; Resp 16 S; Pulse Ox 98% on R/A; jw7 21:00 BP 177 / 97; Pulse 74; Resp 20 S; Pulse Ox 99% on R/A; jw7 14:31 Body Mass Index 19.53 (63.50 kg, 180.34 cm) ll1 14:31 Pain Scale: Adult ll1 ED Course: 14:18 Patient arrived in ED. mr 14:22 Arm band placed on. ll1 14:33 Triage completed. ll1 14:34 Ajay Camejo MD is Attending Physician. rt 14:35 EKG completed in triage. Results shown to . ll1 15:02 Ania Hutton, RN is Primary Nurse. db 15:05 Initial lab(s) drawn, by me, EKG done, by ED staff, reviewed by Ajay Camejo MD. db Inserted saline lock: 22 gauge in right antecubital area, using aseptic technique. Blood collected. 15:15 Radiology exam delayed due to lab results not completed at this time. (BUN/Creatinine). nj 15:15 Radiology exam delayed due to IV insertion attempt and/or patient not having nj appropriate IV at this time. 15:33 Chest Single View In Process Unspecified. EDMS 15:35 Patient has correct armband on for positive identification. Bed in low position. Call db light in reach. Side rails up X 1. Client placed on continuous cardiac and pulse oximetry monitoring. NIBP monitoring applied. gambling monitor on. Pulse ox on. NIBP on. Warm blanket given. 15:47 Radiology exam delayed due to lab results not completed at this time. (BUN/Creatinine). nj 16:02 Notified ED physician of a critical lab result(s). Troponin 627.8. aa5 16:40 Abdomen In Process Unspecified. EDMS 18:52 Collin Spicer MD is Hospitalizing Provider. rt 19:00 Provided Education on: Use of Call Light. jw7 19:02 Inserted saline lock: 22 gauge in left hand, using aseptic technique. Blood collected. db 19:15 No provider procedures requiring assistance completed. Patient admitted, IV remains in jw7 place. O2 via RA. Administered Medications: 16:10 Drug: Ondansetron IVP 4 mg IVP once; over 2 minutes Route: IVP; Site: right antecubital;db 20:36 Follow up: Response: No adverse reaction; Marked relief of symptoms jw7 16:11 Drug: morphine IVP or IV 4 mg IVP once over 4 mins Route: IVP; Infused Over: 4 mins; db Site: right antecubital; 20:36 Follow up: Response: No adverse reaction; Marked relief of symptoms jw7 17:43 Drug: Aspirin PO Chewable Tablet 162 mg PO once Route: PO; kc6 20:36 Follow up: Response: No adverse reaction jw7 17:43 Drug: Piperacillin-Tazobactam IVPB 3.375 grams IVPB once over 60 mins; (mix in NS 100 kc6 mL) Route: IVPB; Infused Over: 60 mins; Site: right antecubital; 20:36 Follow up: Response: No adverse reaction; IV Status: Completed infusion; IV Intake: jw7 100ml 19:48 Drug: Heparin (IN Drip) 12 units/kg/hr - ([place] [address] units, D5W IV 500 ml) IV at jw7 calculated rate Per protocol; Max initial rate 1000 units/hr {Co-Signature: kd3 (Denise Pedro RN).} Route: IV; Rate: calculated rate; Site: right antecubital; 20:36 Follow up: Response: No adverse reaction; IV Status: Infusion continued upon admission; jw7 IV Intake: 20ml 19:48 Drug: Alum-Mag Hydroxide-Simeth PO Suspension (200 mg-200 mg-20 mg/5 mL) 30 ml PO once jw7 Route: PO; 20:35 Follow up: Response: No adverse reaction; Marked relief of symptoms jw7 Medication: 15:40 VIS not applicable for this client. db Intake: 20:36 IV: 100ml; Total: 100ml. jw7 20:36 IV: 20ml; Total: 120ml. jw7 Outcome: 18:53 Decision to Hospitalize by Provider. rt 19:15 Admitted to Med/surg accompanied by tech, via wheelchair, room 207, jw7 19:15 Condition: stable 19:15 Instructed on the need for admit, Demonstrated understanding of instructions, 21:58 Patient left the ED. jw7 Signatures: Dispatcher [employer] EDMS Daya Sorensen, Reg Reg mr CorriganHoa awad, RN RN [id number] De Salgado Lynsay RN RN ll1 Kena Medina RN RN jw7 Carito Frederick RN RN kc6 Ania Hutton RN RN db Ajay Camejo MD MD rt Denise Pedro RN kd3
[2023-12-24] MEDS ORDERED: MAGNES/ALUMIN/SIMET 30ML UCUP ONE (19:20)
[2023-12-24] MEDS ORDERED: HEPARIN/D5W 25,000 UNIT/500 ML BAG IV ONE (19:20)
[2023-12-24 19:26] LABS: Absolute Basophils 0.1 K/uL (0-0.5); Absolute Eosinophils 0.1 K/uL (0-0.5); Absolute Lymphocytes (CBC) 1.1 K/uL (0.7-4.9); Absolute Monocytes 0.9 K/uL (0.1-1.3); Absolute Neutrophil 9.8 K/uL (1.8-8.0); Basophils % 0.5 % (0-1.3); Eosinophils % 0.7 % (0-4.4); Hematocrit 37.5 % (39.6-49.0); Hemoglobin 12.7 g/dL (13.6-17.9); Lymphocytes % 9.5 % (15.3-44.8); MCH 30.9 pg (27.0-35.0); MCHC 33.9 g/dL (32.0-36.0); MCV 91.3 fL (80-100); MPV 8.9 fL (7.6-11.3); Monocytes % 7.5 % (3.3-12.3); Neutrophils % 81.8 % (41.7-73.7); Nucleated Red Blood Cells % 0.1 % (0-0); Platelets 455 thou/uL (152-406); RBC Red Blood Cell Count 4.11 M/uL (4.33-5.43); Red Cell Distribution Width 13.3 % (12.1-15.2)
[2023-12-24 19:31] LABS: PT Prothrombin Time 10.7 SECONDS (9.4-12.5); PTT, Activated Partial Thromb 34.5 SECONDS (24.3-36.9); Protime INR 0.97
[2023-12-24] MEDS: ONDANSETRON 4 MG/2 ML VIAL IV PRN (21:05)
[2023-12-24] MEDS: MORPHINE 4 MG/ML SYR IV PRN (21:05)
[2023-12-24 21:55] VITALS: BMI 20.3
[2023-12-24] MEDS: POTASSIUM CL SA 10 MEQ TAB PO ONE (22:03)
[2023-12-24] MEDS: NA CHLORIDE 0.9% 1,000 ML IV SCH (22:03)
[2023-12-24] MEDS: PANTOPRAZOLE 40MG TABLET PO ONE (22:45)
[2023-12-24] MEDS: LOSARTAN POTASSIUM 50 MG TABLET PO SCH (22:47)
[2023-12-24] MEDS: METOPROLOL TAR 25 MG TAB PO SCH (22:47)
[2023-12-24] MEDS: TRAZODONE 50 MG TABLET PO SCH (22:47)
[2023-12-24] MEDS: HYDROCODONE/APAP 10/325 TAB PO PRN (23:06)
[2023-12-25] MEDS: MAGNES/ALUMIN/SIMET 30ML UCUP PO PRN (00:45)
[2023-12-25 04:32] LABS: Absolute Basophils 0.1 K/uL (0-0.5); Absolute Eosinophils 0.2 K/uL (0-0.5); Absolute Lymphocytes (CBC) 1.6 K/uL (0.7-4.9); Absolute Neutrophil 8.6 K/uL (1.8-8.0); Basophils % 1.2 % (0-1.3); Eosinophils % 1.8 % (0-4.4); Hematocrit 30.7 % (39.6-49.0); Hemoglobin 10.5 g/dL (13.6-17.9); Lymphocytes % 13.5 % (15.3-44.8); MCH 31.3 pg (27.0-35.0); MCHC 34.3 g/dL (32.0-36.0); MCV 91.1 fL (80-100); MPV 8.8 fL (7.6-11.3); Neutrophils % 74.5 % (41.7-73.7); Nucleated Red Blood Cells % 0.1 % (0-0); Platelets 405 thou/uL (152-406); RBC Red Blood Cell Count 3.37 M/uL (4.33-5.43); Red Cell Distribution Width 13.1 % (12.1-15.2)
[2023-12-25 04:49] LABS: Albumin 1.8 g/dL (3.4-5.0); Albumin/Globulin Ratio 0.5 (1.1-1.8); Alkaline Phosphatase 104 U/L (45-117); Anion Gap 7.6 mEq/L (5.0-15.0); BUN Blood Urea Nitrogen 25 mg/dL (7-18); Bicarbonate 22 mEq/L (21-32); Bilirubin Total 0.2 mg/dL (0.2-1.0); Globulin 3.6 g/dL (2.3-3.5); Glomerular Filtration Rate 28 ml/min (=/>90); Glucose Level 104 mg/dL (74-106); Potassium 3.6 mEq/L (3.5-5.1); Protein, Total 5.4 g/dL (6.4-8.2); Sodium Level 138 mEq/L (136-145)
[2023-12-25 04:50] LABS: ALT/SGPT < 14 U/L (16-61); AST/SGOT < 10 U/L (15-37)
[2023-12-25 05:04] LABS: Specific Gravity 1.013 (1.005-1.030); Sqamous Epithelial <5 /HPF (None Seen); Urine Bacteria None Seen /HPF (<20); Urine Bilirubin NEGATIVE (Negative); Urine Blood 2+ (Negative); Urine Clarity Extremely Turbid (Clear); Urine Color Light-Yellow (Yellow); Urine Culture Reflex Order NOT NEEDED; Urine Glucose 2+ (Negative); Urine Ketones NEGATIVE (Negative); Urine Microscopic Reflex YN ORDER UMIC; Urine Mucus Slight /HPF (None Seen); Urine Nitrite NEGATIVE (Negative); Urine Protein 3+ (Negative); Urine RBC 21-50 /HPF (None Seen); Urine Urobilinogen Normal (Normal); Urine pH 6.5 (5.0-7.0)
[2023-12-25] MEDS: POTASSIUM CL SA 10 MEQ TAB PO ONE (05:36)
[2023-12-25] MEDS: HYDRALAZINE HCL 10 MG TABLET PO SCH (08:52)
--- NOTE | 2023-12-25 10:00 | P.PN ---
Date of Service: 12/25/23 Subjective Admitted for chest pain, cardiology following, rectal pressure IV antibiotic N.p.o. for left heart cath Review of Systems Per HPI Physical Examination - Vital Signs Reviewed Physical Exam General: Alert, In no apparent distress, afebrile Neck: Supple, 2+ carotid pulse no bruit Respiratory: Equal unlabored, clear to auscultation Cardiovascular: Regular rate/rhythm, no edema Capillary refill: <2 Seconds Gastrointestinal: Soft and benign, W/out hepatosplenomegaly Musculoskeletal: No clubbing, No swelling Integumentary: No rashes : Rectal abscess Neurological: Normal gait, Normal strength at 5/5 x4 extr, Normal tone, Lymphatics: No axilla or inguinal lymphadenopathy Assessment and Plan - Problems (Diagnosis) NSTEMI Congestive heart failure Significant CAD Cardiology consulted, Trend troponin, telemetry Initiate aspirin and statin EKG no visible ischemia noted Started on heparin drip N.p.o. postmidnight Schedule 12/24 angiogram Perianal abscess Pain control Started on IV antibiotic Zosyn Surgical consult Dr. Angel waiting for cardiology to clear the patient for surgery Hypertension Antihypertensives titrated Continue home medications and titrate as needed Hyperlipidemia Continue statin Diabetes unknown control Insulin sliding scale Accu-Chek before every meal and at bedtime HIV Continue home medications CKD unknown baseline acute kidney injury Renal parameters monitor Started on IV hydration monitor moderation Electrolytes monitor and replace accordingly Nephrology following Anemia of chronic disease Monitor H&H closely GI/DVT prophylaxis Advanced directive full code Discharge Plan: Home Plan to discharge in: Greater than 2 days
[2023-12-25] MEDS: HEPARIN 5000 UNIT/ML 1 ML VIAL IV PRN (12:50)
--- NOTE | 2023-12-25 13:24 | P.CNS ---
Date of Consult: 12/25/23 Chief Complaint: Chest pain/perirectal abscess History of Present Illness: Patient with PMH of HIV, HTN, HLD, CAD s/p multiple PCIs, presented with rectal abscess, patient mention that he had chest pain few days ago, pressure in nature, radiated to his arm, he also mention that he was told he got complex coronary artery disease. Allergies lithium Allergy (Verified 10/29/22 20:51) Nausea/Vomiting Home Medications: Atorvastatin Calcium [Lipitor] 1 tab PO BEDTIME 10/29/22 Bictegrav/Emtricit/Tenofov Ala [Biktarvy 50-200-25 mg Tablet] 1 tab PO BEDTIME 10/29/22 Cetirizine HCl [Zyrtec] 10 mg PO DAILY 10/29/22 Insulin Glargine,Hum.rec.anlog [Lantus] 10 units SQ BEDTIME 10/29/22 Metoprolol Tartrate [Lopressor*] 25 mg PO BID 10/29/22 Nitroglycerin [Nitrostat*] 1 tab SL PRN PRN 10/29/22 PARoxetine HCL [Paxil] 30 mg PO DAILY 10/29/22 Pantoprazole [Protonix Tab*] 40 mg PO DAILY 10/29/22 hydrOXYzine HCL [Atarax*] 1 tab PO BID PRN 10/29/22 Losartan Potassium [Cozaar*] 50 mg PO DAILY #30 tab 10/31/22 Aspirin [Emerson Chewable Aspirin] 81 mg PO DAILY 11/19/22 Furosemide [Lasix*] 40 mg PO BIDL 11/19/22 Hydralazine [Apresoline*] 10 mg PO TID 11/19/22 Hydralazine [Apresoline*] 25 mg PO DAILYPRN PRN 11/19/22 Spironolactone [Aldactone*] 25 mg PO DAILY 11/19/22 Trazodone HCl 200 mg PO BEDTIME 11/19/22 Hydrocodone 5/APAP 325 [[place] 5/325*] 1 tab PO Q6H PRN #20 tab 11/22/22 Albuterol Neb [Proventil 0.083% Neb Soln] 2.5 mg NEB TID 12/24/23 Ipratropium Neb [Atrovent*] 0.5 mg NEB TID 12/24/23 Nicotine [Nicotine Patch] 1 each TD DAILY 12/25/23 - Past Medical/Surgical History Diabetic: Yes -: Hypertension -: Type 2 Diabetes -: HIV -: Coronary Artery Disease -: Bipolar Disorder -: Raynaud's disease -: Gastritis -: Hiatal hernia -: Previous FL's -: Appendectomy -: Cholecystectomy -: Cardiac cath with stents -: Anal absesses x3 Psychosocial/ Personal History: Patient lives at home with his partner. - Family History Mother Medical History: Heart disease, Other (see notes) Notes: Parkinson Father Medical History: Heart disease, Lung disease Notes: lung cancer - Social History Smoking Status: Current every day smoker Alcohol use: Yes CD- Drugs: No Caffeine use: No Review of Systems 10-point ROS is otherwise unremarkable Physical Examination Temp Pulse Resp BP Pulse Ox 97.8 F 56 14 157/88 H 99 12/25/23 12:00 12/25/23 12:00 12/25/23 12:00 12/25/23 12:00 12/25/23 12:00 General: Alert, In no apparent distress HEENT: Atraumatic, PERRLA, Mucous membr. moist/pink, EOMI, Sclerae nonicteric Neck: Supple, 2+ carotid pulse no bruit, No LAD, Without JVD or thyroid abnormality Respiratory: Clear to auscultation bilaterally, Normal air movement Cardiovascular: Regular rate/rhythm, Normal S1 S2 Gastrointestinal: Normal bowel sounds, No tenderness Musculoskeletal: No tenderness Integumentary: No rashes Neurological: Normal gait, Normal speech, Normal tone, Normal affect Lymphatics: No axilla or inguinal lymphadenopathy Laboratory Data (last 24 hrs) 12/24/23 12/24/23 12/24/23 18:20 15:25 15:25 WBC 12.10 H Hgb 12.8 L Hct 38.3 L Plt Count 467 H APTT Cancelled Sodium 137 Potassium 3.6 BUN 23 H Creatinine 2.67 H Glucose 307 H Magnesium 2.1 Total Bilirubin 0.3 AST < 10 L ALT < 14 L Alkaline Phosphatase 130 H Lipase 41 - Problems (1) NSTEMI (non-ST elevated myocardial infarction) Current Visit: Yes Status: Acute Plan: Patient with complex CAD and mild elevated cardiac enzymes, plan for coronary angiogram. (2) Congestive heart failure (CHF) Current Visit: No Status: Acute Plan: continue losartan. lopressor and lasix Qualifiers: Heart failure type: unspecified Heart failure chronicity: acute Qualified Code(s): I50.9 - Heart failure, unspecified (3) Hypertension Current Visit: No Status: Chronic Plan: continue medications above. Qualifiers: Hypertension type: primary hypertension Qualified Code(s): I10 - Essential (primary) hypertension
[2023-12-25] MEDS ORDERED: HEPA 1000U/500MLS 2,000 UNIT/1,000 ML BAG IV ONE (13:35)
[2023-12-25] MEDS ORDERED: LIDOCAINE 1% 20 ML MDV ONE (13:35)
[2023-12-25] MEDS: NA CHLORIDE 0.9% 500 ML ONE (14:20)
[2023-12-25] MEDS ORDERED: MIDAZOLAM HCL 2 MG/2 ML INJ ONE (15:02)
[2023-12-25] MEDS ORDERED: FENTANYL CITR 100 MCG/2 ML ONE (15:02)
[2023-12-25] MEDS ORDERED: HEPARIN 5000 UNIT/ML 1 ML VIAL ONE (15:02)
[2023-12-25] MEDS: MORPHINE 4 MG/ML SYR ONE (16:50)
--- NOTE | 2023-12-25 18:00 | P.CNS ---
Date of Consult: 12/25/23 Reason for Consult: ROHINI, CKD Chief Complaint: Chest pain/perirectal abscess History of Present Illness: 63 yrs old Male with past medical history of chronic malignant hypertension, Type II DM with unspecified complications, CAD status post prior AR, placement of multiple stents, HIV on HAART, prior ROHINI episode(s) and CKD with prior f/u with Dr. Yoo in clinic although has not seen him recently who came in with complains of worsening rectal abscess/infection and some on going intermittent chest pressure. Chest pain is left-sided with radiation to left arm, moderate. Denies any acute shortness of breath. No fever or chills. Patient admitted with NSTEMI, ROHINI and other. Allergies lithium Allergy (Verified 10/29/22 20:51) Nausea/Vomiting Home Medications: Atorvastatin Calcium [Lipitor] 1 tab PO BEDTIME 10/29/22 Bictegrav/Emtricit/Tenofov Ala [Biktarvy 50-200-25 mg Tablet] 1 tab PO BEDTIME 10/29/22 Cetirizine HCl [Zyrtec] 10 mg PO DAILY 10/29/22 Insulin Glargine,Hum.rec.anlog [Lantus] 10 units SQ BEDTIME 10/29/22 Metoprolol Tartrate [Lopressor*] 25 mg PO BID 10/29/22 Nitroglycerin [Nitrostat*] 1 tab SL PRN PRN 10/29/22 PARoxetine HCL [Paxil] 30 mg PO DAILY 10/29/22 Pantoprazole [Protonix Tab*] 40 mg PO DAILY 10/29/22 hydrOXYzine HCL [Atarax*] 1 tab PO BID PRN 10/29/22 Losartan Potassium [Cozaar*] 50 mg PO DAILY #30 tab 10/31/22 Aspirin [Emerson Chewable Aspirin] 81 mg PO DAILY 11/19/22 Furosemide [Lasix*] 40 mg PO BIDL 11/19/22 Hydralazine [Apresoline*] 10 mg PO TID 11/19/22 Hydralazine [Apresoline*] 25 mg PO DAILYPRN PRN 11/19/22 Spironolactone [Aldactone*] 25 mg PO DAILY 11/19/22 Trazodone HCl 200 mg PO BEDTIME 11/19/22 Hydrocodone 5/APAP 325 [[place] 5/325*] 1 tab PO Q6H PRN #20 tab 11/22/22 Albuterol Neb [Proventil 0.083% Neb Soln] 2.5 mg NEB TID 12/24/23 Ipratropium Neb [Atrovent*] 0.5 mg NEB TID 12/24/23 Nicotine [Nicotine Patch] 1 each TD DAILY 12/25/23 - Past Medical/Surgical History Diabetic: Yes -: Hypertension -: Type 2 Diabetes -: HIV -: Coronary Artery Disease -: Bipolar Disorder -: Raynaud's disease -: Gastritis -: Hiatal hernia -: Previous AR's -: CKD followed by Dr. Yoo -: Appendectomy -: Cholecystectomy -: Cardiac cath with stents -: Anal absesses x3 Psychosocial/ Personal History: Patient lives at home with his partner. - Family History Mother Medical History: Heart disease, Other (see notes) Notes: Parkinson Father Medical History: Heart disease, Lung disease Notes: lung cancer - Social History Smoking Status: Current every day smoker Alcohol use: Yes CD- Drugs: No Caffeine use: No Review of Systems General: As per HPI Eyes: Unremarkable ENT: Unremarkable Respiratory: Unremarkable Cardiovascular: Chest Pain, As per HPI Gastrointestinal: Unremarkable Genitourinary: Unremarkable Musculoskeletal: Unremarkable Integumentary: As per HPI Neurological: Unremarkable Physical Examination Temp Pulse Resp BP Pulse Ox 97.8 F 60 17 135/69 99 12/25/23 17:15 12/25/23 17:15 12/25/23 17:15 12/25/23 17:15 12/25/23 12:00 General: Alert, In no apparent distress, Cooperative HEENT: Atraumatic, Normocephalic Neck: Supple Respiratory: Clear to auscultation bilaterally, Normal air movement Cardiovascular: No edema, Normal S1 S2 Gastrointestinal: Soft and benign, Non-distended, No tenderness Musculoskeletal: No swelling, No tenderness Integumentary: No rashes Neurological: Normal speech, Normal tone, Normal affect Laboratory Data (last 24 hrs) 12/24/23 18:20 APTT Cancelled Conclusions/Impression: A/P) 1. Stage II ROHINI on underlying CKD NOS, prior ROHINI episode(s). Underlying CKD multifactorial but in the setting of chronic conditions with prior renal imaging showing kidneys with cysts but no reports of enlarged polycystic kidneys (not able to load images on this computer for independent review) 2. ROHINI in the setting of infection +/- other acute glomerulopathy, given microscopic hematuria. Pt also has hx of HIV and is on tenofovir. Check complement levels, check spot urine 3. Cont gentle hydration for now with isotonic IVF. Suspend ARB. Pt with NSTEMI and sig troponin leak with Cardiology possibly planning LHC on this admission, risk for BALWINDER will be at least mod given two or more risk factors. Will order NAC as well 4. Netta-rectal abscess -Abx per primary team, renally dose 5. Hypoalbuminemia -sig low albumin level likely 2nd to chronic illness +/- proteinuria, will check spot urine as mentioned above 6. Hypertensive urgency on admission, HTN with heart and kidney disease -BP has improved since admission, monitor closely
[2023-12-25] MEDS: INSULIN GLARGINE 100 UNIT/ML SQ SCH (21:00)
[2023-12-25] MEDS: ATORVASTATIN 80 MG TAB PO SCH (21:32)
[2023-12-26 00:43] VITALS: TEMP 97.5
[2023-12-26 00:44] VITALS: BP 118/63
--- NOTE | 2023-12-26 01:32 | OP ---
Date of Procedure: 12/25/2023 Surgeon: Rocky Hilliard Procedure Performed: 1.Left heart consolidation. 2.Selective coronary angiogram. 3.JENSEN angiogram. Indication For Procedure: [id number] AR. Access: Right radial, closed by TR band. Estimated Blood Loss: Less than 50 cc. Sedation Time: 20 minutes with 1 of Versed and 25 of fentanyl. Complications: None. Estimated Blood Loss: Less than 50 cc. Description Of Procedure: After risks, benefits, and alternatives were explained to patient, the pat ient agreed to proceed with procedure and signed informed consent. The patient was brought back to [facility] labor relations analyst, prepped and draped in sterile fashion. A time-out was performed. Sedation was administ ered. Right radial ultrasound-guided micropuncture technique was obtained. A DeliveryEdge 4 catheter was a dvanced over a J-wire to the LV cavity. LVEDP was obtained. Pullback did not show any gradient. Sa me catheter was used for selective coronary angiogram of the left and right coronary systems and the JENSEN. The catheter was removed and then sheath was removed. TR band was applied. Hemostasis was ac hieved. The patient was moved back to Recovery in stable condition. Findings: 1.Left main is normal. 2.LAD, proximal to mid stent with midportion 80% ISR at the overlap area most likely. Then mid diff use 40% to 50% disease that is followed by [id number] mild luminal irregularities. 3.Ramus is a 2.5 mm vessel with mid 80% disease, then mild luminal irregularities. 4.Left circ, proximal mild luminal irregularities, proximal to mid stent is patent, gives a small OM 1, diffuse diseased, and then a 2.5 mm OM2 artery with a proximal 90% diseased and then gives OM3, th at is small diffuse 99% diseased. 5.RCA dominant, proximal 30% diseased, mid 50% diseased, then mild luminal irregularities. 6.RPDA, proximal 80% diseased and mild luminal irregularities, then RPLV stent is patent. 7.JENSEN is patent. 8.LVEDP 32 mmHg. Assessment And Plan: 1.Significant left anterior descending stent to in-stent restenosis. 2.Significant ramus disease. 3.Significant OM2 disease. 4.Significant right posterior descending artery disease. The plan will be to consult CT surgery for evaluation for bypass. The patient will be transferred to our inpatient Hospital for drainage and then evaluation for bypass. ASHLEY Voice ID: [id number] Report ID: [id number]
[2023-12-26 02:59] VITALS: O2SAT 97
--- NOTE | 2023-12-26 14:10 | EKG ---
Test Date: 2023-12-24 Test Time: 14:28:15 Photographic Platemaker: [facility] MEASUREMENT RESULTS: Intervals: Rate: 93 MI: 174 QRSD: 136 QT: 436 QTc: 542 Dougherty: P: 109 MI: 174 QRS: 23 T: 166 INTERPRETIVE STATEMENTS: Normal sinus rhythm Right bundle branch block Lateral infarct, age undetermined T wave abnormality, consider inferior ischemia Abnormal ECG Compared to ECG 11/19/2022 12:26:48 Myocardial infarct finding now present T-wave abnormality now present Possible ischemia now present Electronically Signed On 12-26-23 14:07:00 CDT by Rocky Hilliard
--- NOTE | 2023-12-27 12:43 | P.PN ---
Date of Service: 12/26/23 Subjective Pain controlled with as needed analgesics, cardiology following for significant CAD Left heart cath 12/24 plan to transfer for CABG Review of Systems Per HPI Physical Examination - Vital Signs Reviewed Physical Exam General: Alert, alert, no acute Respiratory: Equal unlabored, Cardiovascular: Regular rate/rhythm, Capillary refill: <2 Seconds, no edema Gastrointestinal: Soft and benign, W/out hepatosplenomegaly Musculoskeletal: No clubbing, No swelling Integumentary: No rashes : Rectal abscess, tenderness Neurological: Normal gait, Normal strength at 5/5 x4 extr, Normal tone, Lymphatics: No axilla or inguinal lymphadenopathy Assessment and Plan - Problems (Diagnosis) NSTEMI Congestive heart failure Significant CAD Cardiology consulted, Trend troponin, telemetry Initiate aspirin and statin EKG no visible ischemia noted Started on heparin drip N.p.o. postmidnight Schedule 12/24 angiogram Perianal abscess Pain control Started on IV antibiotic Zosyn Surgical consult Dr. Angel waiting for cardiology to clear the patient for surgery Hypertension Antihypertensives titrated Continue home medications and titrate as needed Hyperlipidemia Continue statin Diabetes unknown control Insulin sliding scale Accu-Chek before every meal and at bedtime HIV Continue home medications CKD unknown baseline acute kidney injury Renal parameters monitor Started on IV hydration monitor moderation Electrolytes monitor and replace accordingly Nephrology following Anemia of chronic disease Monitor H&H closely GI/DVT prophylaxis Advanced directive full code Discharge Plan: Home Plan to discharge in: Greater than 2 days
--- NOTE | 2023-12-27 15:53 | P.DS ---
Admission Date: 12/24/23 Discharge Date: 12/26/23 Disposition: [facility] Discharge Condition: FAIR Reason for Admission: Chest pain/perirectal abscess Brief History of Present Illness: 63 yrs old Male with past medical history of hypertension, hyperlipidemia, CAD status post AR, placement of multiple stents, HIV, bipolar disorder,, Raynaud's disease, came in with chest Pressure, and pain and swelling in the rectal region. Chest pain is left-sided with radiation to left arm with no diaphoresis. No fever or chills. Patient started having chest pain 4 days ago and has been on and off intermittently. Denies any shortness of breath. No fever or chills. No nausea vomiting diarrhea. Patient also has had a recurrence of anal abscess which he used to have before. complains of pain no fever or chills. ER discussed the case with Dr. Perry Surgery who recommended surgery once cardiology clears him. Patient noted to have NSTEMI and was admitted for further management - Physical Exam General: Alert, In no apparent distress, Oriented x3 HEENT: Atraumatic, Normocephalic Neck: Supple, 2+ carotid pulse no bruit Respiratory: Clear to auscultation bilaterally, Normal air movement Cardiovascular: No edema, Regular rate/rhythm, Normal S1 S2 Capillary refill: <2 Seconds Gastrointestinal: Soft and benign, W/out hepatosplenomegaly Musculoskeletal: No clubbing, No swelling Integumentary: No rashes Neurological: Normal gait, Normal strength at 5/5 x4 extr, Normal tone, Cranial nerves 3-12 intact, Normal reflexes 2+, Normal affect Lymphatics: No axilla or inguinal lymphadenopathy Hospital Course: 63 yrs old Male with past medical history of hypertension, hyperlipidemia, CAD status post AR, placement of multiple stents, HIV, bipolar disorder,, Raynaud's disease, came in with chest Pressure, and pain and swelling in the rectal region. Chest pain is left-sided with radiation to left arm with no diaphoresis. Was noted to have chest pain, with significant CAD. Was evaluated by cardiology is status post heart cath. Plan to transfer for CABG with cardiology. Patient tolerating diet, transfer to [place] for cardiology for CAB. PROBLEM: Chest pain, status post heart cath, secondary to restenosis Significant CAD, status post heart cath, transfer for CABG per cardiology NSTEMI Perineal abscess on IV antibiotic History of HIV CT of the abdomen pelvis No evidence diverticulitis. Bilateral renal cysts 5 x 2 centimeter left perirectal abscess 12/25 Heart cath Assessment And Plan: 1. Significant left anterior descending stent to in-stent restenosis. 2. Significant ramus disease. 3. Significant OM2 disease. 4. Significant right posterior descending artery disease. Continue home medicines as previously prescribed GOAL: Clear understanding of disease process INSTRUCTIONS: Physician Discharge Instructions: -Follow-up with PCP in 1 to 2 weeks -Please call Dr. Curry at [phone] if any questions regarding hospital stay -Please call nursing station at [phone] if any nursing or medication questions -Return to the emergency room if symptoms worsen Diet: ADA, low sodium Activity: Fall precautions Vital Signs/Physical Exam: Temp Pulse Resp BP Pulse Ox 97.5 F 58 16 118/63 97 12/26/23 00:00 12/26/23 00:00 12/26/23 00:00 12/26/23 00:00 12/26/23 00:00 Laboratory Data at Discharge: WBC Cancelled 12/26/23 18:45 Hgb Cancelled 12/26/23 18:45 Hct Cancelled 12/26/23 18:45 Plt Count Cancelled 12/26/23 18:45 PT 10.7 SECONDS (9.4-12.5) 12/24/23 18:58 INR 0.97 12/24/23 18:58 APTT 37.8 SECONDS (24.3-36.9) H 12/25/23 07:35 Sodium Cancelled 12/26/23 05:00 Potassium Cancelled 12/26/23 05:00 BUN Cancelled 12/26/23 05:00 Creatinine Cancelled 12/26/23 05:00 Glucose Cancelled 12/26/23 05:00 Phosphorus Cancelled 12/26/23 05:00 Magnesium 2.1 mg/dL (1.6-2.4) 12/24/23 15:25 Total Bilirubin 0.2 mg/dL (0.2-1.0) 12/25/23 03:05 AST < 10 U/L (15-37) L 12/25/23 03:05 ALT < 14 U/L (16-61) L 12/25/23 03:05 Alkaline Phosphatase 104 U/L (45-117) 12/25/23 03:05 Lipase 41 U/L (13-75) 12/24/23 15:25 Home Medications: Atorvastatin Calcium [Lipitor] 1 tab PO BEDTIME 10/29/22 Bictegrav/Emtricit/Tenofov Ala [Biktarvy 50-200-25 mg Tablet] 1 tab PO BEDTIME 10/29/22 Cetirizine HCl [Zyrtec] 10 mg PO DAILY 10/29/22 Insulin Glargine,Hum.rec.anlog [Lantus] 10 units SQ BEDTIME 10/29/22 Metoprolol Tartrate [Lopressor*] 25 mg PO BID 10/29/22 Nitroglycerin [Nitrostat*] 1 tab SL PRN PRN 10/29/22 PARoxetine HCL [Paxil] 30 mg PO DAILY 10/29/22 Pantoprazole [Protonix Tab*] 40 mg PO DAILY 10/29/22 hydrOXYzine HCL [Atarax*] 1 tab PO BID PRN 10/29/22 Losartan Potassium [Cozaar*] 50 mg PO DAILY #30 tab 10/31/22 Aspirin [Emerson Chewable Aspirin] 81 mg PO DAILY 11/19/22 Furosemide [Lasix*] 40 mg PO BIDL 11/19/22 Hydralazine [Apresoline*] 10 mg PO TID 11/19/22 Hydralazine [Apresoline*] 25 mg PO DAILYPRN PRN 11/19/22 Spironolactone [Aldactone*] 25 mg PO DAILY 11/19/22 Trazodone HCl 200 mg PO BEDTIME 11/19/22 Hydrocodone 5/APAP 325 [Emmett 5/325*] 1 tab PO Q6H PRN #20 tab 11/22/22 Albuterol Neb [Proventil 0.083% Neb Soln] 2.5 mg NEB TID 12/24/23 Ipratropium Neb [Atrovent*] 0.5 mg NEB TID 12/24/23 Nicotine [Nicotine Patch] 1 each TD DAILY 12/25/23 Diet: AHA Activity: Fall precautions Followup: Mini Yoo MD [Primary Care Provider] - Dash Saldana MD [ACTIVE - CAN ADMIT] - Time spent managing pt's care (in minutes): 55
== END 2023-12-26 03:09 | disposition short-term general hospital (02) | DRG 281 ==
LOC: ER 14:15 → 2ND 18:26
PROVIDERS: ADMIT Family Medicine; ATTEND Hospitalist
PROC: 4A023N7 Measurement of Cardiac Sampling and Pressure, Left Heart, Percutaneous Approach (ICD-10-PCS; principal; 2023-12-25)
PROC: B2111ZZ Fluoroscopy of Multiple Coronary Arteries using Low Osmolar Contrast (ICD-10-PCS; 2023-12-25)
PROC: B2181ZZ Fluoroscopy of Left Internal Mammary Bypass Graft using Low Osmolar Contrast (ICD-10-PCS; 2023-12-25)
DX: T82.855A Stenosis of coronary artery stent, initial encounter (principal); I13.0 Hypertensive heart and chronic kidney disease with heart failure and stage 1 through stage 4 chronic kidney disease, or unspecified chronic kidney disease; I21.4 Non-ST elevation (NSTEMI) myocardial infarction; K61.1 Rectal abscess; N17.9 Acute kidney failure, unspecified; E78.5 Hyperlipidemia, unspecified; I50.9 Heart failure, unspecified; N18.9 Chronic kidney disease, unspecified; E11.22 Type 2 diabetes mellitus with diabetic chronic kidney disease; D63.1 Anemia in chronic kidney disease; D63.8 Anemia in other chronic diseases classified elsewhere; I16.0 Hypertensive urgency; N28.1 Cyst of kidney, acquired; E88.09 Other disorders of plasma-protein metabolism, not elsewhere classified; I25.10 Atherosclerotic heart disease of native coronary artery without angina pectoris; I25.2 Old myocardial infarction; F17.210 Nicotine dependence, cigarettes, uncomplicated; R31.29 Other microscopic hematuria; Z21 Asymptomatic human immunodeficiency virus [HIV] infection status; Z79.4 Long term (current) use of insulin; Z95.5 Presence of coronary angioplasty implant and graft; Z88.8 Allergy status to other drugs, medicaments and biological substances; Z79.82 Long term (current) use of aspirin; Z90.49 Acquired absence of other specified parts of digestive tract; Z79.899 Other long term (current) drug therapy; Y83.8 Other surgical procedures as the cause of abnormal reaction of the patient, or of later complication, without mention of misadventure at the time of the procedure
CPT/HCPCS: 36415; 71045; 74176; 76937; 80048; 80053; 80076; 81001; 82947; 83690; 83735; 84484; 85025; 85610; 85730; 93005; 93458; 94760; 96365; 96366; 96375; 99152; 99153; 99285; C1893; J1644; J2001; J2250; J2405; J2543; J3010; J7030; J7040; Q9966